=== PATIENT | female | born 1985 | race Caucasian/White ===

== ENCOUNTER 2023-10-15 13:51 | Emergency (ER) | payer SELFPAY ==
[2023-10-15] VITALS (7 sets, daily range): BP systolic 103–133; BP diastolic 70–82; PULSE 70–84; TEMP 36.6; O2SAT 99–100; BMI 24.2
--- NOTE | 2023-10-15 14:09 | ECG_ITS ---
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
--- NOTE | 2023-10-15 14:10 | ED.CHESTPAI1 ---
HPI - Chest Pain General Chief Complaint: Chest Pain Stated Complaint: CHEST PAIN, DIZZY, ARM NUMBNESS Time Seen by Provider: 10/15/23 13:58 History of Present Illness HPI narrative: 37 year old female presents to the ED for chest pain, dizziness. Onset was this morning. Reports a spinning sensation with the dizziness. Her chest pain is worse with inspiration and movement. States she is concerned about . Denies fever, chills, vision changes, CARMICHAEL. denies cough, SOB, N/V/D, abd pain. Denies sinus congestion, sore throat, ear pain. Related Data Previous Rx's ?Medication ?Instructions ?Recorded meclizine 25 mg tablet 25 mg PO TID PRN dizziness #12 tabs 10/15/23 ondansetron 4 mg disintegrating 4 mg PO Q8H PRN nausea and 10/15/23 tablet vomiting 4 days #12 tabs Allergies Allergy/AdvReac Type Severity Reaction Status Date / Time cyclobenzaprine Allergy Severe shortness Verified 10/15/23 14:00 [From Flexeril] of breath ibuprofen [From Motrin] AdvReac Severe shortness Verified 10/15/23 13:55 of breath acetaminophen AdvReac Hives Verified 10/15/23 13:55 [From Darvocet-N] Penicillins AdvReac Anaphylaxis Verified 10/15/23 13:55 propoxyphene AdvReac Hives Verified 10/15/23 13:55 [From Darvocet-N] Review of Systems ROS Constitutional Denies: fever or chills Eyes Denies: change in vision, blurry vision or light sensitivity Ears, nose, mouth, and throat Reports: vertigo; Denies: throat pain, neck pain, ear pain, ear discharge, nasal discharge or nasal congestion Cardiovascular Reports: chest pain; Denies: palpitations, edema or lightheadedness Respiratory Denies: shortness of breath, cough or wheezing Gastrointestinal Denies: abdominal pain, nausea, vomiting or diarrhea Genitourinary Denies: painful urination Musculoskeletal Denies: back pain or neck pain Integumentary/Breast Denies: rash Neurological Reports: dizziness and vertigo; Denies: headache, numbness in extremities, weakness in extremities, lack of coordination, confusion or slurred speech Exam Constitutional Vital Signs, click to edit/add: Last Vital Signs Temp 97.8 F 10/15/23 13:56 Pulse 70 10/15/23 16:33 Resp 18 10/15/23 16:33 BP 107/71 10/15/23 16:33 Pulse Ox 99 10/15/23 16:33 O2 Del Method Room Air 10/15/23 16:33 Common normals: no apparent distress and oriented x3 General appearance: cooperative HENMT Common normals: normocephalic Nose: external nose normal External ear: external ears normal Mouth: oral and palatal mucosa normal, lip normal and tongue normal Throat: posterior oropharynx normal Eye Common normals: PERRL, EOMs intact bilaterally, conjunctivae normal and no scleral icterus Neck & C-Spine Common normals: supple and no meningeal signs Chest Chest: symmetrical chest wall rise Respiratory Common normals: normal respiratory effort, no retractions and clear to auscultation bilaterally Cardio Common normals: regular rate and regular rhythm Neuro Common normals: oriented x3, CN's II-XII intact bilaterally and moves all extremities Sensorium/orientation: awake and alert Speech: speech normal Course Vital Signs Vital signs: Vital Signs Temperature 97.8 F 10/15/23 13:56 Pulse Rate 84 10/15/23 13:56 Respiratory Rate 20 10/15/23 13:56 Blood Pressure 123/82 10/15/23 13:56 Pulse Oximetry 100 10/15/23 13:56 Oxygen Delivery Method Room Air 10/15/23 13:56 Temperature 97.8 F 10/15/23 13:56 Pulse Rate 70 10/15/23 16:33 Respiratory Rate 18 10/15/23 16:33 Blood Pressure 107/71 10/15/23 16:33 Pulse Oximetry 99 10/15/23 16:33 Oxygen Delivery Method Room Air 10/15/23 16:33 MDM - Chest Pain MDM Narrative Medical decision making narrative: was negative. Laboratory studies were unremarkable, including d-dimer. Imaging was negative for acute findings. She reported improvement in her sx with the IV fluids and Antivert. She reported mild chest pain remained; it was worse with movement and inspiration. She declined Toradol; she requested a [place]. OARRS was reviewed. Prescriptions were provided for Antivert and Zofran. She was encouraged to follow up with her pcp for a recheck, further evaluation and treatment. Differential Diagnosis Differential diagnosis: Likely atypical chest pain, st elevation myocardial infarction and other (Vertigo, Dizziness, ) Medical Records Data Attestation: I reviewed the patient's medical records. Lab Data Attestation: I reviewed the patient's lab results. Labs: Lab Results 10/15/23 10/15/23 Range/Units 14:00 14:07 WBC 5.5 (4.0-11.0) 10^3/uL RBC 4.76 (4.20-5.40) 10^6/uL Hgb 14.3 (12.0-16.0) g/dL Hct 43.7 (36.0-48.0) % MCV 91.8 (81.0-99.0) fL MCH 30.0 (26.7-34.0) pg MCHC 32.7 (29.9-35.2) g/dL RDW 12.6 (11.0-15.0) % Plt Count 222 (150-450) 10^3/uL MPV 10.9 (9.5-13.5) fL Neut % (Auto) 68.2 (43.0-75.0) % Lymph % (Auto) 24.4 (20.5-60.0) % [place] % (Auto) 5.9 (1.7-12.0) % Eos % (Auto) 0.6 L (0.9-7.0) % Baso % (Auto) 0.7 (0.2-2.0) % Neut # (Auto) 3.7 (1.4-6.5) 10^3/uL Lymph # (Auto) 1.3 (1.2-3.8) 10^3/uL [place] # (Auto) 0.3 (0.3-0.8) 10^3/uL Eos # (Auto) 0.0 (0.0-0.7) 10^3/uL Baso # (Auto) 0.0 (0.0-0.1) 10^3/uL Abs Immat Gran (auto) 0.01 (0.00-0.03) 10^3/uL Imm/Tot Granulo (auto) 0.2 (0.0-0.5) % D-Dimer 0.24 (<=0.59) mg/L FEU Sodium 140 (136-145) mmol/L Potassium 3.7 (3.5-5.1) mmol/L Chloride 104 (98-107) mmol/L Carbon Dioxide 26.3 (21.0-32.0) mmol/L Anion Gap 13.4 BUN 11.0 (7.0-18.0) mg/dL Creatinine 0.80 (0.55-1.02) mg/dL Est GFR ( Amer) >60 (>=60) Est GFR (Non-Af Amer) >60 (>=60) BUN/Creatinine Ratio 13.8 Glucose 90 (74-106) mg/dL Calcium 8.9 (8.5-10.1) mg/dL Total Bilirubin 0.6 (0.2-1.0) mg/dL AST 18 (15-37) U/L ALT 19 (14-59) U/L Alkaline Phosphatase 65 (46-116) U/L Troponin I High Sens 4.9 (4.0-51.3) pg/mL NT-Pro-B Natriuret Pep 76.0 (<=450.0) pg/mL Total Protein 7.6 (6.4-8.2) g/dL Albumin 4.1 (3.4-5.0) g/dL Globulin 3.5 g/dL Albumin/Globulin Ratio 1.2 HCG, Quant <1 mIU/mL Urine HCG, Qual Negative (NEGATIVE) Imaging Data Chest x-ray: Attestation: I have reviewed the pertinent imaging results. Radiologist's impression: ITS Impressions Chest X-Ray 10/15/23 14:35 IMPRESSION: No acute cardiopulmonary process Electronically authenticated by: MATTHIAS MCCORMICK Date: 10/15/2023 15:17 ECG Data Attestation: ?I have reviewed the pertinent ECG results. (EKG was reviewed by the attending physician. It showed sinus rhythm at a rate of [address] segment changes. QTc 426 ms. ) Interpretation: Measurements Intervals [place] Rate: 80 P: 77 [place]: 156 QRS: 86 QRSD: 84 T: 49 QT: 390 QTc: 426 Interpretive Statements 1100 Sinus rhythm 1102 Sinus arrhythmia 9110 normal ECG No previous ECG available for comparison Heart Score History: Slightly/Non-Suspicious ECG: Normal Age: <45 years Risk Factors: 1 or 2 Risk Factors Troponin: <Normal Limit Total Heart Score Recommendations & Risks:: 1 Discharge Plan Discharge Stand Alone Forms: Portal Instructions Chief Complaint: Chest Pain Clinical Impression: Atypical chest pain, Dizziness, Negative test Patient Disposition: Home, Self-Care Time of Disposition Decision: 16:17 Condition: Good Mode of Transportation: Private Vehicle Prescriptions / Home Meds: New meclizine 25 mg tablet 25 mg PO TID PRN (Reason: dizziness) Qty: 12 0RF ondansetron 4 mg tablet,disintegrating 4 mg PO Q8H PRN (Reason: nausea and vomiting) 4 Days Qty: 12 0RF Print Language: Mohawk Instructions: Chest Pain (ED), Vertigo (ED), Dizziness (ED) Additional Instructions: Return to the ER for new or worsening symptoms. Discharge Date/Time: 10/15/23 16:34
[2023-10-15] MEDS: 0.9 % SODIUM CHLORIDE 1,000 ML 1000 ML IV (14:16)
[2023-10-15 14:22] LABS: Basophils Percent Auto 0.7 % (0.2-2.0); Eosinophils Percent Auto 0.6 % (0.9-7.0); Hematocrit 43.7 % (36.0-48.0); Hemoglobin 14.3 g/dL (12.0-16.0); Immature Granulocytes Abs Auto 0.01 10^3/uL (0.00-0.03); Immature Granulocytes Pct Auto 0.2 % (0.0-0.5); Lymphocytes Absolute Auto 1.3 10^3/uL (1.2-3.8); Lymphocytes Percent Auto 24.4 % (20.5-60.0); Mean Corpuscular HGB Conc 32.7 g/dL (29.9-35.2); Mean Corpuscular Volume 91.8 fL (81.0-99.0); Mean Platelet Volume 10.9 fL (9.5-13.5); Monocytes Absolute Auto 0.3 10^3/uL (0.3-0.8); Monocytes Percent Auto 5.9 % (1.7-12.0); Neutrophils Absolute Auto 3.7 10^3/uL (1.4-6.5); Neutrophils Percent Auto 68.2 % (43.0-75.0); Platelet Count 222 10^3/uL (150-450); Red Blood Count 4.76 10^6/uL (4.20-5.40); Red Cell Distribution Width 12.6 % (11.0-15.0); White Blood Count 5.5 10^3/uL (4.0-11.0)
[2023-10-15 14:32] LABS: HCG Qualitative Urine* NEGATIVE (NEGATIVE); Internal Control Within Normal Limits
--- NOTE | 2023-10-15 14:35 | XR_ITS ---
The [address] [address] Patient Name: MADISON VANCE MRN: [id number] date: 1985 Sex: F Assigned Patient Location: ER Current Patient Location: ER Accession/Order Number: [id number] Exam Date: 10/15/2023 14:58 Report Date: 10/15/2023 15:17 At the request of: ИРИНА KEY Procedure: XR chest 1V EXAMINATION: XR chest 1V HISTORY: Chest pain COMPARISON: 10/26/2021 TECHNIQUE: AP portable FINDINGS: LUNGS: No significant pulmonary parenchymal abnormalities. VASCULATURE: No increased pulmonary vasculature. PLEURA: No pneumothorax, effusion, or pleural thickening. CARDIAC: No cardiomegaly or cardiac silhouette abnormality. MEDIASTINUM: No visible mass or adenopathy. BONES: No fracture or visible bone lesion. OTHER: Negative. XR/XR chest 1V IMPRESSION: No acute cardiopulmonary process Electronically authenticated by: MATTHIAS MCCORMICK Date: 10/15/2023 15:17
[2023-10-15 14:41] LABS: D Dimer 0.24 mg/L FEU (<=0.59)
[2023-10-15] MEDS: MECLIZINE HCL 12.5 MG TABLET 25 MG PO (14:41)
[2023-10-15 14:44] LABS: Alanine Aminotransferase 19 U/L (14-59); Albumin Globulin Ratio 1.2; Albumin Level 4.1 g/dL (3.4-5.0); Alkaline Phosphatase 65 U/L (46-116); Anion Gap 13.4; Aspartate Amino Transferase 18 U/L (15-37); BUN Creatinine Ratio 13.8; Bilirubin Total 0.6 mg/dL (0.2-1.0); Calcium 8.9 mg/dL (8.5-10.1); Carbon Dioxide 26.3 mmol/L (21.0-32.0); Chloride 104 mmol/L (98-107); Estimated GFR (African America >60 (>=60); Estimated GFR (Non-African Ame >60 (>=60); Globulin 3.5 g/dL; Glucose 90 mg/dL (74-106); Potassium 3.7 mmol/L (3.5-5.1); Sodium 140 mmol/L (136-145); Total Protein 7.6 g/dL (6.4-8.2); Troponin I High Sensitivity 4.9 pg/mL (4.0-51.3)
[2023-10-15 15:29] LABS: HCG Quantitative <1 mIU/mL
[2023-10-15] MEDS: HYDROCODONE/ACET 5-325 MG TABLET 1 TAB PO (16:30)
== END 2023-10-15 16:34 | disposition home or self-care (01) ==
PROVIDERS: Nurse Practitioner Family; Emergency Provider Emergency Medicine
DX: R07.89 Other chest pain (principal); R42 Dizziness and giddiness; Z32.02 Encounter for pregnancy test, result negative
CPT/HCPCS: 36415; 71045; 80053; 83880; 84484; 84702; 84703; 85025; 85378; 93005; 96360; 99285

== ENCOUNTER 2024-05-26 22:31 | Emergency (ER) | payer SELFPAY ==
[2024-05-26 22:36] VITALS: BP 102/69; PULSE 86; TEMP 36.6; O2SAT 100; BMI 20.5
--- NOTE | 2024-05-26 23:05 | CT_ITS ---
The [address] [address] Patient Name: MADISON VANCE MRN: [id number] date: 1985 Sex: F Assigned Patient Location: ER Current Patient Location: ER Accession/Order Number: [id number] Exam Date: 05/26/2024 23:35 Report Date: 05/27/2024 01:44 At the request of: MARIE MARKER Procedure: CT abdomen pelvis wo con EXAMINATION:CT abdomen pelvis wo con INDICATION:right flank pain, hx kidney stone COMPARISON:02/22/2022 CT scan TECHNIQUE:Multiple thin section transaxial slices were acquired through the abdomen and pelvis without intravenous contrast. Coronal and sagittal reconstructed images were reviewed. Oral contrastWas not administered. FINDINGS: LOWER CHEST: The lower chest is unremarkable. LIVER: The liver is unremarkable. GALLBLADDER AND BILIARY SYSTEM: No obvious ductal dilation. The gallbladder surgically absent. SPLEEN: There is a similar cyst in the spleen. PANCREAS: The pancreas is unremarkable. ADRENAL GLANDS: The adrenal glands are unremarkable. KIDNEYS AND URETERS: There is no hydronephrosis of the kidneys.No obstructing urologic calcifications are present. VASCULATURE: Vascularity is unremarkable. PERITONEUM/RETROPERITONEUM: There is a trace amount of free fluid in the pelvis which may be physiologic. There is no free air. LYMPH NODES: No suspicious lymphadenopathy. GASTROINTESTINAL TRACT: The bowel is normal in caliber.No acute inflammatory process is associated with the bowel.The appendix is not visualized and may be absent or diminutive. BLADDER: The urinary bladder is unremarkable. REPRODUCTIVE SYSTEM: Reproductive system is unremarkable. BODY WALL: Unremarkable. BONES: Osseous structures are unremarkable. CT/CT abdomen pelvis wo con IMPRESSION: 1. No acute process in the abdomen or pelvis. Electronically authenticated by: NADIYA AUGUST Date: 05/27/2024 01:44
--- NOTE | 2024-05-26 23:15 | ED.BACK1 ---
HPI HPI - Back Pain/Injury General Chief Complaint: Back Pain/Injury Stated Complaint: back pain Time Seen by Provider: 05/26/24 22:38 Source: patient Mode of arrival: ambulance History of Present Illness HPI Narrative: This 38-year-old female presents for evaluation of right flank pain with radiation down the back of her right leg with numbness and tingling down the right leg. She denies any injury. She states the pain started earlier today and despite using a lidocaine patch Tylenol and warm soaks she has not had any relief of her pain. She states she had to call her aunt to help get her out of the shower and called EMS to bring her to the emergency department. She denies any chest pain or shortness of breath. She denies any loss of bowel or bladder control. She does have a kidney stone but does not know which side it is on. Related Data Home Medications ?Medication ?Instructions ?Recorded ?Confirmed acetaminophen 500 mg tablet mg 05/26/24 amlodipine 10 mg tablet mg 05/26/24 promethazine-DM 6.25 mg-15 mg/5 mL ml 05/26/24 oral syrup Previous Rx's ?Medication ?Instructions ?Recorded meclizine 25 mg tablet 25 mg PO TID PRN dizziness #12 tabs 10/15/23 ondansetron 4 mg disintegrating 4 mg PO Q8H PRN nausea and 10/15/23 tablet vomiting 4 days #12 tabs Allergies Allergy/AdvReac Type Severity Reaction Status Date / Time cyclobenzaprine (From Allergy Severe shortness Verified 05/26/24 22:42 Flexeril) of breath ibuprofen (From Motrin) AdvReac Severe shortness Verified 05/26/24 22:42 of breath acetaminophen (From AdvReac Hives Verified 05/26/24 22:42 Darvocet-N) Penicillins AdvReac Anaphylaxis Verified 05/26/24 22:42 propoxyphene (From AdvReac Hives Verified 05/26/24 22:42 Darvocet-N) Opioid HPI Opioid Management Most Recent Opioid Data: Last Pain Scale 7 10/15/23 16:30 10/15/23 Review of Systems ROS Status of ROS 10 or more systems reviewed and unremarkable except as noted in history and below PFSH PFSH Social History Little interest or pleasure in doing things: not at all Feeling down, depressed, or hopeless: not at all Exam Narrative Exam Narrative: Vital signs and Nursing Notes reviewed: Patient is a febrile with a normal pulse, normal blood pressure, she is not hypoxic with pulse ox of 100% on room air General: Awake, alert, oriented thin female, no respiratory distress HEENT: Normocephalic atraumatic, mucous membranes are moist and pink, eyes are clear, normal conjunctiva, vision is grossly intact Neck: Supple, no meningeal signs, no anterior or posterior cervical lymphadenopathy Chest: Lungs are clear to auscultation with good air entry, there is no wheezing rhonchi or rales appreciated no accessory muscle use, patient is speaking in complete sentences-no chest wall tenderness to palpation CVS: Regular rate and rhythm S1-S2, no murmurs rubs or gallops, pulses are brisk and equal bilaterally ABD: Soft, nondistended, nontender, no rebound guarding or rigidity, bowel sounds are normal, no pulsatile masses appreciated, femoral pulses are brisk and equal bilaterally Musc: There is tenderness to palpation in the right mid to lower flank area. No midline bony vertebral tenderness or step-off. No buttock tenderness. Extremities: Moving all extremities, no lower extremity tenderness or swelling noted, negative Homans' sign, pulses are brisk and equal bilaterally Skin: Normal in appearance without rash,pallor, petechiae or purpura Neuro: No focal deficits Constitutional Vital Signs, click to edit/add: Last Vital Signs Temp 97.9 F 05/26/24 22:36 Pulse 86 05/26/24 22:36 Resp 18 05/26/24 22:36 BP 102/69 05/26/24 22:36 Pulse Ox 100 05/26/24 22:36 O2 Del Method Room Air 05/26/24 22:36 Course Vital Signs Vital signs: Vital Signs Temperature 97.9 F 05/26/24 22:36 Pulse Rate 86 05/26/24 22:36 Respiratory Rate 18 05/26/24 22:36 Blood Pressure 102/69 05/26/24 22:36 Pulse Oximetry 100 05/26/24 22:36 Oxygen Delivery Method Room Air 05/26/24 22:36 Temperature 97.9 F 05/26/24 22:36 Pulse Rate 86 05/26/24 22:36 Respiratory Rate 18 05/26/24 22:36 Blood Pressure 102/69 05/26/24 22:36 Pulse Oximetry 100 05/26/24 22:36 Oxygen Delivery Method Room Air 05/26/24 22:36 MDM - Back Pain/Injury MDM Narrative Medical decision making narrative: This 38-year-old female who has a history of kidney stones presents for evaluation of right mid to low back pain times radiates down to her buttock and into her right leg. She has a history of kidney stones but is having minimal nausea. She denies any blood in her urine. She has not had a fever. She has no abdominal pain. She was medicated with morphine and I offered her Valium for muscle spasm which she declined. Routine labs are ordered and are reviewed. She has a normal white count and hemoglobin. Electrolytes are normal. Urine is contaminated but positive for 5-10 white blood cells per high-power field. She is allergic to penicillin was given a dose of Cipro. CT scan of the abdomen pelvis which is included in the body of this report does not show any acute findings contributory to the patient's complaint of pain. My suspicion is that she has a lumbar strain with lumbar radiculopathy. She will be medicated with a dose of [place] prior to discharge and discharged home with prescription for [place], Robaxin and ibuprofen as well as cipro for a total of 3 days Medical Records Medical records narrative: The [address] [address] [address] Scan Report Signed Patient: MADISON VANCE MR#: [id number] : 1985 Acct:[id number] Age/Sex: 38 / F ADM Date: 05/26/24 Loc: ER Attending Dr: Ordering Physician: Marie Bellamy Date of Service: 05/26/24 Procedure(s): CT abdomen pelvis wo con Accession Number(s): [id number] cc: Physician,Non-Staff M.DChastity~ The [address] [address] Patient Name: MADISON VANCE MRN: [id number] date: 1985 Sex: F Assigned Patient Location: ER Current Patient Location: ER Accession/Order Number: [id number] Exam Date: 05/26/2024 23:35 Report Date: 05/27/2024 01:44 At the request of: MARIE MARKER Procedure: CT abdomen pelvis wo con EXAMINATION:CT abdomen pelvis wo con INDICATION:right flank pain, hx kidney stone COMPARISON:02/22/2022 CT scan TECHNIQUE:Multiple thin section transaxial slices were acquired through the abdomen and pelvis without intravenous contrast. Coronal and sagittal reconstructed images were reviewed. Oral contrastWas not administered. FINDINGS: LOWER CHEST: The lower chest is unremarkable. LIVER: The liver is unremarkable. GALLBLADDER AND BILIARY SYSTEM: No obvious ductal dilation. The gallbladder surgically absent. SPLEEN: There is a similar cyst in the spleen. PANCREAS: The pancreas is unremarkable. ADRENAL GLANDS: The adrenal glands are unremarkable. KIDNEYS AND URETERS: There is no hydronephrosis of the kidneys.No obstructing urologic calcifications are present. VASCULATURE: Vascularity is unremarkable. PERITONEUM/RETROPERITONEUM: There is a trace amount of free fluid in the pelvis which may be physiologic. There is no free air. LYMPH NODES: No suspicious lymphadenopathy. GASTROINTESTINAL TRACT: The bowel is normal in caliber.No acute inflammatory process is associated with the bowel.The appendix is not visualized and may be absent or diminutive. BLADDER: The urinary bladder is unremarkable. REPRODUCTIVE SYSTEM: Reproductive system is unremarkable. BODY WALL: Unremarkable. BONES: Osseous structures are unremarkable. CT/CT abdomen pelvis wo con IMPRESSION: 1. No acute process in the abdomen or pelvis. Lab Data Attestation: I reviewed the patient's lab results. Labs: Lab Results 05/26/24 Range/Units 23:23 WBC 6.5 (4.0-11.0) 10^3/uL RBC 4.44 (4.20-5.40) 10^6/uL Hgb 13.3 (12.0-16.0) g/dL Hct 39.9 (36.0-48.0) % MCV 89.9 (81.0-99.0) fL MCH 30.0 (26.7-34.0) pg MCHC 33.3 (29.9-35.2) g/dL RDW 12.9 (11.0-15.0) % Plt Count 192 (150-450) 10^3/uL MPV 10.8 (9.5-13.5) fL Neut % (Auto) 56.1 (43.0-75.0) % Lymph % (Auto) 33.1 (20.5-60.0) % [place] % (Auto) 6.6 (1.7-12.0) % Eos % (Auto) 3.1 (0.9-7.0) % Baso % (Auto) 0.9 (0.2-2.0) % Neut # (Auto) 3.6 (1.4-6.5) 10^3/uL Lymph # (Auto) 2.1 (1.2-3.8) 10^3/uL [place] # (Auto) 0.4 (0.3-0.8) 10^3/uL Eos # (Auto) 0.2 (0.0-0.7) 10^3/uL Baso # (Auto) 0.1 (0.0-0.1) 10^3/uL Abs Immat Gran (auto) 0.01 (0.00-0.03) 10^3/uL Imm/Tot Granulo (auto) 0.2 (0.0-0.5) % Sodium 141 (136-145) mmol/L Potassium 3.7 (3.5-5.1) mmol/L Chloride 106 (98-107) mmol/L Carbon Dioxide 27.9 (21.0-32.0) mmol/L Anion Gap 10.8 BUN 8.0 (7.0-18.0) mg/dL Creatinine 0.87 (0.55-1.02) mg/dL Est GFR ( Amer) >60 (>=60 mL/min/1.73m^2) Est GFR (Non-Af Amer) >60 (>=60 mL/min/1.73m^2) BUN/Creatinine Ratio 9.2 Glucose 88 (74-106) mg/dL Calcium 8.3 L (8.5-10.1) mg/dL Total Bilirubin 0.3 (0.2-1.0) mg/dL AST 12 L (15-37) U/L ALT 13 L (14-59) U/L Alkaline Phosphatase 63 (46-116) U/L Total Protein 6.6 (6.4-8.2) g/dL Albumin 3.4 (3.4-5.0) g/dL Globulin 3.2 g/dL Albumin/Globulin Ratio 1.1 Urine Color Yellow (YELLOW) Urine Clarity Clear (CLEAR) Urine pH 5.5 (5.0-9.0) Ur Specific [place] >=1.030 A (1.005-1.025) Urine Protein Trace (NEG/TRACE) mg/dL Urine Glucose (UA) Negative (NEGATIVE) mg/dL Urine Ketones Negative (NEGATIVE) mg/dL Urine Occult Blood Negative (NEGATIVE) Urine Nitrite Positive A (NEGATIVE) Urine Bilirubin Negative (NEGATIVE) Urine Urobilinogen 1.0 (0.2-1.0) EU/dL Ur Leukocyte Esterase Negative (NEGATIVE) Urine RBC 0-2 (0-2) #/HPF Urine WBC 5-10 A (NONE SEEN) #/HPF Ur Squamous Epith Cells Few A (NONE/RARE) #/LPF Ur Transition Epith Cell Few A (NONE SEEN) #/LPF Urine Crystals None seen (None Seen) #/HPF Urine Bacteria Moderate A (NONE SEEN) #/HPF Urine Casts None seen (NONE SEEN) #/LPF Urine Mucus Large A (NONE SEEN) Ur Culture Indicated? Yes Discharge Plan Discharge Chief Complaint: Back Pain/Injury Clinical Impression: Strain of lumbar region, Lumbar radiculopathy Patient Disposition: Home, Self-Care Time of Disposition Decision: 02:04 Condition: Good Prescriptions / Home Meds: No Action meclizine 25 mg tablet 25 mg PO TID PRN (Reason: dizziness) Qty: 12 0RF ondansetron 4 mg tablet,disintegrating 4 mg PO Q8H PRN (Reason: nausea and vomiting) 4 Days Qty: 12 0RF promethazine-DM 6.25-15 mg/5 mL syrup acetaminophen 500 mg tablet amlodipine 10 mg tablet Print Language: Romanian Instructions: Low Back Strain (ED), Lumbar Radiculopathy (ED) Referrals: Physician,Non-Staff, MD [Primary Care Provider] - 1 week
[2024-05-26] MEDS: ONDANSETRON PF 4 MG/2 ML VIAL IV (23:27)
[2024-05-26] MEDS: MORPHINE SULFATE 4 MG/ML VIAL IV (23:28)
[2024-05-27] LABS: Basophils Absolute Auto 0.1 10^3/uL (0.0-0.1); Basophils Percent Auto 0.9 % (0.2-2.0); Eosinophils Absolute Auto 0.2 10^3/uL (0.0-0.7); Eosinophils Percent Auto 3.1 % (0.9-7.0); Hematocrit 39.9 % (36.0-48.0); Hemoglobin 13.3 g/dL (12.0-16.0); Immature Granulocytes Abs Auto 0.01 10^3/uL (0.00-0.03); Immature Granulocytes Pct Auto 0.2 % (0.0-0.5); Lymphocytes Absolute Auto 2.1 10^3/uL (1.2-3.8); Lymphocytes Percent Auto 33.1 % (20.5-60.0); Mean Corpuscular HGB Conc 33.3 g/dL (29.9-35.2); Mean Corpuscular Volume 89.9 fL (81.0-99.0); Mean Platelet Volume 10.8 fL (9.5-13.5); Monocytes Absolute Auto 0.4 10^3/uL (0.3-0.8); Monocytes Percent Auto 6.6 % (1.7-12.0); Neutrophils Absolute Auto 3.6 10^3/uL (1.4-6.5); Neutrophils Percent Auto 56.1 % (43.0-75.0); Platelet Count 192 10^3/uL (150-450); Red Blood Count 4.44 10^6/uL (4.20-5.40); Red Cell Distribution Width 12.9 % (11.0-15.0); White Blood Count 6.5 10^3/uL (4.0-11.0)
[2024-05-27 00:01] LABS: Bilirubin Urine NEGATIVE (NEGATIVE); Blood Urine NEGATIVE (NEGATIVE); Clarity Urine CLEAR (CLEAR); Color Urine YELLOW (YELLOW); Glucose Urine UA NEGATIVE (NEGATIVE); Ketones Urine NEGATIVE (NEGATIVE); Leukocyte Esterase Urine NEGATIVE (NEGATIVE); Nitrite Urine POSITIVE (NEGATIVE); Protein Urine TRACE mg/dL (NEG/TRACE); Specific Gravity Urine >=1.030 (1.005-1.025); pH Urine 5.5 (5.0-9.0)
[2024-05-27 00:10] LABS: Bacteria Urine MODERATE #/HPF (NONE SEEN); Cast Seen? NONE SEEN #/LPF (NONE SEEN); Crystals Seen? None Seen #/HPF (None Seen); Mucus Urine LARGE (NONE SEEN); RBC Urine 0-2 #/HPF (0-2); Squamous Epithelial Cell Urine FEW #/LPF (NONE/RARE); Transitional Epi Cells Urine FEW #/LPF (NONE SEEN); Urine Culture Indicated YES
[2024-05-27 00:23] LABS: Alanine Aminotransferase 13 U/L (14-59); Albumin Globulin Ratio 1.1; Albumin Level 3.4 g/dL (3.4-5.0); Alkaline Phosphatase 63 U/L (46-116); Anion Gap 10.8; Aspartate Amino Transferase 12 U/L (15-37); BUN Creatinine Ratio 9.2; Bilirubin Total 0.3 mg/dL (0.2-1.0); Calcium 8.3 mg/dL (8.5-10.1); Carbon Dioxide 27.9 mmol/L (21.0-32.0); Chloride 106 mmol/L (98-107); Estimated GFR (African America >60 (>=60 mL/min/1.73m^2); Estimated GFR (Non-African Ame >60 (>=60 mL/min/1.73m^2); Globulin 3.2 g/dL; Glucose 88 mg/dL (74-106); Potassium 3.7 mmol/L (3.5-5.1); Sodium 141 mmol/L (136-145); Total Protein 6.6 g/dL (6.4-8.2)
[2024-05-27] MEDS: CIPROFLOXACIN HCL 500 MG TABLET PO (02:21)
[2024-05-27] MEDS: HYDROCODONE/ACET 5-325 MG TABLET 1 TAB PO (02:21)
== END 2024-05-27 02:33 | disposition home or self-care (01) ==
PROVIDERS: Emergency Provider Emergency Medicine
DX: S39.012A Strain of muscle, fascia and tendon of lower back, initial encounter (principal); M54.16 Radiculopathy, lumbar region; Z90.49 Acquired absence of other specified parts of digestive tract; X58.XXXA Exposure to other specified factors, initial encounter; Z87.442 Personal history of urinary calculi; Z88.0 Allergy status to penicillin
CPT/HCPCS: 36415; 74176; 80053; 81001; 85025; 87086; 87150; 87186; 96374; 96375; 99284; J2270; J2405

== ENCOUNTER 2024-06-17 15:59 | Emergency (ER) | payer OTHER, SELFPAY ==
[2024-06-17 16:06] VITALS: BP 115/80; PULSE 113; TEMP 36.9; O2SAT 94; BMI 18.3
[2024-06-17 16:34] LABS: Basophils Absolute Auto 0.1 10^3/uL (0.0-0.1); Eosinophils Absolute Auto 0.1 10^3/uL (0.0-0.7); Hematocrit 41.3 % (36.0-48.0); Hemoglobin 14.2 g/dL (12.0-16.0); Immature Granulocytes Abs Auto 0.02 10^3/uL (0.00-0.03); Immature Granulocytes Pct Auto 0.3 % (0.0-0.5); Lymphocytes Absolute Auto 1.8 10^3/uL (1.2-3.8); Lymphocytes Percent Auto 29.2 % (20.5-60.0); Mean Corpuscular HGB Conc 34.4 g/dL (29.9-35.2); Mean Corpuscular Hemoglobin 30.2 pg (26.7-34.0); Mean Corpuscular Volume 87.9 fL (81.0-99.0); Mean Platelet Volume 10.8 fL (9.5-13.5); Monocytes Absolute Auto 0.4 10^3/uL (0.3-0.8); Monocytes Percent Auto 7.3 % (1.7-12.0); Neutrophils Absolute Auto 3.7 10^3/uL (1.4-6.5); Neutrophils Percent Auto 61.2 % (43.0-75.0); Platelet Count 191 10^3/uL (150-450); Red Cell Distribution Width 12.6 % (11.0-15.0)
[2024-06-17 16:49] LABS: HCG Qualitative NEGATIVE (NEGATIVE); Internal Control Within Normal Limits
[2024-06-17] MEDS: 0.9 % SODIUM CHLORIDE 1,000 ML 1000 ML IV (16:51)
[2024-06-17] MEDS: KETOROLAC TROMETHAMINE 30 MG/ML VIAL 15 MG IVP (16:51)
[2024-06-17 16:53] LABS: Alanine Aminotransferase 14 U/L (14-59); Albumin Globulin Ratio 1.1; Albumin Level 3.9 g/dL (3.4-5.0); Alkaline Phosphatase 62 U/L (46-116); Anion Gap 11.7; Aspartate Amino Transferase 18 U/L (15-37); BUN Creatinine Ratio 12.6; Bilirubin Total 0.4 mg/dL (0.2-1.0); Calcium 9.3 mg/dL (8.5-10.1); Carbon Dioxide 25.7 mmol/L (21.0-32.0); Chloride 105 mmol/L (98-107); Estimated GFR (African America >60 (>=60 mL/min/1.73m^2); Estimated GFR (Non-African Ame >60 (>=60 mL/min/1.73m^2); Globulin 3.5 g/dL; Glucose 90 mg/dL (74-106); Potassium 3.4 mmol/L (3.5-5.1); Sodium 139 mmol/L (136-145); Total Protein 7.4 g/dL (6.4-8.2)
--- NOTE | 2024-06-17 17:12 | ED_ITS ---
HPI HPI - General Adult General Chief complaint: Back Pain/Injury Stated complaint: BACK PAIN Time Seen by Provider: 06/17/24 16:16 Source: patient Mode of arrival: walk-in Limitations: no limitations History of Present Illness HPI narrative: Patient with history of spleen aneurysm according to her previous presentation, and apparently she is coming to the ER with a right sided abdominal pain, The patient mentioned that the patient the pain in her flank pain , not associate with any radiation that she is with any nausea or vomiting Related Data Home Medications ?Medication ?Instructions ?Recorded ?Confirmed acetaminophen 500 mg tablet mg 05/26/24 amlodipine 10 mg tablet mg 05/26/24 promethazine-DM 6.25 mg-15 mg/5 mL ml 05/26/24 oral syrup Previous Rx's ?Medication ?Instructions ?Recorded meclizine 25 mg tablet 25 mg PO TID PRN dizziness #12 tabs 10/15/23 ondansetron 4 mg disintegrating 4 mg PO Q8H PRN nausea and 10/15/23 tablet vomiting 4 days #12 tabs diclofenac sodium 75 mg 75 mg PO BID PRN pain #10 tabs 06/17/24 tablet,delayed release orphenadrine citrate 100 mg 100 mg PO BID PRN muscle spasm #14 06/17/24 tablet,extended release tabs Allergies Allergy/AdvReac Type Severity Reaction Status Date / Time cyclobenzaprine (From Allergy Severe shortness Verified 05/26/24 22:42 Flexeril) of breath ibuprofen (From Motrin) AdvReac Severe shortness Verified 05/26/24 22:42 of breath acetaminophen (From AdvReac Hives Verified 05/26/24 22:42 Darvocet-N) Penicillins AdvReac Anaphylaxis Verified 05/26/24 22:42 propoxyphene (From AdvReac Hives Verified 05/26/24 22:42 Darvocet-N) Opioid HPI Opioid Management Most Recent Opioid Data: Last Pain Scale 10 06/17/24 18:43 06/17/24 Last ED Pain Assessment 06/17/24 18:43 Last MAR Pain Assessment 06/17/24 17:52 Ur Phencyclidine Scrn Negative (NEGATIVE) 06/17/24 17:45 05/25 09/14 Review of Systems ROS Status of ROS 10 or more systems reviewed and unremark able except as noted in history and below PFSH PFSH Social History Little interest or pleasure in doing things: not at all Feeling down, depressed, or hopeless: not at all Exam Narrative Exam Narrative: Nurses notes and vital signs reviewed and patient is not hypoxic. General: Well-appearing and in no apparent distress. Skin: Warm, dry, no pallor noted. No rash. Head: Normocephalic, atraumatic. Neck: Supple, non-tender. Eye: Pupils are equal, round and EOMI. No scleral icterus. Ears, Nose, Mouth, and Throat: TM are clear, no nasal mucosal hypertrophy. Oral mucosa is moist, no posterior oropharynx erythema, uvula is mid-line Cardiovascular: Regular Rate and Rhythm without murmur, gallop or rub. Respiratory: No accessory muscle use or respiratory distress. Lungs are clear to auscultation, no wheezing, rales or rhonchi Chest Wall: no tenderness Back: No midline thoracic or lumbar vertebral tenderness. No CVA tenderness Musculoskeletal: normal ROM, no calf or popliteal tenderness, no lower extremity edema/swelling GI: Abdomen is soft, non-distended. Normal bowel sounds. No masses appreciated. No tenderness to palpation. No rebound, guarding, or rigidity noted. Constitutional Vital Signs, click to edit/add: Last Vital Signs Temp 98.5 F 06/17/24 16:06 Pulse 113 H 06/17/24 16:06 Resp 18 06/17/24 16:06 BP 115/80 06/17/24 16:06 Pulse Ox 94 L 06/17/24 16:06 O2 Del Method Room Air 06/17/24 16:06 Course Vital Signs Vital signs: Vital Signs Temperature 98.5 F 06/17/24 16:06 Pulse Rate 113 H 06/17/24 16:06 Respiratory Rate 18 06/17/24 16:06 Blood Pressure 115/80 06/17/24 16:06 Pulse Oximetry 94 L 06/17/24 16:06 Oxygen Delivery Method Room Air 06/17/24 16:06 Temperature 98.5 F 06/17/24 16:06 Pulse Rate 113 H 06/17/24 16:06 Respiratory Rate 18 06/17/24 16:06 Blood Pressure 115/80 06/17/24 16:06 Pulse Oximetry 94 L 06/17/24 16:06 Oxygen Delivery Method Room Air 06/17/24 16:06 Medical Decision Making MDM Narrative Medical decision making narrative: The patient examination was benign I could not induce the abdominal pain CBC and chemistry showed no acute pathology She had a CAT scan at the earlier this month and it does not show any acute pa thology as well It was noted that the patient just requesting pain medication all the time that she was here and she said that she was here before and she was transferred to another hospital because her pain was intractable although that was not obvious on previous encounters when I reviewed them The patient CAT scan did not show any acute pathology and I did initially treat her with morphine but she requested that the pain is 10 out of 10 and she would like some Dilaudid In this presentation I could not an active reason for the patient pain it could be only secondary to back pain The patient was not provided with Norflex as well as Voltaren after her workup in the ER showed no acute pathology regarding abdomen but she does have some disc disease that could be the reason for her pain Patient was discharged to follow-up with her doctor as outpatient Lab Data Labs: Lab Results 06/17/24 06/17/24 Range/Units 16:30 17:45 WBC 6.0 (4.0-11.0) 10^3/uL RBC 4.70 (4.20-5.40) 10^6/uL Hgb 14.2 (12.0-16.0) g/dL Hct 41.3 (36.0-48.0) % MCV 87.9 (81.0-99.0) fL MCH 30.2 (26.7-34.0) pg MCHC 34.4 (29.9-35.2) g/dL RDW 12.6 (11.0-15.0) % Plt Count 191 (150-450) 10^3/uL MPV 10.8 (9.5-13.5) fL Neut % (Auto) 61.2 (43.0-75.0) % Lymph % (Auto) 29.2 (20.5-60.0) % [place] % (Auto) 7.3 (1.7-12.0) % Eos % (Auto) 1.0 (0.9-7.0) % Baso % (Auto) 1.0 (0.2-2.0) % Neut # (Auto) 3.7 (1.4-6.5) 10^3/uL Lymph # (Auto) 1.8 (1.2-3.8) 10^3/uL [place] # (Auto) 0.4 (0.3-0.8) 10^3/uL Eos # (Auto) 0.1 (0.0-0.7) 10^3/uL Baso # (Auto) 0.1 (0.0-0.1) 10^3/uL Abs Immat Gran (auto) 0.02 (0.00-0.03) 10^3/uL Imm/Tot Granulo (auto) 0.3 (0.0-0.5) % Sodium 139 (136-145) mmol/L Potassium 3.4 L (3.5-5.1) mmol/L Chloride 105 (98-107) mmol/L Carbon Dioxide 25.7 (21.0-32.0) mmol/L Anion Gap 11.7 BUN 11.0 (7.0-18.0) mg/dL Creatinine 0.87 (0.55-1.02) mg/dL Est GFR ( Amer) >60 (>=60 mL/min/1.73m^2) Est GFR (Non-Af Amer) >60 (>=60 mL/min/1.73m^2) BUN/Creatinine Ratio 12.6 Glucose 90 (74-106) mg/dL Calcium 9.3 (8.5-10.1) mg/dL Total Bilirubin 0.4 (0.2-1.0) mg/dL AST 18 (15-37) U/L ALT 14 (14-59) U/L Alkaline Phosphatase 62 (46-116) U/L Total Protein 7.4 (6.4-8.2) g/dL Albumin 3.9 (3.4-5.0) g/dL Globulin 3.5 g/dL Albumin/Globulin Ratio 1.1 Serum HCG, Qual Negative (NEGATIVE) Urine Color Yellow (YELLOW) Urine Clarity Clear (CLEAR) Urine pH 5.5 (5.0-9.0) Ur Specific [place] >=1.030 A (1.005-1.025) Urine Protein Negative (NEG/TRACE) mg/dL Urine Glucose (UA) Negative (NEGATIVE) mg/dL Urine Ketones Trace A (NEGATIVE) mg/dL Urine Occult Blood Negative (NEGATIVE) Urine Nitrite Negative (NEGATIVE) Urine Bilirubin Negative (NEGATIVE) Urine Urobilinogen 0.2 (0.2-1.0) EU/dL Ur Leukocyte Esterase Negative (NEGATIVE) Urine Opiates Screen Negative (NEGATIVE) Ur Buprenorphine Scrn Negative (NEGATIVE) Ur Oxycodone Screen Negative (NEGATIVE) Urine Methadone Screen Negative (NEGATIVE) Ur Barbiturates Screen Negative (NEGATIVE) U Tricyclic Antidepress Negative (NEGATIVE) Ur Phencyclidine Scrn Negative (NEGATIVE) Ur Amphetamines Screen Negative (NEGATIVE) U Methamphetamines Scrn Negative (NEGATIVE) U Benzodiazepines Scrn Negative (NEGATIVE) Urine Cocaine Screen Negative (NEGATIVE) U Cannabinoids Screen Negative (NEGATIVE) Discharge Plan Discharge Chief Complaint: Back Pain/Injury Clinical Impression: Abdominal pain, Back pain Patient Disposition: Home, Self-Care Time of Disposition Decision: 18:52 Condition: Good Prescriptions / Home Meds: New orphenadrine citrate 100 mg tablet extended release 100 mg PO BID PRN (Reason: muscle spasm) Qty: 14 0RF diclofenac sodium 75 mg tablet,delayed release (DR/EC) 75 mg PO BID PRN (Reason: pain ) Qty: 10 0RF No Action meclizine 25 mg tablet 25 mg PO TID PRN (Reason: dizziness) Qty: 12 0RF ondansetron 4 mg tablet,disintegrating 4 mg PO Q8H PRN (Reason: nausea and vomiting) 4 Days Qty: 12 0RF promethazine-DM 6.25-15 mg/5 mL syrup acetaminophen 500 mg tablet amlodipine 10 mg tablet Print Language: Swedish Instructions: Back Pain (ED) Referrals: Physician,Non-Staff, MD [Primary Care Provider] - 1 week
[2024-06-17] MEDS: MORPHINE SULFATE 2 MG/ML SYRINGE IV (17:52)
[2024-06-17 18:12] LABS: Bilirubin Urine NEGATIVE (NEGATIVE); Blood Urine NEGATIVE (NEGATIVE); Clarity Urine CLEAR (CLEAR); Color Urine YELLOW (YELLOW); Glucose Urine UA NEGATIVE (NEGATIVE); Ketones Urine TRACE mg/dL (NEGATIVE); Leukocyte Esterase Urine NEGATIVE (NEGATIVE); Nitrite Urine NEGATIVE (NEGATIVE); Protein Urine NEGATIVE (NEG/TRACE); Specific Gravity Urine >=1.030 (1.005-1.025); Urobilinogen Urine 0.2 EU/dL (0.2-1.0); pH Urine 5.5 (5.0-9.0)
[2024-06-17 18:15] LABS: Urine Microscopic Indicated NO
[2024-06-17 18:26] LABS: Amphetamine Screen Urine NEGATIVE (NEGATIVE); Barbiturates Screen Urine NEGATIVE (NEGATIVE); Benzodiazepines Screen Urine NEGATIVE (NEGATIVE); Buprenorphine Screen Urine NEGATIVE (NEGATIVE); Cannabinoid Screen Urine NEGATIVE (NEGATIVE); Cocaine Screen Urine NEGATIVE (NEGATIVE); Methadone Screen Urine NEGATIVE (NEGATIVE); Methamphetamines Screen Urine NEGATIVE (NEGATIVE); Opiate Screen Urine NEGATIVE (NEGATIVE); Oxycodone Screen Urine NEGATIVE (NEGATIVE); Phencyclidine Screen Urine NEGATIVE (NEGATIVE); Tricyclic Antidepressant Urine NEGATIVE (NEGATIVE)
== END 2024-06-17 19:09 | disposition home or self-care (01) ==
PROVIDERS: Emergency Provider Emergency Medicine
DX: R10.84 Generalized abdominal pain (principal); M54.9 Dorsalgia, unspecified; R10.31 Right lower quadrant pain
CPT/HCPCS: 36415; 74177; 80053; 80307; 81003; 84703; 85025; 96374; 96375; 99285; J1885; J2270; Q9967

== ENCOUNTER 2024-08-21 22:09 | Emergency (ER) | payer OTHER, SELFPAY ==
[2024-08-21 22:14] VITALS: BP 120/83; PULSE 89; TEMP 36.8; O2SAT 98; BMI 18.9
[2024-08-21] MEDS: ONDANSETRON PF 4 MG/2 ML VIAL IV (22:54)
[2024-08-21] MEDS: 0.9 % SODIUM CHLORIDE 1,000 ML 500 ML IV (22:54)
[2024-08-21] MEDS: MORPHINE SULFATE 2 MG/ML SYRINGE IV (22:55)
[2024-08-21 22:56] LABS: Basophils Percent Auto 0.7 % (0.2-2.0); Eosinophils Absolute Auto 0.1 10^3/uL (0.0-0.7); Eosinophils Percent Auto 1.1 % (0.9-7.0); Hematocrit 38.8 % (36.0-48.0); Hemoglobin 13.3 g/dL (12.0-16.0); Lymphocytes Absolute Auto 1.8 10^3/uL (1.2-3.8); Lymphocytes Percent Auto 32.2 % (20.5-60.0); Mean Corpuscular HGB Conc 34.3 g/dL (29.9-35.2); Mean Corpuscular Hemoglobin 30.4 pg (26.7-34.0); Mean Corpuscular Volume 88.6 fL (81.0-99.0); Mean Platelet Volume 10.6 fL (9.5-13.5); Monocytes Absolute Auto 0.4 10^3/uL (0.3-0.8); Monocytes Percent Auto 7.8 % (1.7-12.0); Neutrophils Absolute Auto 3.3 10^3/uL (1.4-6.5); Neutrophils Percent Auto 58.2 % (43.0-75.0); Platelet Count 185 10^3/uL (150-450); Red Blood Count 4.38 10^6/uL (4.20-5.40); Red Cell Distribution Width 12.4 % (11.0-15.0); White Blood Count 5.6 10^3/uL (4.0-11.0)
[2024-08-21 23:15] LABS: Lactate/Lactic Acid 0.9 mmol/L (0.4-2.0)
[2024-08-21 23:22] LABS: Alanine Aminotransferase 18 U/L (14-59); Albumin Level 3.6 g/dL (3.4-5.0); Alkaline Phosphatase 71 U/L (46-116); Anion Gap 12.6; Aspartate Amino Transferase 16 U/L (15-37); BUN Creatinine Ratio 11.7; Bilirubin Total 0.3 mg/dL (0.2-1.0); Calcium 9.2 mg/dL (8.5-10.1); Chloride 102 mmol/L (98-107); Estimated GFR (African America >60 (>=60 mL/min/1.73m^2); Estimated GFR (Non-African Ame >60 (>=60 mL/min/1.73m^2); Globulin 3.5 g/dL; Glucose 84 mg/dL (74-106); Potassium 3.6 mmol/L (3.5-5.1); Sodium 139 mmol/L (136-145); Total Protein 7.1 g/dL (6.4-8.2)
--- NOTE | 2024-08-21 23:37 | ED_ITS ---
HPI - Abdominal Pain General Chief Complaint: Abdominal Pain Stated Complaint: Abdominal Pain Time Seen by Provider: 08/21/24 22:17 Source: patient Mode of arrival: walk-in Limitations: no limitations History of Present Illness HPI narrative: Patient is a 38-year-old female presenting to the emergency room for abdominal pain. The patient's states the abdominal pain is 10 out of 10. She has 2 known abdominal aneurysms. She was supposed to get them repaired in February 2024 but she stated she did not get it done because she was scared. Patient stated that she does not know the name of the physician that she saw. She does not know where her aneurysms are, she just knows that they are in her abdomen. Patient denies any fever or chills. She denies any nausea or vomiting. She denies any diarrhea or constipation. She states that she has had a poor appetite. Pain is so severe it radiates down the anterior portions of her leg. She denies any dysuria, hematuria, urgency or frequency. Unknown what makes it worse. Nothing makes it better. She is a chronic pain but today it was acutely exacerbated. Related Data Previous Rx's ?Medication ?Instructions ?Recorded ondansetron 4 mg disintegrating 4 mg PO Q8H PRN nausea and 10/15/23 tablet vomiting 4 days #12 tabs dicyclomine 20 mg tablet 20 mg PO QID PRN abdominal p ain 08/22/24 #14 tabs ondansetron 4 mg disintegrating 4 mg PO Q6H PRN nausea and 08/22/24 tablet vomiting #10 tabs Allergies Allergy/AdvReac Type Severity Reaction Status Date / Time cyclobenzaprine (From Allergy Severe shortness Verified 08/21/24 22:17 Flexeril) of breath ibuprofen (From Motrin) AdvReac Severe shortness Verified 08/21/24 22:17 of breath acetaminophen (From AdvReac Hives Verified 08/21/24 22:17 Darvocet-N) Penicillins AdvReac Anaphylaxis Verified 08/21/24 22:17 propoxyphene (From AdvReac Hives Verified 08/21/24 22:17 Darvocet-N) Review of Systems ROS Narrative 10 Systems were reviewed, and unless not ed in the HPI, all other systems are reviewed, unremarkable, or noncontributory. PFSH PFS Social History Little interest or pleasure in doing things: not at all Feeling down, depressed, or hopeless: not at all Exam Narrative Exam Narrative: Prior to examining the patient, I have washed with hospital approved and provided Antiseptic Hand Realtime Captioner and have also applied gloves.? Prior to touching the patient, I asked for consent to examine the patient.? General: Alert and oriented, well nourished, writhing around in bed. Moderate distress. Eye: PERRL, EOMI, normal conjunctiva. HENT: Normocephalic, normal hearing, moist oral mucosa, no scleral icterus, no sinus tenderness. Neck: Supple, non-tender, no carotid bruits, no JVD, no lymphadenopathy. Lungs: Clear to auscultation and percussion, non-labored respiration. No rhonchi, rales, wheezing Heart: Normal rate, regular rhythm, no murmur, gallop or edema. Abdomen: Soft, tender to touch the patient's shirt. Ubiquitous tender with guarding, non-distended, normal bowel sounds, no masses. Musculoskeletal: Normal range of motion and strength, no tenderness or swelling. Skin: Skin is warm, dry and pink, no rashes or lesions. Neurologic: Awake, alert, and oriented X3, CN II-XII intact. Psychiatric: Cooperative, appropriate mood and affect.? Following the conclusion of the examination, I have washed my hands thoroughly after removing examination gloves. Constitutional Vital Signs, click to edit/add: Last Vital Signs Temp 98.3 F 08/21/24 22:14 Pulse 89 08/21/24 22:14 Resp 18 08/21/24 22:14 BP 120/83 08/21/24 22:14 Pulse Ox 98 08/21/24 22:14 O2 Del Method Room Air 08/21/24 22:14 Course Course Hospital Course: Patient was seen in the emergency room. Had IV placed. Saline was provided. Patient received analgesic medication. She received antiemetics as well. Reevaluation(s) Reevaluation #1: Call light placed for worsening abdominal pain. Go in and find the patient hyperventilating and sitting in the seated position holding her abdomen. Patient is crying. States the abdominal pain is abruptly worsened. Patient had already been given morphine 2 mg IV push on arrival. I quickly ordered 4 mg of morphine but I had went in the room with ultrasound machine and did a FAST exam. There is no evidence of any free fluid in the abdomen. Time: 23:37 Reevaluation #2: I was called by the multi care technician who indicated to me that the patient is refusing intervenous contrast. Patient states that she does not like the way it makes her feel . I did urge the patient to please consider getting the contrast because she is very small and has small amount of visceral fat which will not delineate organs very well. I also indicated that it would be ineffective and looking at her aneurysms properly. The patient however refused any further consideration of the IV contrast and insisted on having it without. Time: 00:02 Reevaluation #3: The CTs can came back and revealed prominent formed colonic stool suggesting constipation, no bowel obstruction or perforation, no acute appendicitis colitis or diverticulitis. In the pelvis it explicitly stated that there is a large amount of formed colonic stool. Patient indicates that she has a normal bowel movement every day and she does not have to go. She stating that this is not the cause of her abdominal pain. I did state to her that I was not stating that she did have abdominal pain but rather was pointing out that she did not have any type of surgical intervention that was appreciable on her exam. I did tell the patient I did not feel comfortable providing her with any more narcotic analgesia because the patient has constipation and its further gone to make it worse. I did tell the patient I would give her dicyclomine and Toradol here in the emergency department to see if that provided her any more relief. At this time I have nothing else to offer the patient at this time. Time: 00:54 Vital Signs Vital signs: Vital Signs Temperature 98.3 F 08/21/24 22:14 Pulse Rate 89 08/21/24 22:14 Respiratory Rate 18 08/21/24 22:14 Blood Pressure 120/83 08/21/24 22:14 Pulse Oximetry 98 08/21/24 22:14 Oxygen Delivery Method Room Air 08/21/24 22:14 Temperature 98.3 F 08/21/24 22:14 Pulse Rate 89 08/21/24 22:14 Respiratory Rate 18 08/21/24 22:14 Blood Pressure 120/83 08/21/24 22:14 Pulse Oximetry 98 08/21/24 22:14 Oxygen Delivery Method Room Air 08/21/24 22:14 MDM - Abdominal Pain Differential Diagnosis Differential diagnosis: Likely abdominal pain, acute appendicitis, calculus of kidney, constipation, diverticulitis, gastroenteritis, pancreatitis and small bowel obstruction Medical Records Attestation: I reviewed the patient's medical records. Lab Data Attestation: I reviewed the patient's lab results. Labs: Lab Results 08/21/24 Range/Units 22:42 WBC 5.6 (4.0-11.0) 10^3/uL RBC 4.38 (4.20-5.40) 10^6/uL Hgb 13.3 (12.0-16.0) g/dL Hct 38.8 (36.0-48.0) % MCV 88.6 (81.0-99.0) fL MCH 30.4 (26.7-34.0) pg MCHC 34.3 (29.9-35.2) g/dL RDW 12.4 (11.0-15.0) % Plt Count 185 (150-450) 10^3/uL MPV 10.6 (9.5-13.5) fL Neut % (Auto) 58.2 (43.0-75.0) % Lymph % (Auto) 32.2 (20.5-60.0) % [place] % (Auto) 7.8 (1.7-12.0) % Eos % (Auto) 1.1 (0.9-7.0) % Baso % (Auto) 0.7 (0.2-2.0) % Neut # (Auto) 3.3 (1.4-6.5) 10^3/uL Lymph # (Auto) 1.8 (1.2-3.8) 10^3/uL [place] # (Auto) 0.4 (0.3-0.8) 10^3/uL Eos # (Auto) 0.1 (0.0-0.7) 10^3/uL Baso # (Auto) 0.0 (0.0-0.1) 10^3/uL Abs Immat Gran (auto) 0.00 (0.00-0.03) 10^3/uL Imm/Tot Granulo (auto) 0.0 (0.0-0.5) % Sodium 139 (136-145) mmol/L Potassium 3.6 (3.5-5.1) mmol/L Chloride 102 (98-107) mmol/L Carbon Dioxide 28.0 (21.0-32.0) mmol/L Anion Gap 12.6 BUN 11.0 (7.0-18.0) mg/dL Creatinine 0.94 (0.55-1.02) mg/dL Est GFR ( Amer) >60 (>=60 mL/min/1.73m^2) Est GFR (Non-Af Amer) >60 (>=60 mL/min/1.73m^2) BUN/Creatinine Ratio 11.7 Glucose 84 (74-106) mg/dL Lactate 0.9 (0.4-2.0) mmol/L Calcium 9.2 (8.5-10.1) mg/dL Total Bilirubin 0.3 (0.2-1.0) mg/dL AST 16 (15-37) U/L ALT 18 (14-59) U/L Alkaline Phosphatase 71 (46-116) U/L Total Protein 7.1 (6.4-8.2) g/dL Albumin 3.6 (3.4-5.0) g/dL Globulin 3.5 g/dL Albumin/Globulin Ratio 1.0 Lipase 38.0 (16.0-77.0) U/L Imaging Data CT scan - abdomen: Attestation: I personally reviewed and interpreted this imaging study as follows: Radiologist's impression: Constipation Discharge Plan Discharge Chief Complaint: Abdominal Pain Clinical Impression: Abdominal pain, Constipation Patient Disposition: Home, Self-Care Time of Disposition Decision: 00:57 Condition: Good Mode of Transportation: Private Vehicle Prescriptions / Home Meds: New ondansetron 4 mg tablet,disintegrating 4 mg PO Q6H PRN (Reason: nausea and vomiting) Qty: 10 0RF dicyclomine 20 mg tablet 20 mg PO QID PRN (Reason: abdominal pain) Qty: 14 0RF No Action ondansetron 4 mg tablet,disintegrating 4 mg PO Q8H PRN (Reason: nausea and vomiting) 4 Days Qty: 12 0RF Print Language: South African Instructions: Constipation (ED), Abdominal Pain (ED) Additional Instructions: You should abide by a clear liquid diet for the next 24 hours and then a bland diet and then advance as tolerated. You should take stool softeners when you get home. Referrals: JANEY RICARDO [Primary Care Provider, Unknown] - 1 week Discharge Date/Time: 08/22/24 01:41 Procedures ED US Ultrasound FAST Ultrasound FAST exam #1: Areas examined: pericardial sac/heart, Floyd's pouch, spleno-renal access and Pouch of Antony Indications: abdominal pain and other (history of anuerysm) US FAST exam type: abdominal Impression: normal exam
[2024-08-21] MEDS: MORPHINE SULFATE 4 MG/ML VIAL IV (23:54)
[2024-08-22] MEDS: DICYCLOMINE HCL 10 MG CAPSULE 20 MG PO (01:17)
[2024-08-22] MEDS: KETOROLAC TROMETHAMINE 30 MG/ML VIAL 15 MG IVP (01:29)
== END 2024-08-22 01:41 | disposition home or self-care (01) ==
PROVIDERS: Emergency Provider Emergency Medicine; PCP Nurse Practitioner Family
DX: R10.9 Unspecified abdominal pain (principal); K59.00 Constipation, unspecified; I71.40 Abdominal aortic aneurysm, without rupture, unspecified
CPT/HCPCS: 36415; 74176; 80053; 81001; 83605; 83690; 84703; 85025; 96374; 96375; 96376; 99284; J1885; J2270; J2405

== ENCOUNTER 2024-09-20 16:57 | Emergency (ER) | payer OTHER, SELFPAY ==
[2024-09-20 17:00] VITALS: BP 113/80; PULSE 83; TEMP 37; O2SAT 99; BMI 19.7
--- OUTSIDE RECORDS SUMMARY | 2024-09-20 17:06 | XMS_ITS | Encounter Summary ---
Author Organization [employer] Address [facility] [id number] [address] [place] [address] Care Team Providers Care Physical Therapy Supervisor Name Role Phone No Pcp, No Pcp Primary Care Provider Unavailabl e Encounter Details Date Type Department Care Team (Late st Contact Info) Description 03/20/2023 Telephone [facility] [address] [place] [address] [place] [address] Jenna Rodriguez CMA Social History Tobacco Use Types Packs/Day Years Used Date Smoking Tobacco: Never Smokeless Tobacco: Never Alcohol Use Standard Drinks/Week Comments No 0 (1 standard drink = 0.6 oz pur e alcohol) Overall Financial Resource Strain (CARDIA) Answe r Date Recorded How hard is it for you to pa y for the very basics like food, housing, medical care, and heating? Not hard at all 02/12/2023 PHQ-2 Answer Date Recorded Total Score 0 12/15/2020 PRAPARE - Transportation Answer Date Re corded In the past 12 months, has l ack of transportation kept you from medical appointments or from getting medications? No 01/22 In the past 12 months, has l ack of transportation kept you from meetings, work, or from getting things needed for daily living? No 02/12/2023 Housing Instability Answer Date Recorde d Are you worried or concerned that in the next two months you may not have stable housing that you own, rent or stay in as a part of a household? No 02/12/2023 Childcare Answer Date Recorded Childcare Unknown 09/24/2018 Employment Answer Date Recorded Employment Unknown 09/24/2018 Hunger Screening Answer Date Recorded Within the past 12 months we worried whether our food would run out before we got money to buy more. Never True 02/12/2023 Within the past 12 months th e food we bought just didn't last and we didn't have money to get more. Never True 02/12/2023 Purpose - Life Answer Date Recorded Purpose and direction in life Unknown Comments No Sex and Gender Information Value Date Recorded Sex Assigned at Not on file Legal Sex Female 11:31 AM EDT Gender Identity Not on file Sexual Orientation Not on file documented as of this encounter Plan of Treatment Not on file documented as of this encounter Goals Goal Patient Goal Type Associated Problems Recent Progress Patient-Stated? Author <home> General Yes Gavin Lujan Note: Evaluation of progress towards goal: Safe transition from hospital to home. documented as of this encounter Visit Diagnoses Not on filedocumented in this encounter Additional Health Concerns Assessment Noted Time PHQ-9 Depression Total Score: 0 12/16/19 21 9:39 AM EDT documented as of this encounter Care Teams Physical Therapy Supervisor Relationship Specialty Start Date End Date No Pcp[place] [id number] PCP - General Family Medicine 10/30/23 CRIS INDUSTRIAL SERVICE TECHNICIAN Utilization Management 01/03/17 documented as of this encounter
--- OUTSIDE RECORDS SUMMARY | 2024-09-20 17:06 | XMS_ITS | Encounter Summary ---
Author Organization [employer] Address [id number] [address] [place] [address] Care Team Providers Care Automotive Technology Instructor Name Role Phone No Pcp, No Pcp Primary Care Provider Unavailabl e Reason for Visit * Reason Comments Med Refill Encounter Details Date Type Department Care Team (Late st Contact Info) Description 08/08/2017 Refill [facility] [address] [facility] [address] [place] [id number] Saloni Galeano, [employer]ION FORESTER-POUNCER MACHINE [address] [place] [address] Psychophysiological insomnia Social History Tobacco Use Types Packs/Day Years Used Date Smoking Tobacco: Never Smokeless Tobacco: Never Alcohol Use Standard Drinks/Week Comments No 0 (1 standard drink = 0.6 oz pur e alcohol) Comments No Sex and Gender Information Value Date Recorded Sex Assigned at Not on file Legal Sex Female 11:31 AM EDT Gender Identity Not on file Sexual Orientation Not on file documented as of this encounter Plan of Treatment Not on file documented as of this encounter Visit Diagnoses Diagnosis Psychophysiological insomnia Persistent disorder of initiating or maintaining sleep documented in this encounter Additional Health Concerns Infection Onset Date Last Indicated Resolved Time MRSA Comment:MRSA; Lt. [place]; 07/18/10; 07/18/10bscess 02/27/2012 Ear 06/24/2012 07/20/2010 07/20/2010 10/02/2018 1:18 PM E DT COVID-19 Rule-Out 11/22/2021 11/22/2021 11/22/2021 7:42 PM EDT COVID-19 Positive 11/22/2021 11/22/2021 12/13/2021 11:13 PM EDT Assessment Noted Time PHQ-9 Depression Total Score: 0 11/28/19 17 2:00 PM EDT documented as of this encounter Care Teams Automotive Technology Instructor Relationship Specialty Start Date End Date No Pcp[place] [id number] PCP - General Family Medicine 10/30/23 CRIS GENERATOR REPAIRER Utilization Management 01/03/17 documented as of this encounter
--- OUTSIDE RECORDS SUMMARY | 2024-09-20 17:06 | XMS_ITS | Encounter Summary ---
Author Organization [employer] tem Address [facility]-[id number] [address] [place] [address] Care Team Providers Care Absorption Operator Name Role Phone No Pcp, No Pcp Primary Care Provider Unavailabl e Encounter Details Date Type Department Care Team (Late st Contact Info) Description 04/28/2024 Telephone [facility] [address] [place] [address] Cory Nolan MD [address] [place] [address] Social History Tobacco Use Types Packs/Day Years [...] got money to buy more. Never True 04/30/2024 Within the past 12 months th e food we bought just didn't last and we didn't have money to get more. Never True 04/30/2024 Purpose - Life Answer Date Recorded Purpose and direction in life Unknown Comments No Sex and Gender Information Value Date Recorded Sex Assigned at Not on file Legal Sex Female 11:31 AM EDT Gender Identity Not on file Sexual Orientation Not on file documented as of this encounter Miscellaneous Notes * Telephone Encounter - Jill Arvizu - 04/28/2024 2:02 PM EST Patient wanted to no her Ct Results if it came back ok [phone] * Telephone Encounter - Rima Ware LPN - 04/28/2024 2:02 PM EST Spoke to patient regarding the results from CTA that was performed in the ER on 03-07-24, the ordering physician noted on these results which health underwriter reiterated to patient. Regional Ehs Manager recommended patient make a f/u appt to see to discuss recent lab results and to have discussion regarding patients on going lower back pain. Patient will call the office to make an appt when she looks at her schedule. documented in this encounter Plan of Treatment Not on [...] documented as of this encounter Care Teams Absorption Operator Relationship Specialty Start Date End Date No Pcp, [place] [address] PCP - General Family Medicine 10/30/23 CRIS FILM WAXER Utilization Management 01/03/17 documented as of this encounter
--- OUTSIDE RECORDS SUMMARY | 2024-09-20 17:06 | XMS_ITS | Encounter Summary ---
Author Organization [employer] tem Address [id number] [address] [place] [address] Care Team Providers Care Biological Sciences Instructor Name Role Phone No Pcp, No Pcp Primary Care Provider Unavailabl e Encounter Details Date Type Department Care Team (Late st Contact Info) Description 11/23/2020 [facility] [address] [place] [address] [place] [address] Fabio Mccray CMA Social History Tobacco Use Types Packs/Day Years Used Date Smoking Tobacco: Never Smokeless Tobacco: Never Alcohol Use Standard Drinks/Week Comments No 0 (1 standard drink = 0.6 oz pur e alcohol) Childcare Answer Date Recorded Childcare Unknown 09/24/2018 Employment Answer Date Recorded Employment Unknown 09/24/2018 Purpose - Life Answer Date Recorded Purpose and direction in life Unknown Comments No Sex and Gender Information Value Date Recorded Sex Assigned at Not on file Legal Sex Female 11:31 AM EDT Gender Identity Not on file Sexual Orientation Not on file COVID-19 Exposure Response Date Recorded In the last month, have you been in contact with someone who was confirmed or suspected to have Coronavirus / COVID-19? No / Unsure 11/08/2020 1:59 PM EDT documented as of this encounter Plan of Treatment Not on file documented as of this encounter Visit Diagnoses Not on filedocumented in this encounter Additional Health Concerns Infection Onset Date Last Indicated Resolved Time COVID-19 Rule-Out 11/22/2021 11/22/2021 11/22/2021 7:42 PM EDT COVID-19 Positive 11/22/2021 11/22/2021 12/13/2021 11:13 PM EDT Assessment Noted Time PHQ-9 Depression Total Score: 0 11/28/19 2:00 PM EDT documented as of this encounter Care Teams Biological Sciences Instructor Relationship Specialty Start Date End Date No Pcp, No Pcp [place] [address] PCP - General Family Medicine 10/30/23 RCIS WEDDING TRANSPORTATION DRIVER Utilization Management 01/03/17 documented as of this encounter
--- OUTSIDE RECORDS SUMMARY | 2024-09-20 17:06 | XMS_ITS | Encounter Summary ---
Author Organization [employer] [facility] tem Address [id number] [address] [place] [address] Care Team Providers Care Dish Maker Name Role Phone No Pcp, No Pcp Primary Care Provider Unavailabl e Encounter Details Date Type Department Care Team (Late st Contact Info) Description 10/15/2018 [facility] [address] [place] [phone] Darlene Goncalves CMA Social History Tobacco Use Types Packs/Day Years Used Date Smoking Tobacco: Never Smokeless Tobacco: Never Alcohol Use Standard Drinks/Week Comments No 0 (1 standard drink = 0.6 oz pur e alcohol) Childcare Answer Date Recorded Childcare Unknown 09/24/2018 Employment Answer Date Recorded Employment Unknown 09/24/2018 Comments No Sex and Gender Information Value [...] documented as of this encounter Care Teams Dish Maker Relationship Specialty Start Date End Date No Pcp, No Pcp [place] [address] PCP - General Family Medicine 10/30/23 CRIS COMMERCIAL INSTALLER Utilization Management 01/03/17 documented as of this encounter
--- OUTSIDE RECORDS SUMMARY | 2024-09-20 17:06 | XMS_ITS | Encounter Summary ---
Author Organization [employer] tem Address [id number] [address] [place] [address] Care Team Providers Care Weatherization Director Name Role Phone No Pcp, No Pcp Primary Care Provider Unavailabl e Reason for Referral * Diagnostic Imaging (Routine) - Pending Review Specialty Diagnoses / Procedures Referred By Contac t Referred To Contact Radiology Diagnoses Pain Procedures CT abdomen and pelvis with contrast [facility] [place] [address] Phone: tel: fax: Referral ID Status Reason Start Date Expiration Date V isits Requested Visits Authorized [id number] Pending Review 10/13/2023 10/12/2024 1 1 * Diagnostic Imaging (Routine) - Pending Review Specialty Diagnoses / Procedures Referred By Contac t Referred To Contact Radiology Diagnoses Pain Procedures CT abdomen and pelvis without contrast [facility] [place] [address] Phone: tel: fax: Referral ID Status Reason Start Date Expiration Date V isits Requested Visits Authorized [id number] Pending Review 10/13/2023 10/12/2024 1 1 Encounter Details Date Type Department Care Team (Late st Contact Info) Description 10/13/2023 Orders Only [facility] [address] [place] [phone] External, Scanning Provider Pain (Primary Dx) Social History Tobacco Use Types Packs/Day Years [...] got money to buy more. Never True 08/20/2023 Within the past 12 months th e food we bought just didn't last and we didn't have money to get more. Never True 08/20/2023 Purpose - Life Answer Date Recorded Purpose [...] to home. documented as of this encounter Results * CT abdomen and pelvis without contrast (05/16/2023 8:40 PM EST) us Scanning Provider External IMG CT ORDERABLES Fin al Result * CT abdomen and pelvis with contrast (05/03/2022 9:20 PM EST) us Scanning Provider External IMG CT ORDERABLES Fin al Result documented in this encounter Visit Diagnoses Diagnosis Pain- Primary Generalized pain documented in this encounter Additional Health Concerns Assessment Noted Time PHQ-9 Depression Total Score: 0 12/16/19 9:39 AM EDT documented as of this encounter Care Teams Weatherization Director Relationship Specialty Start Date End Date No Pcp, [place] [address] PCP - General Family Medicine 10/30/23 CRIS STRUCTURAL DESIGN ENGINEER Utilization Management 01/03/17 documented as of this encounter
--- OUTSIDE RECORDS SUMMARY | 2024-09-20 17:06 | XMS_ITS | Encounter Summary ---
Author Organization [employer] tem Address [id number] [address] [place] [address] Care Team Providers Care Bar Helper Name Role Phone No Pcp, No Pcp Primary Care Provider Unavailabl e Encounter Details Date Type Department Care Team (Late st Contact Info) Description 11/09/2020 [facility] [address] [place] [address] Dotty Bob CMA Social History Tobacco Use Types Packs/Day [...] PM EDT documented as of this encounter Miscellaneous Notes * Telephone Encounter - SANG Duarte - 11/09/2020 1:52 PM EDT Abdominal pain Nausea Patient is requesting she see us so we can extend her work note that started 11/08/2020 with weight restrictions. Advised doctors office that will not be in until next week, but I would send to his clinical staff. Patient was in ER over the weekend and seen as a new patient on 11/08/20 with a pcp. Former [facility] patient-surgery 2 years ago * Telephone Encounter - TERESA Salcido - 11/09/2020 1:52 PM EDT Called patient to evaluate the need for a work note. Discussed that we have never seen her as a patient and cannot provide work note. Discussed her PCP will need to send referral to our office so we can make her appt. She states that she needs to be seen in our office due to having lesion on her liver from the surgery Dr. Menchaca performed, states she also needs muscles released . Attempted to contact PCP office for more information. VM to call office back. Thanks documented in this encounter Plan of Treatment [...] documented as of this encounter Care Teams Bar Helper Relationship Specialty Start Date End Date No Pcp, [place] [address] PCP - General Family Medicine 10/30/23 CRIS BRAZER REPAIR AND SALVAGE Utilization Management 01/03/17 documented as of this encounter
--- OUTSIDE RECORDS SUMMARY | 2024-09-20 17:06 | XMS_ITS | Encounter Summary ---
Author Organization [employer] tem Address [id number] [address] [place] [address] Care Team Providers Care Automobile Damage Appraiser Name Role Phone No Pcp, No Pcp Primary Care Provider Unavailabl e Encounter Details Date Type Department Care Team (Late st Contact Info) Description 10/11/2023 Telephone [facility] [address] [place] [address] Peter Lou Social History Tobacco Use Types Packs/Day Years [...] encounter Miscellaneous Notes * Telephone Encounter - Peter Lou - 10/11/2023 4:01 PM EDT Pt calling to see if she should have any testing before her upcoming appt on October [address] Nolan. She has been having left shoulder pain and pain up under her rib cage on the left side as well. Please advise. * Telephone Encounter - Rima Ware LPN - 10/11/2023 4:[address] Nolan he will order test after he looks over the films from CT which was performed a couple of days ago. They are being pushed to pacs. documented in this encounter Plan of Treatment [...] documented as of this encounter Care Teams Automobile Damage Appraiser Relationship Specialty Start Date End Date No Pcp, No Pcp [place] [address] PCP - General Family Medicine 10/30/23 CRIS MANUFACTURING SHIFT SUPERVISOR Utilization Management 01/03/17 documented as of this encounter
--- OUTSIDE RECORDS SUMMARY | 2024-09-20 17:06 | XMS_ITS | Encounter Summary ---
Author Organization [employer] tem Address [id number] [address] [place] [address] Care Team Providers Care Podiatric Medicine Professor Name Role Phone No Pcp, No Pcp Primary Care Provider Unavailabl e Encounter Details Date Type Department Care Team (Late st Contact Info) Description 09/14/2020 Orders Only [facility] [address] [place] [phone] Cody Sheehan MD [address] [place] [address] Social History Tobacco Use Types Packs/Day Years Used Date Smoking Tobacco: Never Smokeless Tobacco: Never Alcohol Use Standard Drinks/Week Comments No 0 (1 standard drink = 0.6 oz pur e alcohol) Childcare Answer Date Recorded Childcare Unknown 09/24/2018 Employment Answer Date Recorded Employment Unknown 09/24/2018 Purpose - Life Answer Date Recorded Purpose and direction in life Unknown Comments Unknown Sex and Gender Information Value Date Recorded Sex Assigned at Not on file Legal Sex Female 11:31 AM EDT Gender Identity Not on file Sexual Orientation Not on file COVID-19 Exposure Response Date Recorded In the last month, have you been in contact with someone who was confirmed or suspected to have Coronavirus / COVID-19? No / Unsure 09/14/2020 2:24 PM EDT documented as of this encounter [...] documented as of this encounter Care Teams Podiatric Medicine Professor Relationship Specialty Start Date End Date No Pcp, [place] [address] PCP - General Family Medicine 10/30/23 CRIS CRABBING MACHINE OPERATOR Utilization Management 01/03/17 documented as of this encounter
--- OUTSIDE RECORDS SUMMARY | 2024-09-20 17:06 | XMS_ITS | Encounter Summary ---
Author Organization [employer] tem Address [id number] [address] [place] [address] Care Team Providers Care Division Superintendent Name Role Phone No Pcp, No Pcp Primary Care Provider Unavailabl e Encounter Details Date Type Department Care Team (Late st Contact Info) Description 07/28/2021 Orders Only [facility] [address] [place] [phone] Dennise Sandoval, [address] [place], [place] [phone] Social History Tobacco Use Types Packs/Day Years Used Date Smoking Tobacco: Never Smokeless Tobacco: Never Alcohol Use Standard Drinks/Week Comments No 0 (1 standard drink = 0.6 oz pur e alcohol) PHQ-2 Answer Date Recorded Total Score 0 12/15/2020 Childcare Answer Date Recorded Childcare Unknown 09/24/2018 [...] Exposure Response Date Recorded In the last 10 days, have yo u been in contact with someone who was confirmed or suspected to have Coronavirus/COVID-19? No / Unsure 07/28/2021 9:03 AM EDT documented as of this encounter Plan [...] documented as of this encounter Care Teams Division Superintendent Relationship Specialty Start Date End Date No Pcp, [place] [address] PCP - General Family Medicine 10/30/23 CRIS CARDIAC TECHNOLOGIST Utilization Management 01/03/17 documented as of this encounter
--- OUTSIDE RECORDS SUMMARY | 2024-09-20 17:06 | XMS_ITS | Encounter Summary ---
Author Organization [facility] Address [address] [place] [address] Care Team Providers Care Health Researcher Name Role Phone Ewa Arvizu MD Primary Care Provider [phone] Encounter Details Date Type Department Care Team (Late st Contact Info) Description 01/29/[address] [facility] Labor and Delivery [address] [place], [place] [id number] Randa Rinaldi RN Social History Tobacco Use Types Packs/Day Years Used Date Smoking Tobacco: Never Smokeless Tobacco: Never Alcohol Use Standard Drinks/Week Comments No 0 (1 standard drink = 0.6 oz pur e alcohol) Comments No Sex and Gender Information Value Date Recorded Sex Assigned at Not on file Legal Sex Female 1:46 AM EST Gender Identity Not on file Sexual Orientation Not on file documented as of this encounter Progress Notes * Randa Rinaldi RN - 01/29/2014 1:43 PM EDT Discharge Phone Call Log Patient Name: Apple Nagel OB Care Provider: No admitting provider for patient encounter. Most Recent Discharge Date: 01/22/14 Disposition of baby: (home) Call made 01/29/2014 1:44 PM [] No answer [x] Message left documented in this encounter Plan of Treatment Not on file documented as of this encounter Visit Diagnoses Not on filedocumented in this encounter Additional Health Concerns Infection Onset Date Last Indicated Resolved Time COVID-19 (Rule Out) 12/08/2020 12/08/2020 12/09/19 21 9:50 PM EDT COVID-19 (Rule Out) 09/15/2021 09/15/2021 09/17/19 12:24 AM EDT documented as of this encounter Care Teams Health Researcher Relationship Specialty Start Date End Date Ewa Arvizu MD PCP - General 01/07/14 07/11/16 documented as of this encounter
--- OUTSIDE RECORDS SUMMARY | 2024-09-20 17:06 | XMS_ITS | Encounter Summary ---
Author Organization [employer] tem Address [id number] [address] [place] [address] Care Team Providers Care Sales Representative Sales Manager Name Role Phone No Pcp, No Pcp Primary Care Provider Unavailabl e Encounter Details Date Type Department Care Team (Late st Contact Info) Description 03/22/2022 Telephone [facility] [address] [place] [phone] Cory Nolan MD [address] [place] [address] Social History Tobacco Use Types Packs/Day Years [...] have Coronavirus / COVID-19? No / Unsure 03/21/2022 10:34 AM EST documented as of this encounter Miscellaneous Notes * Telephone Encounter - Radha Isbell - 03/22/2022 11:22 AM EST FYI Received a call from [place] this morning informing office she will be having a hysterectomy and needs clearance. I gave her our fax number to provide to her surgeon and the information we like it tocontain. During conversation, patient informs me she has not taken her meds since September 2021. I do not see which medication she was supposed to be on- her medication list doesn't show anything from us. Drs office visit 03/2021 doesn't have a new med from us. Er visit discharge summary 03/15 shows she was started on ferrous sulfate, but I honestly have no clue what we need to advise on. They should be faxing to our office shortly. I wanted to give you a heads up as she told me she hasn't taken anything since September. * Telephone Encounter - Maru Beth MA - 03/22/2022 11:22 AM EST The patient came in and Dr Nolan did clearance documented in this encounter Plan of Treatment Not on file documented as of this encounter Goals Goal Patient Goal Type Associated Problems Recent Progress Patient-Stated? Author <home> General Yes Gavin Luajn Note: Evaluation of progress towards goal: Safe transition from hospital to home. documented as of this encounter Visit Diagnoses Not on filedocumented in this encounter Additional Health Concerns Assessment Noted Time PHQ-9 Depression Total Score: 0 12/16/19 21 9:39 AM EDT documented as of this encounter Care Teams Sales Representative Sales Manager Relationship Specialty Start Date End Date No Pcp, No Pcp [place] [address] PCP - General Family Medicine 10/30/23 CRIS AIRLINE CUSTOMER SERVICE AGENT Utilization Management 01/03/17 documented as of this encounter
--- OUTSIDE RECORDS SUMMARY | 2024-09-20 17:06 | XMS_ITS | Encounter Summary ---
Author Organization [facility] tem Address [id number] [address] [place] [address] Care Team Providers Care Marketing Project Lead Name Role Phone No Pcp, No Pcp Primary Care Provider Unavailabl e Encounter Details Date Type Department Care Team (Late st Contact Info) Description 10/02/2018 Documentation [facility] - Surgery Post Operative [address] [place] [phone] Anival Otero, RN Social History Tobacco Use Types Packs/Day [...] documented as of this encounter Care Teams Marketing Project Lead Relationship Specialty Start Date End Date No Pcp, [place] [address] PCP - General Family Medicine 10/30/23 CRIS CORPORATE REAL ESTATE SPECIALIST Utilization Management 01/03/17 documented as of this encounter
--- OUTSIDE RECORDS SUMMARY | 2024-09-20 17:06 | XMS_ITS | Encounter Summary ---
Author Organization [employer] tem Address [id number] [address] [place] [address] Care Team Providers Care Ice Cream Man Name Role Phone No Pcp, No Pcp Primary Care Provider Unavailabl e Encounter Details Date Type Department Care Team (Late st Contact Info) Description 04/19/2021 [facility]phone [facility] [address] [place] [address] [place] [address] Livier Sanchez RMA Social History Tobacco Use Types Packs/Day Years [...] have Coronavirus / COVID-19? No / Unsure 04/21/2021 8:01 PM EST documented as of this encounter Miscellaneous Notes * Telephone Encounter - SANG Todd - 04/19/2021 8:52 AM EST Patient states that she needs a letter stating that she is not working due to her medical conditions, if she was to fall she could bleed out due to the aneurisms, please advise. If letter is written patient would like to pick it up. * Telephone Encounter - TERESA Mendez - 04/19/2021 8:52 AM EST I recommend she follow up with vascular for her aneurysm concerns, since I don't believe she is at an increased risk for bleeding, should make appt with them * Telephone Encounter - SANG Todd - 04/19/2021 8:52 AM EST Patient called and stated that social security & job & family services stated that she needs a letter from her doctor, I informed her to contact her vascular doctor and she stated that her vascular doctor told her it had to come from her PCP. Please advise. * Telephone Encounter - TERESA Mendez - 04/19/2021 8:52 AM EST I will have to contact Dr. Nolan for his opinion, won't be until next week, since am no longer here after today * Telephone Encounter - SANG Todd - 04/19/2021 8:52 AM EST Informed patient that Adela would contact Dr Nolan and we would contact her next week when Adela returns, patient verbalized understanding. documented in this encounter Plan of Treatment [...] documented as of this encounter Care Teams Ice Cream Man Relationship Specialty Start Date End Date No Pcp, [place] [address] PCP - General Family Medicine 10/30/23 CRIS REVENUE ACCOUNTING MANAGER Utilization Management 01/03/17 documented as of this encounter
--- OUTSIDE RECORDS SUMMARY | 2024-09-20 17:06 | XMS_ITS | Encounter Summary ---
Author Organization [employer] Address [id number] [address] [place] [address] Care Team Providers Care Professor Of Historical Theology Name Role Phone No Pcp, No Pcp Primary Care Provider Unavailabl e Encounter Details Date Type Department Care Team (Late st Contact Info) Description 04/20/2021 Telephone [facility] [address] [place] [phone] Cory Nolan MD [address] [place], [place] [id number] Social History Tobacco Use Types Packs/Day Years [...] * Telephone Encounter - Radha Isbell - 04/20/2021 4:25 PM EST Patient states if she lists Splenic artery aneurysm on applications, they will not hire her and tell her she is a liability. 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 * Telephone Encounter - Maru Beth MA - 04/20/2021 4:25 PM EST I will discuss with Hardy * Telephone Encounter - Maru Beth MA - 04/20/2021 4:[address] Nolan said not true, no restrictions with this diagnosis , I tried to get a hold of patient to inform her, but her telephone number not working. I contacted her mother, and she will get a hold of daughter to contact us. * Telephone Encounter - Radha Isbell - 04/20/2021 4:25 PM EST Patient states she is 'still getting turned down for jobs and just wants to have surgery and get itover with.' I understand her phone is not working so we can contact her through her mother's number. * Telephone Encounter - Maru Beth MA - 04/20/2021 4:25 PM EST LMOM for patients that we can typed up letter saying her dx should not interfere with her job, If she want that I can do * Telephone Encounter - Maru Beth MA - 04/20/2021 4:25 PM EST I have tried to contact patient multiple times, but been unsuccessful documented in this encounter Plan of Treatment [...] documented as of this encounter Care Teams Professor Of Historical Theology Relationship Specialty Start Date End Date No Pcp, [place] [address] PCP - General Family Medicine 10/30/23 CRIS ASSOCIATE DEAN Utilization Management 01/03/17 documented as of this encounter
--- OUTSIDE RECORDS SUMMARY | 2024-09-20 17:06 | XMS_ITS | Encounter Summary ---
Author Organization [employer] tem Address [facility] [place]-[id number] [address] [place] [address] Care Team Providers Care Route Rider Name Role Phone No Pcp, No Pcp Primary Care Provider Unavailabl e Encounter Details Date Type Department Care Team (Late st Contact Info) Description 02/10/2022 Telephone [facility] [address] [place] [phone] Catrina Kam CMA Social History Tobacco Use Types Packs/Day [...] have Coronavirus / COVID-19? No / Unsure 02/10/2022 12:57 PM EDT documented as of this encounter Miscellaneous Notes * Telephone Encounter - Catrina Kam CMA - 02/10/2022 2:43 PM EDT Attempted to call patient in regard to surgery information, however, no vm. Patient will need to sign hysterectomy medicaid consent. She will also need to establish with PCP prior to us scheduling. Patient will need to wait 30 days from signing consent to schedule. * Telephone Encounter - Camryn Edwards - 02/10/2022 2:43 PM EDT Patient signed medicaid consent form on 02/20/22. Patient confirmed she does have a surgical clearance appointment scheduled in February. I did express the importance of keeping that appointment as the surgery will be cancelled if we do not receive that clearance. She was provided a card with our information for them to fax the clearance letter to. Surgery scheduled with Dr. Johnson 04/07/22 Arrival time: 11:30am Surgery: 1:30pm PAT scheduled for 03/21/22 @ 10:30 Covid Test scheduled for 04/04/22 @ 9:30 Attempted to call to notify patient. The voicemail is full & not accepting messages at this time. Streemt message sent to the patient. * Telephone Encounter - Camryn Edwards - 02/10/2022 2:43 PM EDT Patient returned my call. She was given all of the dates & times for her PAT, covid test & surgery. I expressed the importance of keeping these appointments as well as her surgery clearance from PCP otherwise she runs the risk of her surgery being cancelled. Pt voiced understanding. Patient also notified that all the dates & times will be sent to her in a [employer] message per her request. documented in this encounter Plan of Treatment [...] documented as of this encounter Care Teams Route Rider Relationship Specialty Start Date End Date No Pcp, No Pcp WILLI Oconnor [id number] PCP - General Family Medicine 10/30/23 CRIS ADVERTISING STRATEGIST Utilization Management 01/03/17 documented as of this encounter
--- OUTSIDE RECORDS SUMMARY | 2024-09-20 17:06 | XMS_ITS | Clinical Summary ---
Author Organization [facility] Address [address] [place] [address] Care Team Providers Care Screw Machine Operator Swiss Type Name Role Phone Unavailable Primary Care Provider Unavailabl e Allergies Active Allergy Reactions Criticality Noted Date Comments Propoxyphene N-Acetaminophen Hives 012 Cyclobenzaprine Hives 04/18/2012 Ibuprofen Anaphylaxis,Hives High 04/18/2012 Penicillins Anaphylaxis High 04/18/2012 Medications ferrous sulfate 325 (65 FE) MG tablet Take 1 tablet by mouth 2 times daily for 30 days. 60 tablet 3 01/11/2014 Active ondansetron (ZOFRAN) 4 MG tablet Take 4 mg by mouth every 4 hours as needed for Nausea or Vomiting Active metoclopramide (REGLAN) 10 MG tablet Take 1 tablet by mouth 3 times daily as needed (nausea) 9 tablet 09/16/2021 Active acetaminophen (TYLENOL) 500 MG tablet Take 2 tablets by mouth 3 times daily for 7 days 42 tablet 05/16/2023 Active Active Problems Patient Care Coordination No te Formatting of this note migh t be different from the original. PATIENT DISMISSED FROM PRACTICE DUE TO NON-COMPLIANCE CONTINUOUS REQUEST FOR PAIN MEDICATION BY PHONE AND NOT COMING IN FOR APPOINTMENTS Blood transfusion 2 units at 23 weeks lovenox 17 OHP H/o DVT delivery x2 H/o PIH BTL paper Signed in [facility] Dated 12/11/13 Rx Acyclovir for suppressive therapy. Problem Noted Date Diagnosed Date Abdominal pain 12/08/2020 History of maternal blood tr ansfusion, currently in first trimester 10/15/2014 Grand multipara 10/15/2014 Hx of PTL ( labor), current Anemia iron deficiency 12/31/2013 Drug-seeking behavior 11/25/2013 H/O Right ectopic x2 10/15/2013 Overview (10/15/2013): MTX x2 Right nephrolithiasis 10/15/2013 Overview (10/15/2013): 5mm non-obstructing stone on Sono @ [facility] Personal history of DVT (major p vein thrombosis) family history both side maternal and paternal 10/15/2013 Overview (10/16/2013): On Lovenox in 2007 for uncertain duration Calf pain L>R LE venous dopplers negative 10/15 HSV seropositive 09/08/2013 Overview (10/15/2013): +Serologies 10/04 Patient denies Hx of outbreak or prodrome No use of Valtrex Other known or suspected fet al abnormality, not elsewhere classified, affecting management of mother, antepartum condition or complication 08/27/2013 History of inadequate care 04/18/2012 Overview (10/15/2013): Plate Roller Consult Resolved Problems Problem Noted Date Diagnosed Date Resolved Date (normal spontaneous vaginal delivery) 01/20/2014 10/15/2014 contractions 01/10/2014 014 contractions 10/15/2013 014 Overview (10/15/2013): MFM Consult 10/14: Urine Cx neg, GC/C: neg Cvx 10/15: Cl/Th/High JAIDA: negative Nausea and Abdominal Pain 10/15/2013 Overview (10/15/2013): GI consult, consider EGD Lipase pending Other current maternal condi tions classifiable elsewhere, antepartum 08/27/201301/20 H/O delivery x 3 cur rently on 17 OH progesteron IM 06/19/2013 01/20/2014 Overview (10/15/2013): 17 [place]-P q Sunday Immunizations Immunization Administration Dates Next Due Influenza Virus Vaccine 04/20/2012 TDaP, ADACEL (age 10y-64y), BOOSTRIX (age 10y+), IM, 0.5mL 04/20/2012 Family History Medical History Relation Name Comments Other Father AAA Heart Disease Maternal Grandfather Cancer Maternal Grandmother Ovarian Cancer Maternal Grandmother Stomach Cancer Maternal Grandmother Relation Name Status Comments Father Maternal Grandfather Maternal Grandmother Mother Alive Other Social History Tobacco Use Types Packs/Day Years Used Date Smoking Tobacco: Never Smokeless Tobacco: Never Alcohol Use Standard Drinks/Week Comments No 0 (1 standard drink = 0.6 oz pur e alcohol) AUDIT-C Answer Date Recorded Q1: How often do you have a drink containing alcohol? Never 05/16/2023 Q2: How many drinks containi ng alcohol do you have on a typical day when you are drinking? Patient does not drink Q3: How often do you have si x or more drinks on one occasion? Never 05/16/2023 Interpersonal Safety Domain Source: IP Abuse Scr eening Answer Date Recorded Read-Only, Retired: Physical Abuse Denies 05/16/2023 Read-Only, Retired: Verbal Abuse Denies 05/16/2023 Read-Only, Retired: Emotional abuse Denies 05/16/2023 Read-Only, Retired: Financial Abuse Denies 05/16/2023 Read-Only, Retired: Sexual abuse Denies 05/16/2023 Comments No Sex and Gender Information Value Date Recorded Sex Assigned at Not on file Legal Sex Female 1:46 AM EST Gender Identity Not on file Sexual Orientation Not on file Last Filed Vital Signs Vital Sign Reading Time Taken Comments Blood Pressure 103/77 05/16/2023 9:46 PM EST Pulse 78 05/16/2023 9:46 PM EST Temperature 36.8 C (98.2 F) 05/16/2023 7:01 PM EST Respiratory Rate 18 05/16/2023 9:46 PM EST Oxygen Saturation 95% 05/16/2023 9:46 PM EST Inhaled Oxygen Concentration - - Weight 55.3 kg (122 lb) 05/16/2023 7:01 PM EST Height 154.9 cm (5' 1 ) 05/16/2023 7:01 PM EST Body Mass Index 23.05 05/16/2023 7:01 PM EST Plan of Treatment Health Maintenance Due Date Last Done Comments Depression Screen 1997 Varicella vaccine (1 of 2 - 13+ 2-dose series) 1998 Hepatitis B vaccine (1 of 3 - 19+ 3-dose series) 2004 DTaP/Tdap/Td vaccine (3 - Td or Tdap) 12/12/2023 12/11/2013, 04/20/2012 COVID-19 Vaccine (1 - 2023-2 5 season) 2023 Flu vaccine (Season Ended) 2024 04/20/2012 Cervical cancer screen Discontinued Pap smear Discontinued 06/11/2013 Hepatitis C screen Completed 10/16/2013 HIV screen Completed 12/26/2013, 10/16/2013 HPV (without or with Pap) Discontinued HPV vaccine Aged Out No longer eligi ble based on patient's age to complete this topic Hepatitis A vaccine Aged Out No longe r eligible based on patient's age to complete this topic Hib vaccine Aged Out No longer eligi ble based on patient's age to complete this topic Meningococcal (ACWY) vaccine Aged Out No longer eligible based on patient's age to complete this topic Meningococcal B vaccine Aged Out No l onger eligible based on patient's age to complete this topic Pneumococcal 0-49 years Vaccine Aged Out No longer eligible based on patient's age to complete this topic Polio vaccine Aged Out No longer elig ible based on patient's age to complete this topic Procedures Procedure Name Priority Date/Time Associated Diagnosis Comments HIV RAPID 1&2 Routine 12/26/2013 3:43 PM EDT HEPATITIS PANEL, ACUTE Routine 10/16/2013 4:48 AM EDT COMPUTER NUMERICAL CONTROL PROGRAMMER CYTOLOGY Routine 06/11/2013 11:10 AM EST from Last 3 Months or Most Recently Relevant to Health Maintenance Results * HIV Rapid 1&2 (12/26/2013 3:43 PM EDT) Rapid HIV 1&2 NONREACTIVE NR 12/29/2013 11:23 AM EDT [facility] Comment: Interpretation: The presence of antibody to HIV and its association with the potential infectivity, transmission or diagnosis of AIDS has not been established. Furthermore, a 'Non-Reactive' test result does not exclude the possibility of exposure to or infection with HIV. If the above test result is 'Reactive', the Laboratory will order the confirmatory test. The performance characteristics of this test were determined by [facility]. It has not been cleared or approved by the U.S. Food and Drug Administration. The FDA has determined that such clearance is not necessary. Performed at [address] [place] [address] ([phone] 12/26/2013 3:43 PM EDT 12/26/2013 3:43 PM EDT Ewa Arvizu MD IMMUNOLOGY ORDERABLES Final Re sult [facility] [address] [place] [id number], [facility] [phone] [facility] * HEPATITIS PANEL, ACUTE (10/16/2013 4:48 AM EDT) Hepatitis B Surface Ag NONREACTIVE NR 10/16/2013 5:54 AM EDT [facility] Hepatitis C Ab NONREACTIVE NR 4 5:54 AM EDT [facility] Comment: The hepatitis C procedure used in our laboratory is a Chemiluminescent test specific for three recombinant HCV antigens. A negative anti-HCV result indicates that the antibodies to hepatitis C virus are not present at this time. Individuals with reactive anti-HCV should be considered infected and infectious until proven otherwise. Confirmation of all equivocal or reactive results is recommended by ordering HCV RNA by PCR. Hep B Core Ab, IgM NONREACTIVE NR 10/16 5:54 AM EDT [facility] Hep A IgM NONREACTIVE NR 10/16/2013 5:54 AM EDT [facility] Comment:[facility] [address] [place] [address] BLOOD SPECIMEN / Unknown 10/16/2013 4:48 AM EDT 10/16/2013 5:00 AM EDT Leena Longoria DO IMMUNOLOGY ORDERABLES Final Re sult [employer] [address] [place] [id number], [facility] [phone] [facility] * COMPUTER NUMERICAL CONTROL PROGRAMMER Cytology (06/11/2013 11:10 AM EST) Cytology Report (NOTE) [id number] [employer] [facility] [facility] ANATOMIC PATHOLOGY [address] [place] [phone] GYNECOLOGIC CYTOLOGY REPORT Patient Name: RENARD VANCE MR#: [id number] Specimen #[id number] Final Diagnosis CERVICAL MATERIAL, (THIN PREP VIAL): Specimen Adequacy: Satisfactory for evaluation. - Paucity/absence of endocervical transformation zone component. Descriptive Diagnosis: Negative for intraepithelial lesion or malignancy. KIRT Garrido(ASCP) Electronically Signed Out dga/06/17/2013 Source: 1: CERVICAL MATERIAL, (THIN PREP VIAL) 06/17/2013 12:00 AM EST [facility] 06/11/2013 11:1 0 AM EST 06/11/2013 11:10 AM EST Giovanna Ferrari DO PATHOLOGY/CYTOLOGY ORDERABLES Final Result Performing Organization Address City/[facility]/ZIP Co de Phone Number [facility] [address] [place] [address], [facility] [phone] from Last 3 Months or Most Recently Relevant to Health Maintenance Insurance [facility] PLAN [place] [address] PLAN Advance Directives * Full Code (Latest Code Status on File) Date Activated Date Inactivated Comments 01/20/2014 9:05 PM 01/22/2014 4:21 PM * Full Code Date Activated Date Inactivated Comments 01/20/2014 3:44 PM 01/20/2014 9:05 PM * Full Code Date Activated Date Inactivated Comments 10/15/2013 12:49 PM 10/16/2013 9:13 PM * Full Code Date Activated Date Inactivated Comments 10/14/2013 12:24 PM 10/15/2013 12:49 PM * Full Code Date Activated Date Inactivated Comments 04/18/2012 2:03 AM 04/20/2012 7:43 PM
--- OUTSIDE RECORDS SUMMARY | 2024-09-20 17:06 | XMS_ITS | Encounter Summary ---
Author Organization [employer] tem Address [id number] [address] [place] [address] Care Team Providers Care Wind Turbine Electrical Engineer Name Role Phone No Pcp, No Pcp Primary Care Provider Unavailabl e Encounter Details Date Type Department Care Team (Late st Contact Info) Description 04/11/2021 [facility] [address] [place] [address] [address] [place] [address] Gay Smalls CMA Social History Tobacco Use Types Packs/Day [...] have Coronavirus / COVID-19? No / Unsure 03/23/2021 8:07 AM EST documented as of this encounter Miscellaneous Notes * Telephone Encounter - Gay Smalls CMA - 04/11/2021 3:05 PM EST Patient called in asking if she could get a rx for nausea and a cough. Tested for covid at [facility], negative. Was advised to call pcp and see about getting a rx. * Telephone Encounter - TERESA Mendez - 04/11/2021 3:05 PM EST Let her know I sent both in documented in this encounter Plan of Treatment [...] documented as of this encounter Care Teams Wind Turbine Electrical Engineer Relationship Specialty Start Date End Date No Pcp, [place] [address] PCP - General Family Medicine 10/30/23 CRIS RECEPTIONIST NURSE Utilization Management 01/03/17 documented as of this encounter
--- OUTSIDE RECORDS SUMMARY | 2024-09-20 17:06 | XMS_ITS | Encounter Summary ---
Author Organization [employer] [facility] tem Address [facility] [id number] [address] [place] [address] Care Team Providers Care Hospital Nurse Name Role Phone No Pcp, No Pcp Primary Care Provider Unavailabl e Encounter Details Date Type Department Care Team (Late st Contact Info) Description [facility] [address] [place] [address] Marilee Soto MA Social History Tobacco Use Types Packs/Day Years [...] suspected to have Coronavirus/COVID-19? No / Unsure 07/15/2021 11:45 AM EDT documented as of this encounter Miscellaneous Notes * Telephone Encounter - Marilee Soto MA - 07/20/2021 11:22 AM EDT D&C,HYSTEROSCOPY,ENDOMETRIAL ABLATION ,OTHER INDICATED PROCEDURES: 08/17/21 @ 11:00AM PAT: 07/28/21 @ 11:15AM COVID TEST: 08/15/21 @ 11:15AM TRIED CALLING PATIENT. COULD NOT LEAVE [facility] CALLED PATIENT, SHE IS AWARE OF DATES AND TIMES 08/08/21- PTS SURGERY TIME CHANGED TRIED CALLING NO ANSWER documented in this encounter Plan of Treatment [...] documented as of this encounter Care Teams Hospital Nurse Relationship Specialty Start Date End Date No Pcp, No Pcp WILLI Oconnor [address] PCP - General Family Medicine 10/30/23 CRIS PROGRAMMING DEVELOPMENT PROJECT MANAGER Utilization Management 01/03/17 documented as of this encounter
--- OUTSIDE RECORDS SUMMARY | 2024-09-20 17:06 | XMS_ITS | Clinical Summary ---
Author Organization [employer] tem Address [facility] [id number] [address] [place] [address] Care Team Providers Care Buckle And Button Maker Name Role Phone No Pcp, No Pcp Primary Care Provider Unavailabl e Allergies Active Allergy Reactions Criticality Noted Date Comments Ciprofloxacin Rash Low 11/27/2016 Propoxyphene N-Acetaminophen Hives 08/24/2016 Other reaction(s): Unknown Fish Oil Anaphylaxis High 11/08/2020 Cyclobenzaprine Hives,Other (See Comments) 04/10/2014 Ibuprofen Hives,Other (See Comments) 04/10/2014 Other reaction(s): Unknown Penicillins Anaphylaxis,Other (See Comments) High 04/10/2014 Other reaction(s): Unknown Buprenorphine-Naloxone Nausea And Vomiting Medium 12/2017 Medications ferrous sulfate 325 (65 FE) mg tablet Take 1 tablet (325 mg total) by mouth in the morning and 1 tablet (325 mg total) in the evening. Take with meals. Active lidocaine (LIDODERM) 5 %Indications:Abdomi nal spasms,S/P hernia repair Place 1 patch on the skin daily. Remove & Discard patch within 12 hours or as directed by 30 patch 1 3 Active acetaminophen (TylenoL) 325 mg tablet Take 2 tablets (650 mg total) by mouth every 6 (six) hours as needed for pain. 30 tablet 4 Active ondansetron ODT (ZOFRAN ODT) 4 mg disintegrating tablet Dissolve 1 tablet (4 mg total) on tongue every 8 (eight) hours as needed for nausea for up to 10 doses. 10 tablet 4 Active tiZANidine (ZANAFLEX) 4 mg tablet Take 1 tablet (4 mg total) by mouth every 6 (six) hours as needed for muscle spasms. 30 tablet 5 Active Active Problems Problem Noted Date Diagnosed Date Other chronic pain 02/12/2023 Abdominal adhesions due to implanted mesh 2022 AMS (altered mental status) 08/15/2022 Chest pain, unspecified type 08/15/2022 Neuropathy 08/15/2022 Gastroenteritis 03/15/2022 Nausea 04/11/2021 Cough in adult 04/11/2021 Splenic artery aneurysm 03/21/2021 Intractable abdominal pain 03/11/2021 S/P hernia repair 06/11/2018 Anxiety and depression 01/01/2017 Abdominal spasms 01/01/2017 Chronic anemia 01/01/2017 Drug addiction 12/28/2016 Anxiety about health 12/04/2016 Narcotic abuse 12/04/2016 Other intervertebral disc displacement, lumbar r egion 11/29/2016 Chronic pain in left foot 11/27/2016 Nasal pain 09/12/2016 Drug-seeking behavior 11/25/2013 History of deep venous thrombosis 10/15/2013 Overview (12/28/2016): Overview: On Lovenox in 2007 for uncertain duration Calf pain L>R LE venous dopplers negative 10/15 Calculus of kidney 10/15/2013 Overview (12/28/2016): Overview: 5mm non-obstructing stone on Sono @ [facility] Herpes simplex type 2 infection 09/08/2013 Overview (12/28/2016): Overview: +Serologies 10/04 Patient denies Hx of outbreak or prodrome No use of Valtrex Resolved Problems Problem Noted Date Diagnosed Date Resolved Date Pre-op evaluation 03/29/2022 02/12/2023 Cervical intraepithelial neoplasia grade 1 08/31/2016 01/05/2017 Immunizations Immunization Administration Dates Next Due Influenza, Im Trivalent Preservative 04/20/2012 Tdap 12/11/2013,04/20/2012 Family History Medical History Relation Name Comments Anuerysm Father BRAIN Cancer Father brain COPD Maternal Grandfather Diabetes Maternal Grandfather Heart disease Maternal Grandfather COPD Maternal Grandmother Cancer Maternal Grandmother ovarian Asthma Mother Cancer Other breast cancer a nd cervical cancer Asthma Sister Anesthesia problems Neg Hx Relation Name Status Comments Father Maternal Grandfather Maternal Grandmother Mother Alive Other Sister Social History Tobacco Use Types Packs/Day Years Used Date Smoking Tobacco: Never Smokeless Tobacco: Never Tobacco Cessation:Counseling Given: Not Answered Alcohol Use Standard Drinks/Week Comments No 0 [...] Sign Reading Time Taken Comments Blood Pressure 116/63 04/29/2024 5:19 AM EST Pulse 77 04/29/2024 5:19 AM EST Temperature 36.8 C (98.3 F) 04/29/2024 5:19 AM EST Respiratory Rate 14 04/29/2024 5:19 AM EST Oxygen Saturation 100% 04/29/2024 5:19 AM EST Inhaled Oxygen Concentration - - Weight 54.4 kg (120 lb) 04/29/2024 2:04 AM EST Height 152.4 cm (5') 04/29/2024 2:04 AM EST Body Mass Index 23.44 04/29/2024 2:04 AM EST Plan of Treatment Health Maintenance Due Date Last Done Comments Depression Screening 1997 DTaP,Tdap and Td Vaccines (3 - Td or Tdap) 12/12/2023 12/11/2013, 04/20/2012 Influenza Vaccine 12/22/2024 04/20/2012 Adult BMI Screening 04/29/2025 04/29/2024 Tobacco Screening 04/30/2025 04/30/2024 Pap Smear Discontinued 02/09/2021, 09/2020, 01/26/2021, Additional history exists Goals Goal Patient Goal Type Associated Problems Recent Progress Patient-Stated? Author <home> General Yes Gavin Lujan Note: Evaluation of progress towards goal: Safe transition from hospital to home. Medical Devices Implanted Type Area Oracle Software Engineer Device Identifier Shelf Expiration Date Model / Serial / Lot Mesh Brd Ventrio Oval 3x8 [id number] [id number] - Sn/A - [id number] Implanted:Qty: 1 on 05/01/2017 by Brock Veliz DO at [facility] Mesh N/A: Abdomen DAVOL 04/19/2018 [id number] / N/A / [id number] Procedures Procedure Name Priority Date/Time Associated Diagnosis Comments PAP SMEAR Routine 02/09/2021 11:28 AM EDT Encounter for repeat Pap smear due to previous insufficient cervical cells from Last 3 Months or Most Recently Relevant to Health Maintenance Results * Pap Smear (02/09/2021 11:28 AM EDT) 02/09/2021 11:2 8 AM EDT 02/10/2021 11:29 AM EDT Narrative COPATH - 02/16/2021 8:08 AM EDT [facility] [address] [place] [address] Gynecologic Cytology Consultation Patient Name: EBENA VANCE YeseniaChastity : 1985 (Age: 35) Gender: F Taken: 02/09/2021 Reported: 02/16/2021 Physician(s): TERESA Lewis Copy To: [facility]. Rec. #: [id number] Acct: # [id number] Final Cytologic Interpretation ThinPrep Pap Test (Cervical): Satisfactory for evaluation. A transformation zone component is present. NEGATIVE FOR INTRAEPITHELIAL LESION OR MALIGNANCY. [facility]/02/16/2021 Interpretation performed at [facility], [address] [place] [address], License number: [id number]. Electronically Signed Out By KIRT Mcghee(ASCP) Date of Last Menstrual Period: 01/13/2021 Other Clinical Conditions: R87.615 Unsatisfactory cervix Source of Specimen ThinPrep Pap Test (Cervical) Thin Prep Pap (LINOLEUM TILE LAYER) Fee Code(s): 50409 The Pap test is a screening test with an inherent, but low, probability of error. The Pap test is primarily effective for the diagnosis and prevention of squamous cell carcinoma. Regular screening is critical for prevention. ThinPrep liquid-based slides, which meet the Safety Teacher criteria for automated screening, have been screened by the ThinPrep Imaging System (as of 01/07/07) along with an additional manual rescreening by a corporate treasurer and, if indicated, by a pathologist. us Kendra MOORE PATHOLOGY/CYTOLOGY ORDER RISSA Final Result COPATH from Last 3 Months or Most Recently Relevant to Health Maintenance Insurance [place] Advance Directives * Full Code (Latest Code Status on File) Date Activated Date Inactivated Comments 08/15/2022 6:06 AM 08/15/2022 4:19 PM * Full Code Date Activated Date Inactivated Comments 03/12/2021 3:21 PM 03/15/2021 4:52 PM * Full Code Date Activated Date Inactivated Comments 10/02/2018 5:42 PM 10/04/2018 8:13 PM Care Teams Buckle And Button Maker Relationship Specialty Start Date End Date No Pcp, [place] [id number] PCP - General Family Medicine 10/30/23 CRIS COMMERCIAL FLOOR COVERING INSTALLER Utilization Management 01/03/17
--- OUTSIDE RECORDS SUMMARY | 2024-09-20 17:06 | XMS_ITS | Encounter Summary ---
Author Organization [employer] tem Address [id number] [address] [place] [address] Care Team Providers Care Home Performance Laborer Name Role Phone No Pcp, No Pcp Primary Care Provider Unavailabl e Encounter Details Date Type Department Care Team (Late st Contact Info) Description [facility]/07[facility]2021 [facility] [address] [place] [address] [place] [address] Alber Lujan CMA Social History Tobacco Use Types Packs/Day [...] encounter Miscellaneous Notes * Telephone Encounter - Alber Lujan CMA - 04/07/2021 10:[address] Wu office received a referral marked urgent for abdominal pain but the are Unable to get patient in until mid April, due to Dr being out of office. Do you want her referred elsewhere? Please advise. * Telephone Encounter - TERESA Mendez - 04/07/2021 10:09 AM EST April is in 2 weeks, I doubt anyone could see her before then as a new pt. Especially during the holidays, since many offices have limited hours. I would tell her if pain severe to go to ED for work up * Telephone Encounter - Alber Lujan CMA - 04/07/2021 10:[address] Wu office back to inform them to go ahead and schedule her in April. I did fax over the patients most recent labs, imaging, and ER Note today, as Dr Wu office does not have access to [employer]. Also left message for patient letting her know about the scheduling at Dr Wu being a little ways out and informed her to go to ER in meantime if she ends up with severe pain. documented in this encounter Plan of Treatment [...] documented as of this encounter Care Teams Home Performance Laborer Relationship Specialty Start Date End Date No Pcp, [place] [address] PCP - General Family Medicine 10/30/23 CRIS LAUNDRY OR DRY CLEANERS COUNTER CLERK Utilization Management 01/03/17 documented as of this encounter
--- OUTSIDE RECORDS SUMMARY | 2024-09-20 17:06 | XMS_ITS | Encounter Summary ---
Author Organization [employer] tem Address [facility] [id number] [address] [place] [address] Care Team Providers Care Block Engraver Name Role Phone No Pcp, No Pcp Primary Care Provider Unavailabl e Encounter Details Date Type Department Care Team (Late st Contact Info) Description 05/06/2024 Telephone [facility] [address] [place] [address] Cory Nolan MD [address] [place] [address] Social History Tobacco Use Types Packs/Day Years [...] encounter Miscellaneous Notes * Telephone Encounter - Jaquelin Arvizu - 05/06/2024 1:49 PM EST Patient is calling to get results of her lab work she just had done. I asked if she wanted to make a follow up appointment tongo over results and she said she just needs to talk to the nurse. She can be reached at [phone] Thank you. * Telephone Encounter - Rima Ware LPN - 05/06/2024 1:49 PM EST Outpatient Case Manager informed patient that her recent creatinine lab draw is normal. Patient satisfied documented in this encounter Plan of Treatment [...] documented as of this encounter Care Teams Block Engraver Relationship Specialty Start Date End Date No Pcp, [place] [address] PCP - General Family Medicine 7/9/24 CRIS NEUROLOGIST Utilization Management 01/03/17 documented as of this encounter
--- OUTSIDE RECORDS SUMMARY | 2024-09-20 17:06 | XMS_ITS | Patient Health Record ---
Author Organization [facility] [place] Address [address] [place] [address] Care Team Providers Care Accounts Clerk Name Role Phone Giovanna Anderson CNP Primary Care Provider U navailable Reason For Referral No Information Plan Of Treatment Next Appt Details Provider Name:Uzma Guevara , 10/07/2024 02:30:00 PM, [address] [place], [address], Insurance Providers Payer Name Payer Address Payer Phone Subscriber Number Group Number Insured Name Patient Relationship to Insured Coverage Start Date Coverage End Date [facility] [address] [facility] [place] [address] [id number] Apple Nagel Self - patient is the insured 6 Medical (General) History Medical History History ICD Code Anxiety F41.9 Acute bilateral back pain, unspecified b ack location M54.9 Surgical History Surgery Date(Month/Year) ventral hernia repair tubal ligation cholecystectomy carpal tunnel release
--- OUTSIDE RECORDS SUMMARY | 2024-09-20 17:06 | XMS_ITS | Encounter Summary ---
Author Organization [employer] tem Address [facility] [id number] [address] [place] [address] Care Team Providers Care Manager Building Name Role Phone No Pcp, No Pcp Primary Care Provider Unavailabl e Encounter Details Date Type Department Care Team (Late st Contact Info) Description 07/19/2021 Telephone [facility] Ob[facility] [address] [place] [address] Marilee Soto MA Social History Tobacco Use [...] Telephone Encounter - Marilee Soto MA - 07/19/2021 2:30 PM EDT Pt called and asked about her lab results. States she has continuous bleeding and is asking for a pill to stop her bleeding. I advised if she has severe bleeding she needs to be seen in ER again. documented in this encounter Plan of Treatment [...] documented as of this encounter Care Teams Manager Building Relationship Specialty Start Date End Date No Pcp, [place] [address] PCP - General Family Medicine 10/30/23 CRIS FELT PULLER Utilization Management 01/03/17 documented as of this encounter
--- OUTSIDE RECORDS SUMMARY | 2024-09-20 17:06 | XMS_ITS | Encounter Summary ---
Author Organization [employer] tem Address [id number] [address] [place] [address] Care Team Providers Care Underwater Hunter Name Role Phone No Pcp, No Pcp Primary Care Provider Unavailabl e Reason for Visit * Reason Comments Med Refill Encounter Details Date Type Department Care Team (Late st Contact Info) Description 02/12/2019 Refill [facility] [address] [facility] [address] [place] [address] Gustavo Menchaca MD Pain, abdominal, nonspecific Social History Tobacco Use Types Packs/Day Years [...] as of this encounter Visit Diagnoses Diagnosis Pain, abdominal, nonspecific documented in this encounter Additional Health Concerns Infection Onset Date Last Indicated Resolved Time COVID-19 Rule-Out 11/22/2021 11/22/2021 11/22/2021 7:42 PM EDT COVID-19 Positive 11/22/2021 11/22/2021 12/13/2021 11:13 PM EDT Assessment Noted Time PHQ-9 Depression Total Score: 0 11/28/19 17 2:00 PM EDT documented as of this encounter Care Teams Underwater Hunter Relationship Specialty Start Date End Date No Pcp, [place] [address] PCP - General Family Medicine 10/30/23 CRIS MANAGER SAP Utilization Management 01/03/17 documented as of this encounter
--- OUTSIDE RECORDS SUMMARY | 2024-09-20 17:06 | XMS_ITS | Encounter Summary ---
Author Organization [employer] tem Address [facility] [place]-[id number] [address] [place] [address] Care Team Providers Care Office Technology Professor Name Role Phone No Pcp, No Pcp Primary Care Provider Unavailabl e Encounter Details Date Type Department Care Team (Late st Contact Info) Description 08/22/2022 [facility]phone [facility] [address] [place] [address] [place] [address] Bella Still CMA Social History Tobacco Use Types Packs/Day [...] encounter Miscellaneous Notes * Telephone Encounter - Bella Still CMA - 08/22/2022 2:40 PM EDT Patient called into the office and stated that she went to Urgent Care today because she was havingpain in her mouth she has an abscess she has been gargling with salt water and taking extra strength tylenol patient stated that they did give her something for pain whole she was in there but it wasstarting to wear off she did have a fever of 102.1 while talking to me on the phone. She didn't know if she needs to be seen or if something to could be called in to pharmacy for her to [facility] in [place] for her pain. * Telephone Encounter - TERESA Mendez - 08/22/2022 2:40 PM EDT Would need appt documented in this encounter Plan of Treatment [...] documented as of this encounter Care Teams Office Technology Professor Relationship Specialty Start Date End Date No Pcp, No Pcp [place] [address] PCP - General Family Medicine 10/30/23 CRIS THRASHER FEEDER Utilization Management 01/03/17 documented as of this encounter
--- OUTSIDE RECORDS SUMMARY | 2024-09-20 17:06 | XMS_ITS | Encounter Summary ---
Author Organization [employer] tem Address [facility] [place][id number] [address] [place] [address] Care Team Providers Care Dietary Cook Name Role Phone No Pcp, No Pcp Primary Care Provider Unavailabl e Encounter Details Date Type Department Care Team (Late st Contact Info) Description 04/13/2021 [facility]phone [facility] [address] [place] [address] [place] [address] Alber Luajn CMA Social History Tobacco Use Types Packs/Day [...] Telephone Encounter - Alber Lujan CMA - 04/13/2021 1:14 PM EST Patient called stating she [facility] She is having body achesthat nothing seems to ease. You prescribed zofran and a cough medication yesterday but she's wondering if she may have the flu? Advise... * Telephone Encounter - TERESA Mendez - 04/13/2021 1:14 PM EST See if she can come in at 2:40 and we can check her for flu * Telephone Encounter - Alber Lujan CMA - 04/13/2021 1:14 PM EST Patient has no ride, her cousin has her car at work. I told her I'd let you know she cant make it but with the provider being out of office until Sunday, she may end up having to go to urgent care. She understood. documented in this encounter Plan of Treatment [...] documented as of this encounter Care Teams Dietary Cook Relationship Specialty Start Date End Date No Pcp, [place] [address] PCP - General Family Medicine 10/30/23 CRIS ON SITE CONSTRUCTION SUPERINTENDENT Utilization Management 01/03/17 documented as of this encounter
--- OUTSIDE RECORDS SUMMARY | 2024-09-20 17:06 | XMS_ITS | Encounter Summary ---
Author Organization [facility] tem Address [id number] [address] [place] [address] Care Team Providers Care Examination Scorer Name Role Phone No Pcp, No Pcp Primary Care Provider Unavailabl e Encounter Details Date Type Department Care Team (Late st Contact Info) Description 08/16/2022 Telephone [facility] Family Medicine [address] [place] [address] Ivory Bear, BLANKET WINDER HELPER-JAVA TECH [address] [facility] B, [facility] [place] [address] Social History Tobacco Use Types Packs/Day Years [...] encounter Miscellaneous Notes * Telephone Encounter - Stephanie Garcia - 08/16/2022 2:31 PM EDT Benito was at [facility] Sunday the for chest pain. They kept her for a day and was discharged the next day. They did MRI's CAT scan's and other tests she scheduled her ER F/U but would like to know the results. Would like you to call when you can her number is [phone]. * Telephone Encounter - TERESA Morris - 08/16/2022 2:31 PM EDT PCP will discuss results at the patient scheduled appointment on 08/30/2022 documented in this encounter Plan of Treatment [...] documented as of this encounter Care Teams Examination Scorer Relationship Specialty Start Date End Date No Pcp, No Pcp [place] [address] PCP - General Family Medicine 10/30/23 CRIS FLEET MANAGER Utilization Management 01/03/17 documented as of this encounter
--- OUTSIDE RECORDS SUMMARY | 2024-09-20 17:06 | XMS_ITS | Encounter Summary ---
Author Organization [employer] tem Address [id number] [address] [place] [address] Care Team Providers Care Soaker Helper Name Role Phone No Pcp, No Pcp Primary Care Provider Unavailabl e Encounter Details Date Type Department Care Team (Late st Contact Info) Description 04/07/2021 Orders Only [facility] [address] [place] [address] [place] [phone] Noa Spence CMA Social History Tobacco Use Types Packs/Day [...] AM EST documented as of this encounter Plan of [...] documented as of this encounter Care Teams Soaker Helper Relationship Specialty Start Date End Date No Pcp, [place] [address] PCP - General Family Medicine 10/30/23 CRIS MANAGER ARMY Utilization Management 01/03/17 documented as of this encounter
--- OUTSIDE RECORDS SUMMARY | 2024-09-20 17:06 | XMS_ITS | Clinical Summary ---
Author Organization [facility] Address [address] [place] [address] Care Team Providers Care Group Practice Pediatrician Name Role Phone Unavailable Primary Care Provider Unavailabl e Social History Tobacco Use Types Packs/Day Years Used Date Smoking Tobacco: Never Assessed Comments Unknown Sex and Gender Information Value Date Recorded Sex Assigned at Not on file Legal Sex Female 7:13 PM EDT Gender Identity Not on file Sexual Orientation Not on file Plan of Treatment Upcoming Encounters Date Type Department Care Team (Late st Contact Info) Description 01/07/2025 2:00 PM EDT Office Visit [facility] [address] [place] [address] Alvin Burnette, DO [address] [place] [address] Insurance [employer]
--- OUTSIDE RECORDS SUMMARY | 2024-09-20 17:07 | XMS_ITS | Encounter Summary ---
Author Organization [employer] tem Address [facility] [place]-[id number] [address] [place] [address] Care Team Providers Care Job Checker Name Role Phone No Pcp, No Pcp Primary Care Provider Unavailabl e Encounter Details Date Type Department Care Team (Late st Contact Info) Description 02/14/2021 Telephone [facility] Ob[facility] [address] [place] [phone] Marilee Soto MA Social History Tobacco Use [...] have Coronavirus / COVID-19? No / Unsure 02/11/2021 2:45 PM EDT documented as of this encounter Miscellaneous Notes * Telephone Encounter - Marilee Soto MA - 02/14/2021 10:51 AM EDT Patient called and would like results of her US that was completed on 02/11 please. Please advise * Telephone Encounter - VESTA Zacarias - 02/14/2021 10:51 AM EDT I spoke to this patient in regards to her recent pelvic ultrasound. There is no definitive abnormality noted. The uterus appears normal and no change from the US done in 2017. The right ovary appearsnormal and the left ovary was not able to be visualized due to gas in the bowel over lying the ovary. I also told her that her repeat pap results were still pending. documented in this encounter Plan of Treatment [...] documented as of this encounter Care Teams Job Checker Relationship Specialty Start Date End Date No Pcp, [place] [id number] PCP - General Family Medicine 10/30/23 CRIS BAR EXAMINER Utilization Management 01/03/17 documented as of this encounter
--- OUTSIDE RECORDS SUMMARY | 2024-09-20 17:07 | XMS_ITS | Encounter Summary ---
Author Organization [employer] [facility] tem Address [facility] [id number] [address] [place] [address] Care Team Providers Care Dicer Operator Name Role Phone No Pcp, No Pcp Primary Care Provider Unavailabl e Encounter Details Date Type Department Care Team (Late st Contact Info) Description 02/09/2021 [facility]phone [facility] [address] [place] [address] Marilee Stoo MA Social History Tobacco Use Types Packs/Day [...] Telephone Encounter - Marilee Soto MA - 02/09/2021 3:53 PM EDT Patient called with complaints of stabbing pain under belly area . Patient stated when she went to use the restroom she had bloody show. Patient stated she feels its coming from rectal area and notvaginal area. Patient advised to be evaluated in ED. documented in this encounter Plan of Treatment [...] documented as of this encounter Care Teams Dicer Operator Relationship Specialty Start Date End Date No Pcp, [place] [address] PCP - General Family Medicine 10/30/23 CRIS SECURITY CLERK Utilization Management 01/03/17 documented as of this encounter
--- OUTSIDE RECORDS SUMMARY | 2024-09-20 17:07 | XMS_ITS | Encounter Summary ---
Author Organization [employer] tem Address [id number] [address] [place] [address] Care Team Providers Care Busgirl Name Role Phone No Pcp, No Pcp Primary Care Provider Unavailabl e Encounter Details Date Type Department Care Team (Late st Contact Info) Description 02/22/2023 Telephone [facility] [address] [place] [address] Bella Still CMA Social History [...] Telephone Encounter - Bella Still CMA - 02/22/2023 11:20 AM EDT Patient called into the office and stated that her Aneurysm Doctor told her to contact here to get another RX for Hydrocodone 5- 325mg . I did mention to patient that she had an appointment lnbjscycj53/1/2023. * Telephone Encounter - TERESA Mendez - 02/22/2023 11:20 AM EDT I told her that was a one time dose I am not allowed to prescribe for chronic pain, I will refer topain management TERESA Mendez 02/22/23 1542 documented in this encounter Plan of Treatment [...] documented as of this encounter Care Teams Busgirl Relationship Specialty Start Date End Date No Pcp, [place] [address] PCP - General Family Medicine 10/30/23 CRIS PROFESSOR OF EDUCATION Utilization Management 01/03/17 documented as of this encounter
--- OUTSIDE RECORDS SUMMARY | 2024-09-20 17:07 | XMS_ITS | Encounter Summary ---
Author Organization [employer] tem Address [facility] [id number] [address] [place] [address] Care Team Providers Care Shovel Log Loader Operator Name Role Phone No Pcp, No Pcp Primary Care Provider Unavailabl e Encounter Details Date Type Department Care Team (Late st Contact Info) Description 07/06/2021 Telephone [facility] Cam[facility] - Medical Oncology [facility] [place] [phone] Sheeba Ramon RMA Social History Tobacco Use Types Packs/Day [...] encounter Miscellaneous Notes * Telephone Encounter - Sheeba Ramon MA - 07/06/2021 2:47 PM EDT Spoke with pt about records. Pt stated that she was diagnosed with cervical cancer Thanks2020. Pt told me her physicians were Dr. Quique Lora and Dr. Walton. Dr. Walton's office had no record of seeing pt because they did not receive any records with a cancer diagnosis and therefore neverscheduled her. Dr Lora's office had records of a surgical path that was negative for cancer. Without a documented cancer diagnosis, path, notes, scans, etc, we cannot schedule this pt to se our oncologist. I spoke with Jojo at [facility] MANAGER OF CUSTOMER BILLING and asked for the neg path and office note to scan into our chart. documented in this encounter Plan of Treatment [...] documented as of this encounter Care Teams Shovel Log Loader Operator Relationship Specialty Start Date End Date No Pcp, [place] [address] PCP - General Family Medicine 10/30/23 CRIS VENEER SORTER Utilization Management 01/03/17 documented as of this encounter
--- OUTSIDE RECORDS SUMMARY | 2024-09-20 17:07 | XMS_ITS | Encounter Summary ---
Author Organization [employer] tem Address [facility] [id number] [address] [place] [address] Care Team Providers Care Nut Feeder Name Role Phone No Pcp, No Pcp Primary Care Provider Unavailabl e Encounter Details Date Type Department Care Team (Late st Contact Info) Description 01/15/2023 Telephone [facility] [address] [place] [address] [place] [address] Bella Still CMA Social History [...] Telephone Encounter - Bella Still CMA - 01/15/2023 2:44 PM EDT Patient called into the office and stated that last week Dr. 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 And the they alsorecommend that patient get a PETscan done whole body imaging * Telephone Encounter - TERESA Mendez - 01/15/2023 2:44 PM EDT That would be up to Dr. Nolan, for further imagining, suggest she make appt with him since this is a vascular issue * Telephone Encounter - Belal Still CMA - 01/15/2023 2:44 PM EDT Called patient to let her know to get ahold of Dr. Nolan and she said ok she can do that. But also asked me if there was a order placed for a PET scan I told her that Dr. Nolan could order that also it all part of the further imaging. She stated that it had to go through her PCP she states she keeps losing weight and is very concerned. * Telephone Encounter - TERESA Mendze - 01/15/2023 2:44 PM EDT Pt called our office requesting a PET scan. 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 She has appt with you on 01/18/2023. Could you tamela discuss this with her Please and Thank you documented in this encounter Plan of Treatment [...] documented as of this encounter Care Teams Nut Feeder Relationship Specialty Start Date End Date No Pcp, [place] [address] PCP - General Family Medicine 10/30/23 CRIS OUTSIDE ENERGY SALES 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S Utilization Management 01/03/17 documented as of this encounter
--- OUTSIDE RECORDS SUMMARY | 2024-09-20 17:07 | XMS_ITS | Encounter Summary ---
Author Organization [employer] tem Address [id number] [address] [place] [address] Care Team Providers Care People Greeter Name Role Phone No Pcp, No Pcp Primary Care Provider Unavailabl e Encounter Details Date Type Department Care Team (Late st Contact Info) Description 01/01/2023 Telephone [facility] [address] [place] [address] Ivory Bear, PBX INSPECTOR-DRAFTER PATENT [address] [facility] B, [facility] [place] [address] Social History Tobacco Use Types [...] documented as of this encounter Care Teams People Greeter Relationship Specialty Start Date End Date No Pcp, No Pcp [place] [address] PCP - General Family Medicine 10/30/23 CRIS SOLDER DEPOSIT OPERATOR Utilization Management 01/03/17 documented as of this encounter
--- OUTSIDE RECORDS SUMMARY | 2024-09-20 17:07 | XMS_ITS | Encounter Summary ---
Author Organization [employer] tem Address [facility] [place]-[id number] [address] [place] [address] Care Team Providers Care Student Union Consultant Name Role Phone No Pcp, No Pcp Primary Care Provider Unavailabl e Encounter Details Date Type Department Care Team (Late st Contact Info) Description 02/13/2023 Telephone [facility] [address] [place] [address] Ivory Bear, METAL WINDOW FRAME MAKER-SHIFT MANAGER [address] [place] [address] Social History Tobacco Use Types [...] * Telephone Encounter - Stephanie Garcia - 02/13/2023 12:26 PM EDT Patient called said that she had discussed a referral to a kidney specialist. There is a referral to a GI specialist not Kidney. Please Advise * Telephone Encounter - Emeterio Pelaez MD - 02/13/2023 12:26 PM EDT Patient should set up an appointment to further evaluate. In person or Video OK. Upon chart review of labs, imaging and previous notes, I see no indication for kidney doctor referral ThanksEMETERIO MD 02/13/23 * Telephone Encounter - Stephanie Garcia - 02/13/2023 12:26 PM EDT Patient scheduled documented in this encounter Plan of Treatment [...] documented as of this encounter Care Teams Student Union Consultant Relationship Specialty Start Date End Date No Pcp, [place] [address] PCP - General Family Medicine 10/30/23 CRIS BAKERY TEAM MEMBER Utilization Management 01/03/17 documented as of this encounter
--- OUTSIDE RECORDS SUMMARY | 2024-09-20 17:07 | XMS_ITS | Encounter Summary ---
Author Organization [employer] tem Address [id number] [address] [place] [address] Care Team Providers Care Fingerer Name Role Phone No Pcp, No Pcp Primary Care Provider Unavailabl e Encounter Details Date Type Department Care Team (Late st Contact Info) Description 01/01/2023 Telephone [facility] [address] [place] [phone] Cory Nolan MD [address] [place], [place] [phone] Social History Tobacco Use Types Packs/Day Years [...] documented as of this encounter Care Teams Fingerer Relationship Specialty Start Date End Date No Pcp, [place] [address] PCP - General Family Medicine 10/30/23 [facility] RECEPTIONIST DOCTOR[facility] OFFICE Utilization Management 01/03/17 documented as of this encounter
--- OUTSIDE RECORDS SUMMARY | 2024-09-20 17:07 | XMS_ITS | Encounter Summary ---
Author Organization [employer] tem Address [id number] [address] [place] [address] Care Team Providers Care Laboratory Cureman Name Role Phone No Pcp, No Pcp Primary Care Provider Unavailabl e Encounter Details Date Type Department Care Team (Late st Contact Info) Description 01/12/2023 Telephone [facility] [address] [place] [phone] Cory Nolan MD [address] [place] [address] Social History Tobacco Use Types Packs/Day Years [...] * Telephone Encounter - Radha Isbell - 01/12/2023 11:45 AM EDT While calling patient to pre-reg, she mentioned having testing done in November and someone telling her 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 She is asking for the measurements. She has an appt on 01/18/23, but would like the measurements before then. She can be reached at [phone] Thank you. 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
--- OUTSIDE RECORDS SUMMARY | 2024-09-20 17:07 | XMS_ITS | Encounter Summary ---
Author Organization [employer] tem Address [id number] [address] 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
--- OUTSIDE RECORDS SUMMARY | 2024-09-20 17:07 | XMS_ITS | CCD ---
Author Organization [facility] Care Team Providers Care Corporate Account Executive Name Role Phone Tee Ko Unavailable Unavailable FREE, TEXT ENTRY Unavailable Unavailable KATERINA BROWN Admitting UnavailKATERINA Steven Attending UnavailSAVI Boone Referring Unavailable SAVI RICK Primary Care Unavailable Unavailable Primary Care Provider Unavailsherine e NON STAFF Primary Care Provider UnavailDO Angelito Trevizo Emergency Provider [phone] DO Darrion De La Paz Emergency Provider ABEBA Hawkins Emergency Provider DO Doyle Herron Admit Provider DO Doyle Herron Attending Provider NO FAMILY, PHYSICIAN Primary Care Provider Unava ilDO Curt Craft Emergency Provider MD Enrrique Diallo Emergency Provider [phone] FIDENCIO CARRERA Attending Unavailable TWAN FARIA Admitting Unavailable MAXIM CARRIZALES Attending Unavailable DO Angelito Barrios Emergency Provider NON STAFF Primary Care Provider UnavailDO Aimee Smith Emergency Provider Unavai labeugene NO FAMILY, PHYSICIAN Primary Care Provider Unava ilable DO Curt Ferrer Emergency Provider NO FAMILY, PHYSICIAN Primary Care Provider Unava ilable DO Curt Ferrer Emergency Provider DO Phoebe Yee Primary Care Provider DO Aimee Lambert Emergency Provider Unavai lable DR DYLAN FORD Primary Care Unavailable JACKELIN, DR BANKS Admitting Unavailable JACKELIN, DR BANKS Attending Unavailable ALEX MAGAÑA Consulting Unavailable JACKELIN, DR BANKS Consulting Unavailable GIUSEPPE HARDING Consulting Unavailable MISC, DR RICHARDSON Primary Care Unavailable LISA RICO Admitting Unavailable LISA RICO Attending Unavailable ALEX BANGURA Consulting Unavailable LY, PAT Consulting Unavailable MISC, DR RICHARDSON Primary Care Unavailable DAYLIN, JOHN Admitting Unavailable DAYLIN, JOHN Attending Unavailable DAYLIN, JOHN Consulting Unavailable AHDOOT, PAT Consulting Unavailable TRACEE GRANADOS Consulting Unavailable Unavailable Primary Care Provider UnavailAimee Smith Attending Unavailable Aimee Lambert Admitting Unavailable NO FAMILY, PHYSICIAN Primary Care Unavailable Enrrique Diallo Attending Unavailable Enrrique Diallo Admitting Unavailable NON STAFF Primary Care Unavailable Angelito Barrios Attending Unavailable Angelito Barrios Admitting Unavailable NO FAMILY, PHYSICIAN Primary Care Unavailable Curt Ferrer Attending Unavailable Curt Ferrer Admitting Unavailable NO FAMILY, PHYSICIAN Primary Care Unavailable Aimee Lambert Attending Unavailable Aimee Lambert Admitting Unavailable Phoebe Yee Primary Care Unavailable NO FAMILY, PHYSICIAN Primary Care Unavailable Curt Ferrer Attending Unavailable Curt Ferrer Admitting Unavailable Curt Ferrer Attending Unavailable Rey Ferrery Nilesh Admitting Unavailable NO FAMILY, PHYSICIAN Primary Care Unavailable Phoebe Yee D Primary Care Unavailable Richard Olivo Attending Unavailable Richard Olivo Admitting Unavailable Unavailable Primary Care Provider UnavailSAMANTHA Najera Attending Unavailable VIKKI MORGAN Attending Unavailable NO PCP, NO PCP Primary Care Unavailable No Pcp, No Pcp Primary Care Provider UnavailGAMAL Rodriguez Attending Unavailable JENNIFER PEREIRA Attending Unavailable JENNIFER PEREIRA Referring Unavailable MARCELA, MATTHIAS Attending Unavailable MATTHIAS MEDRANO Attending Unavailable MATTHIAS MEDRANO Referring Unavailable NO PCP, NO PCP Primary Care Unavailable LAZARO AGUSTIN Attending Unavailable NO PCP, NO PCP Primary Care Unavailable LAZARO AGUSTIN Attending Unavailable VIKKI MORGAN Referring Unavailable NO PCP, NO PCP Primary Care Unavailable IVORY BEAR Referring Unavailable IVORY BEAR Primary Care Unavailable NO PCP, NO PCP Primary Care Unavailable FARHAT CRAWLEY Attending Unavailable Chema [employer] MINER-Ivory BROWN Primary Care Provi mitul Unavailable Primary Care Provider UnavailEsmer Braun DO Attending Unavaila ble Allergies Allergy Classification Reported Allergen(s) Allergy Type Date of Onset Reaction(s) Facility Acetaminophen (1 source) Acetaminophen Drug Allergy 08-11-19 17 Anaphylaxis [facility] cyclobenzaprine (1 source) cyclobenzaprine Drug Allergy 04-18-20 12 [facility] NSAIDs (1 source) Ibuprofen Drug Allergy 04-18-20 12 [facility] Penicillins (antibiotic) (1 source) Penicillins Drug Allergy 04-18-20 12 Anaphylaxis [facility] Unclassified (18 sources) Propoxyphene N-Acetaminophen; Translations: [PROPOXYPHENE N-ACETAMINOPHEN] Propensity to adverse reactions to drug 04-18-20 12 [facility] (4 sources) cyclobenzaprine; Translations: [Flexeril] Drug Allergy 03-03-20 09 [facility] Repository (14 sources) Ibuprofen; Translations: [ibuprofen] Drug Allergy 03-03-20 09 Hives [facility] Repository (16 sources) Penicillins; Translations: [penicillins] Drug allergy (disorder) 03-03-20 09 Anaphylaxis [facility] Repository (1 source) traMADol Drug Allergy 05-26-19 14 [facility] Repository (3 sources) DARVOCET-N 100; Translations: [Darvocet-N 100] Drug allergy (disorder) 03-03-20 09 [facility] Repository (9 sources) Acetaminophen; Translations: [acetaminophen] Drug Allergy 05-15-19 [facility] (20 sources) cyclobenzaprine; Translations: [cyclobenzaprine] Drug Allergy 04-18-20 12 Hives, Other (See Comments) [facility] (9 sources) Propoxyphene; Translations: [propoxyphene] Drug Allergy 05-15-19 22 [facility] (14 sources) Ibuprofen Drug Allergy 04-18-20 12 Anaphylaxis, Hives, Other (See Comments) [facility] (4 sources) Triazolam; Translations: [FISH OIL] Drug Allergy 04-23-19 [address] [facility] Repository (12 sources) Penicillins Propensity to adverse reactions to drug 04-18-20 12 Anaphylaxis, Other (See Comments) [facility] Work Phone: (1 source) Ibuprofen Drug Allergy 01-12-[address] [facility] Repository (1 source) Penicillins Drug allergy (disorder) 01-12-[address] [facility] Repository (13 sources) Buprenorphine / Naloxone; Translations: [BUPRENORPHINE-NAL OXONE] Drug Allergy 10-30-19 18 Nausea And Vomiting [facility] Repository (13 sources) Ciprofloxacin; Translations: [CIPROFLOXACIN] Drug Allergy 11-28-19 17 Rash [facility] Repository (10 sources) Fish Oils Drug Allergy 11-09-19 21 Anaphylaxis [facility] (1 source) Acetaminophen / Propoxyphene; Translations: [Darvocet A500] Drug Allergy [facility] Repository (1 source) Ibuprofen; Translations: [Motrin] Drug Allergy [facility] Repository (1 source) Penicillin; Translations: [penicillin] Drug Allergy [facility] Repository Medications Current Medications Medication Drug Class(es) Dates Sig (Normalized) Sig (Original) acetaminophen 325 mg oral tablet (5 sources) Start: 03-08-2024 take 2 tablets by mouth every six hours as needed for pain acetaminophen (TylenoL) 325 mg tablet Take 2 tablets (650 mg total) by mouth every 6 (six) hours as needed for pain. 30 tablet 03/08/2024 Active Start: 05-16-2023 End: 05-23-2023 acetaminophen (TYLENOL EXTRA STRENGTH) 500 mg tablet Take 2 tablets (1,000 mg total) by mouth. 05/16/2023 Active doxycycline hyclate 100 mg oral tablet (2 sources) Tetracycline-class Drug Start: 09-13-2021 End: 09-23-2021 take 1 tablet by mouth twice daily doxycycline hyclate (VIBRA-TABS) 100 MG tablet Take 1 tablet by mouth 2 times daily for 10 days 20 tablet 0 09/13/2021 09/23/2021 Active Start: 09-13-2021 End: 09-13-2021 doxycycline monohydrate (MON ODOX) capsule 100 mg 0.3 ml enoxaparin sodium 100 mg/ml prefilled syringe (10 sources) Low Molecular Weight Heparin Start: 01-11-2022 Enoxaparin (Lovenox) 30 mg/0.3 mL Syringe Active 0 .ROUTE .COMPLEX January 11, 2022 12:00am Patient does not know dosage but takes twice a day. Start: 05-14-2021 End: 05-16-2021 Enoxaparin (Lovenox) 30 mg/0 .3 mL Syringe Discontinued 30 MG SUBCUT Daily May 14, 2021 1:00am May 16, 2021 11:41pm ferrous sulfate 325 mg oral tablet (20 sources) Start: 08-25-2024 take 1 tablet by mouth once Ferrous Sulfate (Iron (Ferrous Sulfate)) 325 mg (65 mg iron) tablet Active 325 MG PO Once August 25, 2024 3:31pm Start: 05-14-2021 Ferrous Sulfat e (Iron (Ferrous Sulfate)) 325 mg (65 mg iron) Tablet Active 325 MG PO 1-3 TIMES DAILY May 15, 2021 12:48am Start: 05-14-2021 End: 08-25-2024 take 1 tablet by mouth three times daily Ferrous Sulfate (Iron (Ferrous Sulfate)) 325 mg (65 mg iron) Tablet Discontinued 325 MG PO Three times daily May 14, 2021 1:00am August 25, 2024 3:31pm Start: 01-11-2014 take 1 tablet by kaya th twice daily ferrous sulfate 325 (65 FE) MG tablet Take 1 tablet by mouth 2 times daily for 30 days. 60 tablet 3 01/11/2014 Active lidocaine 0.04 mg/mg medicated patch (12 sources) Antiarrhythmic, Amide Local Anesthetic Start: 05-16-2023 End: 06-15-2023 apply 1 dose transdermal route once daily lidocaine 4 % external patch Place 1 patch onto the skin daily 30 patch 0 05/16/2023 06/15/2023 Active Start: 03-11-2023 End: 04-20-2023 apply 1 dose transdermal route once daily, then apply 1 dose transdermal route every twelve hours lidocaine (LIDODERM) 5 % Indications: Abdominal spasms , S/P hernia repair Place 1 patch on the skin daily. Remove & Discard patch within 12 hours or as directed by 30 patch 1 04/20/2023 Active methocarbamol 750 mg oral tablet (1 source) Muscle Relaxant Start: 05-16-2023 End: 05-20-2023 take 1 tablet by mouth three times daily methocarbamol (ROBAXIN-750) 750 MG tablet Take 1 tablet by mouth 3 times daily for 4 days 12 tablet 0 05/16/2023 05/20/2023 Active ondansetron 4 mg disintegrating oral tablet (20 sources) Serotonin-3 Receptor Antagonist Start: 08-25-2024 take 1 mg by mouth once daily as needed Ondansetron 4 mg tablet,disintegrati ng Active MG PO Daily as needed August 25, 2024 12:00am Start: 08-20-2023 take 1 tablet by kaya th every eight hours as needed for nausea ondansetron ODT (ZOFRAN ODT) 4 mg disintegrating tablet Dissolve 1 tablet (4 mg total) on tongue every 8 (eight) hours as needed for nausea for up to 10 doses. 10 tablet 03/08/2024 Active Start: 05-16-2023 End: 05-16-2023 ondansetron (ZOFRAN) injecti on 4 mg Start: 03-11-2023 take 1 tablet by kaya th every eight hours as needed for nausea and vomiting and nausea and nausea ondansetron ODT (ZOFRAN ODT) 4 mg disintegrating tablet Indications: Nausea Dissolve 1 tablet (4 mg total) on tongue every 8 (eight) hours as needed for nausea or vomiting. 20 tablet 0 03/11/2023 Active Start: 05-03-2022 End: 05-03-2022 ondansetron (ZOFRAN) injecti on 4 mg Start: 09-29-2021 End: 01-11-2022 take 1 tablet by mouth every eight hours as needed for nausea and vomiting Ondansetron Hcl 4 mg tablet Discontinued 4 MG PO Q8H as needed for nausea and vomiting 12 September 29, 2021 12:00am January 11, 2022 7:52pm Start: 09-12-2021 End: 09-13-2021 ondansetron (ZOFRAN) injecti on 4 mg Start: 05-18-2021 End: 07-17-2021 Ondansetron 4 mg tablet,disintegrating Discontinued 4 MG TRANSLINGU Daily as needed for nausea and vomiting 03 26May 18, 2021 1:00am July 17, 2021 12:33am Start: 05-15-2021 End: 07-17-2021 Ondansetron 4 mg Tablet,Disintegrating Discontinued 4 MG PO every 6 to 8 hours as needed for Nausea May 15, 2021 1:00am July 17, 2021 12:33am Start: 05-15-2021 End: 01-11-2022 take 1 tablet by mouth every six hours as needed for nausea and vomiting Ondansetron 4 mg tablet,disintegrating Discontinued 4 MG PO Q6H as needed for nausea and vomiting July 17, 2021 12:00am January 11, 2022 7:52pm Start: 12-08-2020 End: 12-08-2020 ondansetron (ZOFRAN) injecti on 4 mg take 1 tablet by kaya th every four hours as needed for nausea ondansetron (ZOFRAN) 4 MG tablet Take 4 mg by mouth every 4 hours as needed for Nausea or Vomiting 0 Active predniSONE 10 mg oral tablet (2 sources) Start: 09-01-2021 End: 09-11-2021 take 4 tablets by mouth once daily predniSONE (DELTASONE) 10 MG tablet Take 4 tablets by mouth once daily for 5 days 20 tablet 0 09/01/2021 09/11/2021 Active Start: 09-01-2021 End: 09-01-2021 predniSONE (DELTASONE) table t 40 mg tiZANidine 4 mg oral tablet (11 sources) Central alpha-2 Adrenergic Agonist Start: 04-29-2024 take 1 tablet by mouth every six hours as needed tiZANidine (ZANAFLEX) 4 mg tablet Take 1 tablet (4 mg total) by mouth every 6 (six) hours as needed for muscle spasms. 30 tablet 04/29/2024 Active Start: 01-08-2023 End: 04-30-2024 take 1 tablet by mouth three times daily tiZANidine (ZANAFLEX) 4 mg tablet Indications: Abdominal spasms , S/P hernia repair Take 1 tablet (4 mg total) by mouth 3 (three) times a day. 90 tablet 1 01/08/2023 04/30/2024 Discontinued Completed/Discontinued Medications Medication Drug Class(es) Dates Sig (Normalized) Sig (Original) acetaminophen 500 mg / diphenhydrAMINE hydrochloride 25 mg oral tablet (9 sources) Histamine-1 Receptor Antagonist Start: 01-08-2023 End: 04-30-2024 take 1 tablet by mouth once daily as needed for pain diphenhydrAMINE-ac etaminophen (ACETAMINOPHEN PM EXTRA STR) 25-500 mg tablet Indications: pain Take 1 tablet by mouth nightly as needed for sleep Indications: pain. 30 tablet 1 01/08/2023 04/30/2024 Discontinued acetaminophen 325 mg / HYDROcodone bitartrate 5 mg oral tablet (5 sources) Opioid Agonist Start: 10-09-2021 End: 01-11-2022 take 1 tablet by mouth three times daily as needed for pain Hydrocodone-Acetam inophen 5-325 mg tablet Discontinued 1 TAB PO Three times daily as needed for pain 4 3 October 09, 2021 January 11, 2022 7:52pm Start: 09-01-2021 End: 09-01-2021 HYDROcodone-acetaminophen (N ORCO) 5-325 MG per tablet 1 tablet acetaminophen 325 mg / oxyCODONE hydrochloride 5 mg oral tablet (8 sources) Opioid Agonist Start: 05-18-2021 End: 07-17-2021 take 1 tablet by mouth every four to six hours as needed for pain Oxycodone-Acetaminophen (Percocet) 5-325 mg tablet Discontinued 1 TAB PO EVERY 4-6 HOURS as needed for pain 12 3 May 18, 2021 July 17, 2021 12:33am [id number] 200 actuat albuterol 0.09 mg/actuat metered dose inhaler (2 sources) beta2-Adrenergic Agonist Start: 04-21-2013 End: 08-31-2021 take 2 puff(s) by inhalation every six hours as needed for wheezing albuterol (PROVENTIL HFA;VENTOLIN HFA) 108 (90 BASE) MCG/ACT inhaler Inhale 2 puffs into the lungs every 6 hours as needed for Wheezing. 0 04/21/2013 08/31/2021 Discontinued (LIST CLEANUP) aluminum hydroxide 40 mg/ml / magnesium hydroxide 40 mg/ml / simethicone 4 mg/ml oral suspension (1 source) Start: 12-08-2020 End: 12-08-2020 aluminum & magnesium hydroxide-simethicone (MAALOX) 200-200-20 MG/5ML suspension 30 mL cephalexin 250 mg oral capsule (2 sources) Cephalosporin Antibacterial Start: 05-03-2022 End: 05-03-2022 cephALEXin (KEFLEX) capsule 500 mg Start: 05-03-2022 End: 05-10-2022 take 1 capsule by mouth twice daily cephALEXin (KEFLEX) 500 MG capsule Take 1 capsule by mouth 2 times daily for 7 days 14 capsule 0 05/03/2022 05/10/2022 Active dicyclomine hydrochloride 20 mg oral tablet (14 sources) Anticholinergic Start: 10-02-2023 End: 04-30-2024 take 1 tablet by mouth in the morning, then take 1 tablet by mouth at bedtime dicyclomine (BENTYL) 20 mg tablet Take 1 tablet (20 mg total) by mouth in the morning and 1 tablet (20 mg total) before bedtime. 20 tablet 10/02/2023 04/30/2024 Discontinued Start: 07-17-2021 End: 01-11-2022 take 1 capsule by mouth twice daily Dicyclomine 10 mg capsule Discontinued 10 MG PO Twice daily July 17, 2021 12:00am January 11, 2022 7:52pm docusate sodium 100 mg oral capsule (2 sources) Start: 08-14-2013 End: 08-31-2021 take 1 capsule by mouth once daily as needed for constipation docusate sodium (COLACE) 100 MG capsule Take 1 capsule by mouth daily as needed for Constipation. 30 capsule 6 08/14/2013 08/31/2021 Discontinued (LIST CLEANUP) famotidine 20 mg oral tablet (10 sources) Histamine-2 Receptor Antagonist Start: 11-07-2014 End: 01-11-2022 take 1 tablet by mouth once daily Famotidine (Pepcid) 20 mg tablet Discontinued 20 MG PO Daily July 17, 2021 12:00am January 11, 2022 7:52pm iopamidol (ISOVUE-370) 76 % injection 75 mL (3 sources) Start: 05-03-2022 End: 05-03-2022 iopamidol (ISOVUE-370) 76 % injection 75 mL Start: 09-13-2021 End: 09-13-2021 iopamidol (ISOVUE-370) 76 % injection 75 mL Start: 12-08-2020 End: 12-08-2020 iopamidol (ISOVUE-370) 76 % injection 75 mL metoclopramide 5 mg oral tablet (6 sources) Dopamine-2 Receptor Antagonist Start: 10-09-2021 End: 01-11-2022 take 1 tablet by mouth twice daily Metoclopramide Hcl (Reglan) 5 mg tablet Discontinued 5 MG PO Twice daily October 09, 2021 12:00am January 11, 2022 7:52pm Start: 09-16-2021 take 1 tablet by kaya th three times daily as needed for nausea metoclopramide (REGLAN) 10 MG tablet Take 1 tablet by mouth 3 times daily as needed (nausea) 9 tablet 0 09/16/2021 Active 1 ml morphine sulfate 4 mg/ml cartridge (7 sources) Opioid Agonist Start: 05-16-2023 End: 05-16-2023 morphine injection 4 mg Start: 05-03-2022 End: 05-03-2022 morphine sulfate (PF) inject ion 4 mg Start: 05-03-2022 End: 05-03-2022 morphine sulfate (PF) inject ion 4 mg Start: 09-12-2021 End: 09-13-2021 morphine sulfate (PF) inject ion 4 mg Start: 12-08-2020 End: 12-08-2020 morphine (PF) injection 2 mg Start: 12-08-2020 End: 12-08-2020 morphine (PF) injection 2 mg nitrofurantoin, macrocrystals 100 mg oral capsule (5 sources) Nitrofuran Antibacterial Start: 09-29-2021 End: 01-11-2022 take 1 capsule by mouth twice daily at mealtime Nitrofurantoin Macrocrystal 100 mg capsule Discontinued 100 MG PO Twice daily 14 September 29, 2021 12:00am January 11, 2022 7:52pm must administer with a meal/food nitrofurantoin, macrocrystals 25 mg / nitrofurantoin, monohydrate 75 mg oral capsule (6 sources) Nitrofuran Antibacterial Start: 05-16-2023 End: 05-21-2023 nitrofurantoin (macrocrystal-monoh ydrate) (MACROBID) capsule 100 mg Start: 10-09-2021 End: 01-11-2022 take 1 capsule by mouth twice daily at mealtime Nitrofurantoin Monohyd/M-Cryst (Macrobid) 100 mg capsule Discontinued 100 MG PO Twice daily 10 October 09, 2021 12:00am January 11, 2022 7:52pm must administer with a meal/food 2 ml orphenadrine citrate 30 mg/ml injection (4 sources) Muscle Relaxant Start: 05-16-2023 End: 05-16-2023 orphenadrine (NORFLEX) injection 60 mg Start: 05-03-2022 End: 05-03-2022 orphenadrine (NORFLEX) injec tion 60 mg Start: 09-01-2021 End: 09-11-2021 take 1 tablet by mouth twice daily orphenadrine (NORFLEX) 100 MG extended release tablet Take 1 tablet by mouth 2 times daily for 10 days 20 tablet 0 09/01/2021 09/11/2021 Active Start: 08-31-2021 End: 08-31-2021 orphenadrine (NORFLEX) injec tion 60 mg oxyCODONE hydrochloride 5 mg oral capsule (5 sources) Opioid Agonist Start: 09-29-2021 End: 10-09-2021 take 1 capsule by mouth once daily as needed for pain Oxycodone 5 mg capsule Discontinued 5 MG PO Daily as needed for pain 4 September 29, 2021 October 09, 2021 4:40am polyethylene glycol 3350 79002 mg powder for oral solution (7 sources) Osmotic Laxative Start: 10-02-2023 End: 04-30-2024 polyethylene glycol (GLYCOLAX) 17 gram/dose powder Take 17 g by mouth in the morning. 527 g 10/02/2023 04/30/2024 Discontinued Start: 05-16-2023 End: 06-15-2023 polyethylene glycol (GLYCOLA X) 17 GM/SCOOP powder Take 17 g by mouth daily as needed (take daily to help with constipation) 510 g 0 05/16/2023 06/15/2023 Active promethazine hydrochloride 25 mg oral tablet (9 sources) Phenothiazine Start: 07-17-2021 End: 01-11-2022 take 1 tablet by mouth every six hours as needed for nausea Promethazine 25 mg Tablet Discontinued 25 MG PO Q6H as needed for Nausea July 17, 2021 12:00am January 11, 2022 7:52pm 50 ml sodium chloride 9 mg/ml injection (9 sources) Start: 05-16-2023 End: 05-16-2023 sodium chloride 0.9 % bolus 1,000 mL Start: 05-03-2022 sodium chlorid e flush 0.9 % injection 10 mL Start: 05-03-2022 End: 05-03-2022 0.9 % sodium chloride bolus Start: 09-13-2021 End: 09-13-2021 0.9 % sodium chloride bolus Start: 09-13-2021 sodium chlorid e flush 0.9 % injection 10 mL Start: 09-12-2021 End: 09-13-2021 0.9 % sodium chloride bolus Start: 12-08-2020 sodium chlorid e flush 0.9 % injection 10 mL Start: 12-08-2020 End: 12-08-2020 0.9 % sodium chloride bolus Problems Active Problems Problem Classification Problem Date Documented Da te Episodic/Chronic Abdominal pain (20 sources) Abdominal pain; Translations: [Unspecified abdominal pain] Onset: 01-01-2017 Episodic Anxiety disorders (16 sources) Mixed anxiety and depressive disorder; Translations: [Anxiety disorder, unspecified] Onset: 12-04-2016 01-01-2017 Chronic Aortic; peripheral; and visceral artery aneurysms (20 sources) Aneurysm of splenic artery; Translations: [Aneurysm of other specified arteries] Onset: 03-21-2021 05-16-2021 Chronic Asthma (9 sources) Asthma; Translations: [Unspecified asthma, uncomplicated] Onset: 02-24-2022 05-16-2021 Chronic Calculus of urinary tract (1 source) Personal history of urinary calculi; Translations: [PERSONAL HISTORY OF URINARY CALCULI] Onset: 02-24-2022 Episodic E Codes: Fall (1 source) Fall Onset: 04-29-2024 Esophageal disorders (1 source) Gastro-esophageal reflux disease without esophagitis; Translations: [GERD WITHOUT ESOPHAGITIS] Onset: 02-24-2022 Chronic Gastritis and duodenitis (7 sources) Gastritis; Translations: [Gastritis, unspecified, without bleeding] 07-17-2021 Episodic Mood disorders (2 sources) Bipolar I disorder; Translations: [Bipolar disorder, unspecified] 08-25-2024 Chronic Nonspecific chest pain (19 sources) Musculoskeletal chest pain; Translations: [Other chest pain] Onset: 08-09-2021 08-09-2021 Episodic Other female genital disorders (7 sources) Abnormal uterine bleeding; Translations: [Other specified abnormal uterine and vaginal bleeding] 07-17-2021 Chronic Other female genital disorders (1 source) Other specified abnormal uterine and vaginal bleeding; Translations: [OTH SPEC ABNORMAL UTERINE VAG BLEED] Onset: 06-27-2021 Chronic Other gastrointestinal disorders (2 sources) Constipation; Translations: [Constipation, unspecified] 05-16-2023 Episodic Other nervous system disorders (10 sources) Neuropathy; Translations: [Polyneuropathy, unspecified] Onset: 08-15-2022 08-15-2022 Chronic Other nervous system disorders (10 sources) Chronic pain; Translations: [Other chronic pain] Onset: 02-12-2023 02-22-2023 Chronic Other nervous system disorders (5 sources) Postoperative pain ; Translations: [Other acute postprocedural pain] 09-29-2021 Episodic Other non-traumatic joint disorders (2 sources) Pain in right knee; Translations: [Pain in joint, lower leg] Onset: 04-30-2024 04-30-2024 Episodic Other non-traumatic joint disorders (1 source) Pain in unspecified hip; Translations: [Pain in unspecified hip] Onset: 04-29-2024 Episodic Other non-traumatic joint disorders (1 source) Knee pain Onset: 04-30-2024 Episodic Phlebitis; thrombophlebitis and thromboembolism (17 sources) H/O: Deep vein thrombosis; Translations: [Personal history of other venous thrombosis and embolism] Onset: 10-15-2013 11-06-2013 Episodic Residual codes; unclassified (3 sources) Patient encounter status; Translations: [Procedure and treatment not carried out due to patient leaving prior to being seen by health care provider] 10-30-2021 Episodic Schizophrenia and other psychotic disorders (2 sources) Schizophrenia; Translations: [Schizophrenia, unspecified] 08-25-2024 Chronic Spondylosis; intervertebral disc disorders; other back problems (10 sources) Other intervertebral disc displacement, lumbar region; Translations: [Displacement of lumbar intervertebral disc without myelopathy] Onset: 11-29-2016 11-29-2016 Chronic Spondylosis; intervertebral disc disorders; other back problems (2 sources) Sciatica; Translations: [Sciatica, left side] Onset: 02-24-2022 Episodic Sprains and strains (4 sources) Shoulder strain; Translations: [Strain of unspecified muscle, fascia and tendon at shoulder and upper arm level, left arm, initial encounter] Onset: 10-28-2021 01-11-2022 Episodic Substance-related disorders (20 sources) Psychoactive substance abuse; Translations: [Opioid abuse, uncomplicated] Onset: 12-04-2016 08-15-2022 Chronic Unclassified (1 source) M79.661 - Pain in right lower leg; Translations: [M79.661 - Pain in right lower leg] Onset: 10-29-2021 Unclassified (1 source) R10.30 - Lower abdominal pain, unspecified; Translations: [R10.30 - Lower abdominal pain, unspecified] Onset: 09-29-2021 Unclassified (1 source) R07.9 - Chest pain, unspecified; Translations: [R07.9 - Chest pain, unspecified] Onset: 08-09-2021 Unclassified (1 source) N93.9 - Abnormal uterine and vaginal bleeding, unspecified; Translations: [N93.9 - Abnormal uterine and vaginal bleeding, unspecified] Onset: 07-17-2021 Unclassified (1 source) R10.10 - Upper abdominal pain, unspecified; Translations: [R10.10 - Upper abdominal pain, unspecified] Onset: 07-17-2021 Unclassified (1 source) Chest Pain; Vomiting Onset: 08-20-2023 Urinary tract infections (20 sources) Urinary tract infectious disease; Translations: [Urinary tract infection, site not specified] Onset: 02-24-2022 05-16-2021 Episodic Viral infection (11 sources) COVID-19; Translations: [Severe acute respiratory syndrome coronavirus 2 (SARS-CoV-2) detected] 05-16-2021 Episodic Past or Other Problems Problem Classification Problem Date Documented Da te Episodic/Chronic Administrative/social admission (20 sources) Drug seeking behavior ; Translations: [Malingerer [conscious simulation]] Onset: 11-25-2013 11-25-2013 Episodic Complication of device; implant or graft (10 sources) Disorder of abdomen; Translations: [Other specified complication of other internal prosthetic devices, implants and grafts, initial encounter] Onset: 01-08-2023 01-08-2023 Episodic Deficiency and other anemia (5 sources) Anemia; Translations: [Anemia, unspecified] Onset: 12-31-2013 12-31-2013 Episodic Deficiency and other anemia (10 sources) Chronic anemia; Translations: [Anemia, unspecified] Onset: 01-01-2017 01-01-2017 Episodic E Codes: Fall (1 source) Fall (on) (from) unspecified stairs and steps, initial encounter; Translations: [FALL ON FROM UNS STAIRS STEPS INIT] Onset: 10-28-2021 Episodic Early or threatened labor (10 sources) Premature uterine contraction; Translations: [False labor, unspecified] Onset: 10-15-2013 Resolved: 01-20-2014 01-20-2014 Episodic Immunizations and screening for infectious disease (15 sources) Herpes simplex type 2 infection; Translations: [Other specified abnormal immunological findings in serum] Onset: 09-08-2013 07-10-2022 Episodic Miscellaneous mental health disorders (7 sources) Anxiety about body function or health; Translations: [Other symptoms and signs involving emotional state] Onset: 12-04-2016 12-04-2016 Episodic Mood disorders (10 sources) Mood disorders Onset: 12-15-2020 12-15-2020 Nausea and vomiting (18 sources) Nausea; Translations: [Nausea] Onset: 10-15-2013 Resolved: 01-20-2014 01-20-2014 Episodic Noninfectious gastroenteritis (10 sources) Gastroenteritis; Translations: [Noninfective gastroenteritis and colitis, unspecified] Onset: 03-15-2022 03-15-2022 Episodic Other complications of ; puerperium affecting management of mother (5 sources) condition affecting obstetrical care of mother; Translations: [Maternal care for other (suspected) abnormality and damage, not applicable or unspecified] Onset: 08-27-2013 08-27-2013 Episodic Other complications of (5 sources) History of clinical finding in subject; Translations: [Supervision of with insufficient care, unspecified trimester] Onset: 04-18-2012 Episodic Other complications of (15 sources) Kidney stone; Translations: [ related renal disease, second trimester] Onset: 10-15-2013 07-10-2022 Episodic Other complications of (5 sources) H/O: blood transfusion; Translations: [Supervision of with other poor reproductive or obstetric history, first trimester] Onset: 10-15-2014 10-15-2014 Episodic Other complications of (5 sources) History of premature labor; Translations: [Supervision of with history of pre-term labor, unspecified trimester] Onset: 10-15-2014 10-15-2014 Episodic Other complications of (5 sources) H/O: premature delivery; Translations: [Supervision of other high risk pregnancies, unspecified trimester] Onset: 06-19-2013 Resolved: 01-20-2014 01-20-2014 Episodic Other complications of (5 sources) Finding related to ; Translations: [Other current maternal conditions classifiable elsewhere, antepartum] Onset: 08-27-2013 Resolved: 01-20-2014 01-20-2014 Episodic Other connective tissue disease (10 sources) Chronic pain of left foot; Translations: [Pain in left foot] Onset: 11-27-2016 11-27-2016 Episodic Other female genital disorders (10 sources) Cervical intraepithelial neoplasia grade 1; Translations: [Mild cervical dysplasia] Onset: 08-31-2016 Resolved: 01-05-2017 01-05-2017 Episodic Other gastrointestinal disorders (2 sources) Constipation, unspecified; Translations: [Constipation, unspecified] Onset: 05-16-2023 Episodic Other lower respiratory disease (10 sources) Cough; Translations: [Cough in adult] Onset: 04-11-2021 04-11-2021 Episodic Other nervous system disorders (1 source) Other acute postprocedural pain; Translations: [G89.18 - Other acute postprocedural pain] Onset: 09-29-2021 Episodic Other non-traumatic joint disorders (3 sources) Pain in right ankle and joints of right foot; Translations: [PAIN IN RIGHT ANKLE] Onset: 10-26-2021 Episodic Other and delivery including normal (5 sources) Delivery normal; Translations: [Encounter for full-term uncomplicated delivery] Onset: 01-20-2014 Resolved: 10-15-2014 10-15-2014 Episodic Other upper respiratory disease (10 sources) Pain of nose; Translations: [Other specified disorders of nose and nasal sinuses] Onset: 09-12-2016 09-12-2016 Episodic Residual codes; unclassified (5 sources) H/O: ectopic ; Translations: [Personal history of other complications of , childbirth and the puerperium] Onset: 10-15-2013 Episodic Residual codes; unclassified (11 sources) History of hernia repair; Translations: [Other specified postprocedural states] Onset: 06-11-2018 11-01-2018 Episodic Residual codes; unclassified (10 sources) Altered mental status; Translations: [Altered mental status, unspecified] Onset: 08-15-2022 08-15-2022 Episodic Residual codes; unclassified (1 source) Pain, unspecified; Translations: [Pain, unspecified] Onset: 10-13-2023 Episodic Superficial injury; contusion (3 sources) Contusion of right front wall of thorax, initial encounter; Translations: [Contusion of right hip, initial encounter] Onset: 10-28-2021 Episodic Results Test Name Value Interpretation Reference Range Facility Basophils Auto (Bld) [#/Vol] on 08-21-2024 Basophils (Bld) [#/Vol] Automated basophil count 0.0-0.1 [facility] Basophils/100 WBC Auto (Bld) on 08-21-2024 Basophils/100 WBC (Bld) Automated basophil % 0.2-2.[address] [facility] Eosinophils/100 WBC Auto (Bl d)on 08-21-2024 Eosinophils/100 WBC (Bld) Automated eosinophil % 0.9-7.[address] [facility] Erythrocyte distribution wid th Auto (RBC) [Ratio]on 08-21-2024 Erythrocyte distribution width (RBC) [Ratio] Erythrocyte distribution width [Ratio] by Automated count 11.0-15.[address] [facility] Estimated glomerular filtrat ion rate (GFR) non- Americanon 08-21-2024 GFR/1.73 sq M.predicted among non-blacks MDRD (S/P/Bld) [Vol rate/Area] Estimated glomerular filtration rate (GFR) non- >=60 mL/min/1.7 3m [address] [facility] Globulin Calc (S) [Mass/Vol] on 08-21-2024 Globulin (S) [Mass/Vol] Serum globulin measurement by calculation (mass/volume) [facility] Hematocrit Auto (Bld) [Volum e fraction]on 08-21-2024 Hematocrit (Bld) [Volume fraction] Hematocrit [Volume Fraction] of Blood by Automated count 36.0-48.[address] [facility] Hemoglobin [Mass/volume] in Bloodon 08-21-2024 Hemoglobin (Bld) [Mass/Vol] Hemoglobin [Mass/volume] in Blood 12.0-16.[address] [facility] Laboratory - Chemistry and C hemistry - challengeon 08-21-2024 Albumin [Mass/Vol] 3.6 g/dL 3.4-5.0 [facility] ALP [Catalytic activity/Vol] 71 U/L 46-[address] [facility] ALT [Catalytic activity/Vol] 18 U/L 14-[address] [facility] AST [Catalytic activity/Vol] 16 U/L 15-[address] [facility] Bilirubin [Mass/Vol] 0.3 mg/dL 0.2-1.0 [facility] Calcium [Mass/Vol] 9.2 mg/dL 8.5-10.1 [facility] Chloride [Moles/Vol] 102 mmol/L 98-107 [facility] CO2 [Moles/Vol] 28.0 mmol/L 21.0-32.0 [facility] Creatinine [Mass/Vol] 0.94 mg/dL 0.55-1.02 [facility] GFR/1.73 sq M.predicted MDRD (S/P/Bld) [Vol rate/Area] mL/min/{1.73_m2} >=60 mL/min/1.7 3m [address] [facility] Glucose [Mass/Vol] 84 mg/dL 74-106 [facility] Lactate [Moles/Vol] 0.9 mmol/L 0.4-2.0 [facility] Lipase [Catalytic activity/Vol] 38.0 U/L 16.0-77.[address] [facility] Potassium [Moles/Vol] 3.6 mmol/L 3.5-5.1 [facility] Protein [Mass/Vol] 7.1 g/dL 6.4-8.2 [facility] Sodium [Moles/Vol] 139 mmol/L 136-145 [facility] Urea nitrogen [Mass/Vol] 11.0 mg/dL 7.0-18.[address] [facility] Urea nitrogen/Creatinine [Mass ratio] 11.7 mg/mg [facility] Laboratory - Hematology and Cell countson 08-21-2024 Immature granulocytes/100 WBC (Bld) 0.0 % 0.0-0.[address] [facility] Leukocytes [#/volume] correc dorita for nucleated erythrocytes in Blood by Automated counon 08-21-2024 WBC corrected for nucl RBC Auto (Bld) [#/Vol] Leukocytes [#/volume] corrected for nucleated erythrocytes in Blood by Automated coun 4.0-11.[address] [facility] Lymphocytes Auto (Bld) [#/Vo l]on 08-21-2024 Lymphocytes (Bld) [#/Vol] Lymphocytes [#/volume] in Blood by Automated count 1.2-3.[address] [facility] Lymphocytes/100 WBC Auto (Bl d)on 08-21-2024 Lymphocytes/100 WBC (Bld) Lymphocytes/100 leukocytes in Blood by Automated count 20.5-60.[address] [facility] MCH Auto (RBC) [Entitic mass ]on 08-21-2024 MCH (RBC) [Entitic mass] MCH [Entitic mass] by Automated count 26.7-34.[address] [facility] MCHC Auto (RBC) [Mass/Vol]on 08-21-2024 MCHC (RBC) [Mass/Vol] MCHC [Mass/volume] by Automated count 29.9-35.[address] [facility] MCV Auto (RBC) [Entitic vol] on 08-21-2024 MCV (RBC) [Entitic vol] MCV [Entitic volume] by Automated count 81.0-99.[address] [facility] Monocytes Auto (Bld) [#/Vol] on 08-21-2024 Monocytes (Bld) [#/Vol] Automated blood monocyte count 0.3-0.[address] [facility] Monocytes/100 WBC Auto (Bld) on 08-21-2024 Monocytes/100 WBC (Bld) Automated monocyte % 1.7-12.[address] [facility] Neutrophils Auto (Bld) [#/Vo l]on 08-21-2024 Neutrophils (Bld) [#/Vol] Neutrophils [#/volume] in Blood by Automated count 1.4-6.[address] [facility] Neutrophils/100 WBC Auto (Bl d)on 08-21-2024 Neutrophils/100 WBC (Bld) Automated neutrophil % 43.0-75.[address] [facility] No Panel Informationon 05-01 -2025 Eosinophils # (Auto) 0.1 10 3/uL 0.0-0.7 [facility] Immature Granulocyte # (Auto) 0.00 10 3/uL 0.00-0.[address] [facility] Platelet mean volume Auto (B ld) [Entitic vol]on 08-21-2024 Platelet mean volume (Bld) [Entitic vol] Platelet mean volume [Entitic volume] in Blood by Automated count 9.5-13.[address] [facility] Platelets Auto (Bld) [#/Vol] on 08-21-2024 Platelets (Bld) [#/Vol] Platelets [#/volume] in Blood by Automated count 150-[address] [facility] RBC Auto (Bld) [#/Vol]on RBC (Bld) [#/Vol] Erythrocytes [#/volu me] in Blood by Automated count 4.20-5.[address] [facility] Serum or plasma albumin/glob ulin mass ratioon 08-21-2024 Albumin/Globulin [Mass ratio] Serum or plasma albumin/globulin mass ratio [facility] Serum or plasma anion gap de terminationon 08-21-2024 Anion gap [Moles/Vol] Serum or plasma an ion gap determination [facility] CT Angio Abd Pel w/ IV Conon 08-19-2024 CT Angio Abd Pel w/ IV Con CLINICAL HISTORY: Arterial rupture, remote history of splenic or hepatic aneurysm with new diffuse abdominal pain. CTA ABDOMEN/PELVIS WITH IV CONTRAST: TECHNIQUE: CTA abdomen/pelvis with IV contrast. 2-D coronal and sagittal reconstruction images were obtained. Dose reduction techniques were achieved by using automated exposure control and/or adjustment of mA and/or kV according to patient size and/or use of iterative reconstruction technique. FINDINGS: The lung bases are clear. Mild T10-11 and T11-12 degenerative disc changes are noted. No fracture, malalignment, or other acute bony abnormality is seen. On these arterial phase images, the liver, spleen, pancreas, adrenals, and kidneys appear normal. Prior cholecystectomy. The stomach and duodenum are moderately distended with fluid. A moderately large amount of stool is noted throughout the colon. No bowel obstruction or bowel dilatation. No sign of diverticulitis, appendicitis, or other acute inflammatory process. No enlarged lymph nodes. No abnormal fluid collection or free fluid. A 15 mm x 9 mm saccular splenic artery aneurysm is noted approximately 2.5 cm medial to the center of the splenic hilum (axial images 34 and 35). No other aneurysm is seen. No aortic dissection. The common hepatic artery appears to arise directly from the abdominal aorta, rather than from the celiac artery, consistent with normal anatomic variation. The major abdominal arteries are patent. The iliac arteries are patent. IMPRESSION: 1. 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 2. No other aneurysm is seen. No aortic dissection. 3. Moderately large amount of stool throughout the colon, which should be correlated for constipation. No bowel obstruction. 4. No sign of diverticulitis, appendicitis, or other acute abnormality. Radiation Dose Estimate: CTDI(mGy):0.594303 / / / kVp:120.053274 / mAs:0.465611 / / / DLP(mGy-cm):4.121559Xuku Part: Abdomen CTDI(mGy):2.184639 / / / kVp:120.850557 / mAs:39.450846 / / / DLP(mGy-cm):2.436197Gxhh Part: Abdomen CTDI(mGy):23.012161 / / / kVp:120.939894 / mAs:39.440427 / / / DLP(mGy-cm):23.770072Lsbx Part: Abdomen CTDI(mGy):2.922037 / / / kVp:80.604499 / mAs:140.623665 / / / DLP(mGy-cm):92.157431Iuqw Part: Abdomen Final Dictated by: Dipesh Roe MD Dictated DT/TM: 08.19.2024 1:26 am Signed by: Dipesh Roe MD Signed (Electronic Signature): 08.19.2024 1:39 am (If Report Is Signed, Electronically Signed in Other Vendor System) Normal [facility] ED Clinical Summaryon 2024 ED Clinical Summary (Inserted Image. Mabel ble to display) [address] [address] ED Clinical Summary Person Information Name: NagelApple Kathleen/[facility] Age: 38 Years : 1985 Sex: Female PCP: Marital Status: Single Phone: Race: White Ethnicity: Not or Language: [place] [facility]: [phone] Visit Reason: Abdominal pain; abdomen pain that radiates Acuity: 2 Enc Type: Emergency Med Service: Emergency Medicine Arrival: 08/18/2024 22:36:22 Discharge: 08/19/2024 01:52:00 LOS: 000 03:16 Checkin: 08/18/2024 22:36:22 Checkout: 08/19/2024 01:52:00 Dispo Type: Home or Self Care Address: [address] [place] [phone] Provider Notes: Diagnosis: Acute UTI; Hypokalemia; Splenic artery aneurysm Problems No Problems Documented Smoking Status: Smoking Status Never (less than 100 in lifetime) Functional Status: Sensory Deficits: History of Falls: Mobility Assistance Prior to Admission: ADLs: Current Level of Assistance for Self-Care/Mobility: Cognitive Status: Allergies Motrin (Shortness of breath) Darvocet A500 (Rash) Flexeril (Rash) penicillin (Shortness of breath) Laboratory or Other Results This Visit (last charted value for your 08/18/2024 visit) Hematology 08/18/2024 11:14 PM WBC: 7.5 x10 RBC: 4.40 x10 Neutro Auto: 64.6 % -- Normal range between ( 47.2 and 70.8 ) Lymph Auto: 26.7 % -- Normal range between ( 27.2 and 40.8 ) Pitkin Auto: 6.3 % -- Normal range between ( 3.7 and 11.9 ) Eos Auto: 1.8 % -- Normal range between ( 0.0 and 5.4 ) Basophil Auto: 0.6 % -- Normal range between ( 0.0 and 1.5 ) Baso Absolute: 0.0 x10 MCV: 88.4 fL -- Normal range between ( 80.0 and 100.0 ) MCHC: 34.1 % -- Normal range between ( 31.0 and 37.0 ) Lymph Absolute: 2.0 x10 Hct: 38.9 % -- Normal range between ( 36.0 and 46.0 ) Pitkin Absolute: 0.5 x10 MCH: 30.1 pg -- Normal range between ( 27.0 and 35.0 ) Neutro Absolute: 4.9 x10 Hgb: 13.3 g/dL -- Normal range between ( 12.0 and 16.0 ) Mean Platelet Volume: 9.0 fL -- Normal range between ( 6.7 and 10.6 ) Platelet: 180 x10 Eos Absolute: 0.1 x10 RDW: 13.3 % -- Normal range between ( 11.6 and 14.8 ) Urinalysis 08/18/2024 11:30 PM UA Color: Yellow UA Urobilinogen: Normal mg/dL UA Bili: Negative UA Ketones: Negative mg/dL UA Leukocyte Esterase: 75 UA Nitrite: 2+ UA Glucose: Normal mg/dL UA Bacteria: Present /HPF UA Protein: 10 mg/dL UA Blood: Trace UA Spec Grav: 1.027 -- Normal range between ( 1.003 and 1.035 ) UA pH: 5.5 UA Clarity: Turbid UA Source: Clean Catch UA Mucus: Present /LPF UA WBC Quant: 7 /HPF -- Normal range between ( 0 and 5 ) UA RBC Quant: 0 /HPF -- Normal range between ( 0 and 5 ) UA Squepi Cells Quant: 2 /HPF -- Normal range between ( 0 and 29 ) Chemistry 08/18/2024 11:30 PM Urine Preg: Negative 08/18/2024 11:14 PM Creatinine Lvl: 0.80 mg/dL -- Normal range between ( 0.44 and 1.03 ) BUN: 9 mg/dL -- Normal range between ( 8 and 26 ) Glucose Lvl: 85 mg/dL -- Normal range between ( 70 and 99 ) Potassium Lvl: 3.1 mmol/L -- Normal range between ( 3.4 and 4.8 ) AST: 18 IU/L -- Normal range between ( 15 and 41 ) ALT: 12 IU/L -- Normal range between ( 14 and 54 ) Sodium Lvl: 138 mmol/L -- Normal range between ( 133 and 142 ) Lipase Lvl: 37 IU/L -- Normal range between ( 22 and 51 ) Calcium Lvl: 8.9 mg/dL -- Normal range between ( 8.5 and 10.3 ) Albumin Lvl: 3.7 g/dL -- Normal range between ( 3.2 and 4.9 ) Total Protein: 6.6 g/dL -- Normal range between ( 6.5 and 8.1 ) Bili Total: 0.6 mg/dL -- Normal range between ( 0.3 and 1.2 ) Alk Phos: 50 IU/L -- Normal range between ( 32 and 91 ) Chloride: 104 mmol/L -- Normal range between ( 98 and 110 ) CO2: 28 mmol/L -- Normal range between ( 22 and 32 ) Anion Gap: 6 -- Normal range between ( 4 and 12 ) Estimated GFR: >60 mL/min/1.73m? BUN Crea Ratio: 11.2 -- Normal range between ( 10.0 and 20.0 ) AG Ratio: 1.3 -- Normal range between ( 1.1 and 2.2 ) Computed Tomography 08/19/2024 0:[address] Angio Abd Pel w/ IV Con: CT Angio Abd Pel w/ IV Con Measurements: Height: Weight: 50 kg Blood Pressure: /78 mmHg BMI: Procedures No Procedures Documented Immunizations No Immunizations Documented This Visit Final Med List: New Medications [facility]/pharmacy #[id number], [address], [place] [id number], [phone] nitrofurantoin (Macrobid 100 mg oral capsule) 1 Capsules Oral (given by mouth) 2 times a day for 5 Days. Refills: 0. Last Dose: [facility]/pharmacy #[id number], [address], [place] [id number], [phone] nitrofurantoin (Macrobid 100 mg oral capsule) 1 Capsules Oral (given by mouth) 2 times a day for 5 Days. Refills: 0. Care Team Members: Attending Physician: Esmer Malagon DO Consulting Physician: Referring Physician: Provider Role Assigned Unassigned [facility] ED Nurse (more content not included)... Normal [facility] .UA Microscp Aon 08-18-2024 UA Bacteria Present Abnormal Absent [facility] Comment on above: Performed By: #### . Urinalysis Microscopic Auto #### [facility] [address] [place] [address] UA Mucus Present Normal Absent [facility] Comment on above: Performed By: #### . Urinalysis Microscopic Auto #### [address] [address] UA RBC Quant 0 /HPF Normal 0-5 [facility] Comment on above: Performed By: #### . Urinalysis Microscopic Auto #### [address] [address] UA Squepi Cells Quant 2 /HPF Normal 0-29 [facility] Comment on above: Performed By: #### . Urinalysis Microscopic Auto #### [address] [address] UA WBC Quant 7 /HPF High 0-5 [facility] Comment on above: Performed By: #### . Urinalysis Microscopic Auto #### [address] [address] .eGFRon 08-18-2024 GFR/1.73 sq M.predicted MDRD (S/P/Bld) [Vol rate/Area] mL/min/{1.73_m2} Normal >=60 [facility] Comment on above: Result Comment: [facility] have implemented the eGFR calculation approach that does not have a coefficient for race and that conforms to the NKF-ASN Task Force Recommendations. Stages of Chronic Kidney Disease GFR Stage 3a Mild to moderate loss of kidney function 59 to 45 Stage 3b Moderate to severe loss of kidney function 44 to 33 Stage 4 Severe loss of kidney function 29 to 15 Stage 5 Kidney failure Less than 15 GFR calculated using the CKD-Epi Creatinine Equation (2020): eGFR = 142 X min(SCr/?, 1)? X max(SCr /?, 1)-1.200 X 0.9938Age X 1.012 [if female] Abbreviations/Units: eGFR (estimated glomerular filtration rate) = mL/min/1.73 m2 SCr (standardized serum creatinine) = mg/dL ? = 0.7 (females) or 0.9 (males) ? = -0.241 (females) or -0.302 (males) min = indicates the minimum of SCr/? or 1 max = indicates the maximum of SCr/? or 1 Age = years Performed By: #### E GFR #### [address] [address] CBC w/ Diffon 08-18-2024 Erythrocyte distribution width (RBC) [Ratio] 13.3 % Normal 11.6-14.8 [facility] Comment on above: Performed By: #### C BC #### [address] [address] Hematocrit (Bld) [Volume fraction] 38.9 % Normal 36.0-46.0 [facility] Comment on above: Performed By: #### C BC #### [address] [address] Hemoglobin (Bld) [Mass/Vol] 13.3 g/dL Normal 12.0-16.0 [facility] Comment on above: Performed By: #### C BC #### [address] [address] MCH (RBC) [Entitic mass] 30.1 pg Normal 27.0-35.0 [facility] Comment on above: Performed By: #### C BC #### [address] [address] MCHC 34.1 % Normal 31.0-37.0 [facility] Comment on above: Performed By: #### C BC #### [address] [address] MCV (RBC) [Entitic vol] 88.4 fL Normal 80.0-100.0 [facility] Comment on above: Performed By: #### C BC #### [address] [address] Platelet 180 x10*3/mcL Normal 150-450 [facility] Comment on above: Performed By: #### C BC #### [address] [address] Platelet mean volume (Bld) [Entitic vol] 9.0 fL Normal 6.7-10.6 [facility] Comment on above: Performed By: #### C BC #### [address] [address] RBC 4.40 x10*6/mcL Normal 3.80-5.20 [facility] Comment on above: Performed By: #### C BC #### [address] [address] WBC 7.5 x10*3/mcL Normal 4.5-11.0 [facility] Comment on above: Performed By: #### C BC #### [address] [address] CMPon 08-18-2024 Albumin [Mass/Vol] 3.7 g/dL Normal 3.2-4.9 [facility] Comment on above: Performed By: #### C OMP #### [address] [address] Albumin/Globulin [Mass ratio] 1.3 {ratio} Normal 1.1-2.2 [facility] Comment on above: Performed By: #### C OMP #### [address] [address] Alk Phos 50 IU/L Normal 32-91 [facility] Comment on above: Performed By: #### C OMP #### [address] [address] ALT [Catalytic activity/Vol] 12 U/L Low 14-54 [facility] Comment on above: Performed By: #### C OMP #### [address] [address] Anion gap [Moles/Vol] 6 mmol/L Normal 4-12 [facility] Comment on above: Performed By: #### C OMP #### [address] [address] AST [Catalytic activity/Vol] 18 U/L Normal 15-41 [facility] Comment on above: Performed By: #### C OMP #### [address] [address] Bili Total 0.6 mg/dL Normal 0.3-1.2 [facility] Comment on above: Performed By: #### C OMP #### [address] [address] Calcium [Mass/Vol] 8.9 mg/dL Normal 8.5-10.3 [facility] Comment on above: Performed By: #### C OMP #### [address] [address] Chloride [Moles/Vol] 104 mmol/L Normal 98-110 [facility] Comment on above: Performed By: #### C OMP #### [address] [address] CO2 [Moles/Vol] 28 mmol/L Normal 22-32 [facility] Comment on above: Performed By: #### C OMP #### [address] [address] Creatinine [Mass/Vol] 0.80 mg/dL Normal 0.44-1.03 [facility] Comment on above: Performed By: #### C OMP #### [address] [address] Glucose [Mass/Vol] 85 mg/dL Normal 70-99 [facility] Comment on above: Performed By: #### C OMP #### [address] [address] Potassium [Moles/Vol] 3.1 mmol/L Low 3.4-4.8 [facility] Comment on above: Performed By: #### C OMP #### [address] [place] [address] Protein [Mass/Vol] 6.6 g/dL Normal 6.5-8.1 [facility] Comment on above: Performed By: #### C OMP #### [address] [address] Sodium [Moles/Vol] 138 mmol/L Normal 133-142 [facility] Comment on above: Performed By: #### C OMP #### [address] [address] Urea nitrogen [Mass/Vol] 9 mg/dL Normal 8-26 [facility] Comment on above: Performed By: #### C OMP #### [address] [address] Urea nitrogen/Creatinine [Mass ratio] 11.2 mg/mg Normal 10.0-20.0 [facility] Comment on above: Performed By: #### C OMP #### [address] [address] Diff Autoon 08-18-2024 Baso Absolute 0.0 x10*3/mcL Normal 0.0-0.[address] [facility] Comment on above: Performed By: #### . Automated Diff #### [address] [address] Basophils/100 WBC (Bld) 0.6 % Normal 0.0-1.5 [facility] Comment on above: Performed By: #### . Automated Diff #### [address] [address] Eos Absolute 0.1 x10*3/mcL Normal 0.0-0.4 [facility] Comment on above: Performed By: #### . Automated Diff #### [address] [address] Eosinophils/100 WBC (Bld) 1.8 % Normal 0.0-5.4 [facility] Comment on above: Performed By: #### . Automated Diff #### [address] [address] Lymph Absolute 2.0 x10*3/mcL Normal 1.0-4.8 [facility] Comment on above: Performed By: #### . Automated Diff #### [address] [address] Lymphocytes/100 WBC (Bld) 26.7 % Low 27.2-40.8 [facility] Comment on above: Performed By: #### . Automated Diff #### [address] [address] Pitkin Absolute 0.5 x10*3/mcL Normal 0.1-1.[address] [facility] Comment on above: Performed By: #### . Automated Diff #### [address] [address] Monocytes/100 WBC (Bld) 6.3 % Normal 3.7-11.9 [facility] Comment on above: Performed By: #### . Automated Diff #### [address] [address] Neutro Absolute 4.9 x10*3/mcL Normal 1.8-7.7 [facility] Comment on above: Performed By: #### . Automated Diff #### [address] [address] Neutro Auto 64.6 % Normal 47.2-70.8 [facility] Comment on above: Performed By: #### . 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 She reports that she has a history of anemia that required blood transfusion in the past she reports that she is not having any bleeding she does not have heavy periods she is not really sure why she has anemia. She relates that today she just has discomfort she denies any fever chills she is nauseous but not vomiting has no diarrhea. She denies any injuries or trauma causing her discomfort. Review of Systems As reviewed in the HPR. All other systems reviewed are negative or normal. Physical Exam Constitutional: the patient appears in no acute distress Head/face: exam is negative for obvious evidence of injury or deformity Eyes: Pupils: equal, round, and reactive to light. Sclera: no icterus HEENT: Pupils equal round react light and accommodation oral mucosa is moist he has no tonsillar edema or exudates present uvula midline without angioedema neck is supple trachea midline with no lymphadenopathy Cardiovascular: Rate: normal, Rhythm: regular, Pulses: no pulse deficits are appreciated, Heart sounds: normal, No murmur, gallop or rub appreciated. Respiratory: Exam negative for respiratory distress, Respirations: normal, Breath sounds: are normal, clear without rales, wheeze or rhonchi. Abdomen / GI Exam: Scaphoid soft, not distended. negative for guarding, pulsatile mass, rebound tenderness, tenderness, Bowel sounds: normal, active throughout Back: Exam negative for acute changes, deformity or CVA tenderness. Musculoskeletal/extremity : Extremities: all appear grossly normal, with no appreciated deformity or pain with palpation, normal range of motion. Sensation is intact throughout. Skin: Exam negative for cyanosis, any evidence of obvious injury abrasion or rash. Vitals & Measurements T: 36.8 ?C (Oral) HR: 88 (Peripheral) RR: 18 BP: 127/83 SpO2: 99% HT: 149.9 cm WT: 50 kg (Dosing) Additional Vitals No qualifying data available. Procedure No qualifying data available. ASA Documentation Medical Decision Making Patient presented to the emergency department for evaluation of abdominal pain. Upon presentation to the emergency department patient was noted to be hemodynamically stable. Abdominal examination was reassuring but her history is concerning for this reported history of splenic or liver aneurysm. I do not have any past medical history on this patient as she has gone to an outside facility for prior evaluation. Laboratory studies indicated no leukocytosis, no anemia, no electrolyte abnormalities, no transaminases elevation or pancreatitis. Her urinalysis is concerning for acute urinary tract infection being positive for nitrite leukocyte Estrace WBCs and bacteria. CT angio interpreted by radiology as the followin. 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 2. No other aneurysm is seen. No aortic dissection. 3. Moderately large amount of stool throughout the colon, which should be correlated for constipation. No bowel obstruction.4. No sign of diverticulitis, appendicitis, or other acute abnormality The results of pertinent diagnostic studies and exam findings and clinical concerns were discussed with the patient. I explained that we do not have a definitive diagnosis for their symptoms at this time. It is possible there is an early developing process that will require recheck and further testing and possible treatment in the Emergency Department. They are to return to the ED for a recheck, earlier if they experience an increase or change in their pain, persistent vomiting, bleeding, fever or inability to take oral fluids. They expressed understanding that follow-up is essential, agreed with this plan and rationale, their questions were answered and felt comfortable going home Assessment/Plan Abdominal pain (Complaint of) Acute UTI Hypokalemia Orders: CT Angio Abd Pel w/ IV Con Refresh vitals and sections below: Problem List/Past Medical History Ongoing No qualifying data Historical No qualifying data Medications Inpatient Normal Saline Flush 0.9% injectable solution, 10 mL, IV Push, As Indicated, PRN Home No active home medications Allergies Motrin (Shortness of breath) penicillin (Shortness of breath) Darvocet A500 (Rash) Flexeril (Rash) Social History Alcohol Never Substance Abuse Denies All Tobacco Never (less than 100 in lifetime) Use:. Lab Results Automated Hematology LATEST RESULTS WBC 08/18/24 23:14 7.5 RBC 08/18/24 23:14 4.40 Hgb 08/18/24 23:14 13.3 Hct 08/18/24 23:1 (more content not included)... 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 Procedure No qualifying data available. ASA Documentation Assessment/Plan Abdominal pain (Complaint of) Refresh vitals and sections below: Problem List/Past Medical History Ongoing No qualifying data Historical No qualifying data Medications Inpatient Normal Saline Flush 0.9% injectable solution, 10 mL, IV Push, As Indicated, PRN Home No active home medications Allergies Motrin (Shortness of breath) penicillin (Shortness of breath) Darvocet A500 (Rash) Flexeril (Rash) Social History Alcohol Never Substance Abuse Denies All Tobacco Never (less than 100 in lifetime) Use:. Diagnostic Results Electronically signed by Esmer Malagon DO 08/18/24 23:43 EDT Normal [facility] Comment on above: Order Comment: Compu ter error. Document required new dictation. Lipaseon 08-18-2024 Lipase Lvl 37 IU/L Normal 22-51 [facility] Comment on above: Performed By: #### L IP #### [address] [address] UA w Culture if Indon 2024 Color (U) Yellow Normal Yellow [facility] Comment on above: Performed By: #### U CI #### [address] [address] Ketones Ql (U) Negative Normal Negative [facility] Comment on above: Performed By: #### U CI #### [address] [address] UA Blood Trace Abnormal Negative [facility] Comment on above: Performed By: #### U CI #### [address] [address] UA Clarity Turbid Normal Clear [facility] Comment on above: Performed By: #### U CI #### [address] [address] UA Glucose Normal Normal Negative [facility] Comment on above: Performed By: #### U CI #### [address] [address] UA Leukocyte Esterase 75 Abnormal Negative [facility] Comment on above: Performed By: #### U CI #### [address] [place] [address] UA Nitrite 2+ Abnormal Negative [facility] Comment on above: Performed By: #### U CI #### [address] [address] UA pH 5.5 Normal 4.5 - 7.8 [facility] Comment on above: Performed By: #### U CI #### [address] [address] UA Protein 10 mg/dL Normal Negative [facility] Comment on above: Performed By: #### U CI #### [address] [place] [address] UA Source Clean Catch Normal [facility] Comment on above: Performed By: #### U CI #### [address] [address] UA Spec Grav 1.027 Normal 1.003-1.03 5 [facility] Comment on above: Performed By: #### U CI #### [address] [address] UA Urobilinogen Normal Normal 0.2 - 1.0 [facility] Comment on above: Performed By: #### U CI #### [address] [address] Urobilinogen (U) [Mass/Vol] Negative Normal Negative [facility] Comment on above: Performed By: #### U CI #### [address] [address] CREATININEon 05-03-2024 Creatinine [Mass/Vol] 0.81 mg/dL Normal 0.40-1.00 [facility] Comment on above: Result Comment: METH OD TRACEABLE TO IDMS STANDARD Performed By: #### C GERRY [facility], 01537-6, 94008-3, 3040-3 #### [facility] ([id number]) [address] [place] [address] eGFR (CKD-EPI) NON-RACE DEPENDENT >90 Normal >59 [facility] Comment on above: Result Comment: Reported eGFR is based on the CKD-EPI 2020 equation that does not use a race coefficient. Performed By: #### C [facility], 10517-3, 51381-4, 3040-3 #### [facility] ([id number]) [address] [place] [address] LUMBAR SPINE WO CONTon CT LUMBAR SPINE WO CONT CT LUMBAR SPINE WO CONT History: Pain after falling Technique: Thin axial images through the lumbar spine were obtained. The study was supplemented by sagittal and coronal reconstructed images. Automated exposure control was utilized. Comparison: Comparison made to a CT abdomen pelvis dated 03/08/2024 Findings: The vertebral body heights and disc spaces are well-maintained. There is no evidence for an acute osseous abnormality. No significant degenerative changes are seen. No paraspinal soft tissue masses or hematomas are identified. Impression: Normal CT lumbar spine. Finalized by Matthias Lozano MD on 04/29/2024 3:52 AM Normal [facility] CT PELVIS WO CONTon 04-29-[address] PELVIS WO CONT CT PELVIS WO CONT History: Fall with severe low back and pelvic pain Exam/Technique: Noncontrast CT of the pelvis with multiplanar reconstructions. Comparison: CT abdomen and pelvis from 03/08/2024 Findings: There is no evidence of recent fractures. Malalignment of the lowest coccygeal segments is unchanged from the previous CT and appears to represent a normal variation in shape. There are no sizable hematomas or other acute soft tissue abnormalities displayed. No abnormalities of the unopacified urinary bladder suggested Status post hysterectomy with no ovarian abnormality suggested. No free intraperitoneal fluid or gas gross abnormal fluid collections IMPRESSION: No acute abnormalities demonstrated. All CT scans at this facility use dose modulation, iterative reconstruction, and/or weight based dosing when appropriate to reduce radiation dose to as low as reasonably achievable. Finalized by Tawanda Bueno MD on 04/29/2024 4:02 AM Normal [facility] CT ABDOMEN AND PELVIS W CONT on 03-08-2024 CT ABDOMEN AND PELVIS W CONT CT ABDOMEN AND PELVIS W CONT CT ABDOMEN AND PELVIS W CONT CLINICAL HISTORY:Abdominal pain, acute, nonlocalized COMPARISON: 03/15/2021. TECHNIQUE: CT abdomen and pelvis was performed utilizing the standard protocol following the uneventful administration of 100 cc Omnipaque 300 nonionic intravenous contrast. Coronal and sagittal reformatted images were generated and reviewed. Automated exposure control was utilized. FINDINGS: No acute findings lower thorax. Unremarkable liver, spleen, adrenal glands, kidneys, pancreas. 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 Hysterectomy. No dilatation or wall thickening of the bowel. Moderate colonic stool burden. Nonvisualized appendix. Normal right ovary. No free fluid or fluid collections. No acute appearing occlusion the major visceral vasculature. No aggressive osseous lesions. Degenerative changes lumbar spine. IMPRESSION: 1. No acute process within the abdomen or pelvis. 2. Fusiform splenic artery aneurysm, 1.2 cm in thickness. No hemoperitoneum. All CT scans at this facility use dose modulation, iterative reconstruction, and/or weight based dosing when appropriate to reduce radiation dose to as low as reasonably achievable. Finalized by Germán Trejo MD on 03/08/2024 12:24 AM Normal [facility] URN MACROSCOPIC NURon 2023 BILIRUBIN POOJA Negative Normal NEG [facility] Comment on above: Performed By: #### C BCA, CMP, 89155-3, 52354-7, 3040-3 #### [facility] ([id number]) [address] [place] [address] BLOOD/HGB POOJA Negative Normal NEG [facility] Comment on above: Performed By: #### C BCA, CMP, 88818-6, 15166-2, 3040-3 #### [facility] ([id number]) [address] [place] [address] GLUCOSE POOJA Negative Normal NEG [facility] Comment on above: Performed By: #### C BCA, CMP, 41678-5, 24438-8, 3040-3 #### [facility] ([id number]) [address] [place] [address] KETONES POOJA Trace Abnormal NEG [facility] Comment on above: Performed By: #### C BCA, CMP, 77484-1, 26174-8, 3040-3 #### [facility] ([id number]) [address] [place] [address] LEUKOCYTE ESTERASE POOJA Negative Normal NEG [facility] Comment on above: Performed By: #### C BCA, CMP, 45780-1, 42818-4, 3040-3 #### [facility] ([id number]) [address] [place] [address] NITRITE POOJA Negative Normal NEG [facility] Comment on above: Performed By: #### C BCA, CMP, 00155-3, 53294-2, 3040-3 #### [facility] ([id number]) [address] [place] [address] PH POOJA 5.5 Normal 5.0-8.5 [facility] Comment on above: Performed By: #### C BCA, CMP, 32983-1, 89934-3, 3040-3 #### [facility] ([id number]) [address] [place] [address] PROTEIN POOJA Trace Abnormal NEG [facility] Comment on above: Performed By: #### C BCA, CMP, 77754-1, 20763-5, 3040-3 #### [facility] ([id number]) [address] [place] [address] SPECIFIC GRAVITY POOJA 1.010 Normal 1.003-1 .03 5 [facility] Comment on above: Performed By: #### C BCA, CMP, 50192-9, 06238-5, 3040-3 #### [facility] ([id number]) [address] [place] [address] UROBILINOGEN POOJA 1.0 eu/dL Normal <1.1 [facility] Comment on above: Performed By: #### C BCA, CMP, 48496-0, 30878-2, 3040-3 #### [facility] ([id number]) [address] [place] [address] CBC AND AUTO DIFFon 11-15-20 24 ABSOLUTE BASOPHIL 0.1 X10E9/L Normal 0.0-0.2 [facility] Comment on above: Performed By: #### C BCA, CMP, 11283-7, 96155-2, 3040-3 #### [facility] ([id number]) [address] [place] [address] ABSOLUTE NEUTROPHIL 4.9 X10E9/L Normal 1.5-6.6 [facility] Comment on above: Performed By: #### C BCA, CMP, 37760-7, 84990-6, 3040-3 #### [facility] ([id number]) [address] [place] [address] Basophils/100 WBC (Bld) 0.7 % Normal [facility] Comment on above: Performed By: #### Isela BCA, CMP, 17476-8, 36987-5, 3040-3 #### [facility] ([id number]) [address] [place] [address] Eosinophils (Bld) [#/Vol] 0.1 10*3/uL Normal 0.0-0.4 [facility] Comment on above: Performed By: #### C GERRY, CMP, 34358-6, 33950-2, 3040-3 #### [facility] ([id number]) [address] [place] [address] Eosinophils/100 WBC (Bld) 0.9 % Normal [facility] Comment on above: Performed By: #### Isela BCA, CMP, 99022-3, 48724-3, 3040-3 #### [facility] ([id number]) [address] [place] [address] Erythrocyte distribution width (RBC) [Ratio] 13.3 % Normal 11.5-15.0 [facility] Comment on above: Performed By: #### Isela BCA, CMP, 27735-3, 21277-7, 3040-3 #### [facility] ([id number]) [address] [place] [address] Hematocrit (Bld) [Volume fraction] 40.1 % Normal 35-47 [facility] Comment on above: Performed By: #### C BCA, CMP, 73522-9, 96683-5, 3040-3 #### [facility] ([id number]) [address] [place] [address] Hemoglobin (Bld) [Mass/Vol] 13.6 g/dL Normal 11.7-15.5 [facility] Comment on above: Performed By: #### Isela BCA, CMP, 43364-2, 72451-0, 3040-3 #### [facility] ([id number]) [address] [place] [address] Lymphocytes (Bld) [#/Vol] 2.0 10*3/uL Normal 1.0-3.5 [facility] Comment on above: Performed By: #### Isela BCA, CMP, 48304-5, 82802-4, 3040-3 #### [facility] ([id number]) [address] [place] [address] Lymphocytes/100 WBC (Bld) 26.5 % Normal [facility] Comment on above: Performed By: #### Isela BCA, CMP, 63919-2, 20008-1, 3040-3 #### [facility] ([id number]) [address] [place] [address] MCH (RBC) [Entitic mass] 30.1 pg Normal 27-34 [facility] Comment on above: Performed By: #### Isela BCA, CMP, 69524-7, 49063-3, 3040-3 #### [facility] ([id number]) [address] [place] [address] MCHC (RBC) [Mass/Vol] 33.9 g/dL Normal 32-36 [facility] Comment on above: Performed By: #### Isela BCA, CMP, 37983-6, 36041-1, 3040-3 #### [facility] ([id number]) [address] [place] [address] MCV (RBC) [Entitic vol] 89 fL Normal 80-100 [facility] Comment on above: Performed By: #### C BCA, CMP, 78821-7, 83239-0, 3040-3 #### [facility] ([id number]) [address] [place] [address] Monocytes (Bld) [#/Vol] 0.4 10*3/uL Normal 0-0.9 [facility] Comment on above: Performed By: #### C GERRY, CMP, 80947-0, 40934-0, 3040-3 #### [facility] ([id number]) [address] [place] [address] Monocytes/100 WBC (Bld) 6.0 % Normal [facility] Comment on above: Performed By: #### C BCA, CMP, 26310-0, 79779-5, 3040-3 #### [facility] ([id number]) [address] [place] [address] Neutrophils/100 WBC (Bld) 65.9 % Normal [facility] Comment on above: Performed By: #### Isela GARRETT, CMP, 43119-9, 95016-2, 3040-3 #### [facility] ([id number]) [address] [place] [address] Platelet mean volume (Bld) [Entitic vol] 8.7 fL Normal 7-12 [facility] Comment on above: Performed By: #### C BCA, CMP, 69135-1, 81846-7, 3040-3 #### [facility] ([id number]) [address] [place] [address] Platelets (Bld) [#/Vol] 235 10*3/uL Normal 150-450 [facility] Comment on above: Performed By: #### C BCA, CMP, 99347-9, 59560-1, 3040-3 #### [facility] ([id number]) [address] [place] [address] RBC COUNT 4.51 X10E12/L Normal 3.80-5.20 [facility] Comment on above: Performed By: #### C BCA, CMP, 63658-6, 26825-9, 3040-3 #### [facility] ([id number]) [address] [place] [address] WBC (Bld) [#/Vol] 7.4 10*3/uL Normal 4.0-11.0 [facility] Comment on above: Performed By: #### C BCA, CMP, 36743-5, 37955-5, 3040-3 #### [facility] ([id number]) [address] [place] [address] COMPREHENSIVE METABOLIC PANE [facility] 03-07-2024 Albumin [Mass/Vol] 4.2 g/dL Normal 3.2-5.3 [facility] Comment on above: Performed By: #### C BCA, CMP, 89624-8, 27588-3, 3040-3 #### [facility] ([id number]) [address] [place] [address] ALP [Catalytic activity/Vol] 71 U/L Normal 39-130 [facility] Comment on above: Performed By: #### C BCA, CMP, 90288-8, 54582-9, 3040-3 #### [facility] ([id number]) [address] [place] [address] ALT [Catalytic activity/Vol] 12 U/L Normal 0-31 [facility] Comment on above: Performed By: #### C BCA, CMP, 04000-5, 99971-2, 3040-3 #### [facility] ([id number]) [address] [place] [address] 94377 Anion gap [Moles/Vol] 8 mmol/L Normal 5-15 [facility] Comment on above: Performed By: #### C BCA, CMP, 18789-6, 42861-0, 3040-3 #### [facility] ([id number]) [address] [place] [address] 34979 AST [Catalytic activity/Vol] 18 U/L Normal 0-41 [facility] Comment on above: Performed By: #### C BCA, CMP, 41107-9, 22123-5, 3040-3 #### [facility] ([id number]) [address] [place] [address] 13066 Bilirubin [Mass/Vol] 0.7 mg/dL Normal 0.3-1.2 [facility] Comment on above: Performed By: #### C BCA, CMP, 38986-8, 99417-5, 3040-3 #### [facility] ([id number]) [address] [place] [address] 52501 Calcium [Mass/Vol] 9.1 mg/dL Normal 8.5-10.5 [facility] Comment on above: Performed By: #### C BCA, CMP, 15430-5, 88699-3, 3040-3 #### [facility] ([id number]) [address] [place] [address] 40390 Chloride [Moles/Vol] 105 mmol/L Normal 98-109 [facility] Comment on above: Performed By: #### C BCA, CMP, 32075-9, 67360-1, 3040-3 #### [facility] ([id number]) [address] [place] [address] 49744 CO2 [Moles/Vol] 24 mmol/L Normal 22-32 [facility] Comment on above: Performed By: #### C BCA, CMP, 65883-2, 53578-9, 3040-3 #### [facility] ([id number]) [address] [place] [address] 96454 Creatinine [Mass/Vol] 0.82 mg/dL Normal 0.40-1.00 [facility] Comment on above: Result Comment: METH OD TRACEABLE TO IDMS STANDARD Performed By: #### C GERRY, CMP, 76755-2, 30364-3, 3040-3 #### [facility] ([id number]) [address] [place] [address] 99691 eGFR (CKD-EPI) NON-RACE DEPENDENT >90 Normal >59 [facility] Comment on above: Result Comment: Reported eGFR is based on the CKD-EPI 2020 equation that does not use a race coefficient. Performed By: #### C GERRY, CMP, 79500-8, 47589-2, 3040-3 #### [facility] ([id number]) [address] [place] [address] 90545 Glucose [Mass/Vol] 98 mg/dL Normal 65-99 [facility] Comment on above: Performed By: #### C GERRY, CMP, 33204-7, 77078-6, 3040-3 #### [facility] ([id number]) [address] [place] [address] 57110 Potassium [Moles/Vol] 3.5 mmol/L Normal 3.5-5.0 [facility] Comment on above: Performed By: #### C BCA, CMP, 01457-8, 12580-3, 3040-3 #### [facility] ([id number]) [address] [place] [address] 98007 Protein [Mass/Vol] 7.3 g/dL Normal 6.0-8.0 [facility] Comment on above: Performed By: #### C BCA, CMP, 91121-0, 05049-3, 3040-3 #### [facility] ([id number]) [address] [place] [address] 24401 Sodium [Moles/Vol] 137 mmol/L Normal 134-146 [facility] Comment on above: Performed By: #### C BCA, CMP, 17686-5, 75991-4, 3040-3 #### [facility] ([id number]) [address] [place] [address] 86737 Urea nitrogen [Mass/Vol] 15 mg/dL Normal 5-23 [facility] Comment on above: Performed By: #### C GERRY, CMP, 95167-2, 28471-2, 3040-3 #### [facility] ([id number]) [address] [place] [address] 96985 LIPASEon 03-07-2024 Lipase [Catalytic activity/Vol] 33 U/L Normal 17-40 [facility] Comment on above: Performed By: #### C GERRY, CMP, 54031-5, 43910-1, 3040-3 #### [facility] ([id number]) [address] [place] [address] 00379 CBC AND AUTO DIFFon 09-30- 24 ABSOLUTE BASOPHIL 0.1 X10E9/L Normal 0.0-0.2 [facility] Comment on above: Performed By: #### C GERRY, CMP, 63155-6, 07730-0, 3040-3 #### [facility] ([id number]) [address] [place] [address] 02385 ABSOLUTE NEUTROPHIL 4.7 X10E9/L Normal 1.5-6.6 [facility] Comment on above: Performed By: #### C BCA, CMP, 42268-9, 80161-1, 3040-3 #### [facility] ([id number]) [address] [place] [address] 23266 Basophils/100 WBC (Bld) 0.8 % Normal [facility] Comment on above: Performed By: #### C BCA, CMP, 68219-2, 63402-4, 3040-3 #### [facility] ([id number]) [address] [place] [address] 26954 Eosinophils (Bld) [#/Vol] 0.1 10*3/uL Normal 0.0-0.4 [facility] Comment on above: Performed By: #### C BCA, CMP, 00861-4, 74636-1, 3040-3 #### [facility] ([id number]) [address] [place] [address] 13017 Eosinophils/100 WBC (Bld) 1.3 % Normal [facility] Comment on above: Performed By: #### Isela GARRETT, CMP, 74248-5, 11428-9, 3040-3 #### [facility] ([id number]) [address] [place] [address] 98697 Erythrocyte distribution width (RBC) [Ratio] 13.7 % Normal 11.5-15.0 [facility] Comment on above: Performed By: #### C BCA, CMP, 22692-2, 56895-4, 3040-3 #### [facility] ([id number]) [address] [place] [address] 61698 Hematocrit (Bld) [Volume fraction] 39.0 % Normal 35-47 [facility] Comment on above: Performed By: #### C BCA, CMP, 75920-0, 65333-4, 3040-3 #### [facility] ([id number]) [address] [place] [address] 78257 Hemoglobin (Bld) [Mass/Vol] 13.2 g/dL Normal 11.7-15.5 [facility] Comment on above: Performed By: #### C BCA, CMP, 23094-8, 65435-6, 3040-3 #### [facility] ([id number]) [address] [place] [address] 14297 Lymphocytes (Bld) [#/Vol] 2.1 10*3/uL Normal 1.0-3.5 [facility] Comment on above: Performed By: #### C BCA, CMP, 52429-1, 74803-5, 3040-3 #### [facility] ([id number]) [address] [place] [address] 21274 Lymphocytes/100 WBC (Bld) 27.7 % Normal [facility] Comment on above: Performed By: #### C BCA, CMP, 75553-8, 10358-0, 3040-3 #### [facility] ([id number]) [address] [place] [address] 55629 MCH (RBC) [Entitic mass] 30.3 pg Normal 27-34 [facility] Comment on above: Performed By: #### Isela BCA, CMP, 50753-9, 33589-3, 3040-3 #### [facility] ([id number]) [address] [place] [address] 83477 MCHC (RBC) [Mass/Vol] 33.9 g/dL Normal 32-36 [facility] Comment on above: Performed By: #### Isela BCA, CMP, 87565-8, 45215-7, 3040-3 #### [facility] ([id number]) [address] [place] [address] 11430 MCV (RBC) [Entitic vol] 89 fL Normal 80-100 [facility] Comment on above: Performed By: #### Isela BCA, CMP, 55885-6, 70570-7, 3040-3 #### [facility] ([id number]) [address] [place] [address] 40216 Monocytes (Bld) [#/Vol] 0.6 10*3/uL Normal 0-0.9 [facility] Comment on above: Performed By: #### C BCA, CMP, 28083-9, 58964-4, 3040-3 #### [facility] ([id number]) [address] [place] [address] 41576 Monocytes/100 WBC (Bld) 7.6 % Normal [facility] Comment on above: Performed By: #### C BCA, CMP, 20144-5, 47090-5, 3040-3 #### [facility] ([id number]) [address] [place] [address] 79639 Neutrophils/100 WBC (Bld) 62.6 % Normal [facility] Comment on above: Performed By: #### Isela BCA, CMP, 44744-1, 34976-7, 3040-3 #### [facility] ([id number]) [address] [place] [address] 84257 Platelet mean volume (Bld) [Entitic vol] 9.3 fL Normal 7-12 [facility] Comment on above: Performed By: #### C BCA, CMP, 37907-4, 56762-9, 3040-3 #### [facility] ([id number]) [address] [place] [address] 37471 Platelets (Bld) [#/Vol] 192 10*3/uL Normal 150-450 [facility] Comment on above: Performed By: #### Isela BCA, CMP, 41520-8, 99867-2, 3040-3 #### [facility] ([id number]) [address] [place] [address] 24142 RBC COUNT 4.36 X10E12/L Normal 3.80-5.20 [facility] Comment on above: Performed By: #### C BCA, CMP, 10893-5, 01816-3, 3040-3 #### [facility] ([id number]) [address] [place] [address] 33225 WBC (Bld) [#/Vol] 7.5 10*3/uL Normal 4.0-11.0 [facility] Comment on above: Performed By: #### C BCA, CMP, 20619-0, 61656-9, 3040-3 #### [facility] ([id number]) [address] [place] [address] 13783 COMPREHENSIVE METABOLIC PANE Reji 10-01-2023 Albumin [Mass/Vol] 4.0 g/dL Normal 3.2-5.3 [facility] Comment on above: Performed By: #### C BCA, CMP, 10132-6, 04253-9, 3040-3 #### [facility] ([id number]) [address] [place] [address] 84648 ALP [Catalytic activity/Vol] 55 U/L Normal 39-130 [facility] Comment on above: Performed By: #### C BCA, CMP, 88430-4, 06822-1, 3040-3 #### [facility] ([id number]) [address] [place] [address] 97865 ALT [Catalytic activity/Vol] 14 U/L Normal 0-31 [facility] Comment on above: Performed By: #### C BCA, CMP, 09718-4, 28645-6, 3040-3 #### [facility] ([id number]) [address] [place] [address] 52265 Anion gap [Moles/Vol] 5 mmol/L Normal 5-15 [facility] Comment on above: Performed By: #### C BCA, CMP, 96104-4, 61311-2, 3040-3 #### [facility] ([id number]) [address] [place] [address] 39101 AST [Catalytic activity/Vol] 17 U/L Normal 0-41 [facility] Comment on above: Performed By: #### C BCA, CMP, 52803-2, 76296-4, 3040-3 #### [facility] ([id number]) [address] [place] [address] 81752 Bilirubin [Mass/Vol] 0.5 mg/dL Normal 0.3-1.2 [facility] Comment on above: Performed By: #### C BCA, CMP, 18250-9, 69801-0, 3040-3 #### [facility] ([id number]) [address] [place] [address] 56751 Calcium [Mass/Vol] 8.5 mg/dL Normal 8.5-10.5 [facility] Comment on above: Performed By: #### C BCA, CMP, 31271-0, 32177-9, 3040-3 #### [facility] ([id number]) [address] [place] [address] 54391 Chloride [Moles/Vol] 108 mmol/L Normal 98-109 [facility] Comment on above: Performed By: #### C BCA, CMP, 37625-2, 59132-0, 3040-3 #### [facility] ([id number]) [address] [place] [address] 20444 CO2 [Moles/Vol] 23 mmol/L Normal 22-32 [facility] Comment on above: Performed By: #### C BCA, CMP, 76760-6, 91654-7, 3040-3 #### [facility] ([id number]) [address] [place] [address] 04534 Creatinine [Mass/Vol] 0.76 mg/dL Normal 0.40-1.00 [facility] Comment on above: Result Comment: METH OD TRACEABLE TO IDMS STANDARD Performed By: #### C BCA, CMP, 79468-1, 71938-9, 3040-3 #### [facility] ([id number]) [address] [place] [address] 73383 eGFR (CKD-EPI) NON-RACE DEPENDENT >90 Normal >59 [facility] Comment on above: Result Comment: Reported eGFR is based on the CKD-EPI 2020 equation that does not use a race coefficient. Performed By: #### C APURVA GARRETT, 15638-7, 89777-4, 3040-3 #### [facility] ([id number]) [address] [place] [address] 58952 Glucose [Mass/Vol] 90 mg/dL Normal 65-99 [facility] Comment on above: Performed By: #### C APURVA GARRETT, 77684-9, 68535-3, 3040-3 #### [facility] ([id number]) [address] [place] [address] 26917 Potassium [Moles/Vol] 3.8 mmol/L Normal 3.5-5.0 [facility] Comment on above: Performed By: #### C APURVA GARRETT, 70177-0, 04747-3, 3040-3 #### [facility] ([id number]) [address] [place] [address] 57531 Protein [Mass/Vol] 7.1 g/dL Normal 6.0-8.0 [facility] Comment on above: Performed By: #### C APURVA GARRETT, 73022-6, 59884-2, 3040-3 #### [facility] ([id number]) [address] [place] [address] 21033 Sodium [Moles/Vol] 136 mmol/L Normal 134-146 [facility] Comment on above: Performed By: #### C APURVA GARRETT, 30647-4, 69002-9, 3040-3 #### [facility] ([id number]) [address] [place] [address] 22714 Urea nitrogen [Mass/Vol] 15 mg/dL Normal 5-23 [facility] Comment on above: Performed By: #### C APURVA GARRETT, 95717-7, 76826-0, 3040-3 #### [facility] ([id number]) [address] [place] [address] 99259 HCG ( test) Ql (U)o n 10-01-2023 Beta HCG ( test) Ql (U) Negative Normal NEG [facility] Comment on above: Performed By: #### C BCA, CMP, 38468-6, 87497-6, 3040-3 #### [facility] ([id number]) [address] [place] [address] 80468 Beta HCG ( test) Ql (U) Negative Normal NEG [facility] Comment on above: Performed By: #### 2 106-3 #### [facility] ([id number]) [address] [place] [address] 50355 Result Comment: DISR EGARD RESULTS, SPECIMEN MISLABELED. Performed By: #### C BCA, CMP, 97514-6, 55398-6, 3040-3 #### [facility] ([id number]) [address] [place] [address] 66593 LIPASEon 10-01-2023 Lipase [Catalytic activity/Vol] 53 U/L High 17-40 [facility] Comment on above: Performed By: #### C BCA, CMP, 59705-4, 96044-9, 3040-3 #### [facility] ([id number]) [address] [place] [address] 85628 Lactate (P sukhwinder) [Moles/Vol]o n 10-01-2023 LACTATE W/REFLEX 1.4 mmol/L Normal 0.4-2.0 [facility] Comment on above: Result Comment: Result did not trigger repeat Lactate, re-order if needed. Performed By: #### C BCA, CMP, 38728-4, 55534-0, 3040-3 #### [facility] ([id number]) [address] [place] [address] 78995 URINE CULTUREon 10-01-2023 Bacteria identified Cx Nom (U) CULTURE RESULTS >100,000 ORGANISMS/mL ESCHERICHIA COLI [ S = SUSCEPTIBLE R = RESISTANT I = INTERMEDIATE S-DO = Susceptible-dose dependent NS = Non-suscceptible NO = No Interpretation ] Organism: ESCHERICHIA COLI Antibiotic Interpretation GIACOMO Status AMPICILLIN R >=32 F AMP/SULBACTAM I 16/8 F CEFAZOLIN S <=4 F CEFTRIAXONE S <=1 F CIPROFLOXACIN S <=0.25 F GENTAMICIN S <=1 F LEVOFLOXACIN S 1 F NITROFURANTOIN S <=16 F PIPERACIL/TAZOBACTAM S <=4 F TOBRAMYCIN S <=1 F TRIMETH/SULFAMETHOXAZOLE S <=1/19 F Susceptible [facility] Comment on above: Performed By: #### C APURVA GARRETT, 32311-2, 37964-4, 3040-3 #### [facility] ([id number]) [address] [place] [address] 99320 URN MACROSCOPIC NURon 2023 BILIRUBIN POOJA Negative Normal [facility] Comment on above: Performed By: #### Isela GARRETT CMP, 00131-4, 14160-4, 3040-3 #### [facility] ([id number]) [address] [place] [address] 62668 BLOOD/HGB POOJA Negative Normal NEG [facility] Comment on above: Performed By: #### Isela GARRETT CMP, 77033-1, 57279-3, 3040-3 #### [facility] ([id number]) [address] [place] [address] 22131 GLUCOSE POOJA Negative Normal NEG [facility] Comment on above: Performed By: #### Isela GARRETT CMP, 57463-6, 94881-6, 3040-3 #### [facility] ([id number]) [address] [place] [address] 14172 KETONES POOJA Negative Normal NEG [facility] Comment on above: Performed By: #### C BCA, CMP, 86094-0, 14270-3, 3040-3 #### [facility] ([id number]) [address] [place] [address] 19179 LEUKOCYTE ESTERASE POOJA Trace Abnormal NEG [facility] Comment on above: Performed By: #### C BCA, CMP, 07954-8, 97535-6, 3040-3 #### [facility] ([id number]) [address] [place] [address] 68825 NITRITE POOJA Negative Normal NEG [facility] Comment on above: Performed By: #### C BCA, CMP, 41679-5, 61626-8, 3040-3 #### [facility] ([id number]) [address] [place] [address] 11431 PH POOJA 6.5 Normal 5.0-8.5 [facility] Comment on above: Performed By: #### C BCA, CMP, 95868-0, 95958-4, 3040-3 #### [facility] ([id number]) [address] [place] [address] 74247 PROTEIN POOJA Negative Normal NEG [facility] Comment on above: Performed By: #### C BCA, CMP, 43927-1, 38381-0, 3040-3 #### [facility] ([id number]) [address] [place] [address] [place] [address] SPECIFIC GRAVITY POOJA >=1.030 Normal 1.003-[address] [place] [address] Comment on above: Performed By: #### C BCA, CMP, 86035-8, 05548-4, 3040-3 #### [facility] ([id number]) [address] [place] [address] 01588 UROBILINOGEN POOJA 1.0 eu/dL Normal <1.1 [facility] Comment on above: Performed By: #### C BCA, CMP, 38875-0, 60876-5, 3040-3 #### [facility] ([id number]) [address] [place] [address] 44128 BILIRUBIN POOJA Negative Normal NEG [facility] Comment on above: Performed By: #### N UM #### [facility] ([id number]) [address] [place] [address] 86998 Result Comment: DISR EGARD RESULTS, SPECIMEN MISLABELED. BLOOD/HGB POOJA Negative Normal NEG [facility] Comment on above: Performed By: #### N UM #### [facility] ([id number]) [address] [place] [address] 57813 Result Comment: DISR EGARD RESULTS, SPECIMEN MISLABELED. GLUCOSE POOJA Negative Normal NEG [facility] Comment on above: Performed By: #### N UM #### [facility] ([id number]) [address] [place] [address] 16499 Result Comment: DISR EGARD RESULTS, SPECIMEN MISLABELED. KETONES POOJA Negative Normal NEG [facility] Comment on above: Performed By: #### N UM #### [facility] ([id number]) [address] [place] [address], COUNT INCLUDES THE [facility] [place] [address] Result Comment: DISR EGARD RESULTS, SPECIMEN MISLABELED. LEUKOCYTE ESTERASE POOJA Negative Normal NEG [facility] Comment on above: Performed By: #### N UM #### [facility] ([id number]) [address] [place] [address] [place] [address] Result Comment: DISR EGARD RESULTS, SPECIMEN MISLABELED. NITRITE POOJA Negative Normal NEG [facility] Comment on above: Performed By: #### N UM #### [facility] ([id number]) [address] [place] [address] [place] [address] Result Comment: DISR EGARD RESULTS, SPECIMEN MISLABELED. PH POOJA 7.0 Normal 5.0-8.5 [facility] Comment on above: Performed By: #### N UM #### [facility] ([id number]) [address] [place] [address] 57203 Result Comment: DISR EGARD RESULTS, SPECIMEN MISLABELED. PROTEIN POOJA Negative Normal NEG [facility] Comment on above: Performed By: #### N UM #### [facility] ([id number]) [address] [place] [address], [place] [address] Result Comment: DISR EGARD RESULTS, SPECIMEN MISLABELED. SPECIFIC GRAVITY POOJA 1.015 Normal 1.003-1 .03 5 [facility] Comment on above: Performed By: #### N UM #### [facility] ([id number]) [address] [place] [address] 22965 Result Comment: DISR EGARD RESULTS, SPECIMEN MISLABELED. UROBILINOGEN POOJA 0.2 eu/dL Normal <1.1 [facility] Comment on above: Performed By: #### N UM #### [facility] ([id number]) [address] [place] [address] 77082 Result Comment: DISR EGARD RESULTS, SPECIMEN MISLABELED. XR ABDOMEN COMP DECUB ERECTo n 10-01-2023 XR ABDOMEN COMP DECUB ERECT XR ABDOMEN COMP DECUB ERECT History: Abdominal pain RLQ abdominal pain and vomiting, multiple prior abdominal surgeries. CT scanner broken Exam/Technique: Upright chest. Supine abdomen.. Erect abdomen. Comparison: None Findings: Multiple surgical clips are present and right flank.Bowel gas distribution is within normal limits. There is no free air. There is no portal venous gas. There is no air in the bowel wall.>] Moderate constipation. IMPRESSION: Moderate constipation without obvious acute abnormality. Finalized by León Le MD on 10/01/2023 11:05 PM Normal [facility] CBC AND AUTO DIFFon 08-20-19 ABSOLUTE BASOPHIL 0.0 X10E9/L Normal 0.0-0.2 [facility] Comment on above: Performed By: #### C GERRY, CMP, 06730-8, 95939-7, 3040-3 #### [facility] ([id number]) [address] [place] [address] 74001 ABSOLUTE NEUTROPHIL 11.9 X10E9/L High 1.5-6.6 [facility] Comment on above: Performed By: #### C GERRY, CMP, 59445-0, 22975-6, 3040-3 #### [facility] ([id number]) [address] [place] [address] 29781 Basophils/100 WBC (Bld) 0.2 % Normal [facility] Comment on above: Performed By: #### C GERRY, CMP, 73680-3, 94787-6, 3040-3 #### [facility] ([id number]) [address] [place] [address] 80338 Eosinophils (Bld) [#/Vol] 0.0 10*3/uL Normal 0.0-0.4 [facility] Comment on above: Performed By: #### C GERRY, CMP, 90235-0, 44393-9, 3040-3 #### [facility] ([id number]) [address] [place] [address] 06508 Eosinophils/100 WBC (Bld) 0.1 % Normal [facility] Comment on above: Performed By: #### Isela GARRETT, CMP, 83639-2, 45380-8, 3040-3 #### [facility] ([id number]) [address] [place] [address] 88434 Erythrocyte distribution width (RBC) [Ratio] 13.6 % Normal 11.5-15.0 [facility] Comment on above: Performed By: #### Isela GARRETT, CMP, 72418-0, 94248-3, 3040-3 #### [facility] ([id number]) [address] [place] [address] 34942 Hematocrit (Bld) [Volume fraction] 45.3 % Normal 35-47 [facility] Comment on above: Performed By: #### C APURVA GARRETT, 83626-5, 81485-1, 3040-3 #### [facility] ([id number]) [address] [place] [address] 72519 Hemoglobin (Bld) [Mass/Vol] 15.3 g/dL Normal 11.7-15.5 [facility] Comment on above: Performed By: #### C APURVA GARRETT, 91367-7, 77233-0, 3040-3 #### [facility] ([id number]) [address] [place] [address] 23088 Lymphocytes (Bld) [#/Vol] 0.4 10*3/uL Low 1.0-3.5 [facility] Comment on above: Performed By: #### C APURVA GARRETT, 73378-8, 46480-3, 3040-3 #### [facility] ([id number]) [address] [place] [address] 50657 Lymphocytes/100 WBC (Bld) 3.3 % Normal [facility] Comment on above: Performed By: #### Isela GARRETT CMP, 41803-0, 50294-3, 3040-3 #### [facility] ([id number]) [address] [place] [address] 63984 MCH (RBC) [Entitic mass] 30.0 pg Normal 27-34 [facility] Comment on above: Performed By: #### Isela GARRETT, CMP, 00610-4, 88563-9, 3040-3 #### [facility] ([id number]) [address] [place] [address] 42193 MCHC (RBC) [Mass/Vol] 33.8 g/dL Normal 32-36 [facility] Comment on above: Performed By: #### C GERRY, CMP, 98685-7, 37199-2, 3040-3 #### [facility] ([id number]) [address] [place] [address] 51690 MCV (RBC) [Entitic vol] 89 fL Normal 80-100 [facility] Comment on above: Performed By: #### Isela GARRETT, CMP, 49232-1, 54629-2, 3040-3 #### [facility] ([id number]) [address] [place] [address] 53500 Monocytes (Bld) [#/Vol] 0.4 10*3/uL Normal 0-0.9 [facility] Comment on above: Performed By: #### Isela GARRETT, CMP, 80480-8, 47676-9, 3040-3 #### [facility] ([id number]) [address] [place] [address] 95191 Monocytes/100 WBC (Bld) 2.9 % Normal [facility] Comment on above: Performed By: #### Isela GARRETT, CMP, 01358-1, 21556-6, 3040-3 #### [facility] ([id number]) [address] [place] [address] 78920 Neutrophils/100 WBC (Bld) 93.5 % Normal [facility] Comment on above: Performed By: #### Isela GARRETT, CMP, 29355-8, 59060-7, 3040-3 #### [facility] ([id number]) [address] [place] [address] 67717 Platelet mean volume (Bld) [Entitic vol] 8.8 fL Normal 7-12 [facility] Comment on above: Performed By: #### Isela GARRETT, CMP, 41624-0, 33135-2, 3040-3 #### [facility] ([id number]) [address] [place] [address] 79285 Platelets (Bld) [#/Vol] 230 10*3/uL Normal 150-450 [facility] Comment on above: Performed By: #### C BCA, CMP, 66103-1, 32254-7, 3040-3 #### [facility] ([id number]) [address] [place] [address] 08490 RBC COUNT 5.09 X10E12/L Normal 3.80-5.20 [facility] Comment on above: Performed By: #### C BCA, CMP, 69962-8, 92027-9, 3040-3 #### [facility] ([id number]) [address] [place] [address] 57388 WBC (Bld) [#/Vol] 12.7 10*3/uL High 4.0-11.0 [facility] Comment on above: Performed By: #### C BCA, CMP, 64011-5, 82493-3, 3040-3 #### [facility] ([id number]) [address] [place] [address] 23255 COMPREHENSIVE METABOLIC PANE Reji 08-20-2023 Albumin [Mass/Vol] 5.1 g/dL Normal 3.2-5.3 [facility] Comment on above: Performed By: #### C BCA, CMP, 08071-8, 26906-8, 3040-3 #### [facility] ([id number]) [address] [place] [address] 47543 ALP [Catalytic activity/Vol] 71 U/L Normal 39-130 [facility] Comment on above: Performed By: #### C BCA, CMP, 65047-0, 14823-1, 3040-3 #### [facility] ([id number]) [address] [place] [address] 70366 ALT [Catalytic activity/Vol] 21 U/L Normal 0-31 [facility] Comment on above: Performed By: #### C BCA, CMP, 60450-9, 99928-1, 3040-3 #### [facility] ([id number]) [address] [place] [address] 68780 Anion gap [Moles/Vol] 10 mmol/L Normal 5-15 [facility] Comment on above: Performed By: #### C BCA, CMP, 76454-3, 93476-1, 3040-3 #### [facility] ([id number]) [address] [place] [address] 66399 AST [Catalytic activity/Vol] 27 U/L Normal 0-41 [facility] Comment on above: Performed By: #### C BCA, CMP, 59105-8, 54629-4, 3040-3 #### [facility] ([id number]) [address] [place] [address] 49837 Bilirubin [Mass/Vol] 1.1 mg/dL Normal 0.3-1.2 [facility] Comment on above: Performed By: #### C BCA, CMP, 53323-9, 67842-8, 3040-3 #### [facility] ([id number]) [address] [place] [address] 81667 Calcium [Mass/Vol] 9.4 mg/dL Normal 8.5-10.5 [facility] Comment on above: Performed By: #### C BCA, CMP, 89965-4, 79931-2, 3040-3 #### [facility] ([id number]) [address] [place] [address] 01290 Chloride [Moles/Vol] 103 mmol/L Normal 98-109 [facility] Comment on above: Performed By: #### C BCA, CMP, 22547-6, 77590-0, 3040-3 #### [facility] ([id number]) [address] [place] [address] 50640 CO2 [Moles/Vol] 23 mmol/L Normal 22-32 [facility] Comment on above: Performed By: #### C GERRY, CMP, 56989-6, 83544-1, 3040-3 #### [facility] ([id number]) [address] [place] [address] 10739 Creatinine [Mass/Vol] 0.77 mg/dL Normal 0.40-1.00 [facility] Comment on above: Result Comment: METH OD TRACEABLE TO IDMS STANDARD Performed By: #### C GERRY, CMP, 05885-0, 56422-9, 3040-3 #### [facility] ([id number]) [address] [place] [address] 85412 eGFR (CKD-EPI) NON-RACE DEPENDENT >90 Normal >59 [facility] Comment on above: Result Comment: Reported eGFR is based on the CKD-EPI 2020 equation that does not use a race coefficient. Performed By: #### C GERRY, CMP, 98160-0, 53724-4, 3040-3 #### [facility] ([id number]) [address] [place] [address] 39328 Glucose [Mass/Vol] 105 mg/dL High 65-99 [facility] Comment on above: Performed By: #### C GERRY CMP, 48942-4, 45816-2, 3040-3 #### [facility] ([id number]) [address] [place] [address] 35624 Potassium [Moles/Vol] 4.0 mmol/L Normal 3.5-5.0 [facility] Comment on above: Performed By: #### C GERRY, CMP, 92040-1, 13370-4, 3040-3 #### [facility] ([id number]) [address] [place] [address] 22367 Protein [Mass/Vol] 8.4 g/dL High 6.0-8.0 [facility] Comment on above: Performed By: #### C APURVA GARRETT, 51802-1, 45804-5, 3040-3 #### [facility] ([id number]) [address] [place] [address] 59648 Sodium [Moles/Vol] 136 mmol/L Normal 134-146 [facility] Comment on above: Performed By: #### C APURVA GARRETT, 07970-9, 24731-8, 3040-3 #### [facility] ([id number]) [address] [place] [address] 86558 Urea nitrogen [Mass/Vol] 15 mg/dL Normal 5-23 [facility] Comment on above: Performed By: #### C APURVA GARRETT, 72491-2, 15499-7, 3040-3 #### [facility] ([id number]) [address] [place] [address] 80502 Fibrin D-dimer DDU (PPP) [Ma ss/Vol]on 08-20-2023 D DIMER <150 Normal <255 [facility] Comment on above: Result Comment: Results <255 ng/mL DDU: The presence of a VTE can safely be excluded with a negative D-Dimer result and Wells score. A negative result doesn't exclude the possibility of DIC. The test be repeated along with other diagnostic tests if the patient's symptoms persist or worsen. [email or web address] Performed By: #### C APURVA GARRETT, 41575-3, 73539-4, 3040-3 #### [facility] ([id number]) [address] [place] [address] 01354 LIPASEon 08-20-2023 Lipase [Catalytic activity/Vol] 34 U/L Normal 17-40 [facility] Comment on above: Performed By: #### C APURVA GARRETT, 88928-5, 65716-9, 3040-3 #### [facility] ([id number]) [address] [place] [address] 36986 Troponin I.cardiac High sens itivity method [Mass/Vol]on 08-20-2023 1 HOUR TROP I, HIGH SENSITIVITY <2 Normal <16 [facility] Comment on above: Performed By: #### 8 9579-7 #### [facility] ([id number]) [address] [place] [address] 71706 TROPONIN I, HIGH SENSITIVITY <2 Normal <16 [facility] Comment on above: Performed By: #### C BCA, CMP, 87800-2, 46376-4, 3040-3 #### [facility] ([id number]) [address] [place] [address] 87277 XR CHEST 1 VWon 08-20-2023 XR CHEST 1 VW XR CHEST 1 VW Single view of the chest dated 08/20/2023 at 3:11 PM INDICATION: Chest pain. FINDINGS: Comparison is 2022. Mild dextroscoliosis. No airspace disease or edema. No effusions. The heart and mediastinal structures are within normal limits. IMPRESSION: 1. No acute cardiopulmonary abnormality seen. Finalized by Kylie Noonan MD on 08/20/2023 3:18 PM Normal [facility] CT ABDOMEN PELVIS WO CONTRAS Ton 05-17-2023 CT ABDOMEN PELVIS WO CONTRAST EXAMINATION: STONE PROTOCOL CT OF THE ABDOMEN AND PELVIS 05/16/2023 8:41 pm TECHNIQUE: CT of the abdomen and pelvis was performed without the administration of intravenous contrast. Multiplanar reformatted images are provided for review. Automated exposure control, iterative reconstruction, and/or weight based adjustment of the mA/kV was utilized to reduce the radiation dose to as low as reasonably achievable. COMPARISON: 05/03/2022 HISTORY: ORDERING SYSTEM PROVIDED HISTORY: right sided abdominal pain TECHNOLOGIST PROVIDED HISTORY: Right sided abdominal pain Decision Support Exception - unselect if not a suspected or confirmed emergency medical condition->Emergency Medical Condition (MA) Reason for Exam: right sided abdominal pain Additional signs and symptoms: rt. sided flank pain, hx hernia FINDINGS: LOWER CHEST: Visualized portion of the lower chest demonstrates no acute abnormality. KIDNEYS AND URINARY TRACT: Punctate right nephrolithiasis but no obstructive uropathy. Left kidney is normal. ORGANS: Visualized portions of the unenhanced liver, spleen, pancreas, and adrenal glands demonstrate no acute abnormality. No inflammatory changes in the gallbladder fossa. GI/BOWEL: No bowel obstruction. Surgical suture in the region of the appendix likely related to previous appendectomy. Constipation and stool impaction in the rectum. No colitis or enteritis. PELVIS: The bladder and pelvic organs are unremarkable. Status post hysterectomy. PERITONEUM/RETROPERITONEU M: No lymphadenopathy is noted. BONES/SOFT TISSUES: The osseous structures demonstrate no acute abnormality. IMPRESSION: 1. Punctate right nephrolithiasis but no obstructive uropathy. 2. Constipation and stool impaction in the rectum. 3. Status post appendectomy and hysterectomy. Interpreted by: Eliane Carvajal MD Signed by: Eliane Carvajal MD 05/17/23 Final result Normal [facility] CBC with Auto Differentialon 05-16-2023 Basophils (Bld) [#/Vol] 0.10 10*3/uL [facility] Basophils/100 WBC (Bld) 1 % 0 - 2 % [facility] Eosinophils (Bld) [#/Vol] 0.10 10*3/uL [facility] Eosinophils/100 WBC (Bld) 1 % 0 - 4 % [facility] Erythrocyte distribution width (RBC) [Ratio] 14.3 % 11.5 - 14.9 % [facility] Hematocrit (Bld) [Volume fraction] 45.3 % 36 - 46 % [facility] Hemoglobin (Bld) [Mass/Vol] 15.1 g/dL 12.0 - 16.0 g/dL [facility] Lymphocytes/100 WBC (Bld) 27 % 24 - 44 % [facility] Lymphocytes/100 WBC (Bld) 1.70 % [facility] MCH (RBC) [Entitic mass] 30.4 pg 26 - 34 pg [facility] MCHC (RBC) [Mass/Vol] 33.4 g/dL 31 - 3 7 g/dL [facility] MCV (RBC) [Entitic vol] 91.2 fL 80 - 100 fL [facility] Monocytes/100 WBC (Bld) 7 % 1 - 7 % [facility] Monocytes/100 WBC (Bld) 0.40 % [facility] Neutrophils/100 WBC (Bld) 64 % 36 - 66 % [facility] Platelet mean volume (Bld) [Entitic vol] 9.4 fL 6.0 - 12.0 fL [facility] Platelets (Bld) [#/Vol] 208 10*3/uL [facility] RBC (Bld) [#/Vol] 4.97 10*6/uL 4.0 - 5.2 m/uL [facility] Segmented neutrophils/100 WBC (Bld) 4.20 % [facility] WBC other (Bld) [#/Vol] 6.5 [facility] CBC with Diffon 05-16-2023 Abs. Basophil 0.10 k/uL Normal 0.0-0.2 [facility] Comment on above: Performed By: #### C DP, LIP, CP #### [facility] [place] [address] Corporate Account Executive: Devon Low DO Abs.Neutrophil (Seg) 4.20 k/uL Normal 1.3-9.1 [facility] Comment on above: Performed By: #### C DP, LIP, CP #### [facility] [address] [place] [address] 01172 [employer] Account Executive: Devon Low DO Basophils/100 WBC (Bld) 1 % Normal 0-2 [facility] Comment on above: Performed By: #### C DP, LIP, CP #### [facility] [address] [place] [address] 41352 Corporate Account Executive: Devon Low DO Eosinophils (Bld) [#/Vol] 0.10 10*3/uL Normal 0.0-0.4 [facility] Comment on above: Performed By: #### C DP, LIP, CP #### [facility] [address] [place] [address] Corporate Account Executive: Devon Low DO Eosinophils/100 WBC (Bld) 1 % Normal 0-4 [facility] Comment on above: Performed By: #### C DP, LIP, CP #### [facility] [address] [facility] [address] Corporate Account Executive: Devon Low DO Erythrocyte distribution width (RBC) [Ratio] 14.3 % Normal 11.5-14.9 [facility] Comment on above: Performed By: #### C CHRISTIAN, LIP, CP #### [facility] [place] [address] Corporate Account Executive: Devon Low DO Hematocrit (Bld) [Volume fraction] 45.3 % Normal 36-46 [facility] Comment on above: Performed By: #### C DP, LIP, CP #### [facility] [place] [address] Corporate Account Executive: Devon Low DO Hemoglobin (Bld) [Mass/Vol] 15.1 g/dL Normal 12.0-16.0 [facility] Comment on above: Performed By: #### C DP, LIP, CP #### [facility] [address] [place] [address]. [place] [address] Corporate Account Executive: Devon Low DO Lymphocytes (Bld) [#/Vol] 1.70 10*3/uL Normal 1.0-4.8 [facility] Comment on above: Performed By: #### C DP, LIP, CP #### [facility] [place] [address] Corporate Account Executive: Devon Low DO Lymphocytes/100 WBC (Bld) 27 % Normal 24-44 [facility] Comment on above: Performed By: #### C DP, LIP, CP #### [facility] [address] [place] [address] Corporate Account Executive: Devon Low DO MCH (RBC) [Entitic mass] 30.4 pg Normal 26-34 [facility] Comment on above: Performed By: #### C DP, LIP, CP #### [facility] [place] [address] Corporate Account Executive: Devon Low DO MCHC (RBC) [Mass/Vol] 33.4 g/dL Normal 31-37 [facility] Comment on above: Performed By: #### C PIEDAD OGNZALES, CP #### [facility] [address] [place], [place] [address] [place] [address] Corporate Account Executive: Devon Low DO MCV (RBC) [Entitic vol] 91.2 fL Normal 80-100 [facility] Comment on above: Performed By: #### C CHRISTIAN, LIP, CP #### [facility] [address] [place] [address] 22016 Corporate Account Executive: Devon Low DO Monocytes (Bld) [#/Vol] 0.40 10*3/uL Normal 0.1-1.3 [facility] Comment on above: Performed By: #### C CHRISTIAN, LIP, CP #### [facility] [address] [place] [address] 57361 Corporate Account Executive: Devon Low DO Monocytes/100 WBC (Bld) 7 % Normal 1-7 [facility] Comment on above: Performed By: #### C DP, LIP, CP #### [facility] [address] [place], [place] [address] [place] [address] Corporate Account Executive: Devon Low DO Neutrophil (Seg) 64 % Normal 36-66 [facility] Comment on above: Performed By: #### C DP, LIP, CP #### [facility] [address] [place] [address] Corporate Account Executive: Devon Low DO Platelet mean volume (Bld) [Entitic vol] 9.4 fL Normal 6.0-12.0 [facility] Comment on above: Performed By: #### C DP, LIP, CP #### [facility] [address] [place] [address] Corporate Account Executive: Devon Low DO Platelets (Bld) [#/Vol] 208 10*3/uL Normal 150-450 [facility] Comment on above: Performed By: #### C DP LIP, CP #### [facility] [address] [place] [address] Corporate Account Executive: Devon Low DO RBC (Bld) [#/Vol] 4.97 10*6/uL Normal 4.0-5.2 [facility] Comment on above: Performed By: #### C DP, LIP, CP #### [facility] [address] [facility] [place] [address] Corporate Account Executive: Devon Low DO WBC (Bld) [#/Vol] 6.5 10*3/uL Normal 3.5-11.0 [facility] Comment on above: Performed By: #### C DP, LIP, CP #### [facility] [address] [place] [address]. [place] [address] Corporate Account Executive: Devon Low DO CMPon 05-16-2023 ALP [Catalytic activity/Vol] 70 U/L 35 - 104 U/L [facility] GFR/1.73 sq M.predicted MDRD (S/P/Bld) [Vol rate/Area] - PINF [facility] Comment on above: These results are not intended for use in patients <18 years of age. eGFR results are calculated without a race factor using the 2020 CKD-EPI equation. Careful clinical correlation is recommended, particularly when comparing to results calculated using previous equations. The CKD-EPI equation is less accurate in patients with extremes of muscle mass, extra-renal metabolism of creatine, excessive creatine ingestion, or following therapy that affects renal tubular secretion. Interpretation and review of laboratory results Abnormal [facility] Comp Metabolic Profon 2023 Alkaline Phos 70 U/L Normal 35-104 [facility] Comment on above: Performed By: #### C DP LIP, CP #### [facility] [address] [facility] [place] [address] Corporate Account Executive: Devon Low DO GFR/1.73 sq M.predicted among non-blacks MDRD (S/P/Bld) [Vol rate/Area] mL/min/{1.73_m2} Normal >60 [facility] Comment on above: Result Comment: These results are not intended for use in patients <18 years of age. eGFR results are calculated without a race factor using the 2020 CKD-EPI equation. Careful clinical correlation is recommended, particularly when comparing to results calculated using previous equations. The CKD-EPI equation is less accurate in patients with extremes of muscle mass, extra-renal metabolism of creatine, excessive creatine ingestion, or following therapy that affects renal tubular secretion. Performed By: #### C PIEDAD GONZALES, CP #### [facility] [address] [facility] [place] [address] Corporate Account Executive: Devon Low DO Albumin [Mass/Vol] 4.7 g/dL Normal 3.5-5.2 [facility] Comment on above: Performed By: #### C PIEDAD GONZALES, CP #### [facility] [address] [facility] [place] [address] Corporate Account Executive: Devon Low DO ALT [Catalytic activity/Vol] 8 U/L Normal 5-33 [facility] Comment on above: Performed By: #### C DP LIP, CP #### [facility] [address] [facility] [place] [address] Corporate Account Executive: Devon Low DO Anion gap [Moles/Vol] 10 mmol/L Normal 9-17 [facility] Comment on above: Performed By: #### C PIEDAD GONZALES, CP #### [facility] [place] [place] [address] Corporate Account Executive: Devon Low DO AST [Catalytic activity/Vol] 16 U/L Normal <32 [facility] Comment on above: Performed By: #### C CHRISTIAN LIP, CP #### [facility] [address] Corporate Account Executive: Devon Low DO Bilirubin [Mass/Vol] 0.4 mg/dL Normal 0.3-1.2 [facility] Comment on above: Performed By: #### C CHRISTIAN LIP, CP #### [facility] [address] [place] [address] Corporate Account Executive: Devon Low DO Calcium [Mass/Vol] 10.4 mg/dL Normal 8.6-10.4 [facility] Comment on above: Performed By: #### C PIEDAD GONZALES, CP #### [facility] [address] Corporate Account Executive: Devon Low DO Chloride [Moles/Vol] 103 mmol/L Normal 98-107 [facility] Comment on above: Performed By: #### C CHRISTIAN LIP, CP #### [facility] [place] [address] Corporate Account Executive: Devon Low DO CO2 [Moles/Vol] 25 mmol/L Normal 20-31 [facility] Comment on above: Performed By: #### C CHRISTIAN LIP, CP #### [facility] [address] Corporate Account Executive: Devon Low DO Creatinine [Mass/Vol] 0.9 mg/dL Normal 0.5-0.9 [facility] Comment on above: Performed By: #### C PIEDAD GONZALES, CP #### [facility] [address] [place], [place] [address] [place] [address] Corporate Account Executive: Devon Low DO Glucose [Mass/Vol] 62 mg/dL Low 70-99 [facility] Comment on above: Performed By: #### C PIEDAD GONZALES, CP #### [facility] [address] [place] [address] Corporate Account Executive: Devon Low DO Potassium [Moles/Vol] 3.9 mmol/L Normal 3.7-5.3 [facility] Comment on above: Performed By: #### C PIEDAD GONZALES, LUIS #### [facility] [address] [place] [address] Corporate Account Executive: Devon Low DO Protein [Mass/Vol] 8.0 g/dL Normal 6.4-8.3 [facility] Comment on above: Performed By: #### C PIEDAD GONZALES, LUIS #### [facility] [address] [place] [address] Corporate Account Executive: Devon Low DO Sodium [Moles/Vol] 138 mmol/L Normal 135-144 [facility] Comment on above: Performed By: #### C PIEDAD GONZALES, CP #### [facility] [address] [place] [address] Corporate Account Executive: Devon Low DO Urea nitrogen [Mass/Vol] 14 mg/dL Normal 6-20 [facility] HEALTHCARE Comment on above: Performed By: #### C CHRISTIAN LIP, CP #### [facility] [address] [place] [id number] Corporate Account Executive: Devon Low DO Lipaseon 05-16-2023 Lipase [Catalytic activity/Vol] 52 U/L Normal 13-60 [facility] Comment on above: Performed By: #### C DP, LIP, CP #### [facility] [address] [facility] [place] [address] Corporate Account Executive: Devon Low DO Microscopic Urinalysison Bacteria LM Ql (Urine sed) MANY Abnormal None [facility] Casts LM.LPF (Urine sed) [#/Area] 0 TO 2 Abnormal None /LPF [facility] Epithelial cells LM.HPF (Urine sed) [#/Area] 0 TO 2 /HPF [facility] Interpretation and review of laboratory results Abnormal [facility] RBC LM.HPF (Urine sed) [#/Area] 6 TO 9 Abnormal 0 TO 2 /HPF [facility] WBC LM.HPF (Urine sed) [#/Area] 3 to 5 Abnormal 0 TO 5 /HPF [facility] No Panel Informationon 05-16 [facility] POC Glucose Fingerstickon Glucose [Mass/Vol] 116 mg/dL High 65 - 105 mg/dL [facility] Interpretation and review of laboratory results Abnormal [facility] Glucose [Mass/Vol] 66 mg/dL 65 - 105 mg/dL [facility] UA w/Reflex Cultureon 2023 Bilirubin, SemiQt,Ur Negative Normal NEG [facility] Comment on above: Performed By: #### U MICAO, UAX #### [facility] [address] [facility] [place] [address] Corporate Account Executive: Devon Low DO Blood, Urine Negative Normal NEG [facility] Comment on above: Performed By: #### U MICAO, UAX #### [facility] [address] [facility] [place] [address] Corporate Account Executive: Devon Low DO Clarity (U) Clear Normal CLEAR [facility] Comment on above: Performed By: #### U MICAO, UAX #### [facility] [address] [facility] [place] [address] Corporate Account Executive: Devon Low DO Color (U) Yellow Normal YEL [facility] Comment on above: Performed By: #### U MICAO, UAX #### [facility] [address] [place] [address] Corporate Account Executive: Devon Low DO Glucose Ql (U) Negative Normal NEG [facility] Comment on above: Performed By: #### U EUSEBIO, UAX #### [facility] [address] [place] [address] Corporate Account Executive: Devon Low DO Ketones Ql (U) Negative Normal NEG [facility] Comment on above: Performed By: #### U EUSEBIO, UAX #### [facility] [place] [address] Corporate Account Executive: Devon Low DO Leukocyte esterase Test strip Ql (U) Negative Normal NEG [facility] Comment on above: Performed By: #### U MICAO, UAX #### [facility] [place] [address] Corporate Account Executive: Devon Low DO Nitrite,Ur Positive Abnormal NEG [facility] Comment on above: Performed By: #### U MICADana, UAX #### [facility] [address] [facility] [address] Corporate Account Executive: Devon Low DO PH,Ur 5.0 Normal 5.0-8.0 [facility] Comment on above: Performed By: #### U EUSEBIO, UAX #### [facility] [place] [address] Corporate Account Executive: Devon Low DO Protein Ql (U) Negative Normal NEG [facility] Comment on above: Performed By: #### U EUSEBIO UAX #### [facility] [address] [facility] [place] [address] Corporate Account Executive: Devon Low DO Spec. [place],Ur 1.013 Normal 1.000-1.03 0 [facility] Comment on above: Performed By: #### Zane KAPLAN UAX #### [facility] [address] [facility] [place] [address] Corporate Account Executive: Devon Low DO Urobilinogen,Ur Normal Normal 0.0-1.0 [facility] Comment on above: Performed By: #### Zane KAPLAN UAX #### [facility] [address] [facility] [place] [address] Corporate Account Executive: Devon Low DO Urinalysis with Reflex to Cu ltureon 05-16-2023 Bilirubin Ql (U) Negative NEGATIVE [facility] Clarity (U) Clear Clear [facility] Color (U) Yellow Yellow [facility] Glucose Test strip (U) [Mass/Vol] Negative NEGATIVE mg/dL [facility] Hemoglobin Auto test strip Ql (U) Negative NEGATIVE [facility] Interpretation and review of laboratory results Abnormal [facility] Ketones (U) [Mass/Vol] Negative NEGAT LISA mg/dL [facility] Leukocyte esterase Test strip Ql (U) Negative NEGATIVE [facility] Nitrite Ql (U) Positive Abnormal NEGATIVE [facility] pH (U) 5.0 [pH] 5.0 - 8.0 [facility] Protein (U) [Mass/Vol] Negative NEGAT LISA mg/dL [facility] Specific gravity (U) [Rel density] 1.013 1.000 - 1.030 [facility] Urobilinogen Qn (U) Normal 0.0 - 1. 0 EU/dL [facility] Urinalysis,Microon 4 Bacteria MANY Abnormal NONE [facility] Comment on above: Performed By: #### Zane KAPLAN UAX #### [facility] [address] [facility] [place] [address] Corporate Account Executive: Devon Low DO Casts 0 TO 2 Abnormal NONE [facility] Comment on above: Performed By: #### MATEUS MONETX #### [facility] [address] [facility] [place] [address] Corporate Account Executive: Devon Low DO Epithelial cells LM Ql (Urine sed) 0 TO 2 Normal [facility] Comment on above: Performed By: #### Zane KAPLAN UAX #### [facility] [address] [facility] [place] [address] Corporate Account Executive: Devon Low DO Urine RBC's 6 TO 9 Abnormal 2 [facility] Comment on above: Performed By: #### MATEUS MONETX #### [facility] [address] [facility] [place] [address] Corporate Account Executive: Devon Low DO Urine WBC's 3 to 5 Abnormal 5 [facility] Comment on above: Performed By: #### MATEUS MONETX #### [facility] [address] [facility] [place] [address] Corporate Account Executive: Devon Low DO Consent Formson 06-30-2022 Consent Forms [id number] FF [facility] Outside Recordson 06-30-2022 Outside Records [id number]#[id number] F Normal [facility] ED Clinical Summaryon 2022 ED Clinical Summary [facility] ? Urgent Care [address] [place] [address] Clinical Summary PERSON INFORMATION Name: BENITO NAGEL Age: 36 Years Sex: FEMALE : 1985 MRN: Acct#: Visit Reason: Medical screening exam; OTTERBEIN PHYSICAL Arrival: 06/28/2022 12:09:29 Discharge: 06/28/2022 13:13:00 LOS: 000 01:04 Check In: 06/28/2022 12:09:29 Checkout: 06/28/2022 13:13:00 Address: [address] [place] [address] PCP: Phoebe Yee DO PROVIDER INFORMATION Provider Role Assigned Unassigned Richard Olivo PA-C ED PA 06/28/2022 12:15:39 Gena Moser UNIT REACTOR OPERATOR Nurse 06/28/2022 12:20:36 VITALS INFORMATION Vital Sign Triage Latest Temperature Tympanic Temperature Temporal Artery Pulse Rate O2 Sat 97 % 97 % Respiratory Rate Blood Pressure /77 mmHg /77 mmHg MEDICAL INFORMATION Medications Given: Allergy Information: Darvocet-N 100; penicillins; Flexeril; ibuprofen PHYSICIAN DOCUMENTATION DISCHARGE INFORMATION: Discharge Disposition: Home Discharge Location: Home PATIENT EDUCATION INFORMATION Instructions: Follow-Up: DIAGNOSIS: Patient Understands: Yes - Patient/family/caregiver verbalizes understanding of instructions given Comment: Normal [facility] ED Patient Summaryon 023 ED Patient Summary [facility] ? Urgent Care [address] [place] [address] PATIENT DISCHARGE INSTRUCTIONS Patient Information Name: BENITO NAGEL Age: 36 Years Date of : 1985 [facility]: [id number] Reason For Visit: Medical screening exam; OTTERBEIN PHYSICAL Arrival Time: 06/28/2022 12:09:29 Primary Care Physician: Phoebe Yee DO Attending Physician: Richard Olivo PA-C Comment: Patient Education Medication Information: The exam and treatment you received today in the [facility] Emergency Department were for an urgent problem and are not intended as complete care. It is important for you to follow up with a doctor, nurse practitioner, or physician?s visitor service assistant for ongoing care. If your symptoms become worse or you do not improve as expected and you are unable to reach your usual health care provider, you should return to the Emergency Department, we are available 24 hours a day. For those patients who have received Radiology results, the interpretation of your X-ray as given to you by our Emergency Department physician is only a preliminary report. The Radiologist will review your films and if there is a change in the diagnosis you will be notified by phone. Please make sure you have provided a working phone number so we can reach you if necessary. In the event that you had a lab culture while you were a patient in the Emergency Department, you will be notified by phone if there is a need to change your antibiotic. Please make sure you have provided a working phone number so we can reach you if necessary. [facility] Emergency Department has provided you with a complete list of medications post discharge. Please inform your painter helper sign/provider of your visit and for further instruction on these medications. Any specific questions regarding your chronic medications and dosages should be discussed with your primary care physician(s) and/or pharmacist. Medications to Continue That Have Not Changed Other Medications ferrous sulfate (ferrous sulfate 325 mg (65 mg elemental iron) oral delayed release tablet) 1 tab(s) Oral 2 times a day. nortriptyline (Pamelor 10 mg oral capsule) 1 cap(s) Oral At bedtime. Refills: 0. Visit Information Visit Diagnosis: Diagnoses This Visit Medical screening exam ([id number]) If you received any narcotics, sedation, or any other medication that causes drowsiness for the next 24 hours, unless otherwise directed: ? Do not drive a car. ? Do not operate machinery such as power tools, lawn mowers, drills, sewing machines, or stoves ? Avoid alcoholic beverages and drugs for allergies, nerves, or sleep ? Do not make important personal or business decisions or sign any legal documents Reason for Visit: Boo arana physical Allergies: Substance Reaction Symptoms Type Comments Darvocet-N 100 hives Drug Flexeril hives Drug ibuprofen I can't breathe Drug penicillins Drug Vital Signs: Vitals and Measurements this Visit (last charted value for your 06/28/2022 visit) Vital Signs This Visit Peripheral Pulse Rate: 81 bpm Respiratory Rate: 16 br/min Systolic Blood Pressure: 112 mmHg Diastolic Blood Pressure: 77 mmHg SpO2: 97 % Oxygen Therapy: Room air Blood Pressure Method: Manual Measurements This Visit Height/Length Measured: 165.1 cm Weight Measured: 52.71 kg Body Mass Index: 19.34 kg/m2 BSA Measured: 1.55 m2 Problems List: Problem Onset Comments Anemia Anxiety Depression Female dyspareunia Iron deficiency anemia Migraines Rapid weight loss Major Tests and Procedures: The following procedures and tests were performed during your ED visit. Laboratory Radiology Cardiology Viruses or Bacteria What?s got you sick? Antibiotics only treat bacterial infections. Viral illnesses cannot be treated with antibiotics. When an antibiotic is not prescribed, ask your healthcare professional for tips on how to relieve symptoms and feel better. Usual Cause Illness Viruses Bacteria Antibiotic Needed Cold/Runny Nose NO Bronchitis/Chest Cold (in otherwise healthy children and adults) NO Whooping Cough Yes Flu NO Strep Throat Yes Sore Throat (except strep) NO Fluid in the middle ear (otitis media with effusion) NO Urinary Tract Infection Yes Antibiotics Aren?t Always the Answer www.cdc.gov/getsmart GET SMART Know When Antibiotics Work U.S. Department of Health and Human Services Centers for Disease Control and Prevention December 2013 [facility] Urgent Care Note- Provideron 06-28-2022 Urgent Care Note- Provider Patient: BENITO NAGEL Age: 36 years Sex: FEMALE : 1985 Associated Diagnoses: None Author: Richard Olivo PA-C History of Present Illness Patient presents for a pre-employment physical. She is cleared for work. Exam is normal. See scanned document. GENERAL: Awake, alert and oriented to person, place and situation. Well nourished, well developed, non toxic, NAD. Moves around the department freely. EYES: Pupils equal, round and react to light. EOMI. ENMT: Ears: TM's and external canals with normal inspection bilaterally. Nose: normal inspection. Mouth: oral mucosa is pink and still moist. Throat: normal inspection. NECK: No bony TTP, normal range of motion, no meningismus, trachea is midline. No anterior or posterior lymphadenopathy. CARDIOVASCULAR: Regular rate and rhythm. +S1 +S2. No murmurs or rubs. RESPIRATORY: Clear to auscultation bilaterally without rales, rhonchi or wheeze. ABDOMEN: Soft, completely non tender, abdomen is non distended, without rebound tenderness, guarding or peritoneal signs. Bowel sounds present times 4 quadrants and normoactive. No bruits. No masses. No CVA TTP. BACK: There is no bony TTP, no scoliosis, full ROM without difficulty. EXTREMITIES: No cyanosis, clubbing or edema. Good muscle tone, moves all extremities fully. Squat normal. SKIN: Normal inspection, no visualized rash. NEUROLOGIC: Light touch sensation in tact, strength 5/5 in bilateral upper and lower extremities. Normal reflexes. Steady gait. Normal mentation. No focal neurological deficits appreciated. PSYCHIATRIC: Mood and affect appropriate. Health Status Allergies: Allergic Reactions (Selected) Mild Darvocet-N 100- Hives. Flexeril- Hives. Anaphylaxis Ibuprofen- i can't breathe . Penicillins- No reactions were documented.. Medications: (Selected) Prescriptions Prescribed Pamelor 10 mg oral capsule: 10 mg, 1 cap(s), PO, HS, 30 cap(s), 0 Refill(s) Documented Medications Documented ferrous sulfate 325 mg (65 mg elemental iron) oral delayed release tablet: 325 mg, 1 tab(s), PO, BID, 30 tab(s), 0 Refill(s). Past Medical/ Family/ Social History Medical history: Resolved Mobitz I ([id number]): Resolved on 02/21/2017 at 31 years. Nausea & vomiting ([id number]): Resolved on 02/21/2017 at 31 years.. Surgical history: Cholecystectomy ([id number]). Other ([id number]). 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 Carpal tunnel release ([id number]).. Family history: Aneurysm Father () CA - Cancer of colon Grandfather (Paternal) Bone tumor Aunt (Maternal) Aunt (Paternal) Cancer of cervix Grandmother (Maternal) Leukemia Father () . Social history: Social & Psychosocial Habits Alcohol 02/07/2017 Alcohol Use: Never Employment/School 02/07/2017 Status: Unemployed Description: Reports she can't work because of the pain she has. Has not filed for disability. 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 Problem list: Active Problems (9) Anemia Anxiety Chronic generalized abdominal pain Depression Fatigue Female dyspareunia Iron deficiency anemia Migraines Rapid weight loss . [Electronically Signed on: 06/28/2022 12:58 EST] Richard Olivo PA-C [Verified on: 06/28/2022 12:58 EST] Richard Olivo PA-C Normal [facility] [address] 023 Urgent Care Record [facility] ? Urgent Care [address] [place] [address] PATIENT DISCHARGE INSTRUCTIONS Patient Information Name: BENITO NAGEL Age: 36 Years Date of : 1985 [facility]: [id number] Reason For Visit: Medical screening exam; BOO PHYSICAL Arrival Time: 06/28/2022 12:09:29 Primary Care Physician: Phoebe Yee DO Attending Physician: Richard Olivo PA-C Comment: Visit Diagnosis: Diagnoses This Visit Medical screening exam ([id number]) If you received any narcotics, sedation, or any other medication that causes drowsiness for the next 24 hours, unless otherwise directed: ? Do not drive a car. ? Do not operate machinery such as power tools, lawn mowers, drills, sewing machines, or stoves ? Avoid alcoholic beverages and drugs for allergies, nerves, or sleep ? Do not make important personal or business decisions or sign any legal documents Medication Information: The exam and treatment you received today in the [facility] Urgent Care were for an urgent problem and are not intended as complete care. It is important for you to follow up with a doctor, nurse practitioner, or physician?s visitor service assistant for ongoing care. If your symptoms become worse or you do not improve as expected and you are unable to reach your usual health care provider, you should return to the Emergency Department, we are available 24 hours a day. For those patients who have received Radiology results, the interpretation of your X-ray as given to you by our Urgent Care physician is only a preliminary report. The Radiologist will review your films and if there is a change in the diagnosis you will be notified by phone. Please make sure you have provided a working phone number so we can reach you if necessary. In the event that you had a lab culture while you were a patient in the Urgent Care, you will be notified by phone if there is a need to change your antibiotic. Please make sure you have provided a working phone number so we can reach you if necessary. [facility] Urgent [facility] has provided you with a complete list of medications post discharge. Please inform your painter helper sign/provider of your visit and for further instruction on these medications. Any specific questions regarding your chronic medications and dosages should be discussed with your primary care physician(s) and/or pharmacist. Medications to Continue That Have Not Changed Other Medications ferrous sulfate (ferrous sulfate 325 mg (65 mg elemental iron) oral delayed release tablet) 1 tab(s) Oral 2 times a day. nortriptyline (Pamelor 10 mg oral capsule) 1 cap(s) Oral At bedtime. Refills: 0. Visit Information Allergies: Substance Reaction Symptoms Type Comments Darvocet-N 100 hives Drug Flexeril hives Drug ibuprofen I can't breathe Drug penicillins Drug Vital Signs: Vitals and Measurements this Visit (last charted value for your 06/28/2022 visit) Vital Signs This Visit Peripheral Pulse Rate: 81 bpm Respiratory Rate: 16 br/min Systolic Blood Pressure: 112 mmHg Diastolic Blood Pressure: 77 mmHg SpO2: 97 % Oxygen Therapy: Room air Blood Pressure Method: Manual Measurements This Visit Height/Length Measured: 165.1 cm Weight Measured: 52.71 kg Body Mass Index: 19.34 kg/m2 BSA Measured: 1.55 m2 Problems List: Problem Onset Comments Anemia Anxiety Depression Female dyspareunia Iron deficiency anemia Migraines Rapid weight loss Patient Education Viruses or Bacteria What?s got you sick? Antibiotics only treat bacterial infections. Viral illnesses cannot be treated with antibiotics. When an antibiotic is not prescribed, ask your healthcare professional for tips on how to relieve symptoms and feel better. Usual Cause Illness Viruses Bacteria Antibiotic Needed Cold/Runny Nose NO Bronchitis/Chest Cold (in otherwise healthy children and adults) NO Whooping Cough Yes Flu NO Strep Throat Yes Sore Throat (except strep) NO Fluid in the middle ear (otitis media with effusion) NO Urinary Tract Infection Yes Antibiotics Aren?t Always the Answer www.cdc.gov/getsmart GET SMART Know When Antibiotics Work U.S. Department of Health and Human Services Centers for Disease Control and Prevention December 2013 [facility] CBC with Auto Differentialon 05-03-2022 Absolute Eos # 0.30 [address] [place] [address] [facility] Absolute Lymph # 2.10 [facility] Absolute [place] # 0.40 [facility] Basophils (Bld) [#/Vol] 0.00 10*3/uL [facility] Basophils/100 WBC (Bld) 1 % 0 - 2 % [facility] Eosinophils/100 WBC (Bld) 4 % 0 - 4 % [facility] Hematocrit (Bld) [Volume fraction] 40.9 % 36 - 46 % [facility] Hemoglobin (Bld) [Mass/Vol] 13.6 g/dL 12.0 - 16.0 g/dL [facility] Interpretation and review of laboratory results Abnormal [facility] Lymphocytes/100 WBC (Bld) 29 % 24 - 44 % [facility] MCH (RBC) [Entitic mass] 28.0 pg 26 - 34 pg [facility] MCHC (RBC) [Mass/Vol] 33.3 g/dL 31 - 3 7 g/dL [facility] MCV (RBC) [Entitic vol] 84.1 fL 80 - 100 fL [facility] Monocytes/100 WBC (Bld) 6 % 1 - 7 % [facility] Platelet distribution width (Bld) [Ratio] 15.7 % High 11.5 - 14.9 % [facility] Platelet mean volume (Bld) [Entitic vol] 8.8 fL 6.0 - 12.0 fL [facility] Platelets (Bld) [#/Vol] 252 10*3/uL [facility] RBC (Bld) [#/Vol] 4.86 10*6/uL 4.0 - 5.2 m/uL [facility] Segmented neutrophils/100 WBC (Bld) 60 % 36 - 66 % [facility] Segs Absolute 4.40 [facility] WBC (Bld) [#/Vol] 7.2 10*3/uL [facility] CT ABDOMEN PELVIS W IV CONTR AST Additional Contrast? Noneon 05-03-2022 1. No acute abnormal ity. 2. Prior hysterectomy. 3. Splenic cysts are similar to prior examination. [facility] RIS CONSOLIDATED EXAMINATION: CT OF THE ABDOMEN AND PELVIS WITH CONTRAST 05/03/2022 9:13 pm TECHNIQUE: CT of the abdomen and pelvis was performed with the administration of intravenous contrast. Multiplanar reformatted images are provided for review. Automated exposure control, iterative reconstruction, and/or weight based adjustment of the mA/kV was utilized to reduce the radiation dose to as low as reasonably achievable. COMPARISON: 09/16/2021 HISTORY: ORDERING SYSTEM PROVIDED HISTORY: Severe pain, hysterectomy last month TECHNOLOGIST PROVIDED HISTORY: Severe pain, hysterectomy last month Decision Support Exception - unselect if not a suspected or confirmed emergency medical condition->Emergency Medical Condition (MA) Reason for Exam: Severe pain, hysterectomy last month Additional signs and symptoms: c/o severe mid abdominal pain starting at 1am today with nausea Relevant Medical/Surgical History: Hysterectomy last month, pancreatic aneurysms, also states she has had cancer but did not specify where. FINDINGS: Lower Chest: No acute abnormality in the visualized lung bases. Organs: Prior cholecystectomy. The spleen is mildly enlarged with multiple splenic cysts, similar prior examination given difference in technique. No acute abnormality within the liver, pancreas, or adrenal glands. No hydronephrosis. GI/Bowel: Stomach is partially distended. The small bowel is nondilated. The colon is nondilated. Pelvis: Bladder is partially distended without vesicular stone. Prior hysterectomy. Peritoneum/Retroperitoneu m: Trace free fluid in the pelvis. No pneumoperitoneum. Abdominal aorta is normal in caliber. Bones/Soft Tissues: No acute osseous abnormality. [facility] Ara Jung MD - 05/03/2022 EXAMINATION: CT OF THE ABDOMEN AND PELVIS WITH CONTRAST 05/03/2022 9:13 pm TECHNIQUE: CT of the abdomen and pelvis was performed with the administration of intravenous contrast. Multiplanar reformatted images are provided for review. Automated exposure control, iterative reconstruction, and/or weight based adjustment of the mA/kV was utilized to reduce the radiation dose to as low as reasonably achievable. COMPARISON: 09/16/2021 HISTORY: ORDERING SYSTEM PROVIDED HISTORY: Severe pain, hysterectomy last month TECHNOLOGIST PROVIDED HISTORY: Severe pain, hysterectomy last month Decision Support Exception - unselect if not a suspected or confirmed emergency medical condition->Emergency Medical Condition (MA) Reason for Exam: Severe pain, hysterectomy last month Additional signs and symptoms: c/o severe mid abdominal pain starting at 1am today with nausea Relevant Medical/Surgical History: Hysterectomy last month, pancreatic aneurysms, also states she has had cancer but did not specify where. FINDINGS: Lower Chest: No acute abnormality in the visualized lung bases. Organs: Prior cholecystectomy. The spleen is mildly enlarged with multiple splenic cysts, similar prior examination given difference in technique. No acute abnormality within the liver, pancreas, or adrenal glands. No hydronephrosis. GI/Bowel: Stomach is partially distended. The small bowel is nondilated. The colon is nondilated. Pelvis: Bladder is partially distended without vesicular stone. Prior hysterectomy. Peritoneum/Retroperitoneu m: Trace free fluid in the pelvis. No pneumoperitoneum. Abdominal aorta is normal in caliber. Bones/Soft Tissues: No acute osseous abnormality. IMPRESSION: 1. No acute abnormality. 2. Prior hysterectomy. 3. Splenic cysts are similar to prior examination. [employer] [employer] Phone: Radiology Study observation (narrative) [employer] Phone: CT ABDOMEN PELVIS W IV CONTR AST Additional Contrast? NoneOrdered By: Ara Bolanos on 05-03-2022 [employer] [employer] Phone: Comprehensive Metabolic Pane erji 05-03-2022 Albumin [Mass/Vol] 4.5 g/dL 3.5 - 5.2 g/dL [facility] ALP (Bld) [Catalytic activity/Vol] 78 U/L 35 - 104 U/L [facility] ALT [Catalytic activity/Vol] 7 U/L 5 - 33 U/L [facility] Anion gap [Moles/Vol] 11 mmol/L 9 - 17 mmol/L [facility] AST [Catalytic activity/Vol] 13 U/L NINF - 32 U/L [facility] Bilirubin [Mass/Vol] 0.5 mg/dL 0.3 - 1 .2 mg/dL [facility] Calcium [Mass/Vol] 9.8 mg/dL 8.6 - 10. 4 mg/dL [facility] Chloride [Moles/Vol] 102 mmol/L 98 - 10 7 mmol/L [facility] CO2 [Moles/Vol] 26 mmol/L 20 - 31 mmol/L [facility] Creatinine [Mass/Vol] 0.71 mg/dL 0.50 - 0.90 mg/dL [facility] GFR/1.73 sq M.predicted MDRD (S/P/Bld) [Vol rate/Area] - PINF [facility] Comment on above: Effective Jan 23, 2022 These results are not intended for use in patients <18 years of age. eGFR results are calculated without a race factor using the 2020 CKD-EPI equation. Careful clinical correlation is recommended, particularly when comparing to results calculated using previous equations. The CKD-EPI equation is less accurate in patients with extremes of muscle mass, extra-renal metabolism of creatine, excessive creatine ingestion, or following therapy that affects renal tubular secretion. Glucose [Mass/Vol] 100 mg/dL High 70 - 99 mg/dL [facility] Interpretation and review of laboratory results Abnormal [facility] Potassium [Moles/Vol] 3.5 mmol/L Low 3.7 - 5.3 mmol/L [facility] Protein [Mass/Vol] 8.0 g/dL 6.4 - 8.3 g/dL [facility] Sodium [Moles/Vol] 139 mmol/L 135 - 144 mmol/L [facility] Urea nitrogen (BldV) [Mass/Vol] 9 mg/dL 6 - 20 mg/dL [facility] Lactic Acidon 05-03-2022 Interpretation and review of laboratory results Abnormal [facility] Lactate [Moles/Vol] mmol/L Low 0.5 - 2. 2 mmol/L [facility] Lipaseon 05-03-2022 Lipase [Catalytic activity/Vol] 31 U/L 13 - 60 U/L [facility] Microscopic Urinalysison Bacteria, UA MANY Abnormal None [facility] Epithelial Cells UA 6 TO 9 /HPF [facility] Interpretation and review of laboratory results Abnormal [facility] Mucus, UA 1+ Abnormal None [facility] RBC, UA 0 TO 2 /HPF [facility] WBC, UA 21 TO 50 /HPF [facility] No Panel Informationon 05-03 [facility] Urinalysis with Reflex to Cu ltureon 05-03-2022 Bilirubin Urine Negative NEGATIVE [facility] Color, UA Yellow Yellow [facility] Glucose, Ur Negative NEGATIVE [facility] Interpretation and review of laboratory results Abnormal [facility] Ketones Ql (U) Negative NEGATIVE [facility] Leukocyte esterase Test strip Ql (U) SMALL Abnormal NEGATIVE [facility] Nitrite, Urine Positive Abnormal NEGATIVE [facility] pH, UA 5.5 5.0 - 8.0 [facility] Protein, UA TRACE Abnormal NEGATIVE [facility] Specific [place], UA 1.024 1.000 - 1.030 [facility] Turbidity UA Turbid Abnormal Clear [facility] Urine Hgb TRACE Abnormal NEGATIVE [facility] Urobilinogen, Urine Normal Normal [facility] CULTURE URINEon 02-25-2022 CULTURE URINE Isolate 1 Escherichia coli >100,000 cfu/mL of ORGANISM 1 Escherichia coli ANTIBIOTIC M.I.C RX STATUS Ampicillin >=32 R F Ampicillin/Sulbactam 16 I F Piperacillin/Tazobactam <=4 S F Cefazolin <=4 S F Ceftazidime <=1 S F Ceftriaxone <=1 S F Ertapenem <=0.5 S F Imipenem <=0.25 S F Amikacin <=2 S F Gentamicin <=1 S F Tobramycin <=1 S F Ciprofloxacin <=0.25 S F Levofloxacin <=0.12 S F Nitrofurantoin <=16 S F Trimethoprim/Sulfamethoxa zole <=20 S F Normal [facility] Comment on above: Performed By: #### C BC #### [facility] [address] [place] [address] Dr. Ayla Ross CBC AUTO DIFFon 02-22-2022 BASO # 0.0 103/ul Normal 0.0-0.1 [facility] Comment on above: Performed By: #### C BC #### [facility] [address] [place] [address] Dr. Ayla Ross Basophils/100 WBC (Bld) 0.5 % Normal 0.2-2.0 [facility] Comment on above: Performed By: #### C BC #### [facility] [address] [place] [address] Dr. Ayla Ross EO # 0.1 103/ul Normal 0.0-0.7 [facility] Comment on above: Performed By: #### C BC #### [facility] [address] [place] [address] Dr. Ayla Ross Eosinophils/100 WBC (Bld) 1.8 % Normal 0.9-7.0 [facility] Comment on above: Performed By: #### C BC #### [facility] [address] [place] [address] Dr. Ayla Ross Erythrocyte distribution width (RBC) [Ratio] 14.6 % Normal 11.0-15.0 [facility] Comment on above: Performed By: #### C BC #### [facility] [address] [place] [address] Dr. Ayla Ross Hematocrit (Bld) [Volume fraction] 40.1 % Normal 36.0-48.[address] [facility] Comment on above: Performed By: #### C BC #### [facility] [address] [address] [address] Ayla Ross Hemoglobin (Bld) [Mass/Vol] 12.6 g/dL Normal 12.0-16.0 [facility] Comment on above: Performed By: #### C BC #### [facility] [address] [address] [address] Ayla Ross IG # 0.02 10e3/ul Normal 0.00-0.03 [facility] Comment on above: Performed By: #### C BC #### [facility] [address] [place] [address] Dr. Ayla Ross IG % 0.3 % Normal 0.0-0.5 [facility] Comment on above: Performed By: #### C BC #### [facility] [address] [place] [address] Dr. Ayla Ross LYMPH # 1.5 103/ul Normal 1.2-3.8 [facility] Comment on above: Performed By: #### C BC #### [facility] [address] [place] [address] Dr. Ayla Ross Lymphocytes/100 WBC (Bld) 25.4 % Normal 20.5-60.0 [facility] Comment on above: Performed By: #### C BC #### [facility] [address] [place] [address] Dr. Ayla Ross MANUAL DIFF REQ NO Normal [facility] Comment on above: Performed By: #### C BC #### [facility] [address] [place] [address] Dr. Ayla Ross MCH (RBC) [Entitic mass] 27.4 pg Normal 26.7-34.[address] [facility] Comment on above: Performed By: #### C BC #### [facility] [address] [place] [address] Dr. Ayla Ross MCHC (RBC) [Mass/Vol] 31.4 g/dL Normal 29.9-35.[address] [facility] Comment on above: Performed By: #### C BC #### [facility] [address] [place] [address] Dr. Ayla Ross MCV (RBC) [Entitic vol] 87.2 fL Normal 81.0-99.0 [facility] Comment on above: Performed By: #### C BC #### [facility] [address] [place] [address] Dr. Ayla Ross MONO # 0.4 103/ul Normal 0.3-0.8 [facility] Comment on above: Performed By: #### C BC #### [facility] [address] [place] [address] Dr. Ayla Ross Monocytes/100 WBC (Bld) 7.1 % Normal 1.7-12.0 [facility] Comment on above: Performed By: #### C BC #### [facility] [address] [place] [address] Dr. Ayla Ross NEUT # 3.9 103/ul Normal 1.4-6.5 [facility] Comment on above: Performed By: #### C BC #### [facility] [address] [place] [address] Dr. Ayla Ross Neutrophils/100 WBC (Bld) 64.9 % Normal 43.0-75.0 [facility] Comment on above: Performed By: #### C BC #### [facility] [address] [place] [address] Dr. Ayla Ross Platelet mean volume (Bld) [Entitic vol] 10.7 fL Normal 9.5-13.5 [facility] Comment on above: Performed By: #### C BC #### [facility] [address] [place] [address] Dr. Ayla Ross PLT 229 103/ul Normal 150-[address] [facility] Comment on above: Performed By: #### C BC #### [facility] [address] [place] [address] Dr. Ayla Ross RBC 4.60 106/ul Normal 4.20-5.[address] [facility] Comment on above: Performed By: #### C BC #### [facility] [address] [address] [address] Ayla Ross WBC 6.0 103/ul Normal 4.0-11.0 [facility] Comment on above: Performed By: #### C BC #### [facility] [address] ABD/PELVIS WO CONon 02-22 CT ABD/PELVIS WO CON CT ABDOMEN/PELVIS W ITHOUT IV CONTRAST. INDICATION: CALCULUS OF KIDNEY COMPARISON: 06/23/2021 TECHNIQUE: Contiguous axial images were obtained from the lung bases to the pelvic floor without intravenous or oral contrast. Coronal and sagittal reformations are provided. FINDINGS: LOWER LUNGS: Clear. LIVER/BILIARY TREE: No discrete lesion. No intrahepatic ductal dilatation. GALLBLADDER: Status post cholecystectomy. CBD: Normal CBD. SPLEEN: Stable low-density splenic lesions. PANCREAS: No appreciable peripancreatic fluid. No pancreatic ductal dilatation. No discrete lesion. ADRENALS: Normal. KIDNEYS: No hydronephrosis. There is a nonobstructing right renal stone. STOMACH AND BOWEL: Stomach is unremarkable. No dilated bowel loops. No bowel wall thickening. Colonic diverticulosis. APPENDIX: Not visualized. PERITONEAL CAVITY: No fluid. No fat stranding. ABDOMINAL WALL: No subcutaneous stranding. No subcutaneous fluid collection. LYMPH NODES: No mesenteric or retroperitoneal lymphadenopathy by CT criteria. ABDOMINAL AORTA: No aneurysm. PELVIS: No acute abnormality. MUSCULOSKELETAL: No acute osseous abnormality. IMPRESSION: No acute abnormality in the abdomen or pelvis. No obstructive uropathy. Right nephrolithiasis. Electronically authenticated by: GIUSEPPE HARDING Date: 2022-02-22 17:42 Normal [facility] ER URINE PROFILEon 2 Bilirubin Ql (U) Negative Normal NEGATIVE [facility] Comment on above: Performed By: #### C BC #### [facility] [address] [address] [address] Ayla Ross Clarity (U) CLEAR Normal CLEAR [facility] Comment on above: Performed By: #### C BC #### [facility] [address] [address] [address] Ayla Ross Color (U) LT. YELLOW Normal YELLOW [facility] Comment on above: Performed By: #### C BC #### [facility] [address] [place] [address] Dr. Ayla MANN A micrscopic examina tion will be performed if indicated. Normal [facility] Comment on above: Performed By: #### C BC #### [facility] [address] [place] [address] Dr. Ayla Ross Glucose Ql (U) Negative Normal NEGATIVE [facility] Comment on above: Performed By: #### C BC #### [facility] [address] [place] [address] Dr. Ayla Ross Hemoglobin Ql (U) Negative Normal NEGATIVE [facility] Comment on above: Performed By: #### C BC #### [facility] [address] [place] [address] Dr. Ayla Ross Ketones Ql (U) Negative Normal NEGATIVE [facility] Comment on above: Performed By: #### C BC #### [facility] [address] [place] [address] Dr. Ayla Ross LEUKOCYTES TRACE Abnormal NEGATIVE [facility] Comment on above: Performed By: #### C BC #### [facility] [address] [place] [address] Dr. Ayla Ross Nitrite Ql (U) Positive Abnormal NEGATIVE [facility] Comment on above: Performed By: #### C BC #### [facility] [address] [place] [address] Dr. Ayla Ross pH (U) 6.0 [pH] Normal 5-[address] [facility] Comment on above: Performed By: #### C BC #### [facility] [address] [place] [address] Dr. Ayla Ross SPEC GRAVITY >=1.030 Abnormal 1.005-<=1. [address] [facility] Comment on above: Performed By: #### C BC #### [facility] [address] [place] [address] Dr. Ayla Ross UA PROTEIN Negative Normal NEGATIVE/ TRACE [facility] Comment on above: Performed By: #### C BC #### [facility] [address] [place] [address] Dr. Ayla Ross UR MICRO IND INDICATED Normal [facility] Comment on above: Performed By: #### C BC #### [facility] [address] [place] [address] Dr. Ayla Ross Urobilinogen Qn (U) 0.2 {Simón'U}/dL Normal 0.2 - 1. 0 [facility] Comment on above: Performed By: #### C BC #### [facility] [address] [place] [address] Dr. Ayla Ross URon 02-22-2022 , QUAL Negative Normal NEGATIVE [facility] Comment on above: Performed By: #### C BC #### [facility] [address] [place] [address] Dr. Ayla Ross PROF CHEM 8 (BAS METB)on Anion gap [Moles/Vol] 10.3 mmol/L Normal [facility] Comment on above: Performed By: #### B MP #### [facility] [address] [place] [address] Dr. Ayla Ross Calcium [Mass/Vol] 9.3 mg/dL Normal 8.5-10.1 [facility] Comment on above: Performed By: #### B MP #### [facility] [address] [place] [address] Dr. Ayla Ross Chloride [Moles/Vol] 105 mmol/L Normal 98-[address] [facility] Comment on above: Performed By: #### B MP #### [facility] [address] [place] [address] Dr. Ayla Ross CO2 [Moles/Vol] 29.9 mmol/L Normal 21.0-32.0 [facility] Comment on above: Performed By: #### B MP #### [facility] [address] [place] [address] Dr. Ayla Ross Creatinine [Mass/Vol] 0.96 mg/dL Normal 0.55-1.02 [facility] Comment on above: Performed By: #### B MP #### [facility] [address] [place] [address] Dr. Ayla Ross EGFR-AF PAKISTANI >60 Normal >=60 [facility] Comment on above: Performed By: #### B MP #### [facility] [address] [place] [address] Dr. Ayla Ross EGFR-NON AF PAKISTANI >60 Normal >=60 [facility] Comment on above: Performed By: #### B MP #### [facility] [address] [address] [address] Ayla Ross Glucose [Mass/Vol] 69 mg/dL Critically low 74-106 [facility] Comment on above: Performed By: #### B MP #### [facility] [address] [place] [address] Dr. Ayla Ross Potassium [Moles/Vol] 3.2 mmol/L Critically low 3.5-5.1 [facility] Comment on above: Performed By: #### B MP #### [facility] [address] [place] [address] Dr. Ayla Ross Sodium [Moles/Vol] 142 mmol/L Normal 136-145 [facility] Comment on above: Performed By: #### B MP #### [facility] [address] [place] [address] Dr. Ayla Ross Urea nitrogen [Mass/Vol] 11.0 mg/dL Normal 7.0-18.0 [facility] Comment on above: Performed By: #### B MP #### [facility] [address] [place] [address] Dr. Ayla Ross Urea nitrogen/Creatinine [Mass ratio] 11.5 mg/mg Normal [facility] Comment on above: Performed By: #### B MP #### [facility] [address] [place] [address] Dr. Ayla Ross URINE MICROSCOPIC ONLYon BACTERIA LARGE Abnormal NONE SEEN [facility] Comment on above: Performed By: #### C BC #### [facility] [address] [place] [address] Dr. Ayla Ross Bacteria identified Cx Nom (U) INDICATED Normal [facility] Comment on above: Performed By: #### C BC #### [facility] [address] [place] [address] Dr. Ayla Ross CAST NONE SEEN Normal NONE SEEN [facility] Comment on above: Performed By: #### C BC #### [facility] [address] [place] [address] Dr. Ayla Ross Crystals LM Nom (Urine sed) NONE SEEN Normal NONE SEEN [facility] Comment on above: Performed By: #### C BC #### [facility] [address] [place] [address] Dr. Ayla Ross Epithelial cells LM Ql (Urine sed) FEW Abnormal NONE SEEN /RARE [facility] Comment on above: Performed By: #### C BC #### [facility] [address] [place] [address] Dr. Ayla Ross MUCOUS SMALL Abnormal NONE SEEN [facility] Comment on above: Performed By: #### C BC #### [facility] [address] [place] [address] Dr. Ayla Ross RBC 0-2 Normal 0-[address] [facility] Comment on above: Performed By: #### C BC #### [facility] [address] [place] [address] Dr. Ayla Ross WBC 5-10 Abnormal NONE SEEN [facility] Comment on above: Performed By: #### C BC #### [facility] [address] [place] [address] Dr. Ayla Ross XR shoulder LT min 2V*on XR shoulder LT min 2V* [facility] [place] [address] [place] [address] XRay Report Signed Patient: Apple Nagel MR#: [id number] : 1985 Acct:[id number] Age/Sex: 36 / F ADM Date: 01/11/22 Loc: ER Room: Type: [facility] ER Attending Dr: Copies to: Aimee Lambert DO Ordering Provider: Aimee Lambert DO Date of Service: 01/11/22 XR/XR chest 1V: Abdominal Pain ([id number]) XR/XR shoulder LT min 2V*: Abdominal Pain CLINICAL HISTORY: Left-sided abdominal pain. Patient also has pain at the left shoulder. PA CHEST: COMPARISON: 08/09/2021 The heart is normal in size. The lungs are clear. The pulmonary vasculature is normal. Mediastinum and hilar regions are unremarkable. No pleural effusions are seen. Visualized bones are intact. There is slight dextroscoliotic curvature. XR/XR chest 1V IMPRESSION: NO ACUTE FINDINGS. LEFT SHOULDER - 3 views COMPARISON: None AP, Y and Grashey views were obtained. There is no evidence of fracture or dislocation. There are no significant soft tissue abnormalities. IMPRESSION: NO ACUTE BONY INJURY. Impression dictated by: Trish Armendariz M.D.01/12/2022 7:16 AM Impression dictated by: Trish Armendariz M.D.01/12/2022 7:17 AM Dictation Location: [place] [address] Transcribed By: [facility] 01/12/22 07 Dictated By: Trish Armendariz MD 01/12/22 0715 Signed By: 01/12/[address] [facility] Automated erythrocytes count in urine sediment (number/area)Ordered By: Aimee Lambert on 01-11-2022 RBC Auto (Urine sed) [#/Area] None seen [HPF] 0-[address] [facility] Automated leukocytes count i n urine sediment (number/area)Ordered By: Aimee Lambert on 01-11-2022 WBC Auto (Urine sed) [#/Area] 0-1 [HPF] 0-[address] [facility] Basic Metabolic Panelon 12-23 Anion gap [Moles/Vol] 14.5 mmol/L Normal 6.0-15.0 [facility] Comment on above: Performed By: #### C BC, BMP, PT, PTT, DDIMER #### [facility] [address] [place] [address] [facility] Calcium [Mass/Vol] 9.2 mg/dL Normal 8.2-10.2 [facility] Comment on above: Performed By: #### C BC, BMP, PT, PTT, DDIMER #### [facility] [address] Chloride [Moles/Vol] 107 mmol/L Normal 95-114 [facility] Comment on above: Performed By: #### C BC, BMP, PT, PTT, DDIMER #### [address] CO2 [Moles/Vol] 24.2 mmol/L Normal 22.0-30.0 [facility] Comment on above: Performed By: #### C BC, BMP, PT, PTT, DDIMER #### [address] Creatinine [Mass/Vol] 0.77 mg/dL Normal 0.44-1.03 [facility] Comment on above: Performed By: #### C BC, BMP, PT, PTT, DDIMER #### [address] Creatinine Clr Calc Pharmacy 72.55 [facility] Comment on above: Result Comment: PERF ORMED BY: [place] [address] PATHOLOGIST PODIATRY ASSISTANT ANA JACOME M.D. Performed By: #### C BC, BMP, PT, PTT, DDIMER #### [address] Estimated GFR ( Kathleen > 60 [facility] Comment on above: Result Comment: GFR estimated reference range: According to KDOQI guidelines, <60 ml/min/1.73m2 is sufficient to diagnose a patient with chronic kidney disease. Performed By: #### C BC, BMP, PT, PTT, DDIMER #### [address] Estimated GFR (Non- Am > 60 [facility] Comment on above: Performed By: #### C BC, BMP, PT, PTT, DDIMER #### [address] Glucose [Mass/Vol] 84 mg/dL Normal 70-100 [facility] Comment on above: Result Comment: [place] Glucose Reference Range is dependent on time and content of last meal. Glucose of more than 200 mg/dL in a nonstressed, ambulatory subject supports the diagnosis of Diabetes Mellitus. ADA recommended reference range Performed By: #### C BC, BMP, PT, PTT, DDIMER #### [facility] [address] Potassium [Moles/Vol] 3.7 mmol/L Normal 3.5-5.1 [facility] Comment on above: Performed By: #### C BC, BMP, PT, PTT, DDIMER #### [facility] [address] Sodium [Moles/Vol] 142 mmol/L Normal 136-146 [facility] Comment on above: Performed By: #### C BC, BMP, PT, PTT, DDIMER #### [facility] [address] Urea nitrogen [Mass/Vol] 8 mg/dL Low 9-[address] [facility] Comment on above: Performed By: #### C BC, BMP, PT, PTT, DDIMER #### [facility] [address] Basophils Auto (Bld) [#/Vol] Ordered By: Aimee Lambert on 01-11-2022 Basophils (Bld) [#/Vol] 0.1 10*3/uL 0.0-0.[address] [facility] Basophils/100 WBC Auto (Bld) Ordered By: Aimee Lambert on 01-11-2022 Basophils/100 WBC (Bld) 1.1 % . [facility] Bilirubin Test strip Ql (U)O rdered By: Aimee Lambert on 01-11-2022 Bilirubin Ql (U) Negative Negative [facility] Blood hemoglobin measurement (mass/volume)Ordered By: Aimee Lambert on 01-11-2022 Hemoglobin (Bld) [Mass/Vol] 12.2 g/dL 11.8-15.[address] [facility] Blood leukocytes automated c ount (number/volume)Ordered By: Aimee Lambert on 01-11-2022 WBC (Bld) [#/Vol] 5.5 10*3/uL 4.5-11.0 [facility] Color Auto (U)Ordered By: Zoë leonora Lambert on 01-11-2022 Color (U) Yellow Yellow [facility] Complete Blood Count Auto Di ffon 01-11-2022 Basophils (Bld) [#/Vol] 0.1 10*3/uL Normal 0.0-0.[address] [facility] Comment on above: Result Comment: PERF ORMED BY: [place] [address] PATHOLOGIST PODIATRY ASSISTANT ANA JACOME M.D. Performed By: #### C BC, BMP, PT, PTT, DDIMER #### [address] Basophils/100 WBC (Bld) 1.1 % Normal . [facility] Comment on above: Performed By: #### C BC, BMP, PT, PTT, DDIMER #### [address] Eosinophils (Bld) [#/Vol] 0.1 10*3/uL Normal 0.0-0.[address] [facility] Comment on above: Performed By: #### C BC, BMP, PT, PTT, DDIMER #### [address] Eosinophils/100 WBC (Bld) 2.2 % Normal . [facility] Comment on above: Performed By: #### C BC, BMP, PT, PTT, DDIMER #### [address] Erythrocyte distribution width (RBC) [Ratio] 15.2 % Normal 11.9-15.[address] [facility] Comment on above: Performed By: #### C BC, BMP, PT, PTT, DDIMER #### [address] Hematocrit (Bld) [Volume fraction] 38.3 % Normal 34.0-46.[address] [facility] Comment on above: Performed By: #### C BC, BMP, PT, PTT, DDIMER #### [address] Hemoglobin (Bld) [Mass/Vol] 12.2 g/dL Normal 11.8-15.[address] [facility] Comment on above: Performed By: #### C BC, BMP, PT, PTT, DDIMER #### [address] Lymphocytes (Bld) [#/Vol] 1.7 10*3/uL Normal 1.00-4.[address] [facility] Comment on above: Performed By: #### C BC, BMP, PT, PTT, DDIMER #### [address] Lymphocytes/100 WBC (Bld) 31.1 % Normal . [facility] Comment on above: Performed By: #### C BC, BMP, PT, PTT, DDIMER #### [address] MCH (RBC) [Entitic mass] 26.5 pg Normal 24.7-34.[address] [facility] Comment on above: Performed By: #### C BC, BMP, PT, PTT, DDIMER #### [address] MCV (RBC) [Entitic vol] 83.0 fL Normal 80-[address] [facility] Comment on above: Performed By: #### C BC, BMP, PT, PTT, DDIMER #### [address] Mean Corpuscular HGB Conc 32.0 g/dL Normal 32.0-35.[address] [facility] Comment on above: Performed By: #### C BC, BMP, PT, PTT, DDIMER #### [address] Monocytes (Bld) [#/Vol] 0.4 10*3/uL Normal 0.0-0.[address] [facility] Comment on above: Performed By: #### C BC, BMP, PT, PTT, DDIMER #### [address] Monocytes/100 WBC (Bld) 7.0 % Normal . [facility] Comment on above: Performed By: #### C BC, BMP, PT, PTT, DDIMER #### [facility] [address] [place] [address] [place] Neutrophils (Bld) [#/Vol] 3.2 10*3/uL Normal 1.8-7.[address] [facility] Comment on above: Performed By: #### C BC, BMP, PT, PTT, DDIMER #### [address] Neutrophils/100 WBC (Bld) 58.6 % Normal . [facility] Comment on above: Performed By: #### C BC, BMP, PT, PTT, DDIMER #### [address] Nucleated RBC/100 WBC (Bld) [Ratio] 0.0 % Normal 0-0.[address] [facility] Comment on above: Performed By: #### C BC, BMP, PT, PTT, DDIMER #### [place] [address] [place] Platelet mean volume (Bld) [Entitic vol] 8.3 fL Normal 6.3-10.[address] [facility] Comment on above: Performed By: #### C BC, BMP, PT, PTT, DDIMER #### [place] [address] [place] Platelets (Bld) [#/Vol] 269 10*3/uL Normal 150-[address] [facility] Comment on above: Performed By: #### C BC, BMP, PT, PTT, DDIMER #### [facility] [address] [place] [address] [place] RBC (Bld) [#/Vol] 4.61 10*6/uL Normal 3.60-5.00 [facility] Comment on above: Performed By: #### C BC, BMP, PT, PTT, DDIMER #### [place] [address] [place] WBC (Bld) [#/Vol] 5.5 10*3/uL Normal 4.5-11.0 [facility] Comment on above: Performed By: #### C BC, BMP, PT, PTT, DDIMER #### [facility] [address] Creatinine and Glomerular fi ltration rate.predicted panel (S/P/Bld)Ordered By: Aimee Lambert on 01-11-2022 Creatinine [Mass/Vol] 0.77 mg/dL 0.44-1.03 [facility] Dipstick and Microscopicon 0 01-11-2022 Appearance (U) Clear Normal Clear [facility] Comment on above: Order Comment: Name Collection Type:: Clean-Voided Midstream Performed By: #### A DDONUAPLUS, CG ####[facility] [place] [id number] [facility] Bacteria,Urine 2+ High None Seen [facility] Comment on above: Order Comment: Name Collection Type:: Clean-Voided Midstream Performed By: #### A DDONUAPLUS, CG ####[facility] [place] [id number] [facility] Bilirubin,Urine Negative Normal Negative [facility] Comment on above: Order Comment: Name Collection Type:: Clean-Voided Midstream Performed By: #### A DDONUAPLUS, CG ####[facility] [place] [address] [facility] Color (U) Yellow Normal Yellow [facility] Comment on above: Order Comment: Name Collection Type:: Clean-Voided Midstream Performed By: #### A DDONUAPLUS, CG ####[facility] [place] [address] [facility] Glucose Ql (U) Normal Normal Normal [facility] Comment on above: Order Comment: Name Collection Type:: Clean-Voided Midstream Performed By: #### A DDONUAPLUS, UHCG ####[facility] [place] [address] [facility] Hyaline Casts,Urine 0-8 Normal 0-8 [facility] Comment on above: Order Comment: Name Collection Type:: Clean-Voided Midstream Performed By: #### A DDONUAPLUS, UHCG ####[address] [address] [facility] Ketones Ql (U) Negative Normal Negative [facility] Comment on above: Order Comment: Name Collection Type:: Clean-Voided Midstream Performed By: #### A DDONUAPLUS, UHCG ####[address] [address] [facility] Leukocyte esterase Test strip Ql (U) 1+ High Negative [facility] Comment on above: Order Comment: Name Collection Type:: Clean-Voided Midstream Performed By: #### A DDONUAPLUS, UHCG ####[address] [address] [facility] Nitrite,Urine Negative Normal Negative [facility] Comment on above: Order Comment: Name Collection Type:: Clean-Voided Midstream Performed By: #### A DDONUAPLUS, UHCG ####[address] [address] [facility] Occult Blood,Urine Negative Normal Negative [facility] Comment on above: Order Comment: Name Collection Type:: Clean-Voided Midstream Performed By: #### A DDONUAPLUS, UHCG ####[address] [address] [facility] pH (U) 6.0 [pH] Normal 5.0-9.[address] [facility] Comment on above: Order Comment: Name Collection Type:: Clean-Voided Midstream Performed By: #### A DDONUAPLUS, UHCG ####[address] [address] [facility] Protein,Urine Negative Normal Negative [facility] Comment on above: Order Comment: Name Collection Type:: Clean-Voided Midstream Performed By: #### A DDONUAPLUS, UHCG ####[address] [address] [facility] RBC,Urine None Seen Normal 0-[address] [facility] Comment on above: Order Comment: Name Collection Type:: Clean-Voided Midstream Performed By: #### [facility] ####[address] Specificy [place],Urine 1.014 Normal 1.001-1.[address] [facility] Comment on above: Order Comment: Name Collection Type:: Clean-Voided Midstream Performed By: #### A DDONUAJOSHUA, [facility] ####[address] Squamous Epithelial Cell,Urine 0-1 Normal 0-[address] [facility] Comment on above: Order Comment: Name Collection Type:: Clean-Voided Midstream Performed By: #### A DDONUAPLUS, [facility] ####[address] Urobilinogen,Urine Normal Normal Normal [facility] Comment on above: Order Comment: Name Collection Type:: Clean-Voided Midstream Performed By: #### A DDONUAJOSHUA [facility] ####[address] WBC LM.HPF (Urine sed) [#/Area] 0 /[HPF] Normal 0-[address] [facility] Comment on above: Order Comment: Name Collection Type:: Clean-Voided Midstream Performed By: #### A DDON[facility]APLUS, [facility] ####[address] Eosinophils Auto (Bld) [#/Vo l]Ordered By: Aimee Lambert on 01-11-2022 Eosinophils (Bld) [#/Vol] 0.1 10*3/uL 0.0-0.[address] [facility] Eosinophils/100 WBC Auto (Bl d)Ordered By: Aimee Lambert on 01-11-2022 Eosinophils/100 WBC (Bld) 2.2 % . [facility] Erythrocyte distribution wid th Auto (RBC) [Ratio]Ordered By: Aimee Lambert on 01-11-2022 Erythrocyte distribution width (RBC) [Ratio] 15.2 % 11.9-15.[address] [facility] Estimated glomerular filtrat ion rate (GFR) non- AmericanOrdered By: Aimee Lambert on 01-11-2022 GFR/1.73 sq M.predicted among non-blacks MDRD (S/P/Bld) [Vol rate/Area] > 60 mL/Min [facility] HCG ( test) IA.rapi d Ql (U)Ordered By: Aimee Lambert on 01-11-2022 HCG ( test) Ql (U) Negative [facility] HCG,Urineon 01-11-2022 Beta HCG ( test) Ql (U) Negative Normal [facility] Comment on above: Order Comment: Name Collection Type:: Clean-Voided Midstream Result Comment: PERF ORMED BY: [facility] [address] [place] [address] PATHOLOGIST PODIATRY ASSISTANT ANA JACOME M.D. Performed By: #### [facility] ####[facility] [place] [address] [facility] Hematocrit Auto (Bld) [Volum e fraction]Ordered By: Aimee Lambert on 01-11-2022 Hematocrit (Bld) [Volume fraction] 38.3 % 34.0-46.[address] [facility] Ketones Auto test strip (U) [Mass/Vol]Ordered By: Aimee Lambert on 01-11-2022 Ketones (U) [Mass/Vol] Negative Negative [facility] - Hematology and Cell countsOrdered By: Aimee Lambert on 01-11-2022 Nucleated RBC/100 WBC (Bld) [Ratio] 0.0 % 0-0.[address] [facility] - UrinalysisOrder ed By: Aimee Lambert on 01-11-2022 Hyaline casts LM Ql (Urine sed) 0-8 [LPF] 0-[address] [facility] Lymphocytes Auto (Bld) [#/Vo l]Ordered By: Aimee Lambert on 01-11-2022 Lymphocytes (Bld) [#/Vol] 1.7 10*3/uL 1.00-4.[address] [facility] Lymphocytes/100 WBC Auto (Bl d)Ordered By: Aimee Lambert on 01-11-2022 Lymphocytes/100 WBC (Bld) 31.1 % . [facility] MCH Auto (RBC) [Entitic mass ]Ordered By: Aimee Lambert on 01-11-2022 MCH (RBC) [Entitic mass] 26.5 pg 24.7-34.[address] [facility] MCHC Auto (RBC) [Mass/Vol]Or dered By: Aimee Lambert on 01-11-2022 MCHC (RBC) [Mass/Vol] 32.0 g/dL 32.0-35.0 [facility] MCV Auto (RBC) [Entitic vol] Ordered By: Aimee Lambert on 01-11-2022 MCV (RBC) [Entitic vol] 83.0 fL 80-[address] [facility] Monocytes Auto (Bld) [#/Vol] Ordered By: Aimee Lambert on 01-11-2022 Monocytes (Bld) [#/Vol] 0.4 10*3/uL 0.0-0.[address] [facility] Monocytes/100 WBC Auto (Bld) Ordered By: Aimee Lambert on 01-11-2022 Monocytes/100 WBC (Bld) 7.0 % . [facility] Neutrophils Auto (Bld) [#/Vo l]Ordered By: Aimee Lambert on 01-11-2022 Neutrophils (Bld) [#/Vol] 3.2 10*3/uL 1.8-7.[address] [facility] Neutrophils/100 WBC Auto (Bl d)Ordered By: Aimee Lambert on 01-11-2022 Neutrophils/100 WBC (Bld) 58.6 % . [facility] Nitrite Test strip Ql (U)Ord ered By: Aimee Lambert on 01-11-2022 Nitrite Ql (U) Negative Negative [facility] No Panel InformationOrdered By: Aimee Lambert on 01-11-2022 Estimated GFR () > 60 mL/Min [facility] Comment on above: GFR estimated refere nce range: According to KDOQI guidelines, <60 ml/min/1.73m2 is sufficient to diagnose a patient with chronic kidney disease. Pharmacy Creatinine Clearance (Chem 72.[address] [facility] Platelet mean volume Auto (B ld) [Entitic vol]Ordered By: Aimee Lambert on 01-11-2022 Platelet mean volume (Bld) [Entitic vol] 8.3 fL 6.3-10.[address] [facility] Platelets Auto (Bld) [#/Vol] Ordered By: Aimee Lambert on 01-11-2022 Platelets (Bld) [#/Vol] 269 10*3/uL 150-[address] [facility] Protein Auto test strip (U) [Mass/Vol]Ordered By: Aimee Lambert on 01-11-2022 Protein (U) [Mass/Vol] Negative Negative Fi [facility] RBC Auto (Bld) [#/Vol]Ordere d By: Aimee Lambert on 01-11-2022 RBC (Bld) [#/Vol] 4.61 10*6/uL 3.60-5.00 [facility] Serum or plasma anion gap de terminationOrdered By: Aimee Lambert on 01-11-2022 Anion gap [Moles/Vol] 14.5 mmol/L 6.0-15.0 [facility] Serum or plasma calcium jennifer urement (mass/volume)Ordered By: Aimee Lambert on 01-11-2022 Calcium [Mass/Vol] 9.2 mg/dL 8.2-10.2 [facility] Serum or plasma chloride nahomi surement (moles/volume)Ordered By: Aimee Lambert on 01-11-2022 Chloride [Moles/Vol] 107 mmol/L 95-114 [facility] Serum or plasma glucose jennifer urement (mass/volume)Ordered By: Aimee Lambert on 01-11-2022 Glucose [Mass/Vol] 84 mg/dL 70-100 [facility] Comment on above: ADA recommended refe rence range Random Glucose Reference Range is dependent on time and content of last meal. Glucose of more than 200 mg/dL in a nonstressed, ambulatory subject supports the diagnosis of Diabetes Mellitus. Serum or plasma potassium me asurement (moles/volume)Ordered By: Aimee Lambert on 01-11-2022 Potassium [Moles/Vol] 3.7 mmol/L 3.5-5.1 [facility] Serum or plasma sodium measu rement (moles/volume)Ordered By: Aimee Lambert on 01-11-2022 Sodium [Moles/Vol] 142 mmol/L 136-146 [facility] Serum or plasma total carbon dioxide measurement (moles/volume)Ordered By: Aimee Lambert on 01-11-2022 CO2 [Moles/Vol] 24.2 mmol/L 22.0-30.0 [facility] Serum or plasma urea nitroge n measurement (mass/volume)Ordered By: Aimee Lambert on 01-11-2022 Urea nitrogen [Mass/Vol] 8 mg/dL 9- [facility] Specific gravity Auto test s trip (U) [Rel density]Ordered By: Aimee Lambert on 01-11-2022 Specific gravity (U) [Rel density] 1.014 1.001-1.[address] [facility] Squamous epithelial cells de tection in urine sediment by light microscopyOrdered By: Aimee Lambert on 01-11-2022 Epithelial cells.squamous LM Ql (Urine sed) 0-1 [HPF] 0-[address] [facility] Urine bacteria detection by automated methodOrdered By: Aimee Lambert on 01-11-2022 Bacteria Auto Ql (U) 2+ None Seen [facility] Urine clarity by refractomet ry automatedOrdered By: Aimee Lambert on 01-11-2022 Clarity Refractometry automated (U) Clear Clear [facility] Urine glucose measurement by automated test strip (mass/volume)Ordered By: Aimee Lambert on 01-11-2022 Glucose Auto test strip (U) [Mass/Vol] Normal mg/dL Normal [facility] Urine hemoglobin detection b y automated test stripOrdered By: Aimee Lambert on 01-11-2022 Hemoglobin Auto test strip Ql (U) Negative Negative [facility] Urine leukocyte esterase det ection by automated test stripOrdered By: Aimee Lambert on 01-11-2022 Leukocyte esterase Auto test strip Ql (U) 1+ Negative [facility] Urobilinogen Auto test strip (U) [Mass/Vol]Ordered By: iAmee Lambert on 01-11-2022 Urobilinogen (U) [Mass/Vol] Normal mg/dL Normal [facility] pH Auto test strip (U)Ordere d By: Aimee Lambert on 01-11-2022 pH (U) 6.0 [pH] 5.0-9.[address] [facility] CULTURE URINEon 10-29-2021 CULTURE URINE Isolate 1 Escherichia coli >100,000 cfu/mL of ORGANISM 1 Escherichia coli ANTIBIOTIC M.I.C RX STATUS Ampicillin >=32 R F Ampicillin/Sulbactam 8 S F Piperacillin/Tazobactam <=4 S F Cefazolin <=4 S F Ceftazidime <=1 S F Ceftriaxone <=1 S F Ertapenem <=0.5 S F Imipenem <=0.25 S F Amikacin <=2 S F Gentamicin <=1 S F Tobramycin <=1 S F Ciprofloxacin <=0.25 S F Levofloxacin <=0.12 S F Nitrofurantoin <=16 S F Trimethoprim/Sulfamethoxa zole <=20 S F Normal [facility] Comment on above: Performed By: #### C BC #### [facility] [address] [place] [address] Dr. Ayla Ross CBC AUTO DIFFon 10-27-2021 BASO # 0.0 103/ul Normal 0.0-0.1 [facility] Comment on above: Performed By: #### C BC #### [facility] [address] [place] [address] Dr. Ayla Ross Basophils/100 WBC (Bld) 0.6 % Normal 0.2-2.0 [facility] Comment on above: Performed By: #### C BC #### [facility] [address] [place] [address] Dr. Ayla Ross EO # 0.1 103/ul Normal 0.0-0.[address] [facility] Comment on above: Performed By: #### C BC #### [facility] [address] [place] [address] Dr. Ayla Ross Eosinophils/100 WBC (Bld) 1.7 % Normal 0.9-7.0 [facility] Comment on above: Performed By: #### C BC #### [facility] [address] [place] [address] Dr. Ayla Ross Erythrocyte distribution width (RBC) [Ratio] 14.4 % Normal 11.0-15.0 [facility] Comment on above: Performed By: #### C BC #### [facility] [address] [place] [address] Dr. Ayla Ross Hematocrit (Bld) [Volume fraction] 34.8 % Critically low 36.0-48.0 [facility] Comment on above: Performed By: #### C BC #### [facility] [address] [place] [address] Dr. Ayla Ross Hemoglobin (Bld) [Mass/Vol] 10.9 g/dL Critically low 12.0-16.0 [facility] Comment on above: Performed By: #### C BC #### [facility] [address] [place] [address] Dr. Ayla Ross IG # 0.01 10e3/ul Normal 0.00-0.03 [facility] Comment on above: Performed By: #### C BC #### [facility] [address] [place] [address] Dr. Ayla Ross IG % 0.1 % Normal 0.0-0.5 [facility] Comment on above: Performed By: #### C BC #### [facility] [address] [place] [address] Dr. Ayla Ross LYMPH # 1.5 103/ul Normal 1.2-3.8 [facility] Comment on above: Performed By: #### C BC #### [facility] [address] [place] [address] Dr. Ayla Ross Lymphocytes/100 WBC (Bld) 21.1 % Normal 20.5-60.0 [facility] Comment on above: Performed By: #### C BC #### [facility] [address] [place] [address] Dr. Ayla Ross MANUAL DIFF REQ NO Normal [facility] Comment on above: Performed By: #### C BC #### [facility] [address] [place] [address] Dr. Ayla Ross MCH (RBC) [Entitic mass] 26.8 pg Normal 26.7-34.[address] [facility] Comment on above: Performed By: #### C BC #### [facility] [address] [place] [address] Dr. Ayla Ross MCHC (RBC) [Mass/Vol] 31.3 g/dL Normal 29.9-35.[address] [facility] Comment on above: Performed By: #### C BC #### [facility] [address] [place] [address] Dr. Ayla Ross MCV (RBC) [Entitic vol] 85.5 fL Normal 81.0-99.0 [facility] Comment on above: Performed By: #### C BC #### [facility] [address] [place] [address] Dr. Ayla Ross MONO # 0.5 103/ul Normal 0.3-0.8 [facility] Comment on above: Performed By: #### C BC #### [facility] [address] [place] [address] Dr. Ayla Ross Monocytes/100 WBC (Bld) 6.6 % Normal 1.7-12.0 [facility] Comment on above: Performed By: #### C BC #### [facility] [address] [place] [address] Dr. Ayla Ross NEUT # 4.9 103/ul Normal 1.4-6.[address] [facility] Comment on above: Performed By: #### C BC #### [facility] [address] [place] [address] Dr. Ayla Ross Neutrophils/100 WBC (Bld) 69.9 % Normal 43.0-75.[address] [facility] Comment on above: Performed By: #### C BC #### [facility] [address] [place] [address] Dr. Ayla Ross Platelet mean volume (Bld) [Entitic vol] 9.9 fL Normal 9.5-13.[address] [facility] Comment on above: Performed By: #### C BC #### [facility] [address] [place] [address] Dr. Ayla Ross PLT 209 103/ul Normal 150-450 [facility] Comment on above: Performed By: #### C BC #### [facility] [address] [place] [address] Dr. Ayla Ross RBC 4.07 106/ul Critically low 4.20-5.40 [facility] Comment on above: Performed By: #### C BC #### [facility] [address] [place] [address] Dr. Ayla Ross WBC 7.0 103/ul Normal 4.0-11.0 [facility] Comment on above: Performed By: #### C BC #### [facility] [address] [place] [address] Dr. Ayla Ross ER URINE PROFILEon 2 Bilirubin Ql (U) Negative Normal NEGATIVE [facility] Comment on above: Performed By: #### ADRIAN SIMSRO #### [facility] [address] [place] [address] Dr. Ayla Ross Clarity (U) CLEAR Normal CLEAR [facility] Comment on above: Performed By: #### ADRIAN SIMSRO #### [facility] [address] [place] [address] Dr. Ayla Ross Color (U) LT. YELLOW Normal YELLOW [facility] Comment on above: Performed By: #### ADRIAN SIMSRO #### [facility] [address] [place] [address] Dr. Ayla Ross ERUIAN A micrscopic examina tion will be performed if indicated. Normal The [facility] Comment on above: Performed By: #### ADRIAN SIMSRO #### [facility] [address] [place] [address] Dr. Ayla Ross Glucose Ql (U) Negative Normal NEGATIVE The [facility] Comment on above: Performed By: #### ADRIAN SIMSRO #### [facility] [address] [place] [address] Dr. Ayla Ross Hemoglobin Ql (U) Negative Normal NEGATIVE The [facility] Comment on above: Performed By: #### Yesenia SULLIVAN UMICRO #### [facility] [address] [place] [address] Dr. Ayla Ross Ketones Ql (U) Negative Normal NEGATIVE The [facility] Comment on above: Performed By: #### E NATE, UMICRO #### [facility] [address] [place] [address] Dr. Ayla Ross LEUKOCYTES Negative Normal NEGATIVE [facility] Comment on above: Performed By: #### Yesenia SULLIVAN UMICRO #### [facility] [address] [place] [address] Dr. Ayla Ross Nitrite Ql (U) Positive Abnormal NEGATIVE The [facility] Comment on above: Performed By: #### Yesenia SULLIVAN UMICRO #### [facility] [address] [place] [address] Dr. Ayla Ross pH (U) 6.0 [pH] Normal 5-9 [facility] Comment on above: Performed By: #### Yesenia SULLIVAN UMICRO #### [facility] [address] [place] [address] Dr. Ayla Ross SPEC GRAVITY 1.020 Normal 1.005-<=1. 025 [facility] Comment on above: Performed By: #### Yesenia SULLIVAN UMICRO #### [facility] [address] [place] [address] Dr. Ayla Ross UA PROTEIN Negative Normal NEGATIVE/ TRACE [facility] Comment on above: Performed By: #### Yesenia SULLIVAN UMICRO #### [facility] [address] [place] [address] Dr. Ayla Ross UR MICRO IND INDICATED Normal The [facility] Comment on above: Performed By: #### Yesenia SULLIVAN UMICRO #### [facility] [address] [place] [address] Dr. Ayla Ross Urobilinogen Qn (U) 0.2 {Simón'U}/dL Normal 0.2 - 1. 0 [facility] Comment on above: Performed By: #### E RUJOSHUA Orourke #### [facility] [address] [address] [address] Ayla Ross PROF 14(COMP METB)on 022 Albumin [Mass/Vol] 3.7 g/dL Normal 3.4-5.0 [facility] Comment on above: Performed By: #### C BC #### [facility] [address] [place] [address] Dr. Ayla Ross Albumin/Globulin [Mass ratio] 1.1 {ratio} Normal [facility] Comment on above: Performed By: #### C BC #### [facility] [address] [place] [address] Dr. Ayla Ross ALP [Catalytic activity/Vol] 76 U/L Normal 46-116 [facility] Comment on above: Performed By: #### C BC #### [facility] [address] [place] [address] Dr. Ayla Ross ALT [Catalytic activity/Vol] 16 U/L Normal 14-59 [facility] Comment on above: Performed By: #### C BC #### [facility] [address] [place] [address] Dr. Ayla Ross Anion gap [Moles/Vol] 11.0 mmol/L Normal [facility] Comment on above: Performed By: #### C BC #### [facility] [address] [place] [address] Dr. Ayla Ross AST [Catalytic activity/Vol] 12 U/L Critically low 15-37 [facility] Comment on above: Performed By: #### C BC #### [facility] [address] [place] [address] Dr. Ayla Ross Bilirubin [Mass/Vol] 0.2 mg/dL Normal 0.2-1.0 [facility] Comment on above: Performed By: #### C BC #### [facility] [address] [place] [address] Dr. Ayla Ross Calcium [Mass/Vol] 8.7 mg/dL Normal 8.5-10.1 [facility] Comment on above: Performed By: #### C BC #### [facility] [address] [place] [address] Dr. Ayla Ross Chloride [Moles/Vol] 106 mmol/L Normal 98-[address] [facility] Comment on above: Performed By: #### C BC #### [facility] [address] [place] [address] Dr. Ayla Ross CO2 [Moles/Vol] 25.5 mmol/L Normal 21.0-32.0 [facility] Comment on above: Performed By: #### C BC #### [facility] [address] [place] [address] Dr. Ayla Ross Creatinine [Mass/Vol] 0.81 mg/dL Normal 0.55-1.02 [facility] Comment on above: Performed By: #### C BC #### [facility] [address] [place] [address] Dr. Ayla Ross EGFR-AF PAKISTANI >60 Normal >=60 [facility] Comment on above: Performed By: #### C BC #### [facility] [address] [place] [address] Dr. Ayla Ross EGFR-NON AF PAKISTANI >60 Normal >=60 [facility] Comment on above: Performed By: #### C BC #### [facility] [address] [place] [address] Dr. Ayla Ross Globulin (S) [Mass/Vol] 3.3 g/dL Normal [facility] Comment on above: Performed By: #### C BC #### [facility] [address] [place] [address] Dr. Ayla Ross Glucose [Mass/Vol] 102 mg/dL Normal 74-106 [facility] Comment on above: Performed By: #### C BC #### [facility] [address] [place] [address] Dr. Ayla Ross Potassium [Moles/Vol] 3.5 mmol/L Normal 3.5-5.1 [facility] Comment on above: Performed By: #### C BC #### [facility] [address] [place] [address] Dr. Ayla Ross Protein [Mass/Vol] 7.0 g/dL Normal 6.4-8.2 [facility] Comment on above: Performed By: #### C BC #### [facility] [address] [place] [address] Dr. Ayla Ross Sodium [Moles/Vol] 139 mmol/L Normal 136-145 [facility] Comment on above: Performed By: #### C BC #### [facility] [address] [place] [address] Dr. Ayla Ross Urea nitrogen [Mass/Vol] 11.0 mg/dL Normal 7.0-18.0 [facility] Comment on above: Performed By: #### C BC #### [facility] [address] [place] [address] Dr. Ayla Ross Urea nitrogen/Creatinine [Mass ratio] 13.6 mg/mg Normal [facility] Comment on above: Performed By: #### C BC #### [facility] [address] [place] [address] Dr. Ayla Ross URINE MICROSCOPIC ONLYon BACTERIA LARGE Abnormal NONE SEEN [facility] Comment on above: Performed By: #### Yesenia SULLIVAN UMICRO #### [facility] [address] [place] [address] Dr. Ayla Ross Bacteria identified Cx Nom (U) INDICATED Normal [facility] Comment on above: Performed By: #### Yesenia SULLIVAN UMICRO #### [facility] [address] [place] [address] Dr. Ayla Ross CAST NONE SEEN Normal NONE SEEN [facility] Comment on above: Performed By: #### E ANTE UMICRO #### [facility] [address] [place] [address] Dr. Ayla Ross Crystals LM Nom (Urine sed) NONE SEEN Normal NONE SEEN [facility] Comment on above: Performed By: #### E RUR UMICRO #### [facility] [address] [place] [address] Dr. Ayla Ross Epithelial cells LM Ql (Urine sed) RARE Normal NONE SEEN /RARE [facility] Comment on above: Performed By: #### E RUR, LLOYDICRO #### [facility] [address], [place] [address] Dr. Ayla Ross MUCOUS NONE SEEN Normal NONE SEEN [facility] Comment on above: Performed By: #### E RUR, UMICRO #### [facility] [address], [place] [address] Dr. Ayla Ross RBC 0-2 Normal 0-[address] [facility] Comment on above: Performed By: #### E RUR, UMICRO #### [facility] [address], [place] [address] Dr. Ayla Ross WBC 2-5 Abnormal NONE SEEN [facility] Comment on above: Performed By: #### E NATE, ADRIANRO #### [facility] [address] [address] [address] Ayla Ross XR ANKLE RT MIN 3 VIEWSon XR ANKLE RT MIN 3 VIEWS EXAM: XR ANKLE RT MIN 3 VIEWS HISTORY: Pain COMPARISON: None. TECHNIQUE: 3 views of the right ankle were obtained. FINDINGS: No acute fracture or dislocation is seen. The ankle mortise appears to be congruent. The joint spaces are preserved. There is no significant right ankle joint effusion. IMPRESSION: 1. No acute fracture or dislocation of the right ankle is seen. If pain persists, repeat radiographs are recommended in 7-10 days. Electronically authenticated by: Ty GRANADOS Date: 2021-10-27 00:09 Normal [address] [facility] XR HIP RT 2 3V W PELVISon XR HIP RT 2 3V W PELVIS EXAM: XR HIP RT 2 3V W PELVIS HISTORY: Pain COMPARISON: None. TECHNIQUE: One view of the pelvis and 2 views of the right hip were obtained. FINDINGS: No acute fracture or dislocation is seen. The femoral heads are well-seated in the acetabula. The sacroiliac joints, hip joints, and pubic symphysis are preserved. IMPRESSION: 1. No acute fracture or dislocation of the pelvis or right hip is seen. If there is concern for an occult injury, cross-sectional imaging is recommended. Electronically authenticated by: Ty GRANADOS Date: 2021-10-27 00:08 Normal [facility] XR KNEE RT 4V or >on 022 XR KNEE RT 4V or > EXAM: XR KNEE RT 4V or > HISTORY: Pain COMPARISON: None. TECHNIQUE: 4 views of the right knee FINDINGS: No acute fracture seen. Joint alignment is normal. Joint spaces are preserved. Soft tissues are unremarkable. No significant joint effusion is seen. IMPRESSION: No acute fracture or malalignment. Electronically authenticated by: PAT MODI Date: 2021-10-26 23:58 Normal [facility] XR LSPINE 2_3 VIEWSon 2021 XR LSPINE 2_3 VIEWS EXAM: XR LSPINE 2_3 VIEWS HISTORY: Pain COMPARISON: Lumbar spine radiographs dated 05/31/2015. TECHNIQUE: Frontal and lateral views of the lumbar spine were obtained. FINDINGS: There are 5 lumbar type vertebral bodies. No acute fracture or subluxation is seen. The vertebral body heights are preserved. The vertebral elements are in anatomic alignment. The disc spaces are preserved. The sacroiliac joints are patent. Surgical clips are seen in the right upper quadrant. IMPRESSION: 1. No acute fracture or subluxation of the lumbar spine is seen. If there is concern for an occult injury, cross-sectional imaging is recommended. Electronically authenticated by: Ty GRANADOS Date: 2021-10-27 00:10 Normal [address] [facility] XR RIBS RT PA Essence 2 XR RIBS RT PA CH EXAM: XR RIBS RT PA CH HISTORY: Pain COMPARISON: Chest radiograph dated 03/25/2012. TECHNIQUE: One view of the chest with frontal and oblique views of the right ribs were obtained. FINDINGS: The cardiac silhouette is normal in size. The lungs are clear. There is no significant pneumothorax or pleural effusion. No acute osseous abnormality is seen. No definite displaced rib fracture is seen. Surgical clips are seen in the upper abdomen. IMPRESSION: 1. No acute cardiopulmonary abnormality. 2. No definite displaced rib fracture is seen. Electronically authenticated by: Ty GRANADOS Date: 2021-10-27 00:06 Normal [facility] Automated epithelial cells c ount in urine sediment (number/area)Ordered By: Curt Ferrer on 10-09-2021 Epithelial cells Auto (Urine sed) [#/Area] 10-19 [HPF] [facility] Automated erythrocytes count in urine sediment (number/area)Ordered By: Curt Ferrer on 10-09-2021 RBC Auto (Urine sed) [#/Area] None seen [HPF] [facility] Automated leukocytes count i n urine sediment (number/area)Ordered By: Curt Ferrer on 10-09-2021 WBC Auto (Urine sed) [#/Area] 20-49 [HPF] [facility] Bilirubin Test strip Ql (U)O rdered By: Curt Ferrer on 10-09-2021 Bilirubin Ql (U) Negative Negative [facility] CT abdomen pelvis w conon CT abdomen pelvis w con [facility] [place] [address] [place] [address] CT Scan Report Signed Patient: Apple Nagel MR#: [id number] : 1985 Acct:[id number] Age/Sex: 35 / F ADM Date: 10/08/21 Loc: ER Room: Type: [facility] ER Attending Dr: Copies to: Curt Ferrer DO Ordering Provider: Curt Ferrer DO Date of Service: 10/08/21 CT/CT abdomen pelvis w con: lower abd pain, recent surgery, h/o cervical cance CT ABDOMEN AND PELVIS WITH INTRAVENOUS CONTRAST: CLINICAL HISTORY: Lower abdominal pain with nausea and vomiting. History of retained sponge left abdomen, removed 10/07/2021. COMPARISON: CT abdomen and pelvis 07/17/2021 TECHNIQUE: Spiral images were obtained through the abdomen and pelvis following the administration of intravenous contrast. This CT exam was performed using one or more following dose reduction techniques: Automated exposure control, adjustment of the mA and/or kV according to patient size, or use of iterative reconstruction technique. FINDINGS: Lung Bases: [No acute findings.] Organs:Splenic cysts. Gallbladder has been removed. Liver pancreas adrenal glands kidneys and aorta all appear unremarkable.[ GI: Stomach is grossly unremarkable. Small bowel appears nondilated. No acute colonic abnormality.[ Pelvis:[Urinary bladder is grossly unremarkable. Uterus demonstrates questionable prominence of the endometrium measuring 2.1 cm No adnexal mass.] Peritoneum/Retroperitoneu m:No free air, free fluid or lymphadenopathy.[ Abd wall/Bones:Abdominal wall demonstrates no acute findings. Osseous structures demonstrate no acute findings.[ CT/CT abdomen pelvis w con IMPRESSION: No acute process. Questionable prominence of the endometrium measuring 2.1 cm. Correlation with pelvic ultrasound is suggested. Impression dictated by: Jose Todd Jr., D.O.10/09/2021 9:17 AM Dictation Location: [place] [address] Transcribed By: [facility] 10/09/21916 Dictated By: Jose Todd Jr, DO 10/09/21912 Signed By: 10/09/[address] [facility] Color Auto (U)Ordered By: Te Ferrer on 10-09-2021 Color (U) Yellow Yellow [facility] Dipstick and Microscopicon 0 10-09-2021 Appearance (U) Clear Normal Clear [facility] Comment on above: Order Comment: Name Collection Type:: Clean-Voided Midstream Performed By: #### C BC, BMP, PT, PTT, DDIMER #### [facility] [address] [place] [address] [place] Bacteria,Urine 3+ High None Seen [facility] Comment on above: Order Comment: Name Collection Type:: Clean-Voided Midstream Result Comment: PERF ORMED BY: [place] [address] PATHOLOGIST PODIATRY ASSISTANT ANA JACOME M.D. Performed By: #### C BC, BMP, PT, PTT, DDIMER #### [facility] [address] [place] [address] [place] Bilirubin,Urine Negative Normal Negative [facility] Comment on above: Order Comment: Name Collection Type:: Clean-Voided Midstream Performed By: #### C BC, BMP, PT, PTT, DDIMER #### [facility] [address] [id number] [place] Color (U) Yellow Normal Yellow [facility] Comment on above: Order Comment: Name Collection Type:: Clean-Voided Midstream Performed By: #### C BC, BMP, PT, PTT, DDIMER #### [facility] [address] [place] [address] [place] Glucose Ql (U) Normal Normal Normal [facility] Comment on above: Order Comment: Name Collection Type:: Clean-Voided Midstream Performed By: #### C BC, BMP, PT, PTT, DDIMER #### [facility] [address] [place] [place] [address] Ketones Ql (U) Negative Normal Negative [facility] Comment on above: Order Comment: Name Collection Type:: Clean-Voided Midstream Performed By: #### C BC, BMP, PT, PTT, DDIMER #### [address] Leukocyte esterase Test strip Ql (U) 3+ High Negative [facility] Comment on above: Order Comment: Name Collection Type:: Clean-Voided Midstream Performed By: #### C BC, BMP, PT, PTT, DDIMER #### [address] Nitrite,Urine Positive High Negative [facility] Comment on above: Order Comment: Name Collection Type:: Clean-Voided Midstream Performed By: #### C BC, BMP, PT, PTT, DDIMER #### [facility] [address] [place] [place] [address] Occult Blood,Urine Negative Normal Negative [facility] Comment on above: Order Comment: Name Collection Type:: Clean-Voided Midstream Performed By: #### C BC, BMP, PT, PTT, DDIMER #### [facility] [address] [place] [address] [place] pH (U) 5.5 [pH] Normal 5.0-9.[address] [facility] Comment on above: Order Comment: Name Collection Type:: Clean-Voided Midstream Performed By: #### C BC, BMP, PT, PTT, DDIMER #### [facility] [address] [place] [address] [place] Protein,Urine Negative Normal Negative [facility] Comment on above: Order Comment: Name Collection Type:: Clean-Voided Midstream Performed By: #### C BC, BMP, PT, PTT, DDIMER #### [facility] [address] [place] [address] [place] RBC,Urine None Seen Normal 0-[address] [facility] Comment on above: Order Comment: Name Collection Type:: Clean-Voided Midstream Performed By: #### C BC, BMP, PT, PTT, DDIMER #### [facility] [address] [place] [address] Specificy [place],Urine > 1.050 High 1.001-1.[address] [facility] Comment on above: Order Comment: Name Collection Type:: Clean-Voided Midstream Performed By: #### C BC, BMP, PT, PTT, DDIMER #### [address] Squamous Epithelial Cell,Urine 10-19 High 0-[address] [facility] Comment on above: Order Comment: Name Collection Type:: Clean-Voided Midstream Performed By: #### C BC, BMP, PT, PTT, DDIMER #### [address] Urobilinogen,Urine Normal Normal Normal [facility] Comment on above: Order Comment: Name Collection Type:: Clean-Voided Midstream Performed By: #### C BC, BMP, PT, PTT, DDIMER #### [address] WBC,Urine 20-49 High 0-[address] [facility] Comment on above: Order Comment: Name Collection Type:: Clean-Voided Midstream Performed By: #### C BC, BMP, PT, PTT, DDIMER #### [facility] [address] [place] [place] [address] Ketones Auto test strip (U) [Mass/Vol]Ordered By: Curt Ferrer on 10-09-2021 Ketones (U) [Mass/Vol] Negative Negative [facility] Nitrite Test strip Ql (U)Ord ered By: Curt Ferrer on 10-09-2021 Nitrite Ql (U) Positive Negative [facility] Protein Auto test strip (U) [Mass/Vol]Ordered By: Curt Ferrer on 10-09-2021 Protein (U) [Mass/Vol] Negative Negative [facility] Specific gravity Auto test s trip (U) [Rel density]Ordered By: Curt Ferrer on 10-09-2021 Specific gravity (U) [Rel density] > 1.050 1.001-1.[address] [facility] Urine Cultureon 10-09-2021 Bacteria identified Cx Nom (U) ORGANISM: Escherichia coli (O:ESCCOL) [place] Count >100,000 Aerobic GIACOMO Charge (NUC86) SUSCEPTIBILITY ORGANISM: O:ESCCOL ANTIBIOTIC INTERPRETATION GIACOMO Amikacin S <16 Ampicillin R >16 Ampicillin/Sulbactam S <8/4 Aztreonam S <4 Cefazolin S 4 Cefepime S <2 Ceftazidime S <1 Ceftazidime/Avibactam S <8 Ceftriaxone S <1 Ciprofloxacin S <1 Ertapenem S <0.5 Gentamicin S <4 Levofloxacin S <2 Meropenem S <1 Nitrofurantoin S <32 Piperacillin/Tazobactam S <16 Tetracycline R >8 Tigecycline S <2 Tobramycin S <4 Trimethoprim/Sulfamethoxa zole S <2/38 S = SUSCEPTIBLE I = INTERMEDIATE R = RESISTANT BLANK = DATA NOT AVAILABLE, OR DRUG NOT ADVISABLE OR TESTED R* = RESISTANCE DUE TO EXTENDED SPECTRUM BETA-LACTAMASES ESBL = EXTENDED SPECTRUM BETA-LACTAMASE TFG = THYMIDINE-DEPENDENT STRAIN DAMIAN = BETA-LACTAMASE POSITIVE IB = INDUCIBLE BETA-LACTAMASE. APPEARS IN PLACE OF 'S' WITH SPECIES KNOWN TO POSSESS INDUCIBLE BETA-LACTAMASES. POTENTIALLY THEY MAY BECOME RESISTANT TO ALL B-LACTAM DRUGS. PERFORMED BY: [place] [address] PATHOLOGIST PODIATRY ASSISTANT ANA JACOME M.D. Normal [facility] Comment on above: Performed By: #### C BC, BMP, PT, PTT, DDIMER #### [address] Urine bacteria detection by automated methodOrdered By: Curt Ferrer on 10-09-2021 Bacteria Auto Ql (U) 3+ None Seen [facility] Urine clarity by refractomet ry automatedOrdered By: Curt Ferrer on 10-09-2021 Clarity Refractometry automated (U) Clear Clear [facility] Urine culture routineOrdered By: Curt Ferrer on 10-09-2021 Bacteria identified Cx Nom (U) Escherichia coli [facility] Urine glucose measurement by automated test strip (mass/volume)Ordered By: Curt Ferrer on 10-09-2021 Glucose Auto test strip (U) [Mass/Vol] Normal mg/dL Normal [facility] Urine hemoglobin detection b y automated test stripOrdered By: Curt Ferrer on 10-09-2021 Hemoglobin Auto test strip Ql (U) Negative Negative [facility] Urine leukocyte esterase det ection by automated test stripOrdered By: Curt Ferrer on 10-09-2021 Leukocyte esterase Auto test strip Ql (U) 3+ Negative [facility] Urobilinogen Auto test strip (U) [Mass/Vol]Ordered By: Curt Ferrer on 10-09-2021 Urobilinogen (U) [Mass/Vol] Normal mg/dL Normal [facility] pH Auto test strip (U)Ordere d By: Curt Ferrer on 10-09-2021 pH (U) 5.5 [pH] 5.0-9.[address] [facility] Basophils Auto (Bld) [#/Vol] Ordered By: Curt Ferrer on 10-08-2021 Basophils (Bld) [#/Vol] 0.0 10*3/uL 0.0-0.[address] [facility] Basophils/100 WBC Auto (Bld) Ordered By: Curt Ferrer on 10-08-2021 Basophils/100 WBC (Bld) 0.7 % [facility] Blood hemoglobin measurement (mass/volume)Ordered By: Curt Ferrer on 10-08-2021 Hemoglobin (Bld) [Mass/Vol] 12.0 g/dL 11.8-15.[address] [facility] Blood leukocytes automated c ount (number/volume)Ordered By: Curt Ferrer on 10-08-2021 WBC (Bld) [#/Vol] 5.1 10*3/uL 4.5-11.0 [facility] Body fluid albumin measureme nt (mass/volume)Ordered By: Curt Ferrer on 10-08-2021 Albumin (Body fld) [Mass/Vol] 3.7 g/dL 3.2-5.[address] [facility] Complete Blood Count Auto Di ffon 10-08-2021 Basophils (Bld) [#/Vol] 0.0 10*3/uL Normal 0.0-0.[address] [facility] Comment on above: Result Comment: PERF ORMED BY: [facility] [address] [place] [address] PATHOLOGIST PODIATRY ASSISTANT ANA JACOME M.D. Performed By: #### L ACTIC, CBC, CMP, LIPASE ####[address] Basophils/100 WBC (Bld) 0.7 % Normal . [facility] Comment on above: Performed By: #### L ACTIC, CBC, CMP, LIPASE ####[address] Eosinophils (Bld) [#/Vol] 0.1 10*3/uL Normal 0.0-0.[address] [facility] Comment on above: Performed By: #### L ACTIC, CBC, CMP, LIPASE ####[address] Eosinophils/100 WBC (Bld) 1.9 % Normal . [facility] Comment on above: Performed By: #### L ACTIC, CBC, CMP, LIPASE ####[address] Erythrocyte distribution width (RBC) [Ratio] 15.9 % High 11.9-15.[address] [facility] Comment on above: Performed By: #### L ACTIC, CBC, CMP, LIPASE ####[address] Hematocrit (Bld) [Volume fraction] 36.4 % Normal 34.0-46.[address] [facility] Comment on above: Performed By: #### L ACTIC, CBC, CMP, LIPASE ####[address] Hemoglobin (Bld) [Mass/Vol] 12.0 g/dL Normal 11.8-15.[address] [facility] Comment on above: Performed By: #### L ACTIC, CBC, CMP, LIPASE ####[address] Lymphocytes (Bld) [#/Vol] 1.5 10*3/uL Normal 1.00-4.[address] [facility] Comment on above: Performed By: #### L ACTIC, CBC, CMP, LIPASE ####[address] Lymphocytes/100 WBC (Bld) 29.4 % Normal . [facility] Comment on above: Performed By: #### L ACTIC, CBC, CMP, LIPASE ####[address] MCH (RBC) [Entitic mass] 26.6 pg Normal 24.7-34.[address] [facility] Comment on above: Performed By: #### L ACTIC, CBC, CMP, LIPASE ####[address] MCV (RBC) [Entitic vol] 81.1 fL Normal 80-[address] [facility] Comment on above: Performed By: #### L ACTIC, CBC, CMP, LIPASE ####[address] Mean Corpuscular HGB Conc 32.8 g/dL Normal 32.0-35.[address] [facility] Comment on above: Performed By: #### L ACTIC, CBC, CMP, LIPASE ####[address] Monocytes (Bld) [#/Vol] 0.4 10*3/uL Normal 0.0-0.[address] [facility] Comment on above: Performed By: #### L ACTIC, CBC, CMP, LIPASE ####[address] Monocytes/100 WBC (Bld) 7.9 % Normal . [facility] Comment on above: Performed By: #### L ACTIC, CBC, CMP, LIPASE ####[address] Neutrophils (Bld) [#/Vol] 3.1 10*3/uL Normal 1.8-7.[address] [facility] Comment on above: Performed By: #### L ACTIC, CBC, CMP, LIPASE ####[address] Neutrophils/100 WBC (Bld) 60.1 % Normal . [facility] Comment on above: Performed By: #### L ACTIC, CBC, CMP, LIPASE ####[address] Nucleated RBC/100 WBC (Bld) [Ratio] 0.0 % Normal 0-0.[address] [facility] Comment on above: Performed By: #### L ACTIC, CBC, CMP, LIPASE ####[address] Platelet mean volume (Bld) [Entitic vol] 8.9 fL Normal 6.3-10.[address] [facility] Comment on above: Performed By: #### L ACTIC, CBC, CMP, LIPASE ####[address] Platelets (Bld) [#/Vol] 200 10*3/uL Normal 150-[address] [facility] Comment on above: Performed By: #### L ACTIC, CBC, CMP, LIPASE ####[address] RBC (Bld) [#/Vol] 4.49 10*6/uL Normal 3.60-5.00 [facility] Comment on above: Performed By: #### L ACTIC, CBC, CMP, LIPASE ####[address] WBC (Bld) [#/Vol] 5.1 10*3/uL Normal 4.5-11.0 [facility] Comment on above: Performed By: #### L ACTIC, CBC, CMP, LIPASE ####[facility] [place] [address] [facility] Comprehensive Metabolic Pane reji 10-08-2021 Albumin [Mass/Vol] 3.7 g/dL Normal 3.2-5.5 [facility] Comment on above: Performed By: #### L ACTIC, CBC, CMP, LIPASE ####[place] [id number] [place] [id number] [facility] Albumin/Globulin [Mass ratio] 1.3 {ratio} Normal [facility] Comment on above: Performed By: #### L ACTIC, CBC, CMP, LIPASE ####[place] [id number] [place] [id number] [facility] ALP [Catalytic activity/Vol] 58 U/L Normal 32-[address] [facility] Comment on above: Performed By: #### L ACTIC, CBC, CMP, LIPASE ####[place] [id number] [place] [id number] [facility] ALT [Catalytic activity/Vol] 9 U/L Low 10-[address] [facility] Comment on above: Performed By: #### L ACTIC, CBC, CMP, LIPASE ####[address] [address] [facility] AST [Catalytic activity/Vol] 14 U/L Normal 10-[address] [facility] Comment on above: Performed By: #### L ACTIC, CBC, CMP, LIPASE ####[place] [address] [place] [address] [facility] Bilirubin [Mass/Vol] 0.5 mg/dL Normal 0.3-1.2 [facility] Comment on above: Performed By: #### L ACTIC, CBC, CMP, LIPASE ####[place] [id number] [facility] Calcium [Mass/Vol] 9.1 mg/dL Normal 8.2-10.2 [facility] Comment on above: Performed By: #### L ACTIC, CBC, CMP, LIPASE ####[place] [id number] [facility] Chloride [Moles/Vol] 105 mmol/L Normal 95-114 [facility] Comment on above: Performed By: #### L ACTIC, CBC, CMP, LIPASE ####[address] CO2 [Moles/Vol] 24.2 mmol/L Normal 22.0-30.0 [facility] Comment on above: Performed By: #### L ACTIC, CBC, CMP, LIPASE ####[address] Creatinine [Mass/Vol] 0.73 mg/dL Normal 0.44-1.03 [facility] Comment on above: Performed By: #### L ACTIC, CBC, CMP, LIPASE ####[address] Creatinine Clr Calc Pharmacy 91.53 [facility] Comment on above: Performed By: #### L ACTIC, CBC, CMP, LIPASE ####[address] Estimated GFR ( Kathleen > 60 [facility] Comment on above: Result Comment: GFR estimated reference range: According to KDOQI guidelines, <60 ml/min/1.73m2 is sufficient to diagnose a patient with chronic kidney disease. Performed By: #### L ACTIC, CBC, CMP, LIPASE ####[address] Estimated GFR (Non- Am > 60 [facility] Comment on above: Performed By: #### L ACTIC, CBC, CMP, LIPASE ####[address] Globulin (S) [Mass/Vol] 2.9 g/dL [facility] Comment on above: Performed By: #### L ACTIC, CBC, CMP, LIPASE ####[address] Glucose [Mass/Vol] 116 mg/dL High 70-100 [facility] Comment on above: Result Comment: [place] Glucose Reference Range is dependent on time and content of last meal. Glucose of more than 200 mg/dL in a nonstressed, ambulatory subject supports the diagnosis of Diabetes Mellitus. ADA recommended reference range Performed By: #### L ACTIC, CBC, CMP, LIPASE ####[place] [id number] Potassium [Moles/Vol] 3.4 mmol/L Low 3.5-5.1 [facility] Comment on above: Performed By: #### L ACTIC, CBC, CMP, LIPASE ####[address] Protein [Mass/Vol] 6.6 g/dL Normal 6.1-7.9 [facility] Comment on above: Performed By: #### L ACTIC, CBC, CMP, LIPASE ####[address] Sodium [Moles/Vol] 139 mmol/L Normal 136-146 [facility] Comment on above: Performed By: #### L ACTIC, CBC, CMP, LIPASE ####[address] Urea nitrogen [Mass/Vol] 8 mg/dL Low 9-[address] [facility] Comment on above: Performed By: #### L ACTIC, CBC, CMP, LIPASE ####[address] Creatinine and Glomerular fi ltration rate.predicted panel (S/P/Bld)Ordered By: Curt Ferrer on 10-08-2021 Creatinine [Mass/Vol] 0.73 mg/dL 0.44-1.03 [facility] Eosinophils Auto (Bld) [#/Vo l]Ordered By: Curt Ferrer on 10-08-2021 Eosinophils (Bld) [#/Vol] 0.1 10*3/uL 0.0-0.[address] [facility] Eosinophils/100 WBC Auto (Bl d)Ordered By: Curt Ferrer on 10-08-2021 Eosinophils/100 WBC (Bld) 1.9 % [facility] Erythrocyte distribution wid th Auto (RBC) [Ratio]Ordered By: Curt Ferrer on 10-08-2021 Erythrocyte distribution width (RBC) [Ratio] 15.9 % 11.9-15.[address] [facility] Estimated glomerular filtrat ion rate (GFR) non- AmericanOrdered By: Curt Ferrer on 10-08-2021 GFR/1.73 sq M.predicted among non-blacks MDRD (S/P/Bld) [Vol rate/Area] > 60 mL/Min [facility] Globulin Calc (S) [Mass/Vol] Ordered By: Curt Ferrer on 10-08-2021 Globulin (S) [Mass/Vol] 2.9 g/dL [facility] Hematocrit Auto (Bld) [Volum e fraction]Ordered By: Curt Ferrer on 10-08-2021 Hematocrit (Bld) [Volume fraction] 36.4 % 34.0-46.[address] [facility] Laboratory - Chemistry and C hemistry - challengeOrdered By: Curt Ferrer on 10-08-2021 Lipase [Catalytic activity/Vol] 47.0 U/L [facility] Laboratory - Hematology and Cell countsOrdered By: Curt Ferrer on 10-08-2021 Nucleated RBC/100 WBC (Bld) [Ratio] 0.0 % 0-0.[address] [facility] Lactic Acidon 10-08-2021 Lactate [Moles/Vol] 1.0 mmol/L Normal 0.5-2.2 [facility] Comment on above: Result Comment: PERF ORMED BY: [facility] [address] [place] [id number] PATHOLOGIST PODIATRY ASSISTANT ANA JACOME M.D. Performed By: #### L ACTIC, CBC, CMP, LIPASE ####[facility] [place] [address] [place] Lipaseon 10-08-2021 Lipase [Catalytic activity/Vol] 47.0 U/L Normal [facility] Comment on above: Result Comment: PERF ORMED BY: [facility] [address] [place] [address] PATHOLOGIST PODIATRY ASSISTANT ANA JACOME M.D. Performed By: #### L ACTIC, CBC, CMP, LIPASE ####[facility] [address] [place] [address] [facility] Lymphocytes Auto (Bld) [#/Vo l]Ordered By: Curt Ferrer on 10-08-2021 Lymphocytes (Bld) [#/Vol] 1.5 10*3/uL 1.00-4.[address] [facility] Lymphocytes/100 WBC Auto (Bl d)Ordered By: Curt Ferrer on 10-08-2021 Lymphocytes/100 WBC (Bld) 29.4 % [facility] MCH Auto (RBC) [Entitic mass ]Ordered By: Curt Ferrer on 10-08-2021 MCH (RBC) [Entitic mass] 26.6 pg 24.7-34.[address] [facility] MCHC Auto (RBC) [Mass/Vol]Or dered By: Curt Ferrer on 10-08-2021 MCHC (RBC) [Mass/Vol] 32.8 g/dL 32.0-35.0 [facility] MCV Auto (RBC) [Entitic vol] Ordered By: Curt Ferrer on 10-08-2021 MCV (RBC) [Entitic vol] 81.1 fL 80-[address] [facility] Monocytes Auto (Bld) [#/Vol] Ordered By: Curt Ferrer on 10-08-2021 Monocytes (Bld) [#/Vol] 0.4 10*3/uL 0.0-0.[address] [facility] Monocytes/100 WBC Auto (Bld) Ordered By: Curt Ferrer on 10-08-2021 Monocytes/100 WBC (Bld) 7.9 % [facility] Neutrophils Auto (Bld) [#/Vo l]Ordered By: Curt Ferrer on 10-08-2021 Neutrophils (Bld) [#/Vol] 3.1 10*3/uL 1.8-7.[address] [facility] Neutrophils/100 WBC Auto (Bl d)Ordered By: Curt Ferrer on 10-08-2021 Neutrophils/100 WBC (Bld) 60.1 % [facility] No Panel InformationOrdered By: Curt Ferrer on 10-08-2021 Estimated GFR () > 60 mL/Min [facility] Comment on above: GFR estimated refere nce range: According to KDOQI guidelines, <60 ml/min/1.73m2 is sufficient to diagnose a patient with chronic kidney disease. Pharmacy Creatinine Clearance (Chem 91.[address] [facility] Platelet mean volume Auto (B ld) [Entitic vol]Ordered By: Curt Ferrer on 10-08-2021 Platelet mean volume (Bld) [Entitic vol] 8.9 fL 6.3-10.[address] [facility] Platelets Auto (Bld) [#/Vol] Ordered By: Curt Ferrer on 10-08-2021 Platelets (Bld) [#/Vol] 200 10*3/uL 150-[address] [facility] Protein [Mass/volume] in Ser um or PlasmaOrdered By: Curt Ferrer on 10-08-2021 Protein [Mass/Vol] 6.6 g/dL 6.1-7.9 [facility] RBC Auto (Bld) [#/Vol]Ordere d By: Curt Ferrer on 10-08-2021 RBC (Bld) [#/Vol] 4.49 10*6/uL 3.60-5.00 [facility] Serum or plasma alanine schultz otransferase measurement without P-5'-P (enzymatic activiOrdered By: Curt Ferrer on 10-08-2021 ALT No additional P-5'-P [Catalytic activity/Vol] 9 U/L 10-[address] [facility] Serum or plasma albumin/glob ulin mass ratioOrdered By: Curt Ferrer on 10-08-2021 Albumin/Globulin [Mass ratio] 1.3 {ratio} [facility] Serum or plasma alkaline elizabeth sphatase measurement (enzymatic activity/volume)Ordered By: Curt Ferrer on 10-08-2021 ALP [Catalytic activity/Vol] 58 U/L 32-[address] [facility] Serum or plasma aspartate am inotransferase measurement (enzymatic activity/volume)Ordered By: Curt Ferrer on 10-08-2021 AST [Catalytic activity/Vol] 14 U/L 10-[address] [facility] Serum or plasma calcium jennifer urement (mass/volume)Ordered By: Curt Ferrer on 10-08-2021 Calcium [Mass/Vol] 9.1 mg/dL 8.2-10.2 [facility] Serum or plasma chloride nahomi surement (moles/volume)Ordered By: Curt Ferrer on 10-08-2021 Chloride [Moles/Vol] 105 mmol/L 95-114 [facility] Serum or plasma glucose jennifer urement (mass/volume)Ordered By: Curt Ferrer on 10-08-2021 Glucose [Mass/Vol] 116 mg/dL 70-100 [facility] Comment on above: ADA recommended refe rence range Random Glucose Reference Range is dependent on time and content of last meal. Glucose of more than 200 mg/dL in a nonstressed, ambulatory subject supports the diagnosis of Diabetes Mellitus. Serum or plasma potassium me asurement (moles/volume)Ordered By: Curt Ferrer on 10-08-2021 Potassium [Moles/Vol] 3.4 mmol/L 3.5-5.1 [facility] Serum or plasma sodium measu rement (moles/volume)Ordered By: Curt Ferrer on 10-08-2021 Sodium [Moles/Vol] 139 mmol/L 136-146 [facility] Serum or plasma total biliru bin measurement (mass/volume)Ordered By: Curt Ferrer on 10-08-2021 Bilirubin [Mass/Vol] 0.5 mg/dL 0.3-1.2 [facility] Serum or plasma total carbon dioxide measurement (moles/volume)Ordered By: Curt Ferrer on 10-08-2021 CO2 [Moles/Vol] 24.2 mmol/L 22.0-30.0 [facility] Serum or plasma urea nitroge n measurement (mass/volume)Ordered By: Curt Ferrer on 10-08-2021 Urea nitrogen [Mass/Vol] 8 mg/dL 9-[address] [facility] Urine lactic acid measuremen tOrdered By: Curt Ferrer on 10-08-2021 Lactate (U) [Moles/Vol] 1.0 mmol/L [facility] Automated erythrocytes count in urine sediment (number/area)Ordered By: Aimee Lambert on 09-29-2021 RBC Auto (Urine sed) [#/Area] 1-2 [HPF] [facility] Automated leukocytes count i n urine sediment (number/area)Ordered By: Aimee Fausto on 09-29-2021 WBC Auto (Urine sed) [#/Area] 20-49 [HPF] [facility] Automated urine hyaline cast s count (number/volume)Ordered By: Aimee Fausto on 09-29-2021 Hyaline casts Auto (U) [#/Vol] None seen [LPF] [facility] Bilirubin Test strip Ql (U)O rdered By: Aimee Lambert on 09-29-2021 Bilirubin Ql (U) Negative Negative [facility] Chlamydia/GC Amplificationon 09-29-2021 Chlamydia Trachomotis, COURTNEY Negative Normal Negative [facility] Comment on above: Order Comment: SOURC E OF SPECIMEN: Genital Performed By: #### C BC, BMP, PT, PTT, DDIMER #### [facility] [address] [place] [address] [place] Neisseria Gonorrhoeae, COURTNEY Negative Normal Negative [facility] Comment on above: Order Comment: SOURC E OF SPECIMEN: Genital Result Comment: Perf ormed at: =G - [facility] [address] [id number] Corporate Account Executive: Rachele Ritter MD, Phone: [phone] PERFORMED BY: [place] [address] PATHOLOGIST PODIATRY ASSISTANT ANA JACOME M.D. Performed By: #### C BC, BMP, PT, PTT, DDIMER #### [facility] [address] [place] [address] [place] Color Auto (U)Ordered By: Zoë Lambert on 09-29-2021 Color (U) Yellow Yellow [facility] Dipstick and Microscopicon 0 09-29-2021 Appearance (U) Clear Normal Clear [facility] Comment on above: Order Comment: Name Collection Type:: Clean-Voided Midstream Performed By: #### C BC, BMP, PT, PTT, DDIMER #### [facility] [address] [place] [address] [place] Bacteria,Urine 4+ High None Seen [facility] Comment on above: Order Comment: Name Collection Type:: Clean-Voided Midstream Performed By: #### C BC, BMP, PT, PTT, DDIMER #### [facility] [address] [place] [address] [place] Bilirubin,Urine Negative Normal Negative [facility] Comment on above: Order Comment: Name Collection Type:: Clean-Voided Midstream Performed By: #### C BC, BMP, PT, PTT, DDIMER #### [facility] [address] [place] [address] [place] Color (U) Yellow Normal Yellow [facility] Comment on above: Order Comment: Name Collection Type:: Clean-Voided Midstream Performed By: #### C BC, BMP, PT, PTT, DDIMER #### [address] Glucose Ql (U) Normal Normal Normal [facility] Comment on above: Order Comment: Name Collection Type:: Clean-Voided Midstream Performed By: #### C BC, BMP, PT, PTT, DDIMER #### [facility] [address] [place] [address] Hyaline Casts,Urine None Seen Normal 0-1 [facility] Comment on above: Order Comment: Name Collection Type:: Clean-Voided Midstream Performed By: #### C BC, BMP, PT, PTT, DDIMER #### [facility] [address] [place] [address] [place] Ketones Ql (U) Trace High Negative [facility] Comment on above: Order Comment: Name Collection Type:: Clean-Voided Midstream Performed By: #### C BC, BMP, PT, PTT, DDIMER #### [facility] [address] [place] [address] [place] Leukocyte esterase Test strip Ql (U) 3+ High Negative [facility] Comment on above: Order Comment: Name Collection Type:: Clean-Voided Midstream Performed By: #### C BC, BMP, PT, PTT, DDIMER #### [facility] [address] [place] [address] [place] Mucus,Urine 2+ Critically abnormal [facility] Comment on above: Order Comment: Name Collection Type:: Clean-Voided Midstream Performed By: #### C BC, BMP, PT, PTT, DDIMER #### [facility] [address] [place] [address] [place] Nitrite,Urine Positive High Negative [facility] Comment on above: Order Comment: Name Collection Type:: Clean-Voided Midstream Performed By: #### C BC, BMP, PT, PTT, DDIMER #### [address] Occult Blood,Urine Negative Normal Negative [facility] Comment on above: Order Comment: Name Collection Type:: Clean-Voided Midstream Performed By: #### C BC, BMP, PT, PTT, DDIMER #### [address] pH (U) 5.0 [pH] Normal 5.0-9.[address] [facility] Comment on above: Order Comment: Name Collection Type:: Clean-Voided Midstream Performed By: #### C BC, BMP, PT, PTT, DDIMER #### [address] Protein,Urine Negative Normal Negative [facility] Comment on above: Order Comment: Name Collection Type:: Clean-Voided Midstream Performed By: #### C BC, BMP, PT, PTT, DDIMER #### [address] RBC,Urine 1-2 Normal 0-[address] [facility] Comment on above: Order Comment: Name Collection Type:: Clean-Voided Midstream Performed By: #### C BC, BMP, PT, PTT, DDIMER #### [address] Specificy [place],Urine 1.025 Normal 1.001-1.[address] [facility] Comment on above: Order Comment: Name Collection Type:: Clean-Voided Midstream Performed By: #### C BC, BMP, PT, PTT, DDIMER #### [place] [address] [place] Squamous Epithelial Cell,Urine 0-1 Normal 0-[address] [facility] Comment on above: Order Comment: Name Collection Type:: Clean-Voided Midstream Performed By: #### C BC, BMP, PT, PTT, DDIMER #### [facility] [address] [place] [place] [address] Urobilinogen,Urine Normal Normal Normal [facility] Comment on above: Order Comment: Name Collection Type:: Clean-Voided Midstream Performed By: #### C BC, BMP, PT, PTT, DDIMER #### [facility] [address] [place] [place] [address] WBC,Urine 20-49 High 0-[address] [facility] Comment on above: Order Comment: Name Collection Type:: Clean-Voided Midstream Performed By: #### C BC, BMP, PT, PTT, DDIMER #### [address] Fungal Smearon 09-29-2021 Fungal Smear Fungus Smear Results No Fungal Like Elements Seen No Yeast Like Elements Seen ---- Trichomonas Screen No Trichomonas Seen Trich Reference Reference range = None Seen PERFORMED BY: [place] [address] PATHOLOGIST PODIATRY ASSISTANT ANA JACOME M.D. [facility] Comment on above: Performed By: #### C BC, BMP, PT, PTT, DDIMER #### [address] HCG ( test) IA.rapi d Ql (U)Ordered By: Aimee Lambert on 09-29-2021 HCG ( test) Ql (U) Negative [facility] HCG,Urineon 09-29-2021 Beta HCG ( test) Ql (U) Negative Normal [facility] Comment on above: Order Comment: Name Collection Type:: Clean-Voided Midstream Result Comment: PERF ORMED BY: [place] [address] PATHOLOGIST PODIATRY ASSISTANT ANA JACOME M.D. Performed By: #### C BC, BMP, PT, PTT, DDIMER #### [facility] [address] [place] [id number] [facility] Ketones Auto test strip (U) [Mass/Vol]Ordered By: Aimee Lambert on 09-29-2021 Ketones (U) [Mass/Vol] Trace Negative [facility] Laboratory - Microbiology an d Antimicrobial susceptibilityOrdered By: Aimee Lambert on 09-29-2021 C. trachomatis DNA COURTNEY+probe Ql (Unsp spec) Negative Negative [facility] N. gonorrhoeae DNA COURTNEY+probe Ql (Unsp spec) Negative Negative [facility] Comment on above: Performed at: =[address] [id number] Corporate Account Executive: Rachele Ritter MD, Phone: [phone] Mucus LM Ql (Urine sed)Order ed By: Aimee Lambert on 09-29-2021 Mucus Ql (Urine sed) 2+ [LPF] [facility] Nitrite Test strip Ql (U)Ord ered By: Aimee Lambert on 09-29-2021 Nitrite Ql (U) Positive Negative [facility] Protein Auto test strip (U) [Mass/Vol]Ordered By: Aimee Lambert on 09-29-2021 Protein (U) [Mass/Vol] Negative Negative [facility] Specific gravity Auto test s trip (U) [Rel density]Ordered By: Aimee Lambert on 09-29-2021 Specific gravity (U) [Rel density] 1.025 1.001-1.[address] [facility] Squamous epithelial cells de tection in urine sediment by light microscopyOrdered By: Aimee Lambert on 09-29-2021 Epithelial cells.squamous LM Ql (Urine sed) 0-1 [HPF] [facility] Urine Cultureon 09-29-2021 Bacteria identified Cx Nom (U) ORGANISM: Escherichia coli (O:ESCCOL) [place] Count >100,000 Aerobic GIACOMO Charge (NUC86) SUSCEPTIBILITY ORGANISM: O:ESCCOL ANTIBIOTIC INTERPRETATION GIACOMO Amikacin S <16 Ampicillin R >16 Ampicillin/Sulbactam S <8/4 Aztreonam S <4 Cefazolin S <2 Cefepime S <2 Ceftazidime S <1 Ceftazidime/Avibactam S <8 Ceftriaxone S <1 Ciprofloxacin S <1 Ertapenem S <0.5 Gentamicin S <4 Levofloxacin S <2 Meropenem S <1 Nitrofurantoin S <32 Piperacillin/Tazobactam S <16 Tetracycline R >8 Tigecycline S <2 Tobramycin S <4 Trimethoprim/Sulfamethoxa zole S </38 S = SUSCEPTIBLE I = INTERMEDIATE R = RESISTANT BLANK = DATA NOT AVAILABLE, OR DRUG NOT ADVISABLE OR TESTED R* = RESISTANCE DUE TO EXTENDED SPECTRUM BETA-LACTAMASES ESBL = EXTENDED SPECTRUM BETA-LACTAMASE TFG = THYMIDINE-DEPENDENT STRAIN DAMIAN = BETA-LACTAMASE POSITIVE IB = INDUCIBLE BETA-LACTAMASE. APPEARS IN PLACE OF 'S' WITH SPECIES KNOWN TO POSSESS INDUCIBLE BETA-LACTAMASES. POTENTIALLY THEY MAY BECOME RESISTANT TO ALL B-LACTAM DRUGS. PERFORMED BY: [place] [address] PATHOLOGIST PODIATRY ASSISTANT ANA JACOME M.D. [facility] Comment on above: Performed By: #### C BC, BMP, PT, PTT, DDIMER #### [address] Urine bacteria detection by automated methodOrdered By: Aimee Lambert on 09-29-2021 Bacteria Auto Ql (U) 4+ None Seen [facility] Urine clarity by refractomet ry automatedOrdered By: Aimee Lambert on 09-29-2021 Clarity Refractometry automated (U) Clear Clear [facility] Urine culture routineOrdered By: Aimee Lambert on 09-29-2021 Bacteria identified Cx Nom (U) Escherichia coli [facility] Urine glucose measurement by automated test strip (mass/volume)Ordered By: Aimee Lambert on 09-29-2021 Glucose Auto test strip (U) [Mass/Vol] Normal mg/dL Normal [facility] Urine hemoglobin detection b y automated test stripOrdered By: Aimee Lambert on 09-29-2021 Hemoglobin Auto test strip Ql (U) Negative Negative [facility] Urine leukocyte esterase det ection by automated test stripOrdered By: Aimee Lambert on 09-29-2021 Leukocyte esterase Auto test strip Ql (U) 3+ Negative [facility] Urobilinogen Auto test strip (U) [Mass/Vol]Ordered By: Aimee Lambert on 09-29-2021 Urobilinogen (U) [Mass/Vol] Normal mg/dL Normal [facility] pH Auto test strip (U)Ordere d By: Aimee Lambert on 09-29-2021 pH (U) 5.0 [pH] 5.0-9.[address] [facility] CBC with Auto Differentialon 09-13-2021 Absolute Eos # 0.10 [place] [facility] Absolute Lymph # 2.10 [facility] Absolute Pitkin # 0.60 [facility] Basophils (Bld) [#/Vol] 0.10 10*3/uL [facility] Basophils/100 WBC (Bld) 1 % 0 - 2 % [facility] Eosinophils/100 WBC (Bld) 2 % 0 - 4 % [facility] Hematocrit (Bld) [Volume fraction] 39.5 % 36 - 46 % [facility] Hemoglobin.gastrointes tinal spec 1 Ql (Stl) 13.0 g/dL 12.0 - 16.0 g/dL [facility] Interpretation and review of laboratory results Abnormal [facility] Lymphocytes/100 WBC (Bld) 30 % 24 - 44 % [facility] MCH (RBC) [Entitic mass] 26.7 pg 26 - 34 pg [facility] MCHC (RBC) [Mass/Vol] 32.9 g/dL 31 - 3 7 g/dL [facility] MCV (RBC) [Entitic vol] 81.2 fL 80 - 100 fL [facility] Monocytes/100 WBC (Bld) 8 % High 1 - 7 % [facility] Platelet distribution width (Bld) [Ratio] 14.3 % 11.5 - 14.9 % [facility] Platelet mean volume (Bld) [Entitic vol] 8.3 fL 6.0 - 12.0 fL [facility] Platelets (Bld) [#/Vol] 267 10*3/uL [facility] RBC (Bld) [#/Vol] 4.86 10*6/uL 4.0 - 5.2 m/uL [facility] Segmented neutrophils/100 WBC (Bld) 59 % 36 - 66 % [facility] Segs Absolute 4.20 [facility] WBC (Bld) [#/Vol] 7.1 10*3/uL [facility] CT ABDOMEN PELVIS W IV CONTR AST Additional Contrast? Noneon 09-13-2021 No finding identifie d to explain the patient's symptoms. The uterus, cervix and upper vagina are prominent without focal mass or surrounding inflammatory change possibly somewhat more prominent than previous. Consider follow-up transabdominal and transvaginal pelvic ultrasound or OBGYN evaluation to exclude abnormality not evident by this exam. Status post cholecystectomy and appendectomy. [facility] RIS CONSOLIDATED EXAMINATION: CT OF THE ABDOMEN AND PELVIS WITH CONTRAST 09/13/2021 1:20 am TECHNIQUE: CT of the abdomen and pelvis was performed with the administration of intravenous contrast. Multiplanar reformatted images are provided for review. Automated exposure control, iterative reconstruction, and/or weight based adjustment of the mA/kV was utilized to reduce the radiation dose to as low as reasonably achievable. COMPARISON: 12/08/2020 HISTORY: ORDERING SYSTEM PROVIDED HISTORY: LUQ pain, hx of pancreatic cancer TECHNOLOGIST PROVIDED HISTORY: LUQ pain, hx of pancreatic cancer Decision Support Exception - unselect if not a suspected or confirmed emergency medical condition->Emergency Medical Condition (MA) Reason for Exam: pt. c/o left sided body pains. pt. has pancreatic cancer diagnosed in [facility] History: pt. having all over body pains FINDINGS: Lower Chest: Visualized portion of the lower chest demonstrates no acute abnormality. Organs: Liver enhances normally without evidence of intrahepatic biliary ductal dilatation. Status post cholecystectomy. The pancreas is unremarkable. The spleen contains several hypodensities consistent with cysts unchanged from previous the adrenal glands, kidneys and visualized ureters are unremarkable. GI/Bowel: Stomach and duodenal sweep demonstrate no acute abnormality. There is no evidence of bowel obstruction. No evidence of abnormal bowel wall thickening or distension. No evidence of appendicitis. The patient appears to be status post appendectomy. Pelvis: The bladder is unremarkable. The uterus, cervix and upper vagina appear prominent although no focal mass or surrounding inflammatory change is identified. The appearance is similar to previous but may be somewhat more pronounced. Peritoneum/Retroperitoneu m: No evidence of ascites or free air. No evidence of lymphadenopathy. Aorta is normal in caliber. Bones/Soft Tissues: No acute bone or soft tissue abnormality evident. [facility] R[facility] Savi Urbina L - 09/13/2021 EXAMINATION: CT OF THE ABDOMEN AND PELVIS WITH CONTRAST 09/13/2021 1:20 am TECHNIQUE: CT of the abdomen and pelvis was performed with the administration of intravenous contrast. Multiplanar reformatted images are provided for review. Automated exposure control, iterative reconstruction, and/or weight based adjustment of the mA/kV was utilized to reduce the radiation dose to as low as reasonably achievable. COMPARISON: 12/08/2020 HISTORY: ORDERING SYSTEM PROVIDED HISTORY: LUQ pain, hx of pancreatic cancer TECHNOLOGIST PROVIDED HISTORY: LUQ pain, hx of pancreatic cancer Decision Support Exception - unselect if not a suspected or confirmed emergency medical condition->Emergency Medical Condition (MA) Reason for Exam: pt. c/o left sided body pains. pt. has pancreatic cancer diagnosed in [facility] History: pt. having all over body pains FINDINGS: Lower Chest: Visualized portion of the lower chest demonstrates no acute abnormality. Organs: Liver enhances normally without evidence of intrahepatic biliary ductal dilatation. Status post cholecystectomy. The pancreas is unremarkable. The spleen contains several hypodensities consistent with cysts unchanged from previous the adrenal glands, kidneys and visualized ureters are unremarkable. GI/Bowel: Stomach and duodenal sweep demonstrate no acute abnormality. There is no evidence of bowel obstruction. No evidence of abnormal bowel wall thickening or distension. No evidence of appendicitis. The patient appears to be status post appendectomy. Pelvis: The bladder is unremarkable. The uterus, cervix and upper vagina appear prominent although no focal mass or surrounding inflammatory change is identified. The appearance is similar to previous but may be somewhat more pronounced. Peritoneum/Retroperitoneu m: No evidence of ascites or free air. No evidence of lymphadenopathy. Aorta is normal in caliber. Bones/Soft Tissues: No acute bone or soft tissue abnormality evident. IMPRESSION: No finding identified to explain the patient's symptoms. The uterus, cervix and upper vagina are prominent without focal mass or surrounding inflammatory change possibly somewhat more prominent than previous. Consider follow-up transabdominal and transvaginal pelvic ultrasound or OBGYN evaluation to exclude abnormality not evident by this exam. Status post cholecystectomy and appendectomy. [employer] Work Phone: Radiology Study observation (narrative) [facility] Phone: CT ABDOMEN PELVIS W IV CONTR AST Additional Contrast? NoneOrdered By: Savi Urbina on 09-13-2021 [facility] Phone: CT LUMBAR SPINE WO CONTRASTo n 09-13-2021 Radiology Study observation (narrative) [facility] Phone: CT THORACIC SPINE WO CONTRAS Ton 09-13-2021 Radiology Study observation (narrative) [facility] Phone: Comprehensive Metabolic Pane reji 09-13-2021 Albumin [Mass/Vol] 4.5 g/dL 3.5 - 5.2 g/dL [employer] ALP (Bld) [Catalytic activity/Vol] 80 U/L 35 - 104 U/L [facility] ALT [Catalytic activity/Vol] 8 U/L 5 - 33 U/L [facility] [employer] Anion gap [Moles/Vol] 12 mmol/L 9 - 17 mmol/L [facility] AST [Catalytic activity/Vol] 20 U/L <32 [facility] Bilirubin [Mass/Vol] 0.26 mg/dL Low 0.3 - 1 .2 mg/dL [facility] Calcium [Mass/Vol] 9.9 mg/dL 8.6 - 10. 4 mg/dL [facility] Chloride [Moles/Vol] 107 mmol/L 98 - 10 7 mmol/L [facility] CO2 [Moles/Vol] 23 mmol/L 20 - 31 mmol/L [facility] Creatinine [Mass/Vol] 1.04 mg/dL High 0.50 - 0.90 mg/dL [facility] Free PSA/Total PSA [Mass fraction] 7.8 g/dL 6.4 - 8.3 g/dL [facility] GFR >60 >60 mL/min [facility] GFR Non- >60 >60 mL/min [facility] GFR/1.73 sq M.predicted MDRD (S/P/Bld) [Vol rate/Area] [facility] Comment on above: Average GFR for 30-3 9 years old: 107 mL/min/1.73sq m Chronic Kidney Disease: <60 mL/min/1.73sq m Kidney failure: <15 mL/min/1.73sq m eGFR calculated using average adult body mass. Additional eGFR calculator available at: http://www.[employer]/multiple_crcl_2012.htm Glucose [Mass/Vol] 85 mg/dL 70 - 99 mg/dL [facility] Interpretation and review of laboratory results Abnormal [facility] Potassium [Moles/Vol] 4.0 mmol/L 3.7 - 5.3 mmol/L [facility] Sodium [Moles/Vol] 142 mmol/L 135 - 144 mmol/L [facility] Urea nitrogen (BldV) [Mass/Vol] 12 mg/dL 6 - 20 mg/dL [facility] HCG, ,Urineon 09-13 Beta HCG ( test) Ql (U) Negative NEGATIVE [facility] Comment on above: Specimens with hCG l evels near the threshold of the test (25 mIU/mL) may give a negative or indeterminate result. In such cases, another test should be performed with a new specimen in 48-72 hours. If early is suspected clinically in this setting, correlation with quantitative serum b-hCG level is suggested. [facility] Lipaseon 09-13-2021 Lipase [Catalytic activity/Vol] 55 U/L 13 - 60 U/L [facility] Microscopic Urinalysison Bacteria, UA MANY Abnormal None [facility] Casts UA 3 to 5 /LPF [facility] Epithelial Cells UA 0 TO 2 /HPF [facility] Interpretation and review of laboratory results Abnormal [facility] Mucus, UA 2+ Abnormal None [facility] RBC, UA 0 TO 2 /HPF [facility] WBC, UA 10 TO 20 /HPF [facility] No Panel Informationon 09-13 No evidence of acute fracture or traumatic malalignment involving the thoracic or lumbar spine. [facility] RIS CONSOLIDATED EXAMINATION: CT OF THE THORACIC SPINE WITHOUT CONTRAST; CT OF THE LUMBAR SPINE WITHOUT CONTRAST 09/13/2021 TECHNIQUE: CT of the thoracic spine was performed without the administration of intravenous contrast. Multiplanar reformatted images are provided for review. Automated exposure control, iterative reconstruction, and/or weight based adjustment of the mA/kV was utilized to reduce the radiation dose to as low as reasonably achievable.; CT of the lumbar spine was performed without the administration of intravenous contrast. Multiplanar reformatted images are provided for review. Adjustment of mA and/or kV according to patient size was utilized. Automated exposure control, iterative reconstruction, and/or weight based adjustment of the mA/kV was utilized to reduce the radiation dose to as low as reasonably achievable. COMPARISON: None. HISTORY: ORDERING SYSTEM PROVIDED HISTORY: back pain, LUQ pain, hx of pancreatic cancer TECHNOLOGIST PROVIDED HISTORY: back pain, LUQ pain, hx of pancreatic cancer Is the patient ?->No Reason for Exam: pt. has ppancreatic cancer that was diagnosed in per pt. [facility] History: pt. c/o left sided body pains, no injury; ORDERING SYSTEM PROVIDED HISTORY: back pain, LUQ pain,hx of pancreatic cancer TECHNOLOGIST PROVIDED HISTORY: back pain, LUQ pain,hx of pancreatic cancer Decision Support Exception - unselect if not a suspected or confirmed emergency medical condition->Emergency Medical Condition (MA) Is the patient ?->No Reason for Exam: pt. has pancreatic cancer diagnosed in per pt [facility] History: pt. c/o left sided body pain. No injury FINDINGS: BONES/ALIGNMENT: There is no acute fracture or traumatic malalignment. DEGENERATIVE CHANGES: No significant degenerative changes of the thoracic or lumbar spine. SOFT TISSUES: No paraspinal mass is seen. [facility] Levi Lucero MD - 09/13/2021 EXAMINATION: CT OF THE THORACIC SPINE WITHOUT CONTRAST; CT OF THE LUMBAR SPINE WITHOUT CONTRAST 09/13/2021 TECHNIQUE: CT of the thoracic spine was performed without the administration of intravenous contrast. Multiplanar reformatted images are provided for review. Automated exposure control, iterative reconstruction, and/or weight based adjustment of the mA/kV was utilized to reduce the radiation dose to as low as reasonably achievable.; CT of the lumbar spine was performed without the administration of intravenous contrast. Multiplanar reformatted images are provided for review. Adjustment of mA and/or kV according to patient size was utilized. Automated exposure control, iterative reconstruction, and/or weight based adjustment of the mA/kV was utilized to reduce the radiation dose to as low as reasonably achievable. COMPARISON: None. HISTORY: ORDERING SYSTEM PROVIDED HISTORY: back pain, LUQ pain, hx of pancreatic cancer TECHNOLOGIST PROVIDED HISTORY: back pain, LUQ pain, hx of pancreatic cancer Is the patient ?->No Reason for Exam: pt. has ppancreatic cancer that was diagnosed in per pt. [facility] History: pt. c/o left sided body pains, no injury; ORDERING SYSTEM PROVIDED HISTORY: back pain, LUQ pain,hx of pancreatic cancer TECHNOLOGIST PROVIDED HISTORY: back pain, LUQ pain,hx of pancreatic cancer Decision Support Exception - unselect if not a suspected or confirmed emergency medical condition->Emergency Medical Condition (MA) Is the patient ?->No Reason for Exam: pt. has pancreatic cancer diagnosed in per pt [facility] History: pt. c/o left sided body pain. No injury FINDINGS: BONES/ALIGNMENT: There is no acute fracture or traumatic malalignment. DEGENERATIVE CHANGES: No significant degenerative changes of the thoracic or lumbar spine. SOFT TISSUES: No paraspinal mass is seen. IMPRESSION: No evidence of acute fracture or traumatic malalignment involving the thoracic or lumbar spine. [facility] Phone: No Panel InformationOrdered By: Levi Dos Santos on 09-13-2021 [facility] Phone: Urinalysis with Reflex to Cu ltureon 09-13-2021 Bilirubin Urine Negative NEGATIVE [facility] Color, UA Yellow Yellow [facility] Glucose, Ur Negative NEGATIVE [facility] Interpretation and review of laboratory results Abnormal [facility] Ketones Ql (U) TRACE Abnormal NEGATIVE [facility] Leukocyte esterase Test strip Ql (U) TRACE Abnormal NEGATIVE [facility] Nitrite, Urine Positive Abnormal NEGATIVE [facility] pH, UA 5.0 [facility] Protein, UA Negative NEGATIVE [facility] Specific [place], UA 1.028 [facility] Turbidity UA Clear Clear [facility] Urine Hgb Negative NEGATIVE [facility] Urobilinogen, Urine Normal Normal [facility] CT LUMBAR SPINE WO CONTRASTo n 09-01-2021 CT LUMBAR SPINE WO CONTRAST EXAMINATION: CT OF THE LUMBAR SPINE WITHOUT CONTRAST 08/31/2021 TECHNIQUE: CT of the lumbar spine was performed without the administration of intravenous contrast. Multiplanar reformatted images are provided for review. Adjustment of mA and/or kV according to patient size was utilized. Automated exposure control, iterative reconstruction, and/or weight based adjustment of the mA/kV was utilized to reduce the radiation dose to as low as reasonably achievable. COMPARISON: None HISTORY: ORDERING SYSTEM PROVIDED HISTORY: back pain radiating down left leg TECHNOLOGIST PROVIDED HISTORY: back pain radiating down left leg Decision Support Exception - unselect if not a suspected or confirmed emergency medical condition->Emergency Medical Condition (MA) Is the patient ?->No Reason for Exam: back pain radiating down left leg FINDINGS: BONES/ALIGNMENT: There is normal alignment of the spine. The vertebral body heights are maintained. No osseous destructive lesion is seen. DEGENERATIVE CHANGES: No significant degenerative changes of the lumbar spine. SOFT TISSUES/RETROPERITONEUM: Paraspinal musculature appears within normal limits. Visualized lung bases are clear. Status post cholecystectomy. IMPRESSION: Unremarkable non-contrast CT of the lumbar spine. Interpreted by: Altaf Prescott MD Signed by: Altaf Prescott MD 09/01/21 Final result Normal [facility] Unremarkable non-con trast CT of the lumbar spine. [facility] RIS CONSOLIDATED EXAMINATION: CT OF THE LUMBAR SPINE WITHOUT CONTRAST 08/31/2021 TECHNIQUE: CT of the lumbar spine was performed without the administration of intravenous contrast. Multiplanar reformatted images are provided for review. Adjustment of mA and/or kV according to patient size was utilized. Automated exposure control, iterative reconstruction, and/or weight based adjustment of the mA/kV was utilized to reduce the radiation dose to as low as reasonably achievable. COMPARISON: None HISTORY: ORDERING SYSTEM PROVIDED HISTORY: back pain radiating down left leg TECHNOLOGIST PROVIDED HISTORY: back pain radiating down left leg Decision Support Exception - unselect if not a suspected or confirmed emergency medical condition->Emergency Medical Condition (MA) Is the patient ?->No Reason for Exam: back pain radiating down left leg FINDINGS: BONES/ALIGNMENT: There is normal alignment of the spine. The vertebral body heights are maintained. No osseous destructive lesion is seen. DEGENERATIVE CHANGES: No significant degenerative changes of the lumbar spine. SOFT TISSUES/RETROPERITONEUM: Paraspinal musculature appears within normal limits. Visualized lung bases are clear. Status post cholecystectomy. [facility] RIS CONSOLIDATED Altaf Prescott MD - 09/01/2021 EXAMINATION: CT OF THE LUMBAR SPINE WITHOUT CONTRAST 08/31/2021 TECHNIQUE: CT of the lumbar spine was performed without the administration of intravenous contrast. Multiplanar reformatted images are provided for review. Adjustment of mA and/or kV according to patient size was utilized. Automated exposure control, iterative reconstruction, and/or weight based adjustment of the mA/kV was utilized to reduce the radiation dose to as low as reasonably achievable. COMPARISON: None HISTORY: ORDERING SYSTEM PROVIDED HISTORY: back pain radiating down left leg TECHNOLOGIST PROVIDED HISTORY: back pain radiating down left leg Decision Support Exception - unselect if not a suspected or confirmed emergency medical condition->Emergency Medical Condition (MA) Is the patient ?->No Reason for Exam: back pain radiating down left leg FINDINGS: BONES/ALIGNMENT: There is normal alignment of the spine. The vertebral body heights are maintained. No osseous destructive lesion is seen. DEGENERATIVE CHANGES: No significant degenerative changes of the lumbar spine. SOFT TISSUES/RETROPERITONEUM: Paraspinal musculature appears within normal limits. Visualized lung bases are clear. Status post cholecystectomy. IMPRESSION: Unremarkable non-contrast CT of the lumbar spine. [employer] Phone: CT LUMBAR SPINE WO CONTRASTO rdered By: Altaf Prescott on 09-01-2021 [employer] Work Phone: CT LUMBAR SPINE WO CONTRASTo n 08-31-2021 Radiology Study observation (narrative) [employer] Phone: US venous duplex LE LTon US venous duplex LE LT [facility] [address] Ultrasound Report Signed Patient: Apple Nagel MR#: [id number] : 1985 Acct:[id number] Age/Sex: 35 / F ADM Date: 08/09/21 Loc: ER Room: Type: [facility] ER Attending Dr: Ordering Provider: Enrrique Diallo MD Date of Service: 08/09/21 US/US venous duplex LE LT: CHEST PAIN Copies to: Enrrique Diallo MD LEFT LOWER EXTREMITY VENOUS DUPLEX INDICATION: Painful swollen left leg Unilateral left lower extremity venous duplex Doppler study was obtained utilizing B-mode, color- flow and spectral Doppler. FINDINGS: The left common femoral, femoral, and popliteal veins showed adequate compressibility, color-flow and augmentation. The left posterior tibial and peroneal veins were compressible, as well as proximal greater saphenous vein. The contralateral right common femoral vein was compressible with color-flow and augmentation. US/US venous duplex LE LT IMPRESSION: NO EVIDENCE OF DEEP VENOUS THROMBOSIS IN THE LEFT LOWER EXTREMITY. NO SUPERFICIAL THROMBOPHLEBITIS WAS NOTED. Impression dictated by: Andrey Peters M.D.08/10/2021 2:28 PM Dictation Location: [facility] Tech: [facility] Transcribed By: TANA 08/10/21 1428 Dictated By: Andrey Peters MD 08/10/21 1427 Signed By: 08/10/21 142 [facility] Activated partial thrombopla stin time (aPTT) in platelet poor plasma by coagulation aOrdered By: Enrrique Diallo on 08-09-2021 aPTT Coag (PPP) [Time] 28.6 s 25.1-36.5 [facility] Basic Metabolic Panelon 07-22 Calcium [Mass/Vol] 9.0 mg/dL Normal 8.2-10.2 [facility] Comment on above: Performed By: #### C BC, BMP, PT, PTT, DDIMER #### [facility] [address] Chloride [Moles/Vol] 106 mmol/L Normal 95-114 [facility] Comment on above: Performed By: #### C BC, BMP, PT, PTT, DDIMER #### [facility] [address] CO2 [Moles/Vol] 22.8 mmol/L Normal 22.0-30.0 [facility] Comment on above: Performed By: #### C BC, BMP, PT, PTT, DDIMER #### [address] Creatinine [Mass/Vol] 0.76 mg/dL Normal 0.44-1.03 [facility] Comment on above: Performed By: #### C BC, BMP, PT, PTT, DDIMER #### [address] Creatinine Clr Calc Pharmacy 88.97 [facility] Comment on above: Result Comment: PERF ORMED BY: [place] [address] PATHOLOGIST PODIATRY ASSISTANT ANA JACOME M.D. Performed By: #### C BC, BMP, PT, PTT, DDIMER #### [address] Estimated GFR ( Kathleen > 60 [facility] Comment on above: Result Comment: GFR estimated reference range: According to KDOQI guidelines, <60 ml/min/1.73m2 is sufficient to diagnose a patient with chronic kidney disease. Performed By: #### C BC, BMP, PT, PTT, DDIMER #### [address] Estimated GFR (Non- Am > 60 [facility] Comment on above: Performed By: #### C BC, BMP, PT, PTT, DDIMER #### [facility] [address] [place] [address] [place] Glucose [Mass/Vol] 79 mg/dL Normal 70-100 [facility] Comment on above: Result Comment: [place] Glucose Reference Range is dependent on time and content of last meal. Glucose of more than 200 mg/dL in a nonstressed, ambulatory subject supports the diagnosis of Diabetes Mellitus. ADA recommended reference range Performed By: #### C BC, BMP, PT, PTT, DDIMER #### [facility] [address] Potassium [Moles/Vol] 3.4 mmol/L Low 3.5-5.1 [facility] Comment on above: Performed By: #### C BC, BMP, PT, PTT, DDIMER #### [facility] [address] Sodium [Moles/Vol] 139 mmol/L Normal 136-146 [facility] Comment on above: Performed By: #### C BC, BMP, PT, PTT, DDIMER #### [facility] [address] Urea nitrogen [Mass/Vol] 9 mg/dL Normal 9-[address] [facility] Comment on above: Performed By: #### C BC, BMP, PT, PTT, DDIMER #### [facility] [address] Basophils Auto (Bld) [#/Vol] Ordered By: Enrrique Diallo on 08-09-2021 Basophils (Bld) [#/Vol] 0.0 10*3/uL 0.0-0.[address] [facility] Basophils/100 WBC Auto (Bld) Ordered By: Enrrique Diallo on 08-09-2021 Basophils/100 WBC (Bld) 0.8 % [facility] Blood hemoglobin measurement (mass/volume)Ordered By: Enrrique Diallo on 08-09-2021 Hemoglobin (Bld) [Mass/Vol] 12.1 g/dL 11.8-15.[address] [facility] Blood leukocytes automated c ount (number/volume)Ordered By: Enrrique Diallo on 08-09-2021 WBC (Bld) [#/Vol] 5.8 10*3/uL 4.5-11.0 [facility] Complete Blood Count Auto Di ffon 08-09-2021 Basophils (Bld) [#/Vol] 0.0 10*3/uL Normal 0.0-0.[address] [facility] Comment on above: Result Comment: PERF ORMED BY: [place] [address] PATHOLOGIST PODIATRY ASSISTANT ANA JACOME M.D. Performed By: #### C BC, BMP, PT, PTT, DDIMER #### [address] Basophils/100 WBC (Bld) 0.8 % Normal . [facility] Comment on above: Performed By: #### C BC, BMP, PT, PTT, DDIMER #### [address] Eosinophils (Bld) [#/Vol] 0.1 10*3/uL Normal 0.0-0.[address] [facility] Comment on above: Performed By: #### C BC, BMP, PT, PTT, DDIMER #### [address] Eosinophils/100 WBC (Bld) 2.3 % Normal . [facility] Comment on above: Performed By: #### C BC, BMP, PT, PTT, DDIMER #### [facility] [address] [place] [address] Erythrocyte distribution width (RBC) [Ratio] 13.7 % Normal 11.9-15.[address] [facility] Comment on above: Performed By: #### C BC, BMP, PT, PTT, DDIMER #### [facility] [address] [place] [address] Hematocrit (Bld) [Volume fraction] 37.2 % Normal 34.0-46.[address] [facility] Comment on above: Performed By: #### C BC, BMP, PT, PTT, DDIMER #### [address] Hemoglobin (Bld) [Mass/Vol] 12.1 g/dL Normal 11.8-15.[address] [facility] Comment on above: Performed By: #### C BC, BMP, PT, PTT, DDIMER #### [address] Lymphocytes (Bld) [#/Vol] 2.1 10*3/uL Normal 1.00-4.[address] [facility] Comment on above: Performed By: #### C BC, BMP, PT, PTT, DDIMER #### [address] Lymphocytes/100 WBC (Bld) 36.2 % Normal . [facility] Comment on above: Performed By: #### C BC, BMP, PT, PTT, DDIMER #### [address] MCH (RBC) [Entitic mass] 26.7 pg Normal 24.7-34.[address] [facility] Comment on above: Performed By: #### C BC, BMP, PT, PTT, DDIMER #### [address] MCV (RBC) [Entitic vol] 82.1 fL Normal 80-[address] [facility] Comment on above: Performed By: #### C BC, BMP, PT, PTT, DDIMER #### [address] Mean Corpuscular HGB Conc 32.6 g/dL Normal 32.0-35.[address] [facility] Comment on above: Performed By: #### C BC, BMP, PT, PTT, DDIMER #### [place] [address] [place] Monocytes (Bld) [#/Vol] 0.5 10*3/uL Normal 0.0-0.[address] [facility] Comment on above: Performed By: #### C BC, BMP, PT, PTT, DDIMER #### [place] [address] [place] Monocytes/100 WBC (Bld) 8.8 % Normal . [facility] Comment on above: Performed By: #### C BC, BMP, PT, PTT, DDIMER #### [facility] [address] Neutrophils (Bld) [#/Vol] 3.0 10*3/uL Normal 1.8-7.[address] [facility] Comment on above: Performed By: #### C BC, BMP, PT, PTT, DDIMER #### [facility] [address] [place] [address] [place] Neutrophils/100 WBC (Bld) 51.9 % Normal . [facility] Comment on above: Performed By: #### C BC, BMP, PT, PTT, DDIMER #### [facility] [address] Nucleated RBC/100 WBC (Bld) [Ratio] 0.0 % Normal 0-0.[address] [facility] Comment on above: Performed By: #### C BC, BMP, PT, PTT, DDIMER #### [facility] [address] Platelet mean volume (Bld) [Entitic vol] 8.2 fL Normal 6.3-10.[address] [facility] Comment on above: Performed By: #### C BC, BMP, PT, PTT, DDIMER #### [facility] [address] [place] [address] [place] Platelets (Bld) [#/Vol] 226 10*3/uL Normal 150-[address] [facility] Comment on above: Performed By: #### C BC, BMP, PT, PTT, DDIMER #### [facility] [address] [place] [address] [place] RBC (Bld) [#/Vol] 4.53 10*6/uL Normal 3.60-5.00 [facility] Comment on above: Performed By: #### C BC, BMP, PT, PTT, DDIMER #### [address] WBC (Bld) [#/Vol] 5.8 10*3/uL Normal 4.5-11.0 [facility] Comment on above: Performed By: #### C BC, BMP, PT, PTT, DDIMER #### [facility] [address] [place] [place] [address] Creatinine and Glomerular fi ltration rate.predicted panel (S/P/Bld)Ordered By: Enrrique Diallo on 08-09-2021 Creatinine [Mass/Vol] 0.76 mg/dL 0.44-1.03 [facility] D-Dimer High Sensitivityon 0 08-09-2021 D-Dimer High Sensitivity 207 ng/mL Normal 0-[address] [facility] Comment on above: Result Comment: The reference range for D-dimer is <243 ng/mL D-dimer units. D-dimer results must be used in conjunction with a clinical pretest probability (PTP) assessment model for deep vein thrombosis (DVT) and pulmonary embolism (PE). Results <230 ng/mL d-dimer units can be used as a negative predictor in patients with low or moderate probability for DVT/PE. Results above the exclusion threshold of 230 ng/ml D-dimer units for DVT/PE may indicate the need for further diagnostic testing. D-Dimer can be increased in hospitalized patients due to co-morbid conditions. PERFORMED BY: [place] [address] PATHOLOGIST PODIATRY ASSISTANT ANA JACOME M.D. Performed By: #### C BC, BMP, PT, PTT, DDIMER #### [place] [id number] [facility] ECG 12 lead ECGon 08-09-2021 ECG 12 lead ECG [facility] [place] [address] Electrocardiograph Report Signed Patient: Apple Nagel MR#: [id number] : 1985 Acct:[id number] Age/Sex: 35 / F ADM Date: 08/09/21 Loc: ER Room: Type: [facility] ER Attending Dr: Ordering Provider: Enrrique Diallo MD Date of Service: 08/09/21 ECG/ECG 12 lead ECG: Abdominal Pain Copies to: Test Reason : Blood Pressure : 128/077 mmHG Vent. Rate : 079 BPM Atrial Rate : 079 BPM P-R Int : 162 ms QRS Dur : 078 ms QT Int : 390 ms P-R-T Axes : 079 084 076 degrees QTc Int : 447 ms Normal sinus rhythm with sinus arrhythmia Normal ECG When compared with ECG of 15-MAY-2021 17:49, No significant change was found Confirmed by ENRRIQUE DIALLO MD ([id number]) on 08/10/2021 1:11:39 AM Referred By: Electronically Signed By:ENRRIQUE DIALLO MD Transcribed By: MUS Signed By Enrrique Diallo MD 07/[address] [facility] Eosinophils Auto (Bld) [#/Vo l]Ordered By: Enrrique Diallo on 08-09-2021 Eosinophils (Bld) [#/Vol] 0.1 10*3/uL 0.0-0.[address] [facility] Eosinophils/100 WBC Auto (Bl d)Ordered By: Enrrique Diallo on 08-09-2021 Eosinophils/100 WBC (Bld) 2.3 % [facility] Erythrocyte distribution wid th Auto (RBC) [Ratio]Ordered By: Enrrique Diallo on 08-09-2021 Erythrocyte distribution width (RBC) [Ratio] 13.7 % 11.9-15.[address] [facility] Estimated glomerular filtrat ion rate (GFR) non- AmericanOrdered By: Enrrique Diallo on 08-09-2021 GFR/1.73 sq M.predicted among non-blacks MDRD (S/P/Bld) [Vol rate/Area] > 60 mL/Min [facility] Hematocrit Auto (Bld) [Volum e fraction]Ordered By: Enrrique Diallo on 08-09-2021 Hematocrit (Bld) [Volume fraction] 37.2 % 34.0-46.[address] [facility] Laboratory - CoagulationOrde red By: Enrrique Diallo on 08-09-2021 PT Coag (PPP) [Time] 13.6 s 9.0-12.9 [facility] Laboratory - Hematology and Cell countsOrdered By: Ernrique Diallo on 08-09-2021 Nucleated RBC/100 WBC (Bld) [Ratio] 0.0 % 0-0.[address] [facility] Lymphocytes Auto (Bld) [#/Vo l]Ordered By: Enrrique Diallo on 08-09-2021 Lymphocytes (Bld) [#/Vol] 2.1 10*3/uL 1.00-4.[address] [facility] Lymphocytes/100 WBC Auto (Bl d)Ordered By: Enrrique Diallo on 08-09-2021 Lymphocytes/100 WBC (Bld) 36.2 % [facility] MCH Auto (RBC) [Entitic mass ]Ordered By: Enrrique Diallo on 08-09-2021 MCH (RBC) [Entitic mass] 26.7 pg 24.7-34.[address] [facility] MCHC Auto (RBC) [Mass/Vol]Or dered By: Enrrique Diallo on 08-09-2021 MCHC (RBC) [Mass/Vol] 32.6 g/dL 32.0-35.0 [facility] MCV Auto (RBC) [Entitic vol] Ordered By: Enrrique Diallo on 08-09-2021 MCV (RBC) [Entitic vol] 82.1 fL 80-[address] [facility] Monocytes Auto (Bld) [#/Vol] Ordered By: Enrrique Diallo on 08-09-2021 Monocytes (Bld) [#/Vol] 0.5 10*3/uL 0.0-0.[address] [facility] Monocytes/100 WBC Auto (Bld) Ordered By: Enrrique Diallo on 08-09-2021 Monocytes/100 WBC (Bld) 8.8 % [facility] Neutrophils Auto (Bld) [#/Vo l]Ordered By: Enrrique Diallo on 08-09-2021 Neutrophils (Bld) [#/Vol] 3.0 10*3/uL 1.8-7.[address] [facility] Neutrophils/100 WBC Auto (Bl d)Ordered By: Enrrique Diallo on 08-09-2021 Neutrophils/100 WBC (Bld) 51.9 % [facility] No Panel InformationOrdered By: Enrrique Diallo on 08-09-2021 D-Dimer Quantitative (PE/DVT) 207 ng/mL 0-[address] [facility] Comment on above: The reference range for D-dimer is <243 ng/mL D-dimer units.D-dimer results must be used in conjunction with a clinicalpretest probability (PTP) assessment model for deep veinthrombosis (DVT) and pulmonary embolism (PE). Results <230ng/mL d-dimer units can be used as a negative predictor inpatients with low or moderate probability for DVT/PE.Results above the exclusion threshold of 230 ng/ml D-dimerunits for DVT/PE may indicate the need for furtherdiagnostic testing.D-Dimer can be increased in hospitalized patients due toco-morbid conditions. The reference range for D-dimer is <243 ng/mL D-dimer units. D-dimer results must be used in conjunction with a clinical pretest probability (PTP) assessment model for deep vein thrombosis (DVT) and pulmonary embolism (PE). Results <230 ng/mL d-dimer units can be used as a negative predictor in patients with low or moderate probability for DVT/PE. Results above the exclusion threshold of 230 ng/ml D-dimer units for DVT/PE may indicate the need for further diagnostic testing. D-Dimer can be increased in hospitalized patients due to co-morbid conditions. Estimated GFR () > 60 mL/Min [facility] Comment on above: GFR estimated refere nce range: According to KDOQI guidelines, <60 ml/min/1.73m2 is sufficient to diagnose a patient with chronic kidney disease. Pharmacy Creatinine Clearance (Chem 88.[address] [facility] Partial Thromboplastin Timeo n 08-09-2021 aPTT Coag (Bld) [Time] 28.6 s Normal 25.1-36.[address] [facility] Comment on above: Performed By: #### C BC, BMP, PT, PTT, DDIMER #### [address] Platelet mean volume Auto (B ld) [Entitic vol]Ordered By: Enrrique Diallo on 08-09-2021 Platelet mean volume (Bld) [Entitic vol] 8.2 fL 6.3-10.[address] [facility] Platelet poor plasma interna tional normalized ratio (INR) by coagulation assay (relatOrdered By: Enrrique Diallo on 08-09-2021 INR Coag (PPP) [Relative time] 1.2 {INR} [facility] Comment on above: INR Therapeutic Rang e A) Pre- and Peroperative OAT started two weeks before surgery. NOT HIP SURGERY: 1.5 - 2.5 HIP SURGERY: 2 - 3B) Primary and secondary prevention of venous THROMBOSIS: 2 - 3C) Active venous thrombosis, pulmonary embolismand prevention of recurrent venous thrombosis: 2 - 3D) Prevention of arterial thromboembolismincluding patients with mechanical heart valves: 3 - 4.5 INR Therapeutic Rang e A) Pre- and Peroperative OAT started two weeks before surgery. NOT HIP SURGERY: 1.5 - 2.5 HIP SURGERY: 2 - 3 B) Primary and secondary prevention of venous THROMBOSIS: 2 - 3 C) Active venous thrombosis, pulmonary embolism and prevention of recurrent venous thrombosis: 2 - 3 D) Prevention of arterial thromboembolism including patients with mechanical heart valves: 3 - 4.5 Platelets Auto (Bld) [#/Vol] Ordered By: Enrrique Diallo on 08-09-2021 Platelets (Bld) [#/Vol] 226 10*3/uL 150-[address] [facility] Prothrombin Time INRon 08-09 INR Coag (PPP) [Relative time] 1.2 {INR} Normal [facility] Comment on above: Result Comment: INR Therapeutic Range A) Pre- and Peroperative OAT started two weeks before surgery. NOT HIP SURGERY: 1.5 - 2.5 HIP SURGERY: 2 - 3 B) Primary and secondary prevention of venous THROMBOSIS: 2 - 3 C) Active venous thrombosis, pulmonary embolism and prevention of recurrent venous thrombosis: 2 - 3 D) Prevention of arterial thromboembolism including patients with mechanical heart valves: 3 - 4.5 Performed By: #### C BC, BMP, PT, PTT, DDIMER #### [facility] [address] PT Coag (PPP) [Time] 13.6 s High 9.0-12.9 [facility] Comment on above: Performed By: #### C BC, BMP, PT, PTT, DDIMER #### [facility] [address] RBC Auto (Bld) [#/Vol]Ordere d By: Enrrique Diallo on 08-09-2021 RBC (Bld) [#/Vol] 4.53 10*6/uL 3.60-5.00 [facility] Serum or plasma calcium jennifer urement (mass/volume)Ordered By: Enrrique Diallo on 08-09-2021 Calcium [Mass/Vol] 9.0 mg/dL 8.2-10.2 [facility] Serum or plasma chloride nahomi surement (moles/volume)Ordered By: Enrrique Diallo on 08-09-2021 Chloride [Moles/Vol] 106 mmol/L 95-114 [facility] Serum or plasma glucose jennifer urement (mass/volume)Ordered By: Enrrique Diallo on 08-09-2021 Glucose [Mass/Vol] 79 mg/dL 70-100 [facility] Comment on above: ADA recommended refe rence rangeRandom Glucose Reference Range is dependent on time and content of last meal. Glucose of more than 200 mg/dL in a nonstressed, ambulatory subject supports the diagnosis of Diabetes Mellitus. ADA recommended refe rence range Random Glucose Reference Range is dependent on time and content of last meal. Glucose of more than 200 mg/dL in a nonstressed, ambulatory subject supports the diagnosis of Diabetes Mellitus. Serum or plasma potassium me asurement (moles/volume)Ordered By: Enrriqeu Diallo on 08-09-2021 Potassium [Moles/Vol] 3.4 mmol/L 3.5-5.1 [facility] Serum or plasma sodium measu rement (moles/volume)Ordered By: Enrrique Diallo on 08-09-2021 Sodium [Moles/Vol] 139 mmol/L 136-146 [facility] Serum or plasma total carbon dioxide measurement (moles/volume)Ordered By: Enrrique Diallo on 08-09-2021 CO2 [Moles/Vol] 22.8 mmol/L 22.0-30.0 [facility] Serum or plasma urea nitroge n measurement (mass/volume)Ordered By: Enrrique Diallo on 08-09-2021 Urea nitrogen [Mass/Vol] 9 mg/dL 9-[address] [facility] XR chest 2V*on 08-09-2021 XR chest 2V* [facility] [place] [address] XRay Report Signed Patient: Apple Nagel MR#: [id number] : 1985 Acct:[id number] Age/Sex: 35 / F ADM Date: 08/09/21 Loc: ER Room: Type: [facility] ER Attending Dr: Ordering Provider: Enrrique Diallo MD Date of Service: 08/09/21 XR/XR chest 2V*: Abdominal Pain Copies to: Enrrique Diallo MD Chest 08/09/2021. CLINICAL DATA: Left chest pain. FINDINGS: 2 views of the chest were obtained. No prior study is available for comparison. The cardiac silhouette is normal in size. The pulmonary vasculature is within normal limits. The lungs are hyperinflated. No pulmonary consolidation or collapse is identified. No pneumothorax or pleural effusion is seen. There is thoracic spinal curvature with the apex to the right. XR/XR chest 2V* IMPRESSION: Hyperinflated lungs. Otherwise, no acute cardiopulmonary disease. Impression dictated by: Tadeo Finley Jr., M.D.08/09/2021 8:00 PM Dictation Location: [place] [address] Transcribed By: [facility] 08/09/211999 Dictated By: Tadeo Finley Jr, MD 08/09/211956 Signed By: 08/09/211999 Normal [facility] Activated partial thrombopla stin time (aPTT) in platelet poor plasma by coagulation aOrdered By: Curt Ferrer on 07-17-2021 aPTT Coag (PPP) [Time] 29.2 s 25.1-36.5 [facility] Automated erythrocytes count in urine sediment (number/area)Ordered By: Angelito Barrios on 07-17-2021 RBC Auto (Urine sed) [#/Area] Innumerable [HPF] [facility] Automated leukocytes count i n urine sediment (number/area)Ordered By: Angelito Barrios on 07-17-2021 WBC Auto (Urine sed) [#/Area] 10-19 [HPF] [facility] Basic Metabolic Panelon 06-22 Calcium [Mass/Vol] 9.1 mg/dL Normal 8.2-10.2 [facility] Comment on above: Performed By: #### C BC, PT, PTT, HEPATIC, BMP, LIPASE, HCGQUAL ####[facility] [id number] [place] [address] [facility] Chloride [Moles/Vol] 105 mmol/L Normal 95-114 [facility] Comment on above: Performed By: #### C BC, PT, PTT, HEPATIC, BMP, LIPASE, HCGQUAL ####[place] [id number] [place] [id number] [facility] CO2 [Moles/Vol] 24.0 mmol/L Normal 22.0-30.0 [facility] Comment on above: Performed By: #### C BC, PT, PTT, HEPATIC, BMP, LIPASE, HCGQUAL ####[place] [id number] [facility] Creatinine [Mass/Vol] 0.74 mg/dL Normal 0.44-1.03 [facility] Comment on above: Performed By: #### C BC, PT, PTT, HEPATIC, BMP, LIPASE, HCGQUAL ####[place] [id number] [facility] Creatinine Clr Calc Pharmacy 91.63 [facility] Comment on above: Performed By: #### C BC, PT, PTT, HEPATIC, BMP, LIPASE, HCGQUAL ####[address] Estimated GFR ( Kathleen > 60 [facility] Comment on above: Result Comment: GFR estimated reference range: According to KDOQI guidelines, <60 ml/min/1.73m2 is sufficient to diagnose a patient with chronic kidney disease. Performed By: #### C BC, PT, PTT, HEPATIC, BMP, LIPASE, HCGQUAL ####[address] Estimated GFR (Non- Am > 60 [facility] Comment on above: Performed By: #### C BC, PT, PTT, HEPATIC, BMP, LIPASE, HCGQUAL ####[place] [id number] [facility] Glucose [Mass/Vol] 117 mg/dL High 70-100 [facility] Comment on above: Result Comment: [place] Glucose Reference Range is dependent on time and content of last meal. Glucose of more than 200 mg/dL in a nonstressed, ambulatory subject supports the diagnosis of Diabetes Mellitus. ADA recommended reference range Performed By: #### C BC, PT, PTT, HEPATIC, BMP, LIPASE, HCGQUAL ####[place] [id number] [place] Potassium [Moles/Vol] 3.3 mmol/L Low 3.5-5.1 [facility] Comment on above: Performed By: #### C BC, PT, PTT, HEPATIC, BMP, LIPASE, HCGQUAL ####[facility] [id number] [place] [id number] [facility] Sodium [Moles/Vol] 138 mmol/L Normal 136-146 [facility] Comment on above: Performed By: #### C BC, PT, PTT, HEPATIC, BMP, LIPASE, HCGQUAL ####[facility] [id number] Urea nitrogen [Mass/Vol] 8 mg/dL Low 9-[address] [facility] Comment on above: Performed By: #### C BC, PT, PTT, HEPATIC, BMP, LIPASE, HCGQUAL ####[facility] [id number] Basophils Auto (Bld) [#/Vol] Ordered By: Angelito Barrios on 07-17-2021 Basophils (Bld) [#/Vol] 0.0 10*3/uL 0.0-0.[address] [facility] Basophils Auto (Bld) [#/Vol] Ordered By: Curt Ferrre on 07-17-2021 Basophils (Bld) [#/Vol] 0.0 10*3/uL 0.0-0.[address] [facility] Basophils/100 WBC Auto (Bld) Ordered By: Angelito Barrios on 07-17-2021 Basophils/100 WBC (Bld) 1.3 % [facility] Basophils/100 WBC Auto (Bld) Ordered By: Curt Ferrer on 07-17-2021 Basophils/100 WBC (Bld) 0.7 % [facility] Bilirubin Test strip Ql (U)O rdered By: Angelito Barrios on 07-17-2021 Bilirubin Ql (U) Negative Negative [facility] Blood hemoglobin measurement (mass/volume)Ordered By: Angelito Barrios on 07-17-2021 Hemoglobin (Bld) [Mass/Vol] 11.8 g/dL 11.8-15.[address] [facility] Blood hemoglobin measurement (mass/volume)Ordered By: Curt Ferrer on 07-17-2021 Hemoglobin (Bld) [Mass/Vol] 12.4 g/dL 11.8-15.[address] [facility] Blood leukocytes automated c ount (number/volume)Ordered By: Angelito Barrios on 07-17-2021 WBC (Bld) [#/Vol] 3.6 10*3/uL 4.5-11.0 [facility] Blood leukocytes automated c ount (number/volume)Ordered By: Curt Ferrer on 07-17-2021 WBC (Bld) [#/Vol] 3.8 10*3/uL 4.5-11.0 [facility] Body fluid albumin measureme nt (mass/volume)Ordered By: Curt Ferrer on 07-17-2021 Albumin (Body fld) [Mass/Vol] 3.6 g/dL 3.2-5.[address] [facility] CT abdomen pelvis w conon CT abdomen pelvis w con [facility] [place] [address] CT Scan Report Signed Patient: Apple Nagel MR#: [id number] : 1985 Acct:[id number] Age/Sex: 35 / F ADM Date: 07/17/21 Loc: ER Room: Type: [facility] ER Attending Dr: Ordering Provider: Curt Ferrer DO Date of Service: 07/17/21 CT/CT abdomen pelvis w con: upper abd pain, nausea, vomiting, vag bleeding Copies to: Curt Ferrer DO CT abdomen pelvis w con 07/17/2021 12:56 AM SIGNS AND SYMPTOMS: Upper abdominal pain, vaginal bleeding. History of cervical cancer. TECHNIQUE: Multidetector ct axial images of the abdomen and pelvis were obtained with IV contrast. Multiplanar reformats were performed and reviewed to further define anatomy and possible pathology. CT was performed with one or more of the following dose reduction techniques: Automated exposure control, adjustment of the mA and/or kV according to patient size, or use of iterative reconstruction technique. COMPARISON: 05/15/2021 FINDINGS: Lower Chest: Within normal limits. ABDOMEN: Liver: Within normal limits. Bile Ducts: Normal caliber. Gallbladder: Previously removed. Pancreas: Within normal limits. Spleen: Similar hypoattenuating structures are noted in the spleen without enhancement. These may represent cysts. These are unchanged. Adrenals: Within normal limits. Kidneys: Within normal limits. Pelvis: Reproductive Organs: The cervix appears to be heterogeneous and hypoattenuating which may be consistent with a history of cervical cancer. Ureters: Within normal limits. Bladder: Within normal limits. Bowel: Normal caliber. The appendix has been previously removed. Mesenteric Lymph Nodes: No enlarged mesenteric lymph nodes. Peritoneum: There is a small amount of free fluid in the pelvis. Vessels: within normal limits Retroperitoneum: Within normal limits. Abdominal Wall: Within normal limits. Bones: Mild degenerative changes are noted in the lower thoracic spine. CT/CT abdomen pelvis w con IMPRESSION: No evidence of bowel obstruction or obstructive uropathy. There is a small amount of free fluid in the pelvis which may be physiologic. The cervix appears to be heterogeneous and hypoattenuating which may be consistent with a history of cervical cancer. Similar hypoattenuating structures are noted in the spleen without enhancement. These may represent cysts. These are unchanged. Impression dictated by: Juaquin Quintana M.D.07/17/2021 8:52 AM Dictation Location: [place] [address] Transcribed By: [facility] 07/17/21851 Dictated By: Juaquin Quintana II, MD 07/17/2143 Signed By: 07/17/[address] [facility] Color Auto (U)Ordered By: Alex Barrios on 07-17-2021 Color (U) Yellow Yellow [facility] Complete Blood Count Auto Di ffon 07-17-2021 Basophils (Bld) [#/Vol] 0.0 10*3/uL Normal 0.0-0.[address] [facility] Comment on above: Result Comment: PERF ORMED BY: [place] [address] PATHOLOGIST PODIATRY ASSISTANT ANA JACOME M.D. Performed By: #### C BC, BMP, PT, PTT, DDIMER #### [address] Basophils/100 WBC (Bld) 1.3 % Normal . [facility] Comment on above: Performed By: #### C BC, BMP, PT, PTT, DDIMER #### [address] Eosinophils (Bld) [#/Vol] 0.1 10*3/uL Normal 0.0-0.[address] [facility] Comment on above: Performed By: #### C BC, BMP, PT, PTT, DDIMER #### [address] Eosinophils/100 WBC (Bld) 4.1 % Normal . [facility] Comment on above: Performed By: #### C BC, BMP, PT, PTT, DDIMER #### [address] Erythrocyte distribution width (RBC) [Ratio] 14.1 % Normal 11.9-15.[address] [facility] Comment on above: Performed By: #### C BC, BMP, PT, PTT, DDIMER #### [address] Hematocrit (Bld) [Volume fraction] 35.5 % Normal 34.0-46.[address] [facility] Comment on above: Performed By: #### C BC, BMP, PT, PTT, DDIMER #### [address] Hemoglobin (Bld) [Mass/Vol] 11.8 g/dL Normal 11.8-15.[address] [facility] Comment on above: Performed By: #### C BC, BMP, PT, PTT, DDIMER #### [place] [address] [place] Lymphocytes (Bld) [#/Vol] 1.2 10*3/uL Normal 1.00-4.[address] [facility] Comment on above: Performed By: #### C BC, BMP, PT, PTT, DDIMER #### [address] Lymphocytes/100 WBC (Bld) 32.5 % Normal . [facility] Comment on above: Performed By: #### C BC, BMP, PT, PTT, DDIMER #### [address] MCH (RBC) [Entitic mass] 27.9 pg Normal 24.7-34.[address] [facility] Comment on above: Performed By: #### C BC, BMP, PT, PTT, DDIMER #### [address] MCV (RBC) [Entitic vol] 84.1 fL Normal 80-[address] [facility] Comment on above: Performed By: #### C BC, BMP, PT, PTT, DDIMER #### [address] Mean Corpuscular HGB Conc 33.2 g/dL Normal 32.0-35.[address] [facility] Comment on above: Performed By: #### C BC, BMP, PT, PTT, DDIMER #### [address] Monocytes (Bld) [#/Vol] 0.4 10*3/uL Normal 0.0-0.[address] [facility] Comment on above: Performed By: #### C BC, BMP, PT, PTT, DDIMER #### [address] Monocytes/100 WBC (Bld) 11.0 % Normal . [facility] Comment on above: Performed By: #### C BC, BMP, PT, PTT, DDIMER #### [address] Neutrophils (Bld) [#/Vol] 1.8 10*3/uL Normal 1.8-7.[address] [facility] Comment on above: Performed By: #### C BC, BMP, PT, PTT, DDIMER #### [address] Neutrophils/100 WBC (Bld) 51.1 % Normal . [facility] Comment on above: Performed By: #### C BC, BMP, PT, PTT, DDIMER #### [address] Nucleated RBC/100 WBC (Bld) [Ratio] 0.1 % Normal 0-0.[address] [facility] Comment on above: Performed By: #### C BC, BMP, PT, PTT, DDIMER #### [address] Platelet mean volume (Bld) [Entitic vol] 8.1 fL Normal 6.3-10.[address] [facility] Comment on above: Performed By: #### C BC, BMP, PT, PTT, DDIMER #### [address] Platelets (Bld) [#/Vol] 178 10*3/uL Normal 150-[address] [facility] Comment on above: Performed By: #### C BC, BMP, PT, PTT, DDIMER #### [address] RBC (Bld) [#/Vol] 4.22 10*6/uL Normal 3.60-5.00 [facility] Comment on above: Performed By: #### C BC, BMP, PT, PTT, DDIMER #### [address] WBC (Bld) [#/Vol] 3.6 10*3/uL Low 4.5-11.0 [facility] Comment on above: Performed By: #### C BC, BMP, PT, PTT, DDIMER #### [address] Basophils (Bld) [#/Vol] 0.0 10*3/uL Normal 0.0-0.[address] [facility] Comment on above: Result Comment: PERF ORMED BY: [place] [address] PATHOLOGIST PODIATRY ASSISTANT ANA JACOME M.D. Performed By: #### C BC, PT, PTT, HEPATIC, BMP, LIPASE, HCGQUAL #### [place] [address] [place] Basophils/100 WBC (Bld) 0.7 % Normal . [facility] Comment on above: Performed By: #### C BC, PT, PTT, HEPATIC, BMP, LIPASE, HCGQUAL #### [address] Eosinophils (Bld) [#/Vol] 0.1 10*3/uL Normal 0.0-0.[address] [facility] Comment on above: Performed By: #### C BC, PT, PTT, HEPATIC, BMP, LIPASE, HCGQUAL #### [address] Eosinophils/100 WBC (Bld) 2.7 % Normal . [facility] Comment on above: Performed By: #### C BC, PT, PTT, HEPATIC, BMP, LIPASE, HCGQUAL #### [address] Erythrocyte distribution width (RBC) [Ratio] 14.2 % Normal 11.9-15.[address] [facility] Comment on above: Performed By: #### C BC, PT, PTT, HEPATIC, BMP, LIPASE, HCGQUAL #### [address] Hematocrit (Bld) [Volume fraction] 37.5 % Normal 34.0-46.[address] [facility] Comment on above: Performed By: #### C BC, PT, PTT, HEPATIC, BMP, LIPASE, HCGQUAL #### [address] Hemoglobin (Bld) [Mass/Vol] 12.4 g/dL Normal 11.8-15.[address] [facility] Comment on above: Performed By: #### C BC, PT, PTT, HEPATIC, BMP, LIPASE, HCGQUAL #### [address] Lymphocytes (Bld) [#/Vol] 1.0 10*3/uL Normal 1.00-4.[address] [facility] Comment on above: Performed By: #### C BC, PT, PTT, HEPATIC, BMP, LIPASE, HCGQUAL #### [address] Lymphocytes/100 WBC (Bld) 26.5 % Normal . [facility] Comment on above: Performed By: #### C BC, PT, PTT, HEPATIC, BMP, LIPASE, HCGQUAL #### [address] MCH (RBC) [Entitic mass] 27.8 pg Normal 24.7-34.[address] [facility] Comment on above: Performed By: #### C BC, PT, PTT, HEPATIC, BMP, LIPASE, HCGQUAL #### [address] MCV (RBC) [Entitic vol] 84.2 fL Normal 80-[address] [facility] Comment on above: Performed By: #### C BC, PT, PTT, HEPATIC, BMP, LIPASE, HCGQUAL #### [address] Mean Corpuscular HGB Conc 33.0 g/dL Normal 32.0-35.[address] [facility] Comment on above: Performed By: #### C BC, PT, PTT, HEPATIC, BMP, LIPASE, HCGQUAL #### [address] Monocytes (Bld) [#/Vol] 0.4 10*3/uL Normal 0.0-0.[address] [facility] Comment on above: Performed By: #### C BC, PT, PTT, HEPATIC, BMP, LIPASE, HCGQUAL #### [address] Monocytes/100 WBC (Bld) 9.5 % Normal . [facility] Comment on above: Performed By: #### C BC, PT, PTT, HEPATIC, BMP, LIPASE, HCGQUAL #### [address] Neutrophils (Bld) [#/Vol] 2.3 10*3/uL Normal 1.8-7.[address] [facility] Comment on above: Performed By: #### C BC, PT, PTT, HEPATIC, BMP, LIPASE, HCGQUAL #### [address] Neutrophils/100 WBC (Bld) 60.6 % Normal . [facility] Comment on above: Performed By: #### C BC, PT, PTT, HEPATIC, BMP, LIPASE, HCGQUAL #### [address] Nucleated RBC/100 WBC (Bld) [Ratio] 0.1 % Normal 0-0.[address] [facility] Comment on above: Performed By: #### C BC, PT, PTT, HEPATIC, BMP, LIPASE, HCGQUAL #### [address] Platelet mean volume (Bld) [Entitic vol] 8.8 fL Normal 6.3-10.[address] [facility] Comment on above: Performed By: #### C BC, PT, PTT, HEPATIC, BMP, LIPASE, HCGQUAL #### [address] Platelets (Bld) [#/Vol] 192 10*3/uL Normal 150-[address] [facility] Comment on above: Performed By: #### C BC, PT, PTT, HEPATIC, BMP, LIPASE, HCGQUAL #### [address] RBC (Bld) [#/Vol] 4.45 10*6/uL Normal 3.60-5.00 [facility] Comment on above: Performed By: #### C BC, PT, PTT, HEPATIC, BMP, LIPASE, HCGQUAL #### [address] WBC (Bld) [#/Vol] 3.8 10*3/uL Low 4.5-11.0 [facility] Comment on above: Performed By: #### C BC, PT, PTT, HEPATIC, BMP, LIPASE, HCGQUAL #### [address] Creatinine and Glomerular fi ltration rate.predicted panel (S/P/Bld)Ordered By: Curt Ferrer on 07-17-2021 Creatinine [Mass/Vol] 0.74 mg/dL 0.44-1.03 [facility] Dipstick and Microscopicon 0 07-17-2021 Appearance (U) Cloudy Critically abnormal Clear [facility] Comment on above: Order Comment: Name Collection Type:: Voided Performed By: #### C BC, BMP, PT, PTT, DDIMER #### [address] Bacteria,Urine 1+ High None Seen [facility] Comment on above: Order Comment: Name Collection Type:: Voided Performed By: #### C BC, BMP, PT, PTT, DDIMER #### [address] Bilirubin,Urine Negative Normal Negative [facility] Comment on above: Order Comment: Name Collection Type:: Voided Performed By: #### C BC, BMP, PT, PTT, DDIMER #### [address] Color (U) Yellow Normal Yellow [facility] Comment on above: Order Comment: Name Collection Type:: Voided Performed By: #### C BC, BMP, PT, PTT, DDIMER #### [address] Glucose Ql (U) Normal Normal Normal [facility] Comment on above: Order Comment: Name Collection Type:: Voided Performed By: #### C BC, BMP, PT, PTT, DDIMER #### [address] Hyaline Casts,Urine 0-8 Normal 0-8 [facility] Comment on above: Order Comment: Name Collection Type:: Voided Result Comment: PERF ORMED BY: [place] [address] PATHOLOGIST PODIATRY ASSISTANT ANA JACOME M.D. Performed By: #### C BC, BMP, PT, PTT, DDIMER #### [place] [address] [place] Ketones Ql (U) Negative Normal Negative [facility] Comment on above: Order Comment: Name Collection Type:: Voided Performed By: #### C BC, BMP, PT, PTT, DDIMER #### [facility] [address] [place] [address] Leukocyte esterase Test strip Ql (U) 1+ High Negative [facility] Comment on above: Order Comment: Name Collection Type:: Voided Performed By: #### C BC, BMP, PT, PTT, DDIMER #### [address] Nitrite,Urine Negative Normal Negative [facility] Comment on above: Order Comment: Name Collection Type:: Voided Performed By: #### C BC, BMP, PT, PTT, DDIMER #### [address] Occult Blood,Urine 3+ High Negative [facility] Comment on above: Order Comment: Name Collection Type:: Voided Performed By: #### C BC, BMP, PT, PTT, DDIMER #### [address] pH (U) 5.0 [pH] Normal 5.0-9.[address] [facility] Comment on above: Order Comment: Name Collection Type:: Voided Performed By: #### C BC, BMP, PT, PTT, DDIMER #### [facility] [address] [place] [place] [address] Protein,Urine Negative Normal Negative [facility] Comment on above: Order Comment: Name Collection Type:: Voided Performed By: #### C BC, BMP, PT, PTT, DDIMER #### [facility] [address] [place] [address] [place] RBC,Urine Innumerable High 0-[address] [facility] Comment on above: Order Comment: Name Collection Type:: Voided Performed By: #### C BC, BMP, PT, PTT, DDIMER #### [place] [address] [place] Specificy [place],Urine > 1.050 High 1.001-1.[address] [facility] Comment on above: Order Comment: Name Collection Type:: Voided Performed By: #### C BC, BMP, PT, PTT, DDIMER #### [facility] [address] Squamous Epithelial Cell,Urine 5-9 High 0-[address] [facility] Comment on above: Order Comment: Name Collection Type:: Voided Performed By: #### C BC, BMP, PT, PTT, DDIMER #### [facility] [address] Urobilinogen,Urine Normal Normal Normal [facility] Comment on above: Order Comment: Name Collection Type:: Voided Performed By: #### C BC, BMP, PT, PTT, DDIMER #### [facility] [address] WBC,Urine 10-19 High 0-[address] [facility] Comment on above: Order Comment: Name Collection Type:: Voided Performed By: #### C BC, BMP, PT, PTT, DDIMER #### [facility] [address] [place] [place] [address] Direct bilirubin measurement Ordered By: Curt Ferrer on 07-17-2021 Bilirubin.direct [Mass/Vol] mg/dL 0.0-0.[address] [facility] Eosinophils Auto (Bld) [#/Vo l]Ordered By: Angelito Barrios on 07-17-2021 Eosinophils (Bld) [#/Vol] 0.1 10*3/uL 0.0-0.[address] [facility] Eosinophils Auto (Bld) [#/Vo l]Ordered By: Curt Ferrer on 07-17-2021 Eosinophils (Bld) [#/Vol] 0.1 10*3/uL 0.0-0.[address] [facility] Eosinophils/100 WBC Auto (Bl d)Ordered By: Angelito Barrios on 07-17-2021 Eosinophils/100 WBC (Bld) 4.1 % [facility] Eosinophils/100 WBC Auto (Bl d)Ordered By: Curt Ferrer on 07-17-2021 Eosinophils/100 WBC (Bld) 2.7 % [facility] Erythrocyte distribution wid th Auto (RBC) [Ratio]Ordered By: Angelito Barrios on 07-17-2021 Erythrocyte distribution width (RBC) [Ratio] 14.1 % 11.9-15.[address] [facility] Erythrocyte distribution wid th Auto (RBC) [Ratio]Ordered By: Curt Ferrer on 07-17-2021 Erythrocyte distribution width (RBC) [Ratio] 14.2 % 11.9-15.[address] [facility] Estimated glomerular filtrat ion rate (GFR) non- AmericanOrdered By: Curt Ferrer on 07-17-2021 GFR/1.73 sq M.predicted among non-blacks MDRD (S/P/Bld) [Vol rate/Area] > 60 mL/Min [facility] Globulin Calc (S) [Mass/Vol] Ordered By: Curt Ferrer on 07-17-2021 Globulin (S) [Mass/Vol] 2.9 g/dL [facility] HCG ( test) IA.rapi d Ql (U)Ordered By: Curt Ferrer on 07-17-2021 HCG ( test) Ql (U) Negative [facility] HCG,Qualitative Serumon 06-22 HCG,Qualitative Serum Negative Normal [facility] Comment on above: Result Comment: PERF ORMED BY: [facility] [address] [place] [address] PATHOLOGIST PODIATRY ASSISTANT ANA JACOME M.D. Performed By: #### C BC, PT, PTT, HEPATIC, BMP, LIPASE, HCGQUAL ####[facility] [id number] [place] [id number] [facility] Hematocrit Auto (Bld) [Volum e fraction]Ordered By: Angelito Barrios on 07-17-2021 Hematocrit (Bld) [Volume fraction] 35.5 % 34.0-46.[address] [facility] Hematocrit Auto (Bld) [Volum e fraction]Ordered By: Curt Ferrer on 07-17-2021 Hematocrit (Bld) [Volume fraction] 37.5 % 34.0-46.[address] [facility] Hepatic Panelon 07-17-2021 Albumin [Mass/Vol] 3.6 g/dL Normal 3.2-5.5 [facility] Comment on above: Performed By: #### C BC, PT, PTT, HEPATIC, BMP, LIPASE, HCGQUAL ####[place] [id number] [facility] Albumin/Globulin [Mass ratio] 1.2 {ratio} Normal [facility] Comment on above: Performed By: #### C BC, PT, PTT, HEPATIC, BMP, LIPASE, HCGQUAL ####[place] [id number] [facility] ALP [Catalytic activity/Vol] 61 U/L Normal 32-[address] [facility] Comment on above: Performed By: #### C BC, PT, PTT, HEPATIC, BMP, LIPASE, HCGQUAL ####[place] [id number] [facility] ALT [Catalytic activity/Vol] 11 U/L Normal 10-[address] [facility] Comment on above: Performed By: #### C BC, PT, PTT, HEPATIC, BMP, LIPASE, HCGQUAL ####[place] [id number] [facility] AST [Catalytic activity/Vol] 17 U/L Normal 10-[address] [facility] Comment on above: Performed By: #### C BC, PT, PTT, HEPATIC, BMP, LIPASE, HCGQUAL ####[place] [id number] [facility] Bilirubin [Mass/Vol] 0.5 mg/dL Normal 0.3-1.2 [facility] Comment on above: Performed By: #### C BC, PT, PTT, HEPATIC, BMP, LIPASE, HCGQUAL ####[address] [address] [facility] Bilirubin,Indirect Not performed Normal [facility] Comment on above: Performed By: #### C BC, PT, PTT, HEPATIC, BMP, LIPASE, HCGQUAL ####[place] [phone] [facility] Bilirubin.indirect [Mass/Vol] mg/dL Normal 0.0-0.[address] [facility] Comment on above: Performed By: #### C BC, PT, PTT, HEPATIC, BMP, LIPASE, HCGQUAL ####[facility] [place] [address] [facility] Globulin (S) [Mass/Vol] 2.9 g/dL Normal [facility] Comment on above: Performed By: #### C BC, PT, PTT, HEPATIC, BMP, LIPASE, HCGQUAL ####[facility] [place] [id number] [facility] Protein [Mass/Vol] 6.5 g/dL Normal 6.1-7.9 [facility] Comment on above: Performed By: #### C BC, PT, PTT, HEPATIC, BMP, LIPASE, HCGQUAL ####[facility] [address] Ketones Auto test strip (U) [Mass/Vol]Ordered By: Angelito Barrios on 07-17-2021 Ketones (U) [Mass/Vol] Negative Negative [facility] - Chemistry and C hemistry - challengeOrdered By: Curt Ferrer on 07-17-2021 Lipase [Catalytic activity/Vol] 42.0 U/L [facility] Laboratory - CoagulationOrde red By: Curt Ferrer on 07-17-2021 PT Coag (PPP) [Time] 13.9 s 9.0-12.9 [facility] Laboratory - Hematology and Cell countsOrdered By: Angelito Barrios on 07-17-2021 Nucleated RBC/100 WBC (Bld) [Ratio] 0.1 % 0-0.[address] [facility] Laboratory - Hematology and Cell countsOrdered By: Curt Ferrer on 07-17-2021 Nucleated RBC/100 WBC (Bld) [Ratio] 0.1 % 0-0.[address] [facility] - UrinalysisOrder ed By: Angelito Barrios on 07-17-2021 Hyaline casts LM Ql (Urine sed) 0-8 [LPF] [facility] Lipaseon 07-17-2021 Lipase [Catalytic activity/Vol] 42.0 U/L Normal [facility] Comment on above: Performed By: #### C BC, PT, PTT, HEPATIC, BMP, LIPASE, HCGQUAL ####[facility] [id number] [place] [address] [facility] Lymphocytes Auto (Bld) [#/Vo l]Ordered By: Angeilto Barrios on 07-17-2021 Lymphocytes (Bld) [#/Vol] 1.2 10*3/uL 1.00-4.[address] [facility] Lymphocytes Auto (Bld) [#/Vo l]Ordered By: Crut Ferrer on 07-17-2021 Lymphocytes (Bld) [#/Vol] 1.0 10*3/uL 1.00-4.[address] [facility] Lymphocytes/100 WBC Auto (Bl d)Ordered By: Angelito Barrios on 07-17-2021 Lymphocytes/100 WBC (Bld) 32.5 % [facility] Lymphocytes/100 WBC Auto (Bl d)Ordered By: Curt Ferrer on 07-17-2021 Lymphocytes/100 WBC (Bld) 26.5 % [facility] MCH Auto (RBC) [Entitic mass ]Ordered By: Angelito Barrios on 07-17-2021 MCH (RBC) [Entitic mass] 27.9 pg 24.7-34.[address] [facility] MCH Auto (RBC) [Entitic mass ]Ordered By: Curt Ferrer on 07-17-2021 MCH (RBC) [Entitic mass] 27.8 pg 24.7-34.[address] [facility] MCHC Auto (RBC) [Mass/Vol]Or dered By: Angelito Barrios on 07-17-2021 MCHC (RBC) [Mass/Vol] 33.2 g/dL 32.0-35.0 [facility] MCHC Auto (RBC) [Mass/Vol]Or dered By: Curt Ferrer on 07-17-2021 MCHC (RBC) [Mass/Vol] 33.0 g/dL 32.0-35.0 [facility] MCV Auto (RBC) [Entitic vol] Ordered By: Angelito Barrios on 07-17-2021 MCV (RBC) [Entitic vol] 84.1 fL 80-[address] [facility] MCV Auto (RBC) [Entitic vol] Ordered By: Curt Ferrer on 07-17-2021 MCV (RBC) [Entitic vol] 84.2 fL 80-[address] [facility] Monocytes Auto (Bld) [#/Vol] Ordered By: Angelito Barrios on 07-17-2021 Monocytes (Bld) [#/Vol] 0.4 10*3/uL 0.0-0.[address] [facility] Monocytes Auto (Bld) [#/Vol] Ordered By: Curt Ferrer on 07-17-2021 Monocytes (Bld) [#/Vol] 0.4 10*3/uL 0.0-0.[address] [facility] Monocytes/100 WBC Auto (Bld) Ordered By: Angelito Barrios on 07-17-2021 Monocytes/100 WBC (Bld) 11.0 % [facility] Monocytes/100 WBC Auto (Bld) Ordered By: Curt Ferrer on 07-17-2021 Monocytes/100 WBC (Bld) 9.5 % [facility] Neutrophils Auto (Bld) [#/Vo l]Ordered By: Angelito Barrios on 07-17-2021 Neutrophils (Bld) [#/Vol] 1.8 10*3/uL 1.8-7.[address] [facility] Neutrophils Auto (Bld) [#/Vo l]Ordered By: Curt Ferrer on 07-17-2021 Neutrophils (Bld) [#/Vol] 2.3 10*3/uL 1.8-7.[address] [facility] Neutrophils/100 WBC Auto (Bl d)Ordered By: Angelito Barrios on 07-17-2021 Neutrophils/100 WBC (Bld) 51.1 % [facility] Neutrophils/100 WBC Auto (Bl d)Ordered By: Curt Ferrer on 07-17-2021 Neutrophils/100 WBC (Bld) 60.6 % [facility] Nitrite Test strip Ql (U)Ord ered By: Angelito Barrios on 07-17-2021 Nitrite Ql (U) Negative Negative [facility] No Panel InformationOrdered By: Curt Ferrer on 07-17-2021 Estimated GFR () > 60 mL/Min [facility] Comment on above: GFR estimated refere nce range: According to KDOQI guidelines, <60 ml/min/1.73m2 is sufficient to diagnose a patient with chronic kidney disease. Pharmacy Creatinine Clearance (Chem 91.[address] [facility] Partial Thromboplastin Timeo n 07-17-2021 aPTT Coag (Bld) [Time] 29.2 s Normal 25.1-36.5 [facility] Comment on above: Result Comment: PERF ORMED BY: [facility] [address] [place] [address] PATHOLOGIST PODIATRY ASSISTANT ANA JACOME M.D. Performed By: #### C BC, PT, PTT, HEPATIC, BMP, LIPASE, HCGQUAL #### [facility] [address] Platelet mean volume Auto (B ld) [Entitic vol]Ordered By: Angelito Barrios on 07-17-2021 Platelet mean volume (Bld) [Entitic vol] 8.1 fL 6.3-10.[address] [facility] Platelet mean volume Auto (B ld) [Entitic vol]Ordered By: Curt Ferrer on 07-17-2021 Platelet mean volume (Bld) [Entitic vol] 8.8 fL 6.3-10.[address] [facility] Platelet poor plasma interna tional normalized ratio (INR) by coagulation assay (relatOrdered By: Curt Ferrer on 07-17-2021 INR Coag (PPP) [Relative time] 1.2 {INR} [facility] Comment on above: INR Therapeutic Rang e A) Pre- and Peroperative OAT started two weeks before surgery. NOT HIP SURGERY: 1.5 - 2.5 HIP SURGERY: 2 - 3B) Primary and secondary prevention of venous THROMBOSIS: 2 - 3C) Active venous thrombosis, pulmonary embolismand prevention of recurrent venous thrombosis: 2 - 3D) Prevention of arterial thromboembolismincluding patients with mechanical heart valves: 3 - 4.5 INR Therapeutic Rang e A) Pre- and Peroperative OAT started two weeks before surgery. NOT HIP SURGERY: 1.5 - 2.5 HIP SURGERY: 2 - 3 B) Primary and secondary prevention of venous THROMBOSIS: 2 - 3 C) Active venous thrombosis, pulmonary embolism and prevention of recurrent venous thrombosis: 2 - 3 D) Prevention of arterial thromboembolism including patients with mechanical heart valves: 3 - 4.5 Platelets Auto (Bld) [#/Vol] Ordered By: Angelito Barrios on 07-17-2021 Platelets (Bld) [#/Vol] 178 10*3/uL 150-[address] [facility] Platelets Auto (Bld) [#/Vol] Ordered By: Curt Ferrer on 07-17-2021 Platelets (Bld) [#/Vol] 192 10*3/uL 150-[address] [facility] Protein Auto test strip (U) [Mass/Vol]Ordered By: Angelito Barrios on 07-17-2021 Protein (U) [Mass/Vol] Negative Negative [facility] Protein [Mass/volume] in Ser um or PlasmaOrdered By: Curt Ferrer on 07-17-2021 Protein [Mass/Vol] 6.5 g/dL 6.1-7.9 [facility] Prothrombin Time INRon 07-17 INR Coag (PPP) [Relative time] 1.2 {INR} Normal [facility] Comment on above: Result Comment: INR Therapeutic Range A) Pre- and Peroperative OAT started two weeks before surgery. NOT HIP SURGERY: 1.5 - 2.5 HIP SURGERY: 2 - 3 B) Primary and secondary prevention of venous THROMBOSIS: 2 - 3 C) Active venous thrombosis, pulmonary embolism and prevention of recurrent venous thrombosis: 2 - 3 D) Prevention of arterial thromboembolism including patients with mechanical heart valves: 3 - 4.5 Performed By: #### C BC, PT, PTT, HEPATIC, BMP, LIPASE, HCGQUAL #### [facility] [address] PT Coag (PPP) [Time] 13.9 s High 9.0-12.9 [facility] Comment on above: Performed By: #### C BC, PT, PTT, HEPATIC, BMP, LIPASE, HCGQUAL #### [facility] [address] RBC Auto (Bld) [#/Vol]Ordere d By: Angelito Barrios on 07-17-2021 RBC (Bld) [#/Vol] 4.22 10*6/uL 3.60-5.00 [facility] RBC Auto (Bld) [#/Vol]Ordere d By: Curt Ferrer on 07-17-2021 RBC (Bld) [#/Vol] 4.45 10*6/uL 3.60-5.00 [facility] Serum or plasma alanine schultz otransferase measurement without P-5'-P (enzymatic activiOrdered By: Curt Ferrer on 07-17-2021 ALT No additional P-5'-P [Catalytic activity/Vol] 11 U/L 10-[address] [facility] Serum or plasma albumin/glob ulin mass ratioOrdered By: Curt Ferrer on 07-17-2021 Albumin/Globulin [Mass ratio] 1.2 {ratio} [facility] Serum or plasma alkaline elizabeth sphatase measurement (enzymatic activity/volume)Ordered By: Curt Ferrer on 07-17-2021 ALP [Catalytic activity/Vol] 61 U/L 32-[address] [facility] Serum or plasma aspartate am inotransferase measurement (enzymatic activity/volume)Ordered By: Curt Ferrer on 07-17-2021 AST [Catalytic activity/Vol] 17 U/L 10-[address] [facility] Serum or plasma calcium jennifer urement (mass/volume)Ordered By: Curt Ferrer on 07-17-2021 Calcium [Mass/Vol] 9.1 mg/dL 8.2-10.2 [facility] Serum or plasma chloride nahomi surement (moles/volume)Ordered By: Curt Ferrer on 07-17-2021 Chloride [Moles/Vol] 105 mmol/L 95-114 [facility] Serum or plasma glucose jennifer urement (mass/volume)Ordered By: Curt Ferrer on 07-17-2021 Glucose [Mass/Vol] 117 mg/dL 70-100 [facility] Comment on above: ADA recommended refe rence rangeRandom Glucose Reference Range is dependent on time and content of last meal. Glucose of more than 200 mg/dL in a nonstressed, ambulatory subject supports the diagnosis of Diabetes Mellitus. ADA recommended refe rence range Random Glucose Reference Range is dependent on time and content of last meal. Glucose of more than 200 mg/dL in a nonstressed, ambulatory subject supports the diagnosis of Diabetes Mellitus. Serum or plasma non-glucuron idated bilirubin measurement (mass/volume)Ordered By: Curt Ferrer on 07-17-2021 Bilirubin.indirect [Mass/Vol] TNP [facility] Comment on above: Test not performed Serum or plasma potassium me asurement (moles/volume)Ordered By: Curt Ferrer on 07-17-2021 Potassium [Moles/Vol] 3.3 mmol/L 3.5-5.1 [facility] Serum or plasma sodium measu rement (moles/volume)Ordered By: Curt Ferrer on 07-17-2021 Sodium [Moles/Vol] 138 mmol/L 136-146 [facility] Serum or plasma total biliru bin measurement (mass/volume)Ordered By: Curt Ferrer on 07-17-2021 Bilirubin [Mass/Vol] 0.5 mg/dL 0.3-1.2 [facility] Serum or plasma total carbon dioxide measurement (moles/volume)Ordered By: Curt Ferrer on 07-17-2021 CO2 [Moles/Vol] 24.0 mmol/L 22.0-30.0 [facility] Serum or plasma urea nitroge n measurement (mass/volume)Ordered By: Curt Ferrer on 07-17-2021 Urea nitrogen [Mass/Vol] 8 mg/dL 9- [facility] Specific gravity Auto test s trip (U) [Rel density]Ordered By: Angelito Barrios on 07-17-2021 Specific gravity (U) [Rel density] > 1.050 1.001-1.[address] [facility] Squamous epithelial cells de tection in urine sediment by light microscopyOrdered By: Angelito Barrios on 07-17-2021 Epithelial cells.squamous LM Ql (Urine sed) 5-9 [HPF] [facility] Urine Cultureon 07-17-2021 Bacteria identified Cx Nom (U) ORGANISM: Escherichia coli (O:ESCCOL) [place] Count 50,000 Aerobic GIACOMO Charge (NUC86) SUSCEPTIBILITY ORGANISM: O:ESCCOL ANTIBIOTIC INTERPRETATION GIACOMO Amikacin S <16 Ampicillin S <8 Ampicillin/Sulbactam S <8/4 Aztreonam S <4 Cefazolin S <2 Cefepime S <2 Ceftazidime S <1 Ceftazidime/Avibactam S <8 Ceftriaxone S <1 Ciprofloxacin S <1 Ertapenem S <0.5 Gentamicin S <4 Levofloxacin S <2 Meropenem S <1 Nitrofurantoin S <32 Piperacillin/Tazobactam S <16 Tetracycline S <4 Tigecycline S <2 Tobramycin S <4 Trimethoprim/Sulfamethoxa zole S <2/38 S = SUSCEPTIBLE I = INTERMEDIATE R = RESISTANT BLANK = DATA NOT AVAILABLE, OR DRUG NOT ADVISABLE OR TESTED R* = RESISTANCE DUE TO EXTENDED SPECTRUM BETA-LACTAMASES ESBL = EXTENDED SPECTRUM BETA-LACTAMASE TFG = THYMIDINE-DEPENDENT STRAIN DAMIAN = BETA-LACTAMASE POSITIVE IB = INDUCIBLE BETA-LACTAMASE. APPEARS IN PLACE OF 'S' WITH SPECIES KNOWN TO POSSESS INDUCIBLE BETA-LACTAMASES. POTENTIALLY THEY MAY BECOME RESISTANT TO ALL B-LACTAM DRUGS. PERFORMED BY: [place] [address] PATHOLOGIST PODIATRY ASSISTANT ANA JACOME M.D. Normal [facility] Comment on above: Performed By: #### C BC, BMP, PT, PTT, DDIMER #### [address] Urine bacteria detection by automated methodOrdered By: Angelito Barrios on 07-17-2021 Bacteria Auto Ql (U) 1+ None Seen [facility] Urine clarity by refractomet ry automatedOrdered By: Angelito Barrios on 07-17-2021 Clarity Refractometry automated (U) Cloudy Clear [facility] Urine culture routineOrdered By: Angelito Barrios on 07-17-2021 Bacteria identified Cx Nom (U) Escherichia coli [facility] Urine glucose measurement by automated test strip (mass/volume)Ordered By: Angelito Barrios on 07-17-2021 Glucose Auto test strip (U) [Mass/Vol] Normal mg/dL Normal [facility] Urine hemoglobin detection b y automated test stripOrdered By: Angelito Barrios on 07-17-2021 Hemoglobin Auto test strip Ql (U) 3+ Negative [facility] Urine leukocyte esterase det ection by automated test stripOrdered By: Angelito Denis on 07-17-2021 Leukocyte esterase Auto test strip Ql (U) 1+ Negative [facility] Urobilinogen Auto test strip (U) [Mass/Vol]Ordered By: Angelito Denis on 07-17-2021 Urobilinogen (U) [Mass/Vol] Normal mg/dL Normal [facility] pH Auto test strip (U)Ordere d By: Angelito Barrios on 07-17-2021 pH (U) 5.0 [pH] 5.0-9.[address] [facility] CBC AUTO DIFFon 06-23-2021 BASO # 0.1 103/ul Normal 0.0-0.1 [facility] Comment on above: Performed By: #### C BC #### [facility] [address] [address] [address] Ayla Ross Basophils/100 WBC (Bld) 0.8 % Normal 0.2-2.[address] [facility] Comment on above: Performed By: #### C BC #### [facility] [address] [address] [address] Ayla Ross EO # 0.2 103/ul Normal 0.0-0.[address] [facility] Comment on above: Performed By: #### C BC #### [facility] [address] [address] [address] Ayla Ross Eosinophils/100 WBC (Bld) 3.9 % Normal 0.9-7.[address] [facility] Comment on above: Performed By: #### C BC #### [facility] [address] [address] [address] Ayla Ross Erythrocyte distribution width (RBC) [Ratio] 14.0 % Normal 11.0-15.[address] [facility] Comment on above: Performed By: #### C BC #### [facility] [address] [place] [address] Dr. Ayla Ross Hematocrit (Bld) [Volume fraction] 39.5 % Normal 36.0-48.0 [facility] Comment on above: Performed By: #### C BC #### [facility] [address] [place] [address] Dr. Ayla Ross Hemoglobin (Bld) [Mass/Vol] 12.4 g/dL Normal 12.0-16.[address] [facility] Comment on above: Performed By: #### C BC #### [facility] [address] [place] [address] Dr. Ayla Ross IG # 0.01 10e3/ul Normal 0.00-0.[address] [facility] Comment on above: Performed By: #### C BC #### [facility] [address] [place] [address] Dr. Ayla Ross IG % 0.2 % Normal 0.0-0.[address] [facility] Comment on above: Performed By: #### C BC #### [facility] [address] [place] [address] Dr. Ayla Ross LYMPH # 1.3 103/ul Normal 1.2-3.[address] [facility] Comment on above: Performed By: #### C BC #### [facility] [address] [place] [address] Dr. Ayla Ross Lymphocytes/100 WBC (Bld) 21.7 % Normal 20.5-60.[address] [facility] Comment on above: Performed By: #### C BC #### [facility] [address] [place] [address] Dr. Ayla Ross MANUAL DIFF REQ NO Normal [facility] Comment on above: Performed By: #### C BC #### [facility] [address] [place] [address] Dr. Ayla Ross MCH (RBC) [Entitic mass] 27.9 pg Normal 26.7-34.[address] [facility] Comment on above: Performed By: #### C BC #### [facility] [address] [place] [address] Dr. Ayla Ross MCHC (RBC) [Mass/Vol] 31.4 g/dL Normal 29.9-35.[address] [facility] Comment on above: Performed By: #### C BC #### [facility] [address] [place] [address] Dr. Ayla Ross MCV (RBC) [Entitic vol] 88.8 fL Normal 81.0-99.0 [facility] Comment on above: Performed By: #### C BC #### [facility] [address] [place] [address] Dr. Ayla Ross MONO # 0.6 103/ul Normal 0.3-0.8 [facility] Comment on above: Performed By: #### C BC #### [facility] [address] [place] [address] Dr. Ayla Ross Monocytes/100 WBC (Bld) 9.4 % Normal 1.7-12.0 [facility] Comment on above: Performed By: #### C BC #### [facility] [address] [place] [address] Dr. Ayla Ross NEUT # 3.9 103/ul Normal 1.4-6.5 [facility] Comment on above: Performed By: #### C BC #### [facility] [address] [place] [address] Dr. Ayla Ross Neutrophils/100 WBC (Bld) 64.0 % Normal 43.0-75.0 [facility] Comment on above: Performed By: #### C BC #### [facility] [address] [place] [address] Dr. Ayla Ross Platelet mean volume (Bld) [Entitic vol] 10.1 fL Normal 9.5-13.[address] [facility] Comment on above: Performed By: #### C BC #### [facility] [address] [place] [address] Dr. Ayla Ross PLT 232 103/ul Normal 150-[address] [facility] Comment on above: Performed By: #### C BC #### [facility] [address] [place] [address] Dr. Ayla Ross RBC 4.45 106/ul Normal 4.20-5.[address] [facility] Comment on above: Performed By: #### C BC #### [facility] [address] [place] [address] Dr. Ayla Ross WBC 6.1 103/ul Normal 4.0-11.0 [facility] Comment on above: Performed By: #### C BC #### [facility] [address], [place] [address] ABD/PELV W CONon 06-24-[address] ABD/PELV W CON EXAMINATION: CT ABD/ PELV W CON HISTORY: GENERALIZED ABDOMINAL PAIN COMPARISON: CT abdomen/pelvis dated 11/06/2020. TECHNIQUE: Multiple axial images of the abdomen and pelvis were obtained following administration of IV contrast with coronal and sagittal reformatted sequences are submitted for review. Dose reduction techniques were achieved by using automated exposure control and/or adjustment of mA and/or kV according to patient size and/or use of iterative reconstruction technique. FINDINGS: The lungs are clear. The heart size is normal. Patient is post cholecystectomy. Surgical clips are seen in the gallbladder fossa. Liver, pancreas and bilateral adrenal glands appear unremarkable. Stable appearing low densities are seen in the spleen, which can be seen with benign etiology, to include cysts or hemangiomas Bilateral kidneys demonstrate normal size, morphology and contrast enhancement. There is no evidence for hydronephrosis bilaterally. The stomach and duodenum appear unremarkable. Nonobstructive bowel pattern is seen. The appendix is not visualized. No abnormal pericecal inflammatory changes are seen. No significant bowel wall thickening is seen. The urinary bladder appears unremarkable. Multiple prominent pelvic vascular structures are seen, which was also seen on prior examination, and which can be seen with pelvic congestion syndrome. Tiny free posterior pelvic fluid is seen, which may be physiologic. No abnormal fluid collection is seen in the abdomen and pelvis. The vascular structures demonstrate caliber and contrast enhancement. The abdominal wall and visualized soft tissues appear unremarkable. No acute osseous abnormality is seen. IMPRESSION: Multiple prominent pelvic vascular structures are seen, which can be seen with pelvic congestion syndrome. Prior cholecystectomy. Electronically authenticated by: PAT MODI Date: 2021-06-23 19:31 Normal [facility] CULTURE URINEon 06-23-2021 CULTURE URINE Culture Observations : GIACOMO TO FOLLOW. Isolate 1 Enterococcus faecalis 15,000 cfu/mL of Normal [facility] Comment on above: Performed By: #### C BC #### [facility] [address], [place] [address] Dr. Ayla Ross ER URINE PROFILEon 2 Bilirubin Ql (U) Negative Normal NEGATIVE [facility] Comment on above: Performed By: #### Yesenia SULLIVAN UMICRO #### [facility] [address] [place] [address] Dr. Ayla Ross Clarity (U) CLEAR Normal CLEAR [facility] Comment on above: Performed By: #### Yesenia SULLIVAN UMICRO #### [facility] [address] [address] [address] Ayla Ross Color (U) YELLOW Normal YELLOW [facility] Comment on above: Performed By: #### Yesenia SULLIVAN UMICRO #### [facility] [address] [place] [address] Dr. Ayla Ross ERUJOHNYD A micrscopic examina tion will be performed if indicated. Normal [facility] Comment on above: Performed By: #### Yesenia SULLIVAN UMICRO #### [facility] [address] [place] [address] Dr. Ayla Ross Glucose Ql (U) Negative Normal NEGATIVE [facility] Comment on above: Performed By: #### Yesenia SULLIVAN UMICRO #### [facility] [address] [place] [address] Dr. Ayla Ross Hemoglobin Ql (U) LARGE Abnormal NEGATIVE The [facility] Comment on above: Performed By: #### Yesenia SULLIVAN UMICRO #### [facility] [address] [place] [address] Dr. Ayla Ross Ketones Ql (U) Negative Normal NEGATIVE [facility] Comment on above: Performed By: #### Yesenia SULLIVAN UMICRO #### [facility] [address] [place] [address] Dr. Ayla Ross LEUKOCYTES Negative Normal NEGATIVE [facility] Comment on above: Performed By: #### Yesenia SULLIVAN UMICRO #### [facility] [address] [place] [address] Dr. Ayla Ross Nitrite Ql (U) Negative Normal NEGATIVE [facility] Comment on above: Performed By: #### Yesenia SULLIVAN UMICRO #### [facility] [address] [place] [address] Dr. Ayla Ross pH (U) 5.5 [pH] Normal 5-9 [facility] Comment on above: Performed By: #### LLOYD SIMSICRO #### [facility] [address] [place] [address] Dr. Ayla Ross SPEC GRAVITY >=1.030 Abnormal 1.005-<=1. 025 [facility] Comment on above: Performed By: #### Yesenia SULLIVAN, UMICRO #### [facility] [address] [place] [address] Dr. Ayla Ross UA PROTEIN Negative Normal NEGATIVE/ TRACE [facility] Comment on above: Performed By: #### Yesenia SULLIVAN UMICRO #### [facility] [address] [place] [address] Dr. Ayla Ross UR MICRO IND INDICATED Normal [facility] Comment on above: Performed By: #### Yesenia SULLIVAN UMICRO #### [facility] [address] [place] [address] Dr. Ayla Ross Urobilinogen Qn (U) 0.2 {Simón'U}/dL Normal 0.2 - 1. 0 [facility] Comment on above: Performed By: #### Yesenia SULLIVAN UMICRO #### [facility] [address] [place] [address] Dr. Ayla Ross LACTATE/LACTIC ACIDon 2021 Lactate [Moles/Vol] 1.6 mmol/L Normal 0.7-2.0 [facility] Comment on above: Performed By: #### Yesenia SULLIVAN, UMICRO #### [facility] [address] [place] [address] Dr. Ayla Ross LIPASEon 06-23-2021 Lipase [Catalytic activity/Vol] 186.0 U/L Normal 23.0-300.0 [facility] Comment on above: Performed By: #### L IPA, CMP #### [facility] [address] [place] [address] Dr. Ayla Ross PREG HCG QUALon 06-23-2021 , QUAL Negative Normal NEGATIVE [facility] Comment on above: Performed By: #### P REG #### [facility] [address] [address] [address] Ayla Ross PROF 14(COMP METB)on 022 Albumin [Mass/Vol] 3.8 g/dL Normal 3.5-5.0 [facility] Comment on above: Performed By: #### L IPA, CMP #### [facility] [address] [address] [address] Ayla Ross Albumin/Globulin [Mass ratio] 1.0 {ratio} Normal [facility] Comment on above: Performed By: #### L IPA, CMP #### [facility] [address] [address] [address] Ayla Ross ALP [Catalytic activity/Vol] 79 U/L Normal 38-126 [facility] Comment on above: Performed By: #### L IPA, CMP #### [facility] [address] [place] [address] Dr. Ayla Ross ALT [Catalytic activity/Vol] 9 U/L Normal 9-52 [facility] Comment on above: Performed By: #### L IPA, CMP #### [facility] [address] [place] [address] Dr. Ayla Ross Anion gap [Moles/Vol] 9.8 mmol/L Normal [facility] Comment on above: Performed By: #### L IPA, CMP #### [facility] [address] [place] [address] Dr. Ayla Ross AST [Catalytic activity/Vol] 13 U/L Critically low 14-36 [facility] Comment on above: Performed By: #### L IPA, CMP #### [facility] [address] [address] [address] Ayla Ross Bilirubin [Mass/Vol] 0.3 mg/dL Normal 0.2-1.3 [facility] Comment on above: Performed By: #### L IPA, CMP #### [facility] [address] [place] [address] Dr. Ayla Ross Calcium [Mass/Vol] 8.8 mg/dL Normal 8.4-10.2 [facility] Comment on above: Performed By: #### L IPA, CMP #### [facility] [address] [address] [address] Ayla Ross Chloride [Moles/Vol] 107 mmol/L Normal 98-107 [facility] Comment on above: Performed By: #### L IPA, CMP #### [facility] [address] [address] [address] Ayla Ross CO2 [Moles/Vol] 25.5 mmol/L Normal 22.0-30.0 [facility] Comment on above: Performed By: #### L IPA, CMP #### [facility] [address] [address] [address] Ayla Ross Creatinine [Mass/Vol] 0.85 mg/dL Normal 0.52-1.04 [facility] Comment on above: Performed By: #### L IPA, CMP #### [facility] [address] [place] [address] Dr. Ayla Ross EGFR-AF PAKISTANI >60 Normal >=60 [facility] Comment on above: Performed By: #### L IPA, CMP #### [facility] [address] [place] [address] Dr. Ayla Ross EGFR-NON AF PAKISTANI >60 Normal >=60 [facility] Comment on above: Performed By: #### L IPA, CMP #### [facility] [address] [address] [address] Ayla Ross Globulin (S) [Mass/Vol] 3.9 g/dL Normal [facility] Comment on above: Performed By: #### L IPA, CMP #### [facility] [address] [address] [address] Ayla Ross Glucose [Mass/Vol] 61 mg/dL Critically low 74-106 [facility] Comment on above: Performed By: #### L IPA, CMP #### [facility] [address] [place] [address] Dr. Ayla Ross Potassium [Moles/Vol] 3.3 mmol/L Critically low 3.4-5.0 [facility] Comment on above: Performed By: #### L IPA, CMP #### [facility] [address] [address] [address] Ayla Ross Protein [Mass/Vol] 7.7 g/dL Normal 6.1-8.2 [facility] Comment on above: Performed By: #### L IPA, CMP #### [facility] [address] [address] [address] Ayla Ross Sodium [Moles/Vol] 139 mmol/L Normal 137-145 [facility] Comment on above: Performed By: #### L IPA, CMP #### [facility] [address] [place] [address] Dr. Ayla Ross Urea nitrogen [Mass/Vol] 14.0 mg/dL Normal 7.0-17.0 [facility] Comment on above: Performed By: #### L IPA, CMP #### [facility] [address] [place] [address] Dr. Ayla Ross Urea nitrogen/Creatinine [Mass ratio] 16.5 mg/mg Normal [facility] Comment on above: Performed By: #### L IPA, CMP #### [facility] [address] [place] [address] Dr. Ayla Ross URINE MICROSCOPIC ONLYon BACTERIA SMALL Abnormal NONE SEEN [facility] Comment on above: Performed By: #### E NATE UMICRO #### [facility] [address] [place] [address] Dr. Ayla Ross Bacteria identified Cx Nom (U) INDICATED Normal [facility] Comment on above: Performed By: #### E RUR, UMICRO #### [facility] [address] [place] [address] Dr. Ayla Ross CAST NONE SEEN Normal NONE SEEN [facility] Comment on above: Performed By: #### E RUR, UMICRO #### [facility] [address] [place] [address] Dr. Ayla Ross Crystals LM Nom (Urine sed) NONE SEEN Normal NONE SEEN [facility] Comment on above: Performed By: #### E RUR, UMICRO #### [facility] [address] [address] [address] Ayla Ross Epithelial cells LM Ql (Urine sed) RARE Normal NONE SEEN /RARE [facility] Comment on above: Performed By: #### ADRIAN SIMSRO #### [facility] [address] [address] [address] Ayla Ross MUCOUS TRACE Abnormal NONE SEEN [facility] Comment on above: Performed By: #### ADRIAN SIMSRO #### [facility] [address] [address] [address] Ayla Ross RBC 2-5 Abnormal 0-[address] [facility] Comment on above: Performed By: #### ADRIAN SIMSRO #### [facility] [address] [address] [address] Ayla Ross WBC 0-2 Abnormal NONE SEEN [facility] Comment on above: Performed By: #### ADRIAN SIMSRO #### [facility] [address] [address] [address] Ayla Ross Basophils Auto (Bld) [#/Vol] Ordered By: Doyle Herron on 05-17-2021 Basophils (Bld) [#/Vol] 0.0 10*3/uL 0.0-0.[address] [facility] Basophils/100 WBC Auto (Bld) Ordered By: Doyle Herron on 05-17-2021 Basophils/100 WBC (Bld) 0.6 % [facility] Blood hemoglobin measurement (mass/volume)Ordered By: Doyle Herron on 05-17-2021 Hemoglobin (Bld) [Mass/Vol] 11.8 g/dL 11.8-15.[address] [facility] Blood leukocytes automated c ount (number/volume)Ordered By: Doyle Herron on 05-17-2021 WBC (Bld) [#/Vol] 3.2 10*3/uL 4.5-11.0 [facility] Eosinophils Auto (Bld) [#/Vo l]Ordered By: Doyle Herron on 05-17-2021 Eosinophils (Bld) [#/Vol] 0.1 10*3/uL 0.0-0.[address] [facility] Eosinophils/100 WBC Auto (Bl d)Ordered By: Doyle Herron on 05-17-2021 Eosinophils/100 WBC (Bld) 3.7 % [facility] Erythrocyte distribution wid th Auto (RBC) [Ratio]Ordered By: Doyle Herron on 05-17-2021 Erythrocyte distribution width (RBC) [Ratio] 14.6 % 11.9-15.[address] [facility] Hematocrit Auto (Bld) [Volum e fraction]Ordered By: Doyle Herron on 05-17-2021 Hematocrit (Bld) [Volume fraction] 35.2 % 34.0-46.[address] [facility] Laboratory - Hematology and Cell countsOrdered By: Doyle Herron on 05-17-2021 Nucleated RBC/100 WBC (Bld) [Ratio] 0.1 % 0-0.[address] [facility] Lymphocytes Auto (Bld) [#/Vo l]Ordered By: Doyle Herron on 05-17-2021 Lymphocytes (Bld) [#/Vol] 1.1 10*3/uL 1.00-4.[address] [facility] Lymphocytes/100 WBC Auto (Bl d)Ordered By: Doyle Herron on 05-17-2021 Lymphocytes/100 WBC (Bld) 35.2 % [facility] MCH Auto (RBC) [Entitic mass ]Ordered By: Doyle Herron on 05-17-2021 MCH (RBC) [Entitic mass] 27.8 pg 24.7-34.[address] [facility] MCHC Auto (RBC) [Mass/Vol]Or dered By: Doyle Herron on 05-17-2021 MCHC (RBC) [Mass/Vol] 33.5 g/dL 32.0-35.0 [facility] MCV Auto (RBC) [Entitic vol] Ordered By: Doyle Herron on 05-17-2021 MCV (RBC) [Entitic vol] 83.1 fL 80-[address] [facility] Monocytes Auto (Bld) [#/Vol] Ordered By: Doyle Herron on 05-17-2021 Monocytes (Bld) [#/Vol] 0.3 10*3/uL 0.0-0.[address] [facility] Monocytes/100 WBC Auto (Bld) Ordered By: Doyle Herron on 05-17-2021 Monocytes/100 WBC (Bld) 8.6 % [facility] Neutrophils Auto (Bld) [#/Vo l]Ordered By: Doyle Herron on 05-17-2021 Neutrophils (Bld) [#/Vol] 1.7 10*3/uL 1.8-7.[address] [facility] Neutrophils/100 WBC Auto (Bl d)Ordered By: Doyle Herron on 05-17-2021 Neutrophils/100 WBC (Bld) 51.9 % [facility] Platelet mean volume Auto (B ld) [Entitic vol]Ordered By: Doyle Herron on 05-17-2021 Platelet mean volume (Bld) [Entitic vol] 8.6 fL 6.3-10.[address] [facility] Platelets Auto (Bld) [#/Vol] Ordered By: Doyle Herron on 05-17-2021 Platelets (Bld) [#/Vol] 138 10*3/uL 150-[address] [facility] RBC Auto (Bld) [#/Vol]Ordere d By: Doyle Herron on 05-17-2021 RBC (Bld) [#/Vol] 4.24 10*6/uL 3.60-5.00 [facility] Albumin [Mass/volume] in Ser um or PlasmaOrdered By: Car Hawkins on 05-16-2021 Albumin [Mass/Vol] 3.9 g/dL 3.2-5.5 [facility] COVID-19 Positive/NegativeOr dered By: Car Hawkins on 05-16-2021 SARS-CoV-2 (COVID-19) N gene COURTNEY+probe Ql (Resp) Positive Negative [facility] Comment on above: Positive results zackery l only be called to Providers for the following groups of patients: Pre-Surgical Testing, Emergency Room, and Inpatients.Results [facility] 0528 on 05/17/21 Testing for SARS-CoV-2 by RT-PCRThis test was developed and its performance characteristics determined by [employer] ([email or web address]) and validated at the [facility]. This test has not been FDA cleared or approved. This test has been authorized by FDA under an Emergency Use Authorization (EUA). This test has been validated in accordance with the FDA's Guidance Document (Policy for Diagnostics Testing in Laboratories Certified to Perform High Complexity Testing under CLIA prior to Emergency Use Authorization for Coronavirus Disease-2019 during the Public Health Emergency) issued on July 24, 2019. This test is only authorized for the duration of time the declaration that circumstances exist justifying the authorization of the emergency use of in vitro diagnostic tests for detection of SARS-CoV-2 virus and/or diagnosis of COVID-19 infection under section 564(b)(1) of the Act, 21 U.S.C. 360bbb-3(b)(1), unless the authorization is terminated or revoked sooner. COVID-19 SOFIAOrdered By: Sagar Hawkins on 05-16-2021 SARS-CoV+SARS-CoV-2 (COVID-19) Ag IA.rapid Ql (Resp) Positive Negative [facility] Comment on above: This is a duplicate Any SARS Antigen (LAKIA) result to be used for statistical tracking purpose only. Creatinine and Glomerular fi ltration rate.predicted panel (S/P/Bld)Ordered By: Car Hawkins on 05-16-2021 Creatinine [Mass/Vol] 0.81 mg/dL 0.44-1.03 [facility] Direct bilirubin measurement Ordered By: Car Hawkins on 05-16-2021 Bilirubin.direct [Mass/Vol] mg/dL 0.0-0.[address] [facility] Estimated glomerular filtrat ion rate (GFR) non- AmericanOrdered By: Car Hawkins on 05-16-2021 GFR/1.73 sq M.predicted among non-blacks MDRD (S/P/Bld) [Vol rate/Area] > 60 mL/Min [facility] Globulin Calc (S) [Mass/Vol] Ordered By: Car Hawkins on 05-16-2021 Globulin (S) [Mass/Vol] 2.8 g/dL [facility] No Panel InformationOrdered By: Car Hawkins on 05-16-2021 SARS Antigen (LFIA) [facility] Estimated GFR () > 60 mL/Min [facility] Comment on above: GFR estimated refere nce range: According to KDOQI guidelines, <60 ml/min/1.73m2 is sufficient to diagnose a patient with chronic kidney disease. Pharmacy Creatinine Clearance (Chem 78.[address] [facility] Protein [Mass/volume] in Ser um or PlasmaOrdered By: Car Hawkins on 05-16-2021 Protein [Mass/Vol] 6.7 g/dL 6.1-7.9 [facility] Serum or plasma C reactive p rotein measurement (mass/volume)Ordered By: Car Hawkins on 05-16-2021 CRP [Mass/Vol] 0.7 mg/dL 0.0-1.[address] [facility] Serum or plasma alanine schultz otransferase measurement without P-5'-P (enzymatic activiOrdered By: Car Hawkins on 05-16-2021 ALT No additional P-5'-P [Catalytic activity/Vol] 12 U/L 10-[address] [facility] Serum or plasma albumin/glob ulin mass ratioOrdered By: Car Hawkins on 05-16-2021 Albumin/Globulin [Mass ratio] 1.4 {ratio} [facility] Serum or plasma alkaline elizabeth sphatase measurement (enzymatic activity/volume)Ordered By: Car Hawkins on 05-16-2021 ALP [Catalytic activity/Vol] 48 U/L 32-[address] [facility] Serum or plasma aspartate am inotransferase measurement (enzymatic activity/volume)Ordered By: Car Hawkins on 05-16-2021 AST [Catalytic activity/Vol] 17 U/L 10-[address] [facility] Serum or plasma calcium jennifer urement (mass/volume)Ordered By: Car Hawkins on 05-16-2021 Calcium [Mass/Vol] 8.9 mg/dL 8.2-10.2 [facility] Serum or plasma chloride nahomi surement (moles/volume)Ordered By: Car Hawkins on 01-24-2022 Chloride [Moles/Vol] 105 mmol/L 95-114 [facility] Serum or plasma glucose jennifer urement (mass/volume)Ordered By: Car Hawkins on 05-16-2021 Glucose [Mass/Vol] 74 mg/dL 70-100 [facility] Comment on above: ADA recommended refe rence rangeRandom Glucose Reference Range is dependent on time and content of last meal. Glucose of more than 200 mg/dL in a nonstressed, ambulatory subject supports the diagnosis of Diabetes Mellitus. Serum or plasma non-glucuron idated bilirubin measurement (mass/volume)Ordered By: Car Hawkins on 05-16-2021 Bilirubin.indirect [Mass/Vol] TNP [facility] Comment on above: Test not performed Serum or plasma potassium me asurement (moles/volume)Ordered By: Car Hawkins on 05-16-2021 Potassium [Moles/Vol] 3.6 mmol/L 3.5-5.1 [facility] Serum or plasma sodium measu rement (moles/volume)Ordered By: Car Hawkins on 05-16-2021 Sodium [Moles/Vol] 137 mmol/L 136-146 [facility] Serum or plasma total biliru bin measurement (mass/volume)Ordered By: Car Hawkins on 05-16-2021 Bilirubin [Mass/Vol] 0.5 mg/dL 0.3-1.2 [facility] Serum or plasma total carbon dioxide measurement (moles/volume)Ordered By: Car Hawkins on 05-16-2021 CO2 [Moles/Vol] 22.6 mmol/L 22.0-30.0 [facility] Serum or plasma urea nitroge n measurement (mass/volume)Ordered By: Car Hawkins on 05-16-2021 Urea nitrogen [Mass/Vol] 10 mg/dL - [facility] Urine lactic acid measuremen tOrdered By: Car Hawkins on 05-16-2021 Lactate (U) [Moles/Vol] 1.0 mmol/L [facility] Basophils Auto (Bld) [#/Vol] Ordered By: Darrion De La Paz on 05-15-2021 Basophils (Bld) [#/Vol] 0.0 10*3/uL 0.0-0.[address] [facility] Basophils/100 WBC Auto (Bld) Ordered By: Darrion De La Paz on 05-15-2021 Basophils/100 WBC (Bld) 0.7 % [facility] Bilirubin Test strip Ql (U)O rdered By: Darrion De La Paz on 05-15-2021 Bilirubin Ql (U) Negative Negative [facility] Blood hemoglobin measurement (mass/volume)Ordered By: Darrion De La Paz on 05-15-2021 Hemoglobin (Bld) [Mass/Vol] 12.1 g/dL 11.8-15.[address] [facility] Blood leukocytes automated c ount (number/volume)Ordered By: Darrion De La Paz on 05-15-2021 WBC (Bld) [#/Vol] 2.6 10*3/uL 4.5-11.0 [facility] Body fluid albumin measureme nt (mass/volume)Ordered By: Darrion De La Paz on 05-15-2021 Albumin (Body fld) [Mass/Vol] 3.5 g/dL 3.2-5.[address] [facility] Color Auto (U)Ordered By: Chaitanya De La Paz on 05-15-2021 Color (U) Yellow Yellow [facility] Creatinine and Glomerular fi ltration rate.predicted panel (S/P/Bld)Ordered By: Darrion De La Paz on 05-15-2021 Creatinine [Mass/Vol] 0.66 mg/dL 0.44-1.03 [facility] Direct bilirubin measurement Ordered By: Darrion De La Paz on 05-15-2021 Bilirubin.direct [Mass/Vol] 0.1 mg/dL 0.0-0.[address] [facility] Eosinophils Auto (Bld) [#/Vo l]Ordered By: Darrion De La Paz on 05-15-2021 Eosinophils (Bld) [#/Vol] 0.0 10*3/uL 0.0-0.[address] [facility] Eosinophils/100 WBC Auto (Bl d)Ordered By: Darrion De La Paz on 05-15-2021 Eosinophils/100 WBC (Bld) 1.8 % [facility] Erythrocyte distribution wid th Auto (RBC) [Ratio]Ordered By: Darrion De La Paz on 05-15-2021 Erythrocyte distribution width (RBC) [Ratio] 14.7 % 11.9-15.[address] [facility] Estimated glomerular filtrat ion rate (GFR) non- AmericanOrdered By: Darrion De La Paz on 05-15-2021 GFR/1.73 sq M.predicted among non-blacks MDRD (S/P/Bld) [Vol rate/Area] > 60 mL/Min [facility] Globulin Calc (S) [Mass/Vol] Ordered By: Darrion De La Paz on 05-15-2021 Globulin (S) [Mass/Vol] 2.7 g/dL [facility] Hematocrit Auto (Bld) [Volum e fraction]Ordered By: Darrion De La Paz on 05-15-2021 Hematocrit (Bld) [Volume fraction] 35.6 % 34.0-46.[address] [facility] Ketones Auto test strip (U) [Mass/Vol]Ordered By: Darrion De La Paz on 05-15-2021 Ketones (U) [Mass/Vol] Negative Negative Fi [facility] Laboratory - Chemistry and C hemistry - challengeOrdered By: Darrion De La Paz on 05-15-2021 Lipase [Catalytic activity/Vol] 31.0 U/L 22-[address] [facility] Laboratory - CoagulationOrde red By: Darrion De La Paz on 05-15-2021 PT Coag (PPP) [Time] 14.8 s 9.0-12.9 [facility] Laboratory - Hematology and Cell countsOrdered By: Darrion De La Paz on 05-15-2021 Nucleated RBC/100 WBC (Bld) [Ratio] 0.3 % 0-0.[address] [facility] Lymphocytes Auto (Bld) [#/Vo l]Ordered By: Darrion De La Paz on 05-15-2021 Lymphocytes (Bld) [#/Vol] 1.0 10*3/uL 1.00-4.[address] [facility] Lymphocytes/100 WBC Auto (Bl d)Ordered By: Darrion De La Paz on 05-15-2021 Lymphocytes/100 WBC (Bld) 38.3 % [facility] MCH Auto (RBC) [Entitic mass ]Ordered By: Darrion De La Paz on 05-15-2021 MCH (RBC) [Entitic mass] 28.2 pg 24.7-34.[address] [facility] MCHC Auto (RBC) [Mass/Vol]Or dered By: Darrion De La Paz on 05-15-2021 MCHC (RBC) [Mass/Vol] 34.1 g/dL 32.0-35.0 [facility] MCV Auto (RBC) [Entitic vol] Ordered By: Darrion De La Paz on 05-15-2021 MCV (RBC) [Entitic vol] 82.7 fL 80-[address] [facility] Monocytes Auto (Bld) [#/Vol] Ordered By: Darrion De La Paz on 05-15-2021 Monocytes (Bld) [#/Vol] 0.3 10*3/uL 0.0-0.[address] [facility] Monocytes/100 WBC Auto (Bld) Ordered By: Darrion De La Paz on 05-15-2021 Monocytes/100 WBC (Bld) 10.2 % [facility] Neutrophils Auto (Bld) [#/Vo l]Ordered By: Darrion De La Paz on 05-15-2021 Neutrophils (Bld) [#/Vol] 1.3 10*3/uL 1.8-7.[address] [facility] Neutrophils/100 WBC Auto (Bl d)Ordered By: Darrion De La Paz on 05-15-2021 Neutrophils/100 WBC (Bld) 49.0 % [facility] Nitrite Test strip Ql (U)Ord ered By: Darrion De La Paz on 05-15-2021 Nitrite Ql (U) Negative Negative [facility] No Panel InformationOrdered By: Darrion De La Paz on 05-15-2021 Estimated GFR () > 60 mL/Min [facility] Comment on above: GFR estimated refere nce range: According to KDOQI guidelines, <60 ml/min/1.73m2 is sufficient to diagnose a patient with chronic kidney disease. Pharmacy Creatinine Clearance (Chem 96.[address] [facility] Platelet mean volume Auto (B ld) [Entitic vol]Ordered By: Darrion De La Paz on 05-15-2021 Platelet mean volume (Bld) [Entitic vol] 8.7 fL 6.3-10.[address] [facility] Platelet poor plasma interna tional normalized ratio (INR) by coagulation assay (relatOrdered By: Darrion De La Paz on 05-15-2021 INR Coag (PPP) [Relative time] 1.3 {INR} [facility] Comment on above: INR Therapeutic Rang e A) Pre- and Peroperative OAT started two weeks before surgery. NOT HIP SURGERY: 1.5 - 2.5 HIP SURGERY: 2 - 3B) Primary and secondary prevention of venous THROMBOSIS: 2 - 3C) Active venous thrombosis, pulmonary embolismand prevention of recurrent venous thrombosis: 2 - 3D) Prevention of arterial thromboembolismincluding patients with mechanical heart valves: 3 - 4.5 Platelets Auto (Bld) [#/Vol] Ordered By: Darrion De La Paz on 05-15-2021 Platelets (Bld) [#/Vol] 118 10*3/uL 150-[address] [facility] Protein Auto test strip (U) [Mass/Vol]Ordered By: Darrion De La Paz on 05-15-2021 Protein (U) [Mass/Vol] Negative Negative Fi [facility] Protein [Mass/volume] in Ser um or PlasmaOrdered By: Darrion De La Paz on 05-15-2021 Protein [Mass/Vol] 6.2 g/dL 6.1-7.9 [facility] RBC Auto (Bld) [#/Vol]Ordere d By: Darrion De La Paz on 05-15-2021 RBC (Bld) [#/Vol] 4.30 10*6/uL 3.60-5.00 [facility] Serum or plasma alanine schultz otransferase measurement without P-5'-P (enzymatic activiOrdered By: Darrion De La Paz on 05-15-2021 ALT No additional P-5'-P [Catalytic activity/Vol] 10 U/L 10-[address] [facility] Serum or plasma albumin/glob ulin mass ratioOrdered By: Darrion De La Paz on 05-15-2021 Albumin/Globulin [Mass ratio] 1.3 {ratio} [facility] Serum or plasma alkaline elizabeth sphatase measurement (enzymatic activity/volume)Ordered By: Darrion De La Paz on 05-15-2021 ALP [Catalytic activity/Vol] 46 U/L 32-[address] [facility] Serum or plasma aspartate am inotransferase measurement (enzymatic activity/volume)Ordered By: Darrion De La Paz on 05-15-2021 AST [Catalytic activity/Vol] 14 U/L 10-[address] [facility] Serum or plasma calcium jennifer urement (mass/volume)Ordered By: Darrion De La Paz on 05-15-2021 Calcium [Mass/Vol] 8.8 mg/dL 8.2-10.2 [facility] Serum or plasma chloride nahomi surement (moles/volume)Ordered By: Darrion De La Paz on 05-15-2021 Chloride [Moles/Vol] 107 mmol/L 95-114 [facility] Serum or plasma glucose jennifer urement (mass/volume)Ordered By: Darrion De La Paz on 05-15-2021 Glucose [Mass/Vol] 91 mg/dL 70-100 [facility] Comment on above: ADA recommended refe rence rangeRandom Glucose Reference Range is dependent on time and content of last meal. Glucose of more than 200 mg/dL in a nonstressed, ambulatory subject supports the diagnosis of Diabetes Mellitus. Serum or plasma non-glucuron idated bilirubin measurement (mass/volume)Ordered By: Darrion De La Paz on 05-15-2021 Bilirubin.indirect [Mass/Vol] 0.5 mg/dL [facility] Serum or plasma potassium me asurement (moles/volume)Ordered By: Darrion De La Paz on 05-15-2021 Potassium [Moles/Vol] 3.6 mmol/L 3.5-5.1 [facility] Serum or plasma sodium measu rement (moles/volume)Ordered By: Darrion De La Paz on 05-15-2021 Sodium [Moles/Vol] 138 mmol/L 136-146 [facility] Serum or plasma total biliru bin measurement (mass/volume)Ordered By: Darrion De La Paz on 05-15-2021 Bilirubin [Mass/Vol] 0.6 mg/dL 0.3-1.2 [facility] Serum or plasma total carbon dioxide measurement (moles/volume)Ordered By: Darrion De La Paz on 05-15-2021 CO2 [Moles/Vol] 23.5 mmol/L 22.0-30.0 [facility] Serum or plasma urea nitroge n measurement (mass/volume)Ordered By: Darrion De La Paz on 05-15-2021 Urea nitrogen [Mass/Vol] 9 mg/dL 01-[address] [facility] Specific gravity Auto test s trip (U) [Rel density]Ordered By: Darrion De La Paz on 05-15-2021 Specific gravity (U) [Rel density] > 1.050 1.001-1.[address] [facility] Urine clarity by refractomet ry automatedOrdered By: Darrion De La Paz on 05-15-2021 Clarity Refractometry automated (U) Clear Clear [facility] Urine glucose measurement by automated test strip (mass/volume)Ordered By: Darrion De La Paz on 05-15-2021 Glucose Auto test strip (U) [Mass/Vol] Normal mg/dL Normal [facility] Urine hemoglobin detection b y automated test stripOrdered By: Darrion De La Paz on 05-15-2021 Hemoglobin Auto test strip Ql (U) Negative Negative [facility] Urine leukocyte esterase det ection by automated test stripOrdered By: Darrion De La Paz on 05-15-2021 Leukocyte esterase Auto test strip Ql (U) Negative Negative [facility] Urobilinogen Auto test strip (U) [Mass/Vol]Ordered By: Darrion De La Paz on 05-15-2021 Urobilinogen (U) [Mass/Vol] Normal mg/dL Normal [facility] pH Auto test strip (U)Ordere d By: Darrion De La Paz on 05-15-2021 pH (U) 6.0 [pH] 5.0-9.[address] [facility] Activated partial thrombopla stin time (aPTT) in platelet poor plasma by coagulation aOrdered By: Parvez Lazo on 05-14-2021 aPTT Coag (PPP) [Time] 28.7 s 25.1-36.5 [facility] Automated erythrocytes count in urine sediment (number/area)Ordered By: Parvez Lazo on 05-14-2021 RBC Auto (Urine sed) [#/Area] 0-1 [HPF] [facility] Automated leukocytes count i n urine sediment (number/area)Ordered By: Parvez Lazo on 05-14-2021 WBC Auto (Urine sed) [#/Area] 5-9 [HPF] [facility] Basophils Auto (Bld) [#/Vol] Ordered By: Parvez Lazo on 05-14-2021 Basophils (Bld) [#/Vol] 0.0 10*3/uL 0.0-0.[address] [facility] Basophils/100 WBC Auto (Bld) Ordered By: Parvez aLzo on 05-14-2021 Basophils/100 WBC (Bld) 0.7 % [facility] Bilirubin Test strip Ql (U)O rdered By: Parvez Lazo on 05-14-2021 Bilirubin Ql (U) Negative Negative [facility] Blood hemoglobin measurement (mass/volume)Ordered By: Parvez Lazo on 05-14-2021 Hemoglobin (Bld) [Mass/Vol] 12.7 g/dL 11.8-15.[address] [facility] Blood leukocytes automated c ount (number/volume)Ordered By: Parvez Lazo on 05-14-2021 WBC (Bld) [#/Vol] 3.1 10*3/uL 4.5-11.0 [facility] Body fluid albumin measureme nt (mass/volume)Ordered By: Parvez Lazo on 05-14-2021 Albumin (Body fld) [Mass/Vol] 3.5 g/dL 3.2-5.[address] [facility] Color Auto (U)Ordered By: Reba Lazo on 05-14-2021 Color (U) Yellow Yellow [facility] Creatinine and Glomerular fi ltration rate.predicted panel (S/P/Bld)Ordered By: Parvez Lazo on 05-14-2021 Creatinine [Mass/Vol] 0.70 mg/dL 0.44-1.03 [facility] Direct bilirubin measurement Ordered By: Parvez Lazo on 05-14-2021 Bilirubin.direct [Mass/Vol] mg/dL 0.0-0.[address] [facility] Eosinophils Auto (Bld) [#/Vo l]Ordered By: Parvez Lazo on 05-14-2021 Eosinophils (Bld) [#/Vol] 0.1 10*3/uL 0.0-0.[address] [facility] Eosinophils/100 WBC Auto (Bl d)Ordered By: Parvez Lazo on 05-14-2021 Eosinophils/100 WBC (Bld) 2.1 % [facility] Erythrocyte distribution wid th Auto (RBC) [Ratio]Ordered By: Parvez Lazo on 05-14-2021 Erythrocyte distribution width (RBC) [Ratio] 14.7 % 11.9-15.[address] [facility] Estimated glomerular filtrat ion rate (GFR) non- AmericanOrdered By: Parvez Lazo on 05-14-2021 GFR/1.73 sq M.predicted among non-blacks MDRD (S/P/Bld) [Vol rate/Area] > 60 mL/Min [facility] Globulin Calc (S) [Mass/Vol] Ordered By: Parvez Lazo on 05-14-2021 Globulin (S) [Mass/Vol] 2.9 g/dL [facility] HCG ( test) IA.rapi d Ql (U)Ordered By: Parvez Lazo on 05-14-2021 HCG ( test) Ql (U) Negative [facility] Hematocrit Auto (Bld) [Volum e fraction]Ordered By: Parvez Lazo on 05-14-2021 Hematocrit (Bld) [Volume fraction] 37.1 % 34.0-46.[address] [facility] Ketones Auto test strip (U) [Mass/Vol]Ordered By: Parvez Lazo on 05-14-2021 Ketones (U) [Mass/Vol] Trace Negative [facility] Laboratory - Chemistry and C hemistry - challengeOrdered By: Parvez Lazo on 05-14-2021 Lipase [Catalytic activity/Vol] 46.0 U/L [facility] Laboratory - CoagulationOrde red By: Parvez Lazo on 05-14-2021 PT Coag (PPP) [Time] 13.2 s 9.0-12.9 [facility] Laboratory - Hematology and Cell countsOrdered By: Parvez Lazo on 05-14-2021 Nucleated RBC/100 WBC (Bld) [Ratio] 0.1 % 0-0.[address] [facility] Laboratory - UrinalysisOrder ed By: Parvez Lazo on 05-14-2021 Hyaline casts LM Ql (Urine sed) 0-8 [LPF] [facility] Lymphocytes Auto (Bld) [#/Vo l]Ordered By: Parvez Lazo on 05-14-2021 Lymphocytes (Bld) [#/Vol] 1.2 10*3/uL 1.00-4.[address] [facility] Lymphocytes/100 WBC Auto (Bl d)Ordered By: Parvez Lazo on 05-14-2021 Lymphocytes/100 WBC (Bld) 39.4 % [facility] MCH Auto (RBC) [Entitic mass ]Ordered By: Parvez Lazo on 05-14-2021 MCH (RBC) [Entitic mass] 28.2 pg 24.7-34.[address] [facility] MCHC Auto (RBC) [Mass/Vol]Or dered By: Parvez Lazo on 05-14-2021 MCHC (RBC) [Mass/Vol] 34.2 g/dL 32.0-35.0 [facility] MCV Auto (RBC) [Entitic vol] Ordered By: Parvez Lazo on 05-14-2021 MCV (RBC) [Entitic vol] 82.6 fL 80-[address] [facility] Monocytes Auto (Bld) [#/Vol] Ordered By: Parvez Lazo on 05-14-2021 Monocytes (Bld) [#/Vol] 0.2 10*3/uL 0.0-0.[address] [facility] Monocytes/100 WBC Auto (Bld) Ordered By: Parvez Lazo on 05-14-2021 Monocytes/100 WBC (Bld) 8.0 % [facility] Neutrophils Auto (Bld) [#/Vo l]Ordered By: Parvez Lazo on 05-14-2021 Neutrophils (Bld) [#/Vol] 1.5 10*3/uL 1.8-7.[address] [facility] Neutrophils/100 WBC Auto (Bl d)Ordered By: Parvez Lazo on 05-14-2021 Neutrophils/100 WBC (Bld) 49.8 % [facility] Nitrite Test strip Ql (U)Ord ered By: Parvez Lazo on 05-14-2021 Nitrite Ql (U) Negative Negative [facility] No Panel InformationOrdered By: Parvez Lazo on 05-14-2021 Estimated GFR () > 60 mL/Min [facility] Comment on above: GFR estimated refere nce range: According to KDOQI guidelines, <60 ml/min/1.73m2 is sufficient to diagnose a patient with chronic kidney disease. Pharmacy Creatinine Clearance (Chem 91.[address] [facility] Platelet mean volume Auto (B ld) [Entitic vol]Ordered By: Parvez Lazo on 05-14-2021 Platelet mean volume (Bld) [Entitic vol] 8.5 fL 6.3-10.[address] [facility] Platelet poor plasma interna tional normalized ratio (INR) by coagulation assay (relatOrdered By: Parvez Lazo on 05-14-2021 INR Coag (PPP) [Relative time] 1.2 {INR} [facility] Comment on above: INR Therapeutic Rang e A) Pre- and Peroperative OAT started two weeks before surgery. NOT HIP SURGERY: 1.5 - 2.5 HIP SURGERY: 2 - 3B) Primary and secondary prevention of venous THROMBOSIS: 2 - 3C) Active venous thrombosis, pulmonary embolismand prevention of recurrent venous thrombosis: 2 - 3D) Prevention of arterial thromboembolismincluding patients with mechanical heart valves: 3 - 4.5 Platelets Auto (Bld) [#/Vol] Ordered By: Parvez Lazo on 05-14-2021 Platelets (Bld) [#/Vol] 118 10*3/uL 150-[address] [facility] Protein Auto test strip (U) [Mass/Vol]Ordered By: Parvez Lazo on 05-14-2021 Protein (U) [Mass/Vol] Negative Negative Fi [facility] Protein [Mass/volume] in Ser um or PlasmaOrdered By: Parvez Lazo on 05-14-2021 Protein [Mass/Vol] 6.4 g/dL 6.1-7.9 [facility] RBC Auto (Bld) [#/Vol]Ordere d By: Parvez Lazo on 05-14-2021 RBC (Bld) [#/Vol] 4.50 10*6/uL 3.60-5.00 [facility] Serum or plasma C reactive p rotein measurement (mass/volume)Ordered By: Parvez Lazo on 05-14-2021 CRP [Mass/Vol] 0.9 mg/dL 0.0-1.[address] [facility] Serum or plasma alanine schultz otransferase measurement without P-5'-P (enzymatic activiOrdered By: Parvez Lazo on 05-14-2021 ALT No additional P-5'-P [Catalytic activity/Vol] 12 U/L 10-[address] [facility] Serum or plasma albumin/glob ulin mass ratioOrdered By: Parvez Lazo on 05-14-2021 Albumin/Globulin [Mass ratio] 1.2 {ratio} [facility] Serum or plasma alkaline elizabeth sphatase measurement (enzymatic activity/volume)Ordered By: Parvez Lazo on 05-14-2021 ALP [Catalytic activity/Vol] 48 U/L 32-[address] [facility] Serum or plasma aspartate am inotransferase measurement (enzymatic activity/volume)Ordered By: Parvez Lazo on 05-14-2021 AST [Catalytic activity/Vol] 18 U/L 10-[address] [facility] Serum or plasma calcium jennifer urement (mass/volume)Ordered By: Parvez Lazo on 05-14-2021 Calcium [Mass/Vol] 8.4 mg/dL 8.2-10.2 [facility] Serum or plasma chloride nahomi surement (moles/volume)Ordered By: Parvez Lazo on 05-14-2021 Chloride [Moles/Vol] 107 mmol/L 95-114 [facility] Serum or plasma glucose jennifer urement (mass/volume)Ordered By: Parvez Lazo on 05-14-2021 Glucose [Mass/Vol] 140 mg/dL 70-100 [facility] Comment on above: ADA recommended refe rence rangeRandom Glucose Reference Range is dependent on time and content of last meal. Glucose of more than 200 mg/dL in a nonstressed, ambulatory subject supports the diagnosis of Diabetes Mellitus. Serum or plasma non-glucuron idated bilirubin measurement (mass/volume)Ordered By: Parvez Lazo on 05-14-2021 Bilirubin.indirect [Mass/Vol] TNP [facility] Comment on above: Test not performed Serum or plasma potassium me asurement (moles/volume)Ordered By: Parvez Lazo on 05-14-2021 Potassium [Moles/Vol] 3.2 mmol/L 3.5-5.1 [facility] Serum or plasma sodium measu rement (moles/volume)Ordered By: Parvez Lazo on 05-14-2021 Sodium [Moles/Vol] 136 mmol/L 136-146 [facility] Serum or plasma total biliru bin measurement (mass/volume)Ordered By: Parvez Lazo on 05-14-2021 Bilirubin [Mass/Vol] 0.4 mg/dL 0.3-1.2 [facility] Serum or plasma total carbon dioxide measurement (moles/volume)Ordered By: Parvez Lazo on 05-14-2021 CO2 [Moles/Vol] 20.5 mmol/L 22.0-30.0 [facility] Serum or plasma urea nitroge n measurement (mass/volume)Ordered By: Parvez Lazo on 05-14-2021 Urea nitrogen [Mass/Vol] 11 mg/dL 01-[address] [facility] Specific gravity Auto test s trip (U) [Rel density]Ordered By: Parvez Lazo on 05-14-2021 Specific gravity (U) [Rel density] 1.026 1.001-1.[address] [facility] Squamous epithelial cells de tection in urine sediment by light microscopyOrdered By: Parvez Lazo on 05-14-2021 Epithelial cells.squamous LM Ql (Urine sed) 1-2 [HPF] [facility] Urine bacteria detection by automated methodOrdered By: Parvez Lazo on 05-14-2021 Bacteria Auto Ql (U) 2+ None Seen [facility] Urine clarity by refractomet ry automatedOrdered By: Parvez Lazo on 05-14-2021 Clarity Refractometry automated (U) Clear Clear [facility] Urine culture routineOrdered By: Parvez Lazo on 05-14-2021 Bacteria identified Cx Nom (U) Citrobacter koseri [facility] Urine glucose measurement by automated test strip (mass/volume)Ordered By: Parvez Lazo on 05-14-2021 Glucose Auto test strip (U) [Mass/Vol] Normal mg/dL Normal [facility] Urine hemoglobin detection b y automated test stripOrdered By: Parvez Lazo on 05-14-2021 Hemoglobin Auto test strip Ql (U) Negative Negative [facility] Urine lactic acid measuremen tOrdered By: Parvez Lazo on 05-14-2021 Lactate (U) [Moles/Vol] 1.3 mmol/L [facility] Urine leukocyte esterase det ection by automated test stripOrdered By: Parvez Lazo on 05-14-2021 Leukocyte esterase Auto test strip Ql (U) 1+ Negative [facility] Urobilinogen Auto test strip (U) [Mass/Vol]Ordered By: Parvez Lazo on 05-14-2021 Urobilinogen (U) [Mass/Vol] Normal mg/dL Normal [facility] pH Auto test strip (U)Ordere d By: Parvez Lazo on 05-14-2021 pH (U) 5.5 [pH] 5.0-9.[address] [facility] Basic Metabolic PanelOrdered By: Fidencio Carrera on 12-08-2020 Anion gap [Moles/Vol] 11 mmol/L 9 - 17 mmol/L [employer] Phone: Calcium [Mass/Vol] 9.7 mg/dL 8.6 - 10. 4 mg/dL Mine Phone: Chloride [Moles/Vol] 106 mmol/L 98 - 10 7 mmol/L Mine Phone: CO2 [Moles/Vol] 23 mmol/L 20 - 31 mmol/L Mine Phone: Creatinine [Mass/Vol] 0.61 mg/dL 0.50 - 0.90 mg/dL Mine Phone: GFR >60 >60 mL/min [employer] Phone: GFR Non- >60 >60 mL/min Mine Phone: GFR/1.73 sq M.predicted MDRD (S/P/Bld) [Vol rate/Area] Mine Phone: Comment on above: Average GFR for 30-3 9 years old: 107 mL/min/1.73sq m Chronic Kidney Disease: <60 mL/min/1.73sq m Kidney failure: <15 mL/min/1.73sq m eGFR calculated using average adult body mass. Additional eGFR calculator available at: http://www.[employer]/multiple_crcl_2012.htm GFR/1.73 sq M.predicted MDRD (S/P/Bld) [Vol rate/Area] NOT REPORTED [employer] Phone: Glucose [Mass/Vol] 85 mg/dL 70 - 99 mg/dL [employer] Phone: Potassium [Moles/Vol] 3.8 mmol/L 3.7 - 5.3 mmol/L [employer] Phone: Sodium [Moles/Vol] 140 mmol/L 135 - 144 mmol/L Mine Phone: Urea nitrogen (BldV) [Mass/Vol] 11 mg/dL 6 - 20 mg/dL [employer] Phone: Urea nitrogen/Creatinine (Bld) [Mass ratio] NOT REPORTED Mine Phone: Basic Metabolic Profon 12-08 (cont.) Normal [facility] Comment on above: Result Comment: Aver age GFR for 30-39 years old: 107 mL/min/1.73sq m Chronic Kidney Disease: <60 mL/min/1.73sq m Kidney failure: <15 mL/min/1.73sq m eGFR calculated using average adult body mass. Additional eGFR calculator available at: http://www.[employer]/multiple_crcl_2011.htm Performed By: #### C DP, LAC, HCG, BMP, LIP, LIVP #### [address] [address] [employer] Account Executive: Tawanda Cortez MD Anion gap [Moles/Vol] 11 mmol/L Normal 9-17 [facility] Comment on above: Performed By: #### C DP, LAC, HCG, BMP, LIP, LIVP #### [address] [address] [employer] Account Executive: Tawanda Cortez MD Calcium [Mass/Vol] 9.7 mg/dL Normal 8.6-10.4 [facility] Comment on above: Performed By: #### C DP, LAC, HCG, BMP, LIP, LIVP #### [place] [address] [employer] Account Executive: Tawanda Cortez MD Chloride [Moles/Vol] 106 mmol/L Normal 98-107 [facility] Comment on above: Performed By: #### C DP, LAC, HCG, BMP, LIP, LIVP #### [place] [address] [employer] Account Executive: Tawanda Cortez MD CO2 [Moles/Vol] 23 mmol/L Normal 20-31 [facility] Comment on above: Performed By: #### C DP, LAC, HCG, BMP, LIP, LIVP #### [place] [address] [employer] Account Executive: Tawanda Cortez MD Creatinine [Mass/Vol] 0.61 mg/dL Normal 0.50-0.90 [facility] Comment on above: Performed By: #### C DP, LAC, HCG, BMP, LIP, LIVP #### [place] [address] [employer] Account Executive: Tawanda Cortez MD GFR, Amer >60 Normal >60 [facility] Comment on above: Performed By: #### C DP, LAC, HCG, BMP, LIP, LIVP #### [place] [address] [employer] Account Executive: Tawanda Cortez MD GFR,non Amer >60 Normal >60 [facility] Comment on above: Performed By: #### C DP, LAC, HCG, BMP, LIP, LIVP #### [place] [id number] [employer] Executive: Tawanda Cortez MD Glucose [Mass/Vol] 85 mg/dL Normal 70-99 [facility] Comment on above: Performed By: #### C DP, LAC, HCG, BMP, LIP, LIVP #### [place] [address] [employer] Account Executive: Tawanda Cortez MD Potassium [Moles/Vol] 3.8 mmol/L Normal 3.7-5.3 [facility] Comment on above: Performed By: #### C DP, LAC, HCG, BMP, LIP, LIVP #### [place] [address] [employer] Account Executive: Tawanda Cortez MD Sodium [Moles/Vol] 140 mmol/L Normal 135-144 [facility] Comment on above: Performed By: #### C DP, LAC, HCG, BMP, LIP, LIVP #### [place] [address] [employer] Account Executive: Tawanda Cortez MD Urea nitrogen [Mass/Vol] 11 mg/dL Normal 6-20 [facility] Comment on above: Performed By: #### C DP, LAC, HCG, BMP, LIP, LIVP #### [place] [address] [employer] Executive: Tawanda Cortez MD BUN/CRE Ratio NOT REPORTED Normal 9-20 [facility] Comment on above: Performed By: #### C DP, LAC, HCG, BMP, LIP, LIVP #### [place] [address] [employer] Account Executive: Tawanda Cortez MD Staging: NOT REPORTED Normal [facility] Comment on above: Performed By: #### C DP, LAC, HCG, BMP, LIP, LIVP #### [facility] [address] [place], [place] [id number] [employer] Account Executive: Tawanda Cortez MD CBC Auto DifferentialOrdered By: Fidencio Carrera on 12-08-2020 [employer] Eos # 0.10 [employer] [facility] Work Phone: Absolute Immature Granulocyte NOT REPORTED [employer] Work Phone: Absolute Lymph # 1.70 [employer] [facility] Work Phone: Absolute Pitkin # 0.60 [employer] [facility] [employer] Work Phone: Basophils (Bld) [#/Vol] 0.00 10*3/uL [employer] Work Phone: Basophils/100 WBC (Bld) 1 % 0 - 2 % [employer] Work Phone: Differential Type NOT REPORTED [employer] Work Phone: Eosinophils/100 WBC (Bld) 2 % 1 - 4 % [employer] Work Phone: Hematocrit (Bld) [Volume fraction] 37.0 % 36 - 46 % [employer] Work Phone: Hemoglobin.gastrointes tinal spec 1 Ql (Stl) 12.1 g/dL 12.0 - 16.0 g/dL Mine Phone: Immature Granulocytes NOT REPORTED 0 % [facility] Work Phone: Lymphocytes/100 WBC (Bld) 26 % 24 - 44 % [employer] Work Phone: MCH (RBC) [Entitic mass] 27.4 pg 26 - 34 pg [employer] Work Phone: MCHC (RBC) [Mass/Vol] 32.8 g/dL 31 - 3 7 g/dL [employer] Work Phone: MCV (RBC) [Entitic vol] 83.6 fL 80 - 100 fL [employer] Work Phone: Monocytes/100 WBC (Bld) 9 % 2 - 11 % [employer] Work Phone: NRBC Automated NOT REPORTED per 100 WBC [employer] Phone: Platelet distribution width (Bld) [Ratio] 14.4 % 12.5 - 15.4 % Mine Phone: Platelet Estimate NOT REPORTED [employer] Work Phone: Platelet mean volume (Bld) [Entitic vol] 8.7 fL 6.0 - 12.0 fL [employer] Phone: Platelets (Bld) [#/Vol] 229 10*3/uL Mine Phone: RBC (Bld) [#/Vol] 4.43 10*6/uL 4.0 - 5.2 m/uL [employer] Phone: RBC (Bld) [#/Vol] NOT REPORTED Mine Phone: Segmented neutrophils/100 WBC (Bld) 62 % 36 - 66 % Mine Phone: Segs [employer] Work Phone: WBC (Bld) [#/Vol] 6.6 10*3/uL [employer] Work Phone: WBC (Bld) [#/Vol] NOT REPORTED [employer] Work Phone: [employer] Work Phone: CBC with Diffon 12-08-2020 Abs. Basophil 0.00 k/uL Normal 0.0-0.2 [facility] Comment on above: Performed By: #### C DP, LAC, HCG, BMP, LIP, LIVP #### [facility] [address] [place] [address] [employer] Account Executive: Tawanda Cortez MD Abs.Neutrophil (Seg) 4.10 k/uL Normal 1.8-7.7 [facility] Comment on above: Performed By: #### C DP, LAC, HCG, BMP, LIP, LIVP #### [place] [address] [employer] Executive: Tawanda Cortez MD Basophils/100 WBC (Bld) 1 % Normal 0-2 [facility] Comment on above: Performed By: #### C DP, LAC, HCG, BMP, LIP, LIVP #### [place] [address] [employer] Executive: Tawanda Cortez MD Eosinophils (Bld) [#/Vol] 0.10 10*3/uL Normal 0.0-0.4 [facility] Comment on above: Performed By: #### C DP, LAC, HCG, BMP, LIP, LIVP #### [place] [address] [employer] Executive: Tawanda Cortez MD Eosinophils/100 WBC (Bld) 2 % Normal 1-4 [facility] Comment on above: Performed By: #### C DP, LAC, HCG, BMP, LIP, LIVP #### [place] [address] [employer] Account Executive: Tawanda Cortez MD Erythrocyte distribution width (RBC) [Ratio] 14.4 % Normal 12.5-15.4 [facility] Comment on above: Performed By: #### C DP, LAC, HCG, BMP, LIP, LIVP #### [place] [address] [employer] Executive: Tawanda Cortez MD Hematocrit (Bld) [Volume fraction] 37.0 % Normal 36-46 [facility] Comment on above: Performed By: #### C DP, LAC, HCG, BMP, LIP, LIVP #### [place] [address] [employer] Account Executive: Tawanda Cortez MD Hemoglobin (Bld) [Mass/Vol] 12.1 g/dL Normal 12.0-16.0 [facility] Comment on above: Performed By: #### C DP, LAC, HCG, BMP, LIP, LIVP #### [place] [address] [employer] Account Executive: Tawanda Cortez MD Lymphocytes (Bld) [#/Vol] 1.70 10*3/uL Normal 1.0-4.8 [facility] Comment on above: Performed By: #### C DP, LAC, HCG, BMP, LIP, LIVP #### [place] [address] [employer] Account Executive: Tawanda Cortez MD Lymphocytes/100 WBC (Bld) 26 % Normal 24-44 [facility] Comment on above: Performed By: #### C DP, LAC, HCG, BMP, LIP, LIVP #### [place] [address] [employer] Account Executive: Tawanda Cortez MD MCH (RBC) [Entitic mass] 27.4 pg Normal 26-34 [facility] Comment on above: Performed By: #### C DP, LAC, HCG, BMP, LIP, LIVP #### [place] [address] [employer] Account Executive: Tawanda Cortez MD MCHC (RBC) [Mass/Vol] 32.8 g/dL Normal 31-37 [facility] Comment on above: Performed By: #### C DP, LAC, HCG, BMP, LIP, LIVP #### [place] [address] [employer] Account Executive: Tawanda Cortez MD MCV (RBC) [Entitic vol] 83.6 fL Normal 80-100 [facility] Comment on above: Performed By: #### C DP, LAC, HCG, BMP, LIP, LIVP #### [place] [address] [employer] Account Executive: Tawanda Cortez MD Monocytes (Bld) [#/Vol] 0.60 10*3/uL Normal 0.1-1.2 [facility] Comment on above: Performed By: #### C DP, LAC, HCG, BMP, LIP, LIVP #### [place] [address] [employer] Account Executive: Tawanda Cortez MD Monocytes/100 WBC (Bld) 9 % Normal 2-11 [facility] Comment on above: Performed By: #### C DP, LAC, HCG, BMP, LIP, LIVP #### [place] [address] [employer] Account Executive: Tawanda Cortez MD Neutrophil (Seg) 62 % Normal 36-66 [facility] Comment on above: Performed By: #### C DP, LAC, HCG, BMP, LIP, LIVP #### [place] [address] [employer] Account Executive: Tawanda Cortez MD Platelet mean volume (Bld) [Entitic vol] 8.7 fL Normal 6.0-12.0 [facility] Comment on above: Performed By: #### C DP, LAC, HCG, BMP, LIP, LIVP #### [place] [address] [employer] Account Executive: Tawanda Cortez MD Platelets (Bld) [#/Vol] 229 10*3/uL Normal 140-450 [facility] Comment on above: Performed By: #### C DP, LAC, HCG, BMP, LIP, LIVP #### [place] [address] [employer] Account Executive: Tawanda Cortez MD RBC (Bld) [#/Vol] 4.43 10*6/uL Normal 4.0-5.2 [facility] Comment on above: Performed By: #### C DP, LAC, HCG, BMP, LIP, LIVP #### [place] [address] [employer] Account Executive: Tawanda Cortez MD WBC (Bld) [#/Vol] 6.6 10*3/uL Normal 3.5-11.0 [facility] Comment on above: Performed By: #### C DP, LAC, HCG, BMP, LIP, LIVP #### [place] [address] [employer] Account Executive: Tawanda Cortez MD Abs.Imm.Granulocyte NOT REPORTED Normal 0.00-0.30 [facility] Comment on above: Performed By: #### C DP, LAC, HCG, BMP, LIP, LIVP #### [place] [address] [employer] Account Executive: Tawanda Cortez MD Auto Diff Performed NOT REPORTED Normal [facility] Comment on above: Performed By: #### C DP, LAC, HCG, BMP, LIP, LIVP #### [place] [address] [employer] Account Executive: Tawanda Cortez MD Immature Granulocyte NOT REPORTED Normal 0 [facility] Comment on above: Performed By: #### C DP, LAC, HCG, BMP, LIP, LIVP #### [place] [address] [employer] Account Executive: Tawanda Cortez MD NRBC Automated NOT REPORTED Normal [facility] Comment on above: Performed By: #### C DP, LAC, HCG, BMP, LIP, LIVP #### [place] [address] [employer] Account Executive: Tawanda Cortez MD Platelet Estimate NOT REPORTED Normal [facility] Comment on above: Performed By: #### C DP, LAC, HCG, BMP, LIP, LIVP #### [place] [address] [employer] Account Executive: Tawanda Cortez MD RBC morphology finding Nom (Bld) NOT REPORTED Normal [facility] Comment on above: Performed By: #### C DP, LAC, HCG, BMP, LIP, LIVP #### [place] [address] [employer] Account Executive: Tawanda Cortez MD WBC Morphology NOT REPORTED Normal [facility] Comment on above: Performed By: #### C DP, LAC, HCG, BMP, LIP, LIVP #### [place] [address] Corporate Account Executive: Tawanda Cortez MD CT ABDOMEN PELVIS W IV CONTR Katt 12-08-2020 CT ABDOMEN PELVIS W IV CONTRAST EXAMINATION: CT OF THE ABDOMEN AND PELVIS WITH CONTRAST 12/08/2020 4:58 pm TECHNIQUE: CT of the abdomen and pelvis was performed with the administration of intravenous contrast. Multiplanar reformatted images are provided for review. Dose modulation, iterative reconstruction, and/or weight based adjustment of the mA/kV was utilized to reduce the radiation dose to as low as reasonably achievable. COMPARISON: None. HISTORY: ORDERING SYSTEM PROVIDED HISTORY: epigastric abdominal pain TECHNOLOGIST PROVIDED HISTORY: epigastric abdominal pain Decision Support Exception - unselect if not a suspected or confirmed emergency medical condition->Emergency Medical Condition ([place]) Reason for Exam: epigastric abdominal pain Acuity: Acute Type of Exam: Initial Additional signs and symptoms: new onset nausea vomiting diarrhea FINDINGS: LOWER CHEST: Visualized portion of the lower chest demonstrates no acute abnormality. KIDNEYS AND URINARY TRACT: No renal calculi are identified. There is no evidence for hydronephrosis. The ureters are of normal course and caliber. ORGANS: Status post cholecystectomy. Multiple hypodense lesions are noted within the spleen the lesion have a Hounsfield unit density of fluid likely representing simple cysts. Mild splenomegaly with the spleen measuring 14 cm. Visualized portions of the liver, spleen, pancreas, and adrenal glands demonstrate no acute abnormality. GI/BOWEL: No bowel obstruction. No evidence of acute appendicitis. PELVIS: Moderate generalized enlargement of the uterus with no discrete lesion. The bladder and pelvic organs are unremarkable. PERITONEUM/RETROPERITONEU M: No free air or free fluid is noted. No pathologically enlarged lymphadenopathy. The vasculature do not demonstrate acute abnormality. BONES/SOFT TISSUES: The osseous structures demonstrate no acute abnormality. Mild levoscoliosis with tip at L4-L5. IMPRESSION: Status post cholecystectomy. Multiple hypodense lesions are noted within the spleen with density of simple fluid, likely representing simple cysts. Mild splenomegaly. Moderate homogeneous generalized enlargement of the uterus. Findings may be related to entities such as adenomyosis. Interpreted by: Pat Bartlett MD Signed by: Pat Bartlett MD 12/08/20 Final result Normal [facility] CT ABDOMEN PELVIS W IV CONTR AST Additional Contrast? NoneOrdered By: Fidencio Carrera on 12-08-2020 Status post cholecystectomy. Multiple hypodense lesions are noted within the spleen with density of simple fluid, likely representing simple cysts. Mild splenomegaly. Moderate homogeneous generalized enlargement of the uterus. Findings may be related to entities such as adenomyosis. [employer] Work Phone: EXAMINATION: CT OF T HE ABDOMEN AND PELVIS WITH CONTRAST 12/08/2020 4:58 pm TECHNIQUE: CT of the abdomen and pelvis was performed with the administration of intravenous contrast. Multiplanar reformatted images are provided for review. Dose modulation, iterative reconstruction, and/or weight based adjustment of the mA/kV was utilized to reduce the radiation dose to as low as reasonably achievable. COMPARISON: None. HISTORY: ORDERING SYSTEM PROVIDED HISTORY: epigastric abdominal pain TECHNOLOGIST PROVIDED HISTORY: epigastric abdominal pain Decision Support Exception - unselect if not a suspected or confirmed emergency medical condition->Emergency Medical Condition ([place]) Reason for Exam: epigastric abdominal pain Acuity: Acute Type of Exam: Initial Additional signs and symptoms: new onset nausea vomiting diarrhea FINDINGS: LOWER CHEST: Visualized portion of the lower chest demonstrates no acute abnormality. KIDNEYS AND URINARY TRACT: No renal calculi are identified. There is no evidence for hydronephrosis. The ureters are of normal course and caliber. ORGANS: Status post cholecystectomy. Multiple hypodense lesions are noted within the spleen the lesion have a Hounsfield unit density of fluid likely representing simple cysts. Mild splenomegaly with the spleen measuring 14 cm. Visualized portions of the liver, spleen, pancreas, and adrenal glands demonstrate no acute abnormality. GI/BOWEL: No bowel obstruction. No evidence of acute appendicitis. PELVIS: Moderate generalized enlargement of the uterus with no discrete lesion. The bladder and pelvic organs are unremarkable. PERITONEUM/RETROPERITONEU M: No free air or free fluid is noted. No pathologically enlarged lymphadenopathy. The vasculature do not demonstrate acute abnormality. BONES/SOFT TISSUES: The osseous structures demonstrate no acute abnormality. Mild levoscoliosis with tip at L4-L5. [employer] Work Phone: Jayant, pn Incoming Radiant Results From [employer] - 12/08/2020 6:11 PM EDT EXAMINATION: CT OF THE ABDOMEN AND PELVIS WITH CONTRAST 12/08/2020 4:58 pm TECHNIQUE: CT of the abdomen and pelvis was performed with the administration of intravenous contrast. Multiplanar reformatted images are provided for review. Dose modulation, iterative reconstruction, and/or weight based adjustment of the mA/kV was utilized to reduce the radiation dose to as low as reasonably achievable. COMPARISON: None. HISTORY: ORDERING SYSTEM PROVIDED HISTORY: epigastric abdominal pain TECHNOLOGIST PROVIDED HISTORY: epigastric abdominal pain Decision Support Exception - unselect if not a suspected or confirmed emergency medical condition->Emergency Medical Condition ([place]) Reason for Exam: epigastric abdominal pain Acuity: Acute Type of Exam: Initial Additional signs and symptoms: new onset nausea vomiting diarrhea FINDINGS: LOWER CHEST: Visualized portion of the lower chest demonstrates no acute abnormality. KIDNEYS AND URINARY TRACT: No renal calculi are identified. There is no evidence for hydronephrosis. The ureters are of normal course and caliber. ORGANS: Status post cholecystectomy. Multiple hypodense lesions are noted within the spleen the lesion have a Hounsfield unit density of fluid likely representing simple cysts. Mild splenomegaly with the spleen measuring 14 cm. Visualized portions of the liver, spleen, pancreas, and adrenal glands demonstrate no acute abnormality. GI/BOWEL: No bowel obstruction. No evidence of acute appendicitis. PELVIS: Moderate generalized enlargement of the uterus with no discrete lesion. The bladder and pelvic organs are unremarkable. PERITONEUM/RETROPERITONEU M: No free air or free fluid is noted. No pathologically enlarged lymphadenopathy. The vasculature do not demonstrate acute abnormality. BONES/SOFT TISSUES: The osseous structures demonstrate no acute abnormality. Mild levoscoliosis with tip at L4-L5. IMPRESSION: Status post cholecystectomy. Multiple hypodense lesions are noted within the spleen with density of simple fluid, likely representing simple cysts. Mild splenomegaly. Moderate homogeneous generalized enlargement of the uterus. Findings may be related to entities such as adenomyosis. Mine Phone: Mine Phone: HCG Qualitative, SerumOrdere d By: Fidencio Carrera on 12-08-2020 hCG Qual Negative NEGATIVE Mine Phone: Comment on above: Specimens with hCG l evels near the threshold of the test (25 mIU/mL) may give a negative or indeterminate result. In such cases, another test should be performed with a new specimen in 48-72 hours. If early is suspected clinically in this setting, correlation with quantitative serum b-hCG level is suggested. [employer] has confirmed the use of plasma for this test. This has not been cleared or approved by the U.[place]. Food and Drug Administration. The FDA has determined that such clearance is not necessary. Mine Phone: HCG Screen, Bloodon 12-09-19 21 HCG Screen, Blood Negative Normal NEG [facility] Comment on above: Result Comment: Spec imens with hCG levels near the threshold of the test (25 mIU/mL) may give a negative or indeterminate result. In such cases, another test should be performed with a new specimen in 48-72 hours. If early is suspected clinically in this setting, correlation with quantitative serum b-hCG level is suggested. [employer] has confirmed the use of plasma for this test. This has not been cleared or approved by the U.S. Food and Drug Administration. The FDA has determined that such clearance is not necessary. Performed By: #### C DP, LAC, HCG, BMP, LIP, LIVP #### [address] [address] [employer] Account Executive: Tawanda Cortez MD Hepatic Function PanelOrdere d By: Fidencio Carrera on 12-08-2020 Albumin [Mass/Vol] 4.2 g/dL 3.5 - 5.2 g/dL Mine Phone: Albumin/Globulin [Mass ratio] 1.5 {ratio} Mine Phone: ALP (Bld) [Catalytic activity/Vol] 66 U/L 35 - 104 U/L Mine Phone: ALT [Catalytic activity/Vol] 7 U/L 5 - 33 U/L Mine Phone: AST [Catalytic activity/Vol] 13 U/L <32 Mine Phone: Bilirubin [Mass/Vol] 0.27 mg/dL Low 0.3 - 1 .2 mg/dL Mine Phone: Bilirubin, Indirect CANNOT BE CALCULATED 0.00 - 1.00 mg/dL Mine Phone: Bilirubin.indirect [Mass/Vol] mg/dL <0.31 mg/dL Mine Phone: Free PSA/Total PSA [Mass fraction] 7.0 g/dL 6.4 - 8.3 g/dL Mine Phone: Globulin NOT REPORTED 1.5 - 3.8 g/dL Mine Phone: Interpretation and review of laboratory results Abnormal Mine Phone: Lactic Acidon 12-08-2020 Lactate [Moles/Vol] 1.1 mmol/L Normal 0.5-2.2 [facility] Comment on above: Performed By: #### C DP, LAC, HCG, BMP, LIP, LIVP #### [address] [address] [employer] Account Executive: Tawanda Cortez MD Lactic AcidOrdered By: Ferny Carrera on 12-08-2020 Lactate [Moles/Vol] 1.1 mmol/L 0.5 - 2. 2 mmol/L Mine Phone: Mine Phone: Lipaseon 12-08-2020 Lipase [Catalytic activity/Vol] 34 U/L Normal 13-60 [facility] Comment on above: Performed By: #### C DP, LAC, HCG, BMP, LIP, LIVP #### [address] [address] [employer] Account Executive: Tawanda Cortez MD LipaseOrdered By: Keyur Carrera on 12-08-2020 Lipase [Catalytic activity/Vol] 34 U/L 13 - 60 U/L Mine Phone: Liver Profileon 12-08-2020 Albumin [Mass/Vol] 4.2 g/dL Normal 3.5-5.2 [facility] Comment on above: Performed By: #### C DP, LAC, HCG, BMP, LIP, LIVP #### [address] [address] [employer] Account Executive: Tawanda Cortez MD Albumin/Glob Ratio 1.5 Normal 1.0-2.5 [facility] Comment on above: Performed By: #### C DP, LAC, HCG, BMP, LIP, LIVP #### [place] [phone] [employer] Account Executive: Tawanda Cortez MD Alkaline Phos 66 U/L Normal 35-104 [facility] Comment on above: Performed By: #### C DP, LAC, HCG, BMP, LIP, LIVP #### [place] [address] [employer] Account Executive: Tawanda Cortez MD ALT [Catalytic activity/Vol] 7 U/L Normal 5-33 [facility] Comment on above: Performed By: #### C DP, LAC, HCG, BMP, LIP, LIVP #### [place] [address] [employer] Account Executive: Tawanda Cortez MD AST [Catalytic activity/Vol] 13 U/L Normal <32 [facility] Comment on above: Performed By: #### C DP, LAC, HCG, BMP, LIP, LIVP #### [place] [address] [employer] Account Executive: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 Diallo Facility:[facility] Start: 08-09-2021 End: 08-09-2021 Emergency department patient visit [facility] Start: 07-17-2021 End: 07-17-2021 Emergency department patient visit Angelito Barrios Facility:[facility] Start: 07-17-2021 End: 07-17-2021 Emergency department patient visit [facility] Start: 07-17-2021 End: 07-17-2021 Emergency department patient visit Curt Ferrer Facility:[facility] Start: 07-17-2021 End: 07-17-2021 Emergency department patient visit [facility] Start: 06-23-2021 End: 06-23-[address] DOCTOR FORD Facility:[facility] Start: 05-16-2021 End: 05-18-2021 Evaluation and management of inpatient [facility] [place] [facility] Start: 05-15-2021 End: 05-15-2021 Emergency department patient visit [facility] Start: 05-14-2021 End: 05-15-2021 Emergency department patient visit [facility] Start: 12-08-2020 End: 12-08-2020 ambulatory FIDENCIO CARRERA [facility] Start: 12-08-2020 End: 12-08-2020 Emergency department patient visit Fidencio Carrera MD [facility] Start: 05-23-2018 End: 06-09-2018 Patient encounter procedure KATERINA BROWN Facility:[facility] Start: 03-18-2018 Patient encounter procedure Tee Enrrique Maikel Facility:[id number] Procedures Date Procedure Procedure Detail Performing Clinician Start: 12-27-2023 Follow-up visit Follow-up VIKKI MORGAN Start: 05-16-2023 Glucose blood reagen t strip Samantha Landon MD Start: 05-16-2023 Urinalysis microscop ic only Nubia Antony DO Work Phone: Start: 05-16-2023 Urnls dip stick/tabl et rgnt auto w/o microscopy Nubia Antony DO Work Phone: Start: 05-16-2023 Ct abdomen & pelvis w/o contrast material Nubia Antony DO Work Phone: Start: 05-16-2023 End: 05-16-2023 Comprehensive metabolic panel Nubia Antony DO Work Phone: Start: 05-03-2022 Ct abdomen & pelvis w/contrast material Avelino Green MD Work Phone: Start: 05-03-2022 Urinalysis microscop ic only Avelino Green MD Work Phone: Start: 05-03-2022 Urnls dip stick/tabl et rgnt auto w/o microscopy Avelino Green MD Work Phone: Start: 05-03-2022 Comprehensive metabo lic panel Avelino Green MD Work Phone: Start: 10-09-2021 Urine culture MD Masha Diallo Work Phone: Start: 10-08-2021 Computed tomography of abdomen and pelvis with contrast MD Enrrique Diallo Work Phone: Start: 09-29-2021 End: 09-29-2021 Mycology culture PHYSICIAN NO FAMILY Start: 09-29-2021 End: 09-29-2021 Trichomonas vaginalis detection PHYSICIAN NO FAMILY Start: 09-29-2021 Urine culture PHYSICIAN NO FAMILY Start: 09-13-2021 Ct abdomen & pelvis w/contrast material Savi Grayson DO Work Phone: Start: 09-13-2021 End: 09-13-2021 Ct thoracic spine w/o contrast material Savi Grayson DO Work Phone: Start: 09-12-2021 Comprehensive metabo lic panel Savi Grayson DO Work Phone: Start: 09-12-2021 Urinalysis microscop ic only Savi Grayson DO Work Phone: Start: 09-12-2021 Urine test visual color cmprsn meths Savi Grayson DO Work Phone: Start: 08-31-2021 Ct lumbar spine w/o contrast material Maxim Carrizales DO Work Phone: Start: 08-09-2021 Duplex scan of lower limb veins PHYSICIAN NO FAMILY Start: 08-09-2021 Plain chest X-ray Start: 07-17-2021 Urine culture Start: 07-17-2021 Computed tomography of abdomen and pelvis with contrast Start: 05-17-2021 Laparoscopic appendectomy Start: 05-16-2021 SARS Antigen (LFIA) Start: 05-15-2021 Computed tomography angiography of abdominal and/or pelvic blood vessel Start: 05-15-2021 US pelvic complete Start: 05-15-2021 Computed tomography of abdomen and pelvis with contrast Start: 05-15-2021 Transvaginal echography Start: 05-14-2021 Urine culture Start: 12-15-2020 Adult depression scr eening assessment Tash Raines [employer] Work Phone: Start: 12-08-2020 Urnls dip stick/tabl et rgnt auto w/o microscopy Fidencio Carrera MD Start: 12-08-2020 Ct abdomen & pelvis w/contrast material Fidencio Carrera MD Start: 12-08-2020 Basic metabolic pane l calcium total Fidecnio Carrera MD Start: 12-08-2020 Hepatic function panel Fidencio Carrera MD Start: 12-08-2020 Lactate [Moles/volum e] in Serum or Plasma Fidencio Carrera MD Plan of Treatment Date Care Activity Detail Author Start: 04-30-2025 Tobacco Screening Tobacco Screening [facility] Start: 04-29-2025 Adult BMI Screening Adult BMI Screen ing [facility] Start: 04-29-2025 Tobacco Screening Tobacco Screening [facility] Start: 12-26-2024 Adult BMI Screening Adult BMI Screen ing [facility] Start: 12-26-2024 Tobacco Screening Tobacco Screening [facility] Start: 09-30-2024 Adult BMI Screening Adult BMI Screen ing [facility] Start: 09-30-2024 Tobacco Screening Tobacco Screening [facility] Start: 08-25-2024 Patient referral [facility] Work Phone: Start: 06-26-2024 End: 06-26-2024 Patient encounter procedure 06/26/2024 11:00 AM EST Office Visit [facility]Mark Chaparro MD [address] [place] [phone] Jnae Guevara APRN-STEPHANIE [address] [place] [address] [facility]/Mark hCaparro MD Start: 02-13-2024 Tobacco Screening Tobacco Screening [facility] Start: 01-20-2024 Adult BMI Screening Adult BMI Screen ing [facility] Start: 01-17-2024 End: 01-17-2024 Patient encounter procedure [facility] Start: 01-15-2024 End: 01-15-2024 Patient encounter procedure 01/15/2024 2:45 PM EDT Office Visit [facility] [address] [facility] [phone] Dennise Sandoval DO [address] [place], [place] [id number] [facility] Start: 01-10-2024 End: 06-25-2025 CTA Abdominal vessels and Pelvis vessels W contrast IV CT angiogram abdomen and pelvis Imaging Routine Splenic artery aneurysm ([facility]) Expected: 01/10/2024 (Approximate), Expires: 06/25/2025 [facility] Comment on above: Expected: 01/10/2024 (Approximate), Expires: 06/25/2025 Start: 01-03-2024 End: 06-25-2025 Creatinine includes GFR, serum Creatinine includes GFR, serum Lab Routine Splenic artery aneurysm ([facility]) Expected: 01/03/2024 (Approximate), Expires: 06/25/2025 [facility] Work Phone: Comment on above: Expected: 01/03/2024 (Approximate), Expires: 06/25/2025 Start: 12-27-2023 End: 12-27-2023 Patient encounter procedure 12/27/2023 2:10 PM EDT Office Visit [facility] [address] [place] [address] [place] [address] Vikki Morgan MD [address] [place] [address] [facility] Start: 12-23-2023 Influenza vaccination Influenza Vacc ine [facility] Start: 12-12-2023 DTaP,Tdap and Td Vaccines (3 - Td or Tdap) DTaP,Tdap and Td Vaccines (3 - Td or Tdap) [facility] Start: 12-12-2023 DTaP/Tdap/Td vaccine (3 - Td or Tdap) DTaP/Tdap/Td vaccine (3 - Td or Tdap) [facility] Start: 10-31-2023 End: 10-31-2023 Patient encounter procedure 10/31/2023 3:10 PM EDT Office Visit [facility] [address] [place] [address] Vikki Morgan MD [address] [place] [address] [facility] Start: 04-30-2023 End: 04-30-2023 Telemedicine consultation with patient 04/30/2023 1:20 PM EST Telemedicine [facility] [address] [place] [phone] Ivory Bear, [employer] [address], [place] [address] [facility] Start: 12-22-2022 Influenza vaccination Influenza Vacc ine [facility] Start: 11-21-2022 Influenza vaccination Flu vaccine (# 1) [facility] Start: 01-11-2022 Plain X-ray of left shoulder XR shoulder LT min 2V* [facility] Start: 01-11-2022 XR Shoulder - left Views [facility] Work Phone: Start: 12-22-2021 Influenza vaccination Flu vacc ine (Season Ended) [facility] Start: 12-15-2021 Depression Screening Depression Scre ening [facility] Start: 11-21-2021 Influenza vaccination Flu vaccine (# 1) [facility] Start: 10-09-2021 Bacteria identified in Urine by Culture Urine Culture [facility] Start: 10-08-2021 Computed tomography of abdomen and pelvis with contrast CT abdomen pelvis w [facility] Start: 09-29-2021 Bacteria identified in Urine by Culture Urine Culture [facility] Start: 08-09-2021 Duplex scan of lower limb veins US venous duplex LE LT [facility] Start: 07-17-2021 Bacteria identified in Urine by Culture Urine Culture [facility] Start: 07-17-2021 Computed tomography of abdomen and pelvis with contrast CT abdomen pelvis w [facility] Start: 12-22-2020 Influenza vaccination Flu vaccine (# 1) [facility] [employer] Work Phone: Start: 1997 COVID-19 Vaccine (1) COVID-19 Vaccin e (1) [facility] Work Phone: Start: 1997 Depression Screen Depression Screen [facility] [employer] Start: 1997 Depression Screening Depression Scre [facility] Start: 1990 COVID-19 Vaccine (1) COVID-19 Vaccin e (1) [employer] Start: 1986 Varicella vaccine (1 of 2 - 2-dose childhood series) Varicella vaccine (1 of 2 - 2-dose childhood series) [facility] Start: 06-08-1986 COVID-19 Vaccine (#1) COVID-19 Vacci ne (#1) [facility] Start: 1985 Hepatitis B vaccine (1 of 3 - 3-dose series) Hepatitis B vaccine (1 of 3 - 3-dose series) [facility] Bacteria identified in Urine by Culture [facility] Work Phone: End: 12-08-2020 COVID-19 [facility] Work Phone: Comment on above: One Time for 1 Occur rences starting 12/08/2020 until 12/08/2020 End: 12-08-2020 COVID-19, Rapid COVID-19, Rapid Microbiology Routine Once for 1 Occurrences starting 12/08/2020 until 12/08/2020 [facility] [employer] Phone: Comment on above: Once for 1 Occurrenc es starting 12/08/2020 until 12/08/2020 COVID-19, Rapid COVID-19, Rapid Microbiology Routine 12/08/2020 8:36 PM EDT [facility] Work Phone: CT Abdomen and Pelvi s WO contrast CT ABDOMEN PELVIS WO CONTRAST Additional Contrast? None Imaging STAT 05/16/2023 8:59 PM EST [facility] [employer] [facility] End: 09-13-2021 Culture, Urine Culture, Urine Microbiology Routine Once for 1 Occurrences starting 09/13/2021 until 09/13/2021 [employer] Work Phone: Comment on above: Once for 1 Occurrenc es starting 09/13/2021 until 09/13/2021 Culture, Urine Culture, Urine Microbiology Routine 09/13/2021 12:16 AM EDT [employer] Work Phone: End: 05-03-2022 Culture, Urine [employer] Comment on above: Once for 1 Occurrenc es starting 05/03/2022 until 05/03/2022 Patient Education [facility] Work Phone: Patient referral [facility] Work Phone: End: 09-13-2021 Urine Drug Screen [employer] Work Phone: Comment on above: One Time for 1 Occur rences starting 09/13/2021 until 09/13/2021 XR Abdomen Views [facility] Immunizations Immunization Date Immunization Notes Care Provider Fa johnny 12-11-2013 tetanus toxoid, reduced diphtheria toxoid, and acellular pertussis vaccine, adsorbed Tash Raines [employer] [facility] Phone[facility] [employer] 04-20-2012 influenza virus vaccine, unspecified formulation Fidencio Carrera MD [employer] [facility] Work Phone: 04-20-2012 influenza, seasonal, injectable Tash Raines [employer] Work [facility] [employer] 04-20-2012 tetanus toxoid, reduced diphtheria toxoid, and acellular pertussis vaccine, adsorbed Fidencio Carrera MD [facility] Payers Date Payer Category Payer Unknown 2021 Self-pay [id number] 2020 Private Health Insurance [id number] 2002 Medicaid [place] [employer] [place] [employer] [id number] 2002-Present [phone] [address] [place] [address] [id number] 2002 Medicaid [place] [id number] 1985 Unknown [id number] 2.16.840.1.429332.3.579.2 .356 1985 Unknown [id number] 2.16.840.1.973395.3.579.2 .647 1985 Unknown [id number] 2.16.840.1.211957.3.579.2 .175 1985 Unknown [id number] 2.16.840.1.346160.3.579.2 .175 1985 Unknown [id number] 2.16.840.1.466889.3.579.2 .593 1985 Unknown [id number] 2.16.840.1.312831.3.579.2 .593 1985 Unknown [id number] 2.16.840.1.216525.3.579.2 .593 1985 Unknown [id number] 2.16.840.1.035020.3.579.2 .176 1985 Unknown [id number] 2.16.840.1.360378.3.579.2 .1286 1985 Unknown [id number] 2.16.840.1.101981.3.579.2 .128 1985 Unknown [id number] 2.16.840.1.157080.3.579.2 .1285 1985 Unknown [id number] 2.16.840.1.251486.3.579.2 .1285 1985 Unknown [id number] 2.16.840.1.113623.3.579.2 .1285 1985 Unknown [id number] 2.16.840.1.792061.3.579.2 .1285 1985 Unknown [id number] 2..840.1.362693.3.579.2 .1285 1985 Unknown [id number] 2.16.840.1.287023.3.579.2 .1285 1985 Unknown [id number] 2..840.1.476724.3.579.2 .1285 1985 Unknown [id number] 2.16.840.1.653209.3.579.2 .1285 1985 Unknown [id number] 2..840.1.232342.3.579.2 .1285 1985 Unknown [id number] 2.16.840.1.176440.3.579.2 .196 1959 Unknown [id number] Unknown [facility] [id number] Unknown [id number] 2.16.840.1.285253.3.579.2 .531 Unknown [id number] 2.16.840.1.755312.3.579.2 .531 Unknown [id number] 2.16.840.1.629168.3.579.2 .531 Unknown [id number] 2.16.840.1.228518.3.579.2 .531 Unknown [id number] 2.16.840.1.123472.3.579.2 .531 Unknown [id number] 2.16.840.1.991454.3.579.2 .531 Unknown [id number] 2.16.840.1.563074.3.579.2 .531 Worker's Compensation [employer] [facility] [id number] Social History Date Type Detail Facility Start: 12-08-2020 End: 08-25-2024 Tobacco smoking status NHIS Never smoker [facility] Start: 12-08-2020 End: 03-21-2022 Tobacco use and exposure Never used [employer] Start: 12-08-2020 End: 04-30-2024 Alcohol intake Current non-drinker of alcohol (finding) [employer] Work Phone: Start: 1985 Sex Assigned At Not on file [email or web address] Work Phone: Start: 08-21-2021 End: 05-03-2022 Exposure to SARS-CoV-2 (event) Not sure [employer] Start: 1985 Sex Assigned At Female F [facility] Start: 05-03-2022 History SDOH Alcohol Frequency 1 [employer] Work Phone: Start: 05-03-2022 History SDOH Alcohol Std Drinks 0 [employer] Work Phone: Start: 06-02-2020 End: 05-16-2023 History of Social function [employer] Start: 06-02-2020 End: 05-16-2023 Alcohol Use Disorder Identification Test - Consumption [AUDIT-C] [employer] How often to you hav e a drink containing alcohol? Never [employer] How many standard dr inks containing alcohol do you have on a typical day? Patient does not drink [employer] Start: 11-26-2014 End: 08-25-2024 Sex Female (finding) [facility] NEGATED: Highlighted row [facility] Medical Equipment Procedure Code Equipment Code Equipment Origin al Text Equipment Identifier Dates Mesh Brd Ventrio Oval 3x8 Rpl [id number] - Sn/A - [id number] Start: 05-01-2017 Goals Date Patient Goal Desired Activity /State Personal health goal Comment on above: Formatting of this n ote might be different from the original. Evaluation of progress towards goal: Safe transition from hospital to home. Functional Status Date Assessment Result Facility 05-18-2021 Functional status Patient at Baseline [facility] Work Phone: Mental Status Date Assessment Result Facility 05-18-2021 Cognitive function Cognitive Sta tus Patient at Baseline [facility] Work Phone: Clinical Notes 05-03-2022 to 08-25-2024 Telephone Encounter - Apple Huff - 06/17/2024 6:53 PM ESTTelephone Encounter - Apple Huff - 06/17/2024 6:53 PM ESTTelephone Encounter - Apple Huff - 06/17/2024 6:53 PM EST Note Date & Type Note Facility 08-25-2024 Hospital Discharg e instructions Ambulatory OrdersReferral to Hematology Time Frame: 08/25/24, Location: None SelectedReferral to Psychiatry Time Frame: 08/25/24, Location: None SelectedReferral to Vascular Surgery Time Frame: 08/25/24, Location: None Selected [place] Hospital Work Phone: 06-17-2024 Miscellaneous Notes Contract: Angela Benito is currently in the ER and has severe pain in back. She has seen Dr. Morgan several times for an aneurysm. The nurse is telling her there is no record of an aneurysm and it is a cyst. Numeric page sent to Resident Resident called back and said to call the MD he can't take that call. Called Prerna Espinal MD and transferred him to Benito. documented in this encounter [facility] 06-17-2024 Telephone encounter Note Contract: Angela Oliver is currently in the ER and has severe pain in back. She has seen Dr. Morgan several times for an aneurysm. The nurse is telling her there is no record of an aneurysm and it is a cyst. [facility] 06-17-2024 Telephone encounter Note Numeric page sent to Resident [facility] 06-17-2024 Telephone encounter Note Resident called back and said to call the MD he can't take that call. [facility] 06-17-2024 Telephone encounter Note Called Prerna Espinal MD and transferred him to Benito. [facility] 04-30-2024 History of Presen t illness Narrative Video Visit via Real-time Synchronous Audiovisual Provider Location: [facility] [address] [address] Patient Location: Patient's home Video Visit Consent Statement: I discussed risks, benefits, and alternatives of a real-time synchronous audiovisual consultation with the patient (and any accompanying persons) including the risks that the patient's personal health details and medical records will be discussed over real-time, synchronous, interactive video/audio/telecommunication technology, the visit will not be recorded without the express consent of both the provider and the patient, and that there are some limitations compared to [id number] evaluations. The patient consented to the presence of additional virtual and/or in-person participants. We elected to proceed. The patient's call-back number if disconnected is [phone] Subjective: Patient ID: Benito Nagel is a 38 y.o. female. Chief Complaint Patient presents with Knee Pain Travel Screening 04/30/2024 10:18 AM EST - Filed by Patient Do you have any of the following new or worsening symptoms? Joint pain; Muscle pain Have you recently been in contact with someone who was sick? No / Unsure Telehealth Unverified Proxy Video Visit-Muscular Skeletal Pain 04/30/2024 10:20 AM EST - Filed by Patient Where are you having the pain? How bad is the pain? The pain is severe Did you have an injury that caused the pain? Yes, the pain started after an injury Describe the circumstances of your injury. I slipped and fell on black ice Was your injury related to your job? No How long has the pain been present? More than 2 days but less than 1 week Have you had back pain in the past? I have never had serious back pain before What makes the pain better? Lying in bed; Pain medicine Have you ever been diagnosed with cancer? Yes Have you ever been diagnosed with arthritis? No Have you ever been diagnosed with osteoporosis or any other bone weakness? No What is your usual health status? I am active and can move normally Anything else you would like to add? I slept in so on black ice on 28 April and I ve been taking Tylenol for the pain and it s not working I also been icing and elevating it 38 year old female presents to [facility] urgent care for evaluation of knee pain. Pt reporting slipping and falling on ice on 04/28/24. Was seen in ER and placed in knee immobilizer. Reports that her knee is very bruised and swollen. This morning, she was notified she has fluid on her knee. Has been using ice, elevation, tylenol, lidocaine patches but states that the pain is severe in knee. Has called ortho for an appointment and is waiting for them to return her call. The following portions of the patient's history were reviewed and updated as appropriate: allergies, current medications, past family history, past medical history, past social history, past surgical history and problem list. Review of Systems Constitutional: Negative for chills, diaphoresis, fatigue and fever. Musculoskeletal: Positive for arthralgias, gait problem and joint swelling. Past Medical History: Diagnosis Date Abdominal [place]) [place] [place] Anemia takes iron Anxiety Asthma Back pain Cervical cancer [place] [place] per pt, but per Dr Kathleen's note: no evidence of cancer 08/31/2016 Chronic abdominal pain Deep vein thrombosis [place] [place] 2018 R leg- last episode 2018- pt states has had dvt 3 times. Dental disease Ectopic Hemorrhage of corpus luteum cyst 2016 Hernia, abdominal History of blood transfusion Kidney stones Migraine PONV (postoperative nausea and vomiting) Shortness of breath Substance abuse [place] [place] Visual impairment Past Surgical History: Procedure Laterality Date APPENDECTOMY CARPAL TUNNEL RELEASE Bilateral CHOLECYSTECTOMY COMPONENT SEPARATION/HERNIA REPAIR/MESH REMOVAL N/A 10/02/2018 Performed by Gustavo Menchaca MD at [facility] CYSTOSCOPY CPT 45920 N/A 04/07/2022 Performed by Domingo Johnson MD at [facility] DAVINCI HYSTERECTOMY SALPINGO OOPHORECTOMY N/A 04/07/2022 Performed by Domingo Johnson MD at [facility] ESOPHAGOGASTRODUODENOSCOPY x3 HYSTERECTOMY HYSTEROSCOPY DILATION CURETTAGE ABLATION ENDOMETRIAL NOVASURE N/A 08/17/2021 Performed by Dennise Sandoval DO at [facility] LYSIS OF ADHESIONS N/A 10/02/2018 Performed by Gustavo Menchaca MD at [facility] REPAIR HERNIA VENTRAL WITH MESH N/A 05/01/2017 Performed by Enrrique Veliz DO at [facility] TUBAL LIGATION 2015 TUMOR EXCISION 2008 behind pancreas Current Outpatient Medications on File Prior to Visit Medication Sig Dispense Refill acetaminophen (TylenoL) 325 mg tablet Take 2 tablets (650 mg total) by mouth every 6 (six) hours as needed for pain. 30 tablet 0 ferrous sulfate 325 (65 FE) mg tablet Take 1 tablet (325 mg total) by mouth in the morning and 1 tablet (325 mg total) in the evening. Take with meals. lidocaine (LIDODERM) 5 % Place 1 patch on the skin daily. Remove & Discard patch within 12 hours or as directed by 30 patch 1 ondansetron ODT (ZOFRAN ODT) 4 mg disintegrating tablet Dissolve 1 tablet (4 mg total) on tongue every 8 (eight) hours as needed for nausea for up to 10 doses. 10 tablet 0 tiZANidine (ZANAFLEX) 4 mg tablet Take 1 tablet (4 mg total) by mouth every 6 (six) hours as needed for muscle spasms. 30 tablet 0 No current facility-administered medications on file prior to visit. Social History Tobacco Use Smoking status: Never Smokeless tobacco: Never Vaping Use Vaping status: Never Used Substance Use Topics Alcohol use: No Alcohol/week: 0.0 standard drinks of alcohol Drug use: No Allergies Allergen Reactions Fish Oil Anaphylaxis Penicillins Anaphylaxis and Other (See Comments) Other reaction(s): Unknown Suboxone [Buprenorphine-Naloxone] Nausea And Vomiting Darvocet A500 [Propoxyphene N-Acetaminophen] Hives Other reaction(s): Unknown Flexeril [Cyclobenzaprine] Hives and Other (See Comments) Ibuprofen Hives and Other (See Comments) Other reaction(s): Unknown Ciprofloxacin Rash The patient is not currently . No LMP recorded (lmp unknown). Patient has had a hysterectomy. Objective: Physical Exam Nursing note reviewed. Constitutional: General: She is awake. She is not in acute distress. Appearance: Normal appearance. She is well-developed. She is not ill-appearing or toxic-appearing. Musculoskeletal: Right knee: Swelling and ecchymosis present. Decreased range of motion. Neurological: Mental Status: She is alert. Psychiatric: Behavior: Behavior is cooperative. Assessment/Plan: Patient was seen in the ER yesterday after sustaining a fall 2 days ago. Patient states that she was walking and slipped on ice outside onto the concrete. She fell directly onto her right side. Stating that she has been having some low back pain, right-sided hip pain, and right knee pain. She was seen in the ER and had CT scan of her lumbar spine, pelvis which resulted negative. She was having right knee pain and they applied a knee immobilizer and asked her to follow-up with ortho. Patient presents to urgent Care virtually to address her persistent knee pain despite elevation, ice, Tylenol, lidocaine patches. She is waiting on ortho to return her call to set up an appointment. She has not had any imaging of her right knee. On virtual exam it does appear that her anterior right knee area is swollen and ecchymotic. She does have some limited range of motion due to pain. She reports that she does have normal sensation in her foot. Her foot does not appear discolored in any way. I did discuss with patient that if her pain is unmanageable at home, she should present back to the ER for pain management. Otherwise, she should wait for ortho to return her call to get set up for a follow-up appointment. I did offer some imaging of her knee which she declined, stating that they would be taking imaging in ortho. She will follow-up as directed. I have discussed my clinical exam findings, testing results, recommendations, risks vs. benefits, and alternative diagnoses with the patient. The patient's chart has been reviewed. In addition, I have made suggestions for prescription medications along with multiple OTC symptom management strategies. Red flag warning signs discussed, as well as the necessity to follow up with PCP, UC, or when to visit the ER. The patient has indicated understanding and expressed agreement with this plan of care. Labs for this visit: Benito was seen today for knee pain. Diagnoses and all orders for this visit: Acute pain of right knee No orders of the defined types were placed in this encounter. Total time spent was 25 minutes: Obtaining and/or reviewing separately obtained history Performing a medically appropriate examination and/or evaluation Counseling and educating the patient/family/caregiver Ordering medications, tests, or procedures Documenting clinical information in the electronic or other health record There are no Patient Instructions on file for this visit. Counseling The patient was counseled regarding prognosis, risks and benefits of treatment options, impressions, instructions for management, importance of compliance with treatment, risk factor reductions and patient and family education If you develop any new, worsening, or concerning symptoms of illness, and are unable to follow up with a private physician, please call here for advice or to the nearest Emergency Department for further care immediately. TERESA Tamez 04/30/24 1506 [facility] Miscellaneous Notes Contract: 66 - patient is having abd pain going into back Called Dr. Pereira and connected to the patient documented [facility] 03-07-2024 Telephone encounter Note Contract: 66 - patient is having abd pain going into back Called Dr. Pereira and connected to the patient [facility] 12-27-2023 History of Presen t illness Narrative Benito Nagel is here for follow-up of a known splenic artery aneurysms. The last imaging we have is from about a year ago when it measured 1.0 x 1.5 cm. This is stable compared to previous measurements. She has had a recent CT without contrast which does not adequately visualize the aneurysms. She has chronic abdominal pain and flare ups with nausea vomiting and constipation. I think a CT with contrast would be appropriate for surveillance of the aneurysms. Although her aneurysms is small and would typically not be treated, her history of chronic abdominal pain in the need for repeated evaluations to rule out splenic artery rupture would be possibly a consideration for endovascular treatment if warranted. We will see what her CT shows discuss it in more detail. documented in this encounter [facility] 12-25-2023 Miscellaneous Notes Patient called the office requesting prescriptions for Prednisone and Zofran. The patient stated she does not have a PCP. Per the patient she is not having any gynecological issues or symptoms. When I asked the patient what the prescriptions were for she stated persistent nausea & inflammation in her chest. Patient was notified that our providers will not prescribe medications for PCP issues. Patient was informed we have not seen her since January 2022. I asked if the patient would like to schedule her annual exam but I could not guarantee she will receive prescriptions that she is requesting. The patient hung up the phone & did not schedule an appointment. [facility] 12-25-2023 Telephone encounter Note Patient called the office requesting prescriptions for Prednisone and Zofran. The patient stated she does not have a PCP. Per the patient she is not having any gynecological issues or symptoms. When I asked the patient what the prescriptions were for she stated persistent nausea & inflammation in her chest. Patient was notified that our providers will not prescribe medications for PCP issues. Patient was informed we have not seen her since January 2022. I asked if the patient would like to schedule her annual exam but I could not guarantee she will receive prescriptions that she is requesting. The patient hung up the phone & did not schedule an appointment. [facility] 12-14-2023 Miscellaneous Notes Patient phones in and is requesting a prescription for Zofran. She is advised that she should contact her primary care provider for this as she is not having gynecological complaints at this time. Venus Tian RN documented in this encounter [facility] 12-14-2023 Telephone encounter Note Patient phones in and is requesting a prescription for Zofran. She is advised that she should contact her primary care provider for this as she is not having gynecological complaints at this time. Venus Tian RN [facility] 10-18-2023 Miscellaneous Notes Called patient and mom answered and stated she will have her call the office to get missed appt from 10/17 rescheduled; please asssit documented in this encounter [facility] 10-18-2023 Telephone encounter Note Called patient and mom answered and stated she will have her call the office to get missed appt from 10/17 rescheduled; please asssit [facility] 05-16-2023 Hospital DischNubia Sy DO - 05/16/2023 10:37 PM EST You were seen for evaluation of abdominal pain. Your CT scan in the emergency department showed constipation. You were noted to have a UTI as well. You will be discharged home with Macrobid, you need to take the entire course of Macrobid and do not skip any of the doses. You also be given GlycoLax that you should take daily to help with constipation. Return the emergency department immediately for any worsening abdominal pain, nausea, vomiting, chest pain, shortness of breath, loss consciousness, fevers, other new or concerning symptoms documented in this encounter [facility] 04-24-2023 Miscellaneous Notes Spoke to patient to assist in scheduling vascular testing and follow up. Patient did want to schedule any follow up and hung up documented in this encounter [facility] 04-24-2023 Telephone encounter Note Spoke to patient to assist in scheduling vascular testing and follow up. Patient did want to schedule any follow up and hung up [facility] 04-19-2023 History of Presen t illness Narrative The OARRS/MAPPS database was reviewed today and found to be appropriate. No indication of medication diversion, or non compliance. TERESA Aragon 04/19/23 1445 documented in this encounter [facility] 06-30-2022 Note [id number] [facility] 06-28-2022 Note Patient Education Ma terials Follows: [facility] 05-03-2022 Hospital Discharg e instructions Avelino Green MD - 05/03/2022 10:22 PM EST Take your medication as indicated and prescribed. If you are given an antibiotic then, make sure you get the prescription filled and take the antibiotics until finished. Drink plenty of water while taking the antibiotics. Avoid drinking alcohol or drinks that have caffeine in it while taking antibiotics. If you were given the medication pyridium (or take over the counter Azo) - do not wear any contacts for the next week since this medication will turn your tears an orange color and will stain the contacts. For pain use acetaminophen (Tylenol) or ibuprofen (Motrin / Advil), unless prescribed medications that have acetaminophen or ibuprofen (or similar medications) in it. You can take over the counter acetaminophen tablets (1 - 2 tablets of the 500-mg strength every 6 hours) or ibuprofen tablets (2 tablets every 4 hours). PLEASE RETURN TO THE EMERGENCY DEPARTMENT IMMEDIATELY for worsening symptoms, inability to urinate, worsening of blood in your urine, or if you develop any concerning symptoms such as: high fever not relieved by acetaminophen (Tylenol) and/or ibuprofen (Motrin / Advil), chills, shortness of breath, chest pain, feeling of your heart fluttering or racing, persistent nausea and/or vomiting, vomiting up blood, blood in your stool, loss of consciousness, numbness, weakness or tingling in the arms or legs or change in color of the extremities, changes in mental status, persistent headache, blurry vision, loss of bladder / bowel. documented in this encounter [facility] Phone: Evaluation note Diagnosis Abdominal pain Abdominal pain, unspecified site documented in this encounter Mine Phone: evaluation note* Diagnosis Onset Date Resolution Status Abdominal pain acute Abdominal pain, right lower quadrant acute Hepatic artery aneurysm acut e Lab test positive for detection of COVID-19 virus acute Splenic artery aneurysm acut e UTI (urinary tract infection) acute [facility] Work Phone: Evaluation note* Diagnosis Sciatica of left side- Primary Sciatica documented in this encounter [facility] Phone: evaluation note* Diagnosis Urinary tract infection in female- Primary Abdominal pain, left upper quadrant documented in this encounter [employer] Work Phone: evaluation noteNo assessment information available [facility] Work Phone: Evaluation note* Diagnosis Acute UTI- Primary Urinary tract infection, site not specified documented in this encounter [facility] Work Phone: evaluation note* Diagnosis Acute cystitis with hematuria- Primary Acute cystitis Constipation, unspecified constipation type [facility] Diagnosis Acute pain of right knee- Primary [facility]* Diagnosis Abdominal spasms S/P hernia repair Other postprocedural status documented in this encounter [facility]* Diagnosis Splenic artery aneurysm ([facility] Primary Aneurysm of splenic artery documented in this encounter [facility]* Diagnosis Onset Date Resolution Status Admit Date Abdominal pain acute August 25, 2:26pm Bipolar 1 disorder acute August 2:26pm History of DVT (deep vein thrombosis) acute August 25, 2024 2: 26pm OCD (obsessive compulsive disorder) acute August 25, 2024 2:26pm Schizophrenia acute August 25 2:26pm Splenic artery aneurysm acute 2024 2:26pm [facility] Work Phone: Hospital Discharge instructions* Instructions* Maxim Carrizales, DO - 09/01/2021 PLEASE RETURN TO THE EMERGENCY DEPARTMENT IMMEDIATELY if your symptoms worsen in anyway or in 1-2 days if not improved for re-evaluation. You should immediately return to the ER for symptoms such as worsening pain, abdominal pain, bloody stools, numbness or weakness to the arms or legs, difficulty with urination or defecation, difficulty with ambulation, fever, coolness or color change to the extremity, chest pain, shortness of breath, a feeling that you are going to pass out, light headed, dizziness. Take your medication as indicated and prescribed. If you are given an antibiotic then, make sure you get the prescription filled and take the antibiotics until finished. Please understand that at this time there is no evidence for a more serious underlying process, butthat early in the process of an illness or injury, an emergency department workup can be falsely reassuring. You should contact your family doctor within the next 48 hours for a follow up appointment THANK YOU!!! From [facility] On behalf of the Emergency Department staff at [facility], I would like to thank you for giving us the opportunity to address your health care needs and concerns. We hope that during your visit, our service was delivered in a professional and caring manner. Please keep [facility] in mind as we walk with you down the path to your own personal wellness. Please expect an automated text message or email from us so we can ask a few questions about your health and progress. Based on your answers, a clinician may call you back to offer help and instructions. Please understand that early in the process of an illness or injury, an emergency department workupcan be falsely reassuring. If you notice any worsening, changing or persistent symptoms please callyour family doctor or return to the ER immediately. Tell us how we did during your visit at [email or web address] and let us know about your experience * Attachments The following attachments cannot be sent through Care Everywhere. * Sciatica ([place]ra[place]) documented in this [facility] Work Phone: Hospital Discharge instructions* Instructions* Savi Grayson, - 09/13/2021 Please take all medications as prescribed. Please follow up with your primary care physician (PCP) by calling tomorrow for the next available appointment. If you do not have a PCP please establish care by calling the clinic or a physician listed below. Please return to emergency department sooner if you develop any worsening symptoms, uncontrolled fevers, uncontrolled vomiting, or any other concerns. [facility] LISTS [facility] LINK: Physician referral, schedule [facility] appointments and general information [phone] or [phone] [place] [id number] Adult Internal Medicine Mon, Tues, Thurs, Fri 8a - 4p Sun - 1p - 4P [facility] Mon, Tues, Thurs, Fri 10a - 4p Sun - 1p - 4p (closed from 12p noon - 1p) Pediatrics Clinic Mon, , , Fri 8:30 a - 4:15p,Wed 12:30p - 4:15p [facility], [address], in [facility] Building Podiatry Clinic [phone] Mon, Wed, and Fri 1:00p to 5:00p Burn/Plastic, ENT, GI, Orthopedics, (Orthopedics D.O.), Surgical, TRAUMA, Urology, Vascular Call for appointment Heart Failure Clinic - [facility] Mon - Fri 8:30a - 4p [facility] [address] [facility] Mon, , , Fri 9a - 5p (closed 12p -1p) Wed - 1p - 5 p [facility] [address] [place] [address] Mon - Sun 8a - 4:30p Pediatric Primary Care/ Adult Primary Care / OB//PRINTING MACHINE MECHANIC/Specialty Clinics [facility] [address] [place] [address] Assistance with applying for chronic intermediate project manager meds (high BP, Diabetes, etc), offered thru programsmade available by various pharmaceutical companies Mon - Sun Call to make appointment [facility] [address] [facility] Mon - Fri 9a - 7p [facility] [address] [place] [address] Adult Medicine, Pediatrics, MANAGER ADOBE Sun - Sun 8:30a - 5p Formerly [facility] [address] Adult Primary Care [phone] Mon - Fri 8a - 12p noon Communicable Disease Clinic [phone] OB/ [phone] - 8a - 4:45p Pediatric Primary Care [phone] Mon - Wed & Fri Sexually Transmitted Disease [phone] M,T,Th,F 1-3p, Room 136 [facility] Program [phone] [facility] Program [phone] [facility] [address] Mon - Fri 8:30a - 5p MANAGER ADOBE Adult Internal Med Pediatrics Neuro/Headache [facility] Adult Medical clinic [phone] Family Practice Clinic [phone] [facility] [address] [facility] Mon - Fri 9a - 5p Tyra [facility] [address] Adult Medicine, Eye Clinic, Dental Patient must be certified homeless Days and hours vary Call for appointment [facility] [address] [facility] OB Mon, Tues, Wed, Fri 9a - 5p Thurs - 9a - 6p Wed (OB only) [facility] [address] [facility] Mon, Tues, Thurs, Fri 9a - 5p (closed 12p -1p) Wed - 1p - 5 p [facility] [address] [facility] Clinics 8a - 5:30 [place] [id number] OB/ Tues - 8a - 4:45p Family Practice Mon - Wed & Fri 8a - 4:45p [facility] [address] [facility] Mon - Sun 8a - 4:30p [address] [id number] Pediatric/Adult Primary Care, OB 8:30am-5pm M-F [facility] [address] [place] [address] Pediatric/Adult Primary Care, 8:30am-5pm M,W,Th [facility] [address] [place] [address] Pediatric/Adult Primary Care 8:30am-5pm M-F [facility] [address] [place] [address] Pediatric: 8:30am-5pm Sunday Adult: 1pm-5pm T,Th Family Physician [facility] Residency [address], [place] [address] Family Practice: 8am-4:30pm M-F [facility] [address] [place] [address] [facility] [address] [place], [place] Mon - Sun 8a - 4:30p [address] [place] [address] Mon - Fri 8a-4:30p Thurs - 8a - 8p [facility] [address] Mon - Sun 9a - 5P Diabetic Education Services Call for appointment [facility] [address] [place] [address] [facility] [address] [place], [place] [id number] [phone] [facility] [address] [place], [place] [id number] [facility] [address] [place], [place] [id number] Miscellaneous Information [facility] First Call for Help H.E.L.P. (Hospital Eligibility Link Program) [phone] or toll-free [facility] [address] [place] [address] HIV Testing Only [address] [place] [address] 12/24/07 * Attachments The following attachments cannot be sent through Care Everywhere. * UTI (Urinary Tract Infection): Female (Iraqi) * Abdominal Pain (Iraqi) [facility] Work Phone: Hospital Discharge instructions Additional Instructions Take oxycodone as prescribed for pain. Take Tylenol as needed for mild to moderate pain. Take nitrofurantoin as prescribed for UTI. Take Zofran as prescribed for nausea. Follow-up with your surgeon for reevaluation at your next regularly scheduled appointment. Return if develop any fevers or chills intractable nausea vomiting or worsening pain not relieved with these measures.[facility] Work Phone: Hospital Discharge instructions Additional Instructions Take antibiotics as prescribed to completion even if you are feeling better Take the pain medications only as needed, do not drive or operate heavy machinery while taking these Call your surgeon tomorrow regarding your pain medications [facility] for worsening [facility] Work Phone: InstructionsNot on filedocumented in this encounter [facility] on filedocumented in this encounter [facility] SystemInstructionsNot on filedocumented in this encounter [facility] SystemInstructionsNot on filedocumented in this encounter [facility] SystemInstructionsNot on filedocumented in this encounter [facility] System Summary Purpose Family History No Family History Records Found Relationship Condition Age at Onset Recorded Date/T criss grandparent Malignant neoplasm of lung Unknown Malignant neoplasm of pancreas Unknown Not Specified Hypertension Unknown Relationship Condition Age at Onset Recorded Date/T criss grandparent Malignant neoplasm of lung Unknown Malignant neoplasm of pancreas Unknown mother Hypertension Unknown Advance Directives No Advanced Directives Records FoundDocuments on File Type Date 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 ACP-Advance Directive 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 Latest Code Status on File Code Status Date Activated Date Inactivated Comments Full Code 01/20/2014 9:05 PM 01/22/2014 4:21 PM Full Code 01/20/2014 3:44 PM 01/20/2014 9:05 PM Full Code 10/15/2013 12:49 PM 10/16/2013 9:13 PM Full Code 10/14/2013 12:24 PM 10/15/2013 12:49 PM Full Code 04/18/2012 2:03 AM 04/20/2012 7:43 PM Advance Directive Response Recorded Date/ Time Advance Directives No May 15, 2021 12:06am Latest Code Status on File Code Status Date Activated Date Inactivated Comments Full Code 01/20/2014 9:05 PM 01/22/2014 4:21 PM Code Status History Code Status Date Activated Date Inactivated Comments Full Code 01/20/2014 3:44 PM 01/20/2014 9:05 PM Full Code 10/15/2013 12:49 PM 10/16/2013 9:13 PM Full Code 10/14/2013 12:24 PM 10/15/2013 12:49 PM Full Code 04/18/2012 2:03 AM 04/20/2012 7:43 PM Date Activated Date Inactivated Comments 08/15/2022 6:06 AM 08/15/2022 4:19 PM Date Activated Date Inactivated Comments 03/12/2021 3:21 PM 03/15/2021 4:52 PM Date Activated Date Inactivated Comments 10/02/2018 5:42 PM 10/04/2018 8:13 PM Latest Code Status on File Code Status Date Activated Date Inactivated Comments Full Code 08/15/2022 6:06 AM 08/15/2022 4:19 PM Code Status History Code Status Date Activated Date Inactivated Comments Full Code 03/12/2021 3:21 PM 03/15/2021 4:52 PM Full Code 10/02/2018 5:42 PM 10/04/2018 8:13 PM Date Activated Date Inactivated Comments 08/15/2022 6:06 AM 08/15/2022 4:19 PM Date Activated Date Inactivated Comments 03/12/2021 3:21 PM 03/15/2021 4:52 PM Date Activated Date Inactivated Comments 10/02/2018 5:42 PM 10/04/2018 8:13 PM Chief Complaint and Reason for Visit Chief Complaint abd pain right side pain rt side pain vag bleeding Reason for Visit Abdominal pain Abdominal pain, right lower quadrant Hepatic artery aneurysm Lab test positive for detection of COVID-19 virus Splenic artery aneurysm UTI (urinary tract infection) Chief Complaint abd pain right side pain rt side pain vag bleeding vaginal beelding stomach pain Reason for Visit Abdominal pain Abdominal pain, right lower quadrant Hepatic artery aneurysm Lab test positive for detection of COVID-19 virus Splenic artery aneurysm UTI (urinary tract infection) Chief Complaint abd pain right side pain rt side pain vag bleeding vaginal beelding stomach pain lt shoulder and lt side pain Reason for Visit Abdominal pain Abdominal pain, right lower quadrant Hepatic artery aneurysm Lab test positive for detection of COVID-19 virus Splenic artery aneurysm UTI (urinary tract infection) Chief Complaint vag bleeding vaginal beelding stomach pain lt shoulder and lt side pain abd pain/ Surgery t-1 Chief Complaint vag bleeding vaginal beelding stomach pain lt shoulder and lt side pain abd pain/ Surgery t-1 pain post surgery Chief Complaint lt shoulder and lt s maureen pain abd pain/ Surgery t-1 pain post surgery rt knee injury-ico [place] [facility] Chief Complaint rt knee injury-ico [place] [facility] Abd Pain/Shoulder Pain Chief Complaint Admit Date Amb Documentation August 22, 2024 9:32am establish/ ER follow up TB August 25 2:26pm Reason for Visit Admit Date Abdominal pain August 25, 2024 2:26pm Bipolar 1 disorder August 25, 2024 2:26pm History of DVT (deep vein thrombosis) Ma y 2024 2:26pm OCD (obsessive compulsive disorder) August 25, 2024 2:26pm Schizophrenia August 25, 2024 2:26pm Splenic artery aneurysm August 25, 2024 2: 26pm Reason for Referral Specialty Diagnoses / Procedures Referred By Suzette hancock Referred To Contact Radiology Diagnoses Splenic artery aneurysm ([facility]) Procedures CT angiogram abdomen and pelvis Vikki Morgan MD [address] [place] [address] [facility] [address] [place] [address] Phone: [phone] Referral ID Status Reason Start Date Expiration Date V isits Requested Visits Authorized [id number] Pending Review 12/27/2023 12/26/2024 1 1 Additional Source Comments INFORMATION SOURCE (unrecogn ized section and content) DATE CREATED AUTHOR 04/01/2018 [facility] DATE CREATED AUTHOR AUTHOR'S ORGANIZ ATION 06/09/2019 [facility] DATE CREATED AUTHOR AUTHOR'S ORGANIZ ATION 08/09/2019 [facility] DATE CREATED AUTHOR AUTHOR'S ORGANIZ ATION 09/02/2021 [facility] DATE CREATED AUTHOR AUTHOR'S ORGANIZ ATION 02/25/2022 [facility] DATE CREATED AUTHOR AUTHOR'S ORGANIZ ATION 05/27/2022 [facility] DATE CREATED AUTHOR AUTHOR'S ORGANIZ ATION 07/01/2022 [facility] DATE CREATED AUTHOR AUTHOR'S ORGANIZ ATION 05/17/2023 [facility] DATE CREATED AUTHOR AUTHOR'S ORGANIZ ATION 12/29/2023 [facility] DATE CREATED AUTHOR AUTHOR'S ORGANIZ ATION 05/04/2024 [facility] DATE CREATED AUTHOR AUTHOR'S ORGANIZ ATION 05/06/2024 [facility] DATE CREATED AUTHOR AUTHOR'S ORGANIZ ATION 09/02/2024 [facility] Reason for Visit (unrecogniz ed section and content) Reason Comments Abdominal Pain Reason Comments Back Pain Reason Comments Pain under left ribs down side of leg. Abdominal Pain left side Reason Comments Abdominal Pain Patient had hysterec chavo 2 weeks ago. Patient reports abdominal pain started last night around 130am. Patient reports nausea but no emesis. Reason Comments Abdominal Pain Vaginal Bleeding Reason Comments Knee Pain Reason Onset Date Comments Med Refill 04/20/2023 Reason Comments Follow-up H/O DVT/ Splenic art brittnee aneurysmC/o nausea and shoulder pain, pain in back of head Reason Onset Date Comments having abd pain going into back. 03/07/2024 Reason Onset Date Comments Consult 06/17/2024 Scheduled Active and Recently Administ ered Medications (unrecognized section and content) Medication Order 2020 12/07/2020 12/08/2020 0.9 % sodium chloride bolus (COMPLETED) 1,000 mL, Intravenous, at 1,000 mL/hr, Administer over 1 Hours, ONCE, On Sun12/08/20 at 1700, For 1 dose 1713 (New Bag - Prov ider: Helen Lei RN)1824 (Stopped - Provider: Helen Lei RN) 0.9 % sodium chloride bolus (COMPLETED) 80 mL, Intravenous, at 160 mL/hr, Administer over 0.5 Hours, ONCE, On Sun12/08/20 at 1700, For 1 dose 1727 (New Bag - Prov ider: Nathalie Rinaldi)1757 (Stopped - Provider: Helen Lei RN) morphine (PF) injection 2 mg (COMPLETED) 2 mg, Intravenous, ONCE, On Sun12/08/20 at 1700, For 1 dose 171 (Given - Provid er: Helen Lei RN) morphine (PF) injection 2 mg (COMPLETED) 2 mg, Intravenous, ONCE, On Sun12/08/20 at 1945, For 1 dose 193 (Given - Provid er: Maryellen Wu RN) ondansetron (ZOFRAN) injection 4 mg (COMPLETED) 4 mg, Intravenous, ONCE, On Sun12/08/20 at 1700, For 1 dose 1713 (Given - Provid er: Helen Lei RN) PRN Medication Order 2020 12/07/2020 12/08/2020 aluminum & magnesium hydroxide-simethicone (MAALOX) 200-200-20 MG/5ML suspension 30 mL (COMPLETED) 30 mL, Oral, ONCE PRN, Indigestion, Starting on Sun12/08/20 at 1819, For 1 dose 1826 (Given - Provid er: Helen Lei RN) iopamidol (ISOVUE-370) 76 % injection 75 mL (COMPLETED) 75 mL, Intravenous, IMG ONCE PRN, Other, Starting on Sun12/08/20 at 1657, For 1 dose 1727 (Given - Provid er: Nathalie Rinaldi) sodium chloride flush 0.9 % injection 10 mL 10 mL, Intravenous, PRN, Line Care, Starting on Sun12/08/20 at 1657 1728 (Given - Provid er: Nathalie Rinaldi) Scheduled Medication Order 08/30/2021 08/31/2021 09/01/2021 HYDROcodone-acetaminophen (NORCO) 5-325 MG per tablet 1 tablet (COMPLETED) 1 tablet, Oral, ONCE, 1 dose, On Pamela 09/01/21 at 0015, Maximum dose of acetaminophen is 4000 mg from all sources in 24 hours. 0016 (Given - Provid er: Maribel Macias RN) ketorolac (TORADOL) injection 30 mg Ketorolac is contraindicated in patients with advanced renal impairment and in patients at risk of renal failure due to volume depletion. For 65 years of age and older OR weight less than 50 kg, use 15 mg IV every 6 hours; MAX dose: 60 mg/day. Dose greater than 30 mg must be administered via intramuscular route. Do not administer for more than 5 days., 30 mg, IntraMUSCular, ONCE, 1 dose, On Sun08/31/21 at 2330 0017 (Not Given - Provider: Maribel Macias RN - Reason: Other - Comment: allergy) orphenadrine (NORFLEX) injection 60 mg (COMPLETED) 60 mg, IntraMUSCular, ONCE, 1 dose, On Sun08/31/21 at 2330 2354 (Given - Provider: Maribel Macias RN) predniSONE (DELTASONE) tablet 40 mg (COMPLETED) 40 mg, Oral, ONCE, 1 dose, On Pamela 09/01/21 at 0015 0016 (Given - Provid er: Maribel Macias RN) Scheduled Medication Order 09/11/2021 09/12/2021 09/13/2021 0.9 % sodium chloride bolus (COMPLETED) 1,000 mL (18.2 mL/kg), IntraVENous, at 1,000 mL/hr, Administer over 1 Hours, ONCE, On Sun09/12/21 at 2345, For 1 dose 0004 (New Bag - Prov ider: Catrina Heart RN)0100 (Stopped - Provider: Catrina Heart RN) 0.9 % sodium chloride bolus (COMPLETED) 80 mL (1.46 mL/kg), IntraVENous, at 480 mL/hr, Administer over 10 Minutes, ONCE, On Sun09/13/21 at 0100, For 1 dose 0134 (Stopped - Prov ider: Yoly Ahuja)0135 (New Bag - Provider: Yoly Ahuja)0157 (Stopped - Provider: Catrina Heart RN) doxycycline monohydrate (MONODOX) capsule 100 mg (COMPLETED) 100 mg, Oral, ONCE, 1 dose, On Sun09/13/21 at 0315, Antimicrobial Indications: Urinary Tract Infection, This medication can interact with tube feedings (TF)- obtain MD order to manage. Recommend holding TF for 1 h before and 2 h after dose. Take 1 h before or 2 h after dairy, calcium, iron, magnesium, aluminum or zinc. 0337 (Given - Provid er: Catrina Heart RN) morphine sulfate (PF) injection 4 mg (COMPLETED) 4 mg, IntraVENous, ONCE, 1 dose, On Sun09/12/21 at 2345 0016 (Given - Provid er: Catrina Heart RN) morphine sulfate (PF) injection 4 mg (COMPLETED) 4 mg, IntraVENous, ONCE, 1 dose, On Sun09/13/21 at 0115 0138 (Given - Provid er: Catrina Heart RN) ondansetron (ZOFRAN) injection 4 mg (COMPLETED) 4 mg, IntraVENous, ONCE, 1 dose, On Sun09/12/21 at 2345 0016 (Given - Provid er: Catrina Heart RN) PRN Medication Order 09/11/2021 09/12/2021 09/13/2021 iopamidol (ISOVUE-370) 76 % injection 75 mL (COMPLETED) 75 mL, IntraVENous, IMG ONCE PRN, 1 dose, Starting on Sun09/13/21 at 0047, Until Discontinued, Other 013 (Given - Provid er: Yoly Ahuja) sodium chloride flush 0.9 % injection 10 mL 10 mL, IntraVENous, PRN, Starting on Sun09/13/21 at 0047, Until Discontinued, Line Care 0135 (Given - Provid er: Yoly Ahuja) Scheduled Medication Order 05/01/2022 05/02/2022 05/03/2022 0.9 % sodium chloride bolus (COMPLETED) 100 mL (1.81 mL/kg), IntraVENous, at 49.6 mL/hr, Administer over 121 Minutes, ONCE, On Sun05/03/22 at 211, For 1 dose 2124 (New Bag - Prov ider: Ivory Wu)2139 (Stopped - Provider: Ambar Mitchell RN) cephALEXin (KEFLEX) capsule 500 mg (COMPLETED) 500 mg, Oral, ONCE, 1 dose, On Sun05/03/22 at 2230, Antimicrobial Indications: Urinary Tract Infection 2224 (Given - Provid er: Ambar Mitchell RN) morphine sulfate (PF) injection 4 mg (COMPLETED) 4 mg, IntraVENous, ONCE, 1 dose, On Sun05/03/22 at 2014 2005 (Given - Provid er: Brian Eaton RN) morphine sulfate (PF) injection 4 mg (COMPLETED) 4 mg, IntraVENous, ONCE, 1 dose, On Sun05/03/22 at 2115 2110 (Given - Provid er: Ambar Mitchell RN) ondansetron (ZOFRAN) injection 4 mg (COMPLETED) 4 mg, IntraVENous, ONCE, 1 dose, On Sun05/03/22 at 2014 2003 (Given - Provid er: Brian Eaton RN) orphenadrine (NORFLEX) injection 60 mg (COMPLETED) 60 mg, IntraMUSCular, ONCE, 1 dose, On Sun05/03/22 at 2230 222 (Given - Provid er: Ambar Mitchell RN) phenazopyridine (PYRIDIUM) tablet 200 mg 200 mg, Oral, ONCE, 1 dose, On Sun05/03/22 at 2230, May cause discoloration of urine. 2239 (Not Given - Pr ovider: Ambar Mitchell RN - Reason: Patient/family refused) PRN Medication Order 05/01/2022 05/02/2022 05/03/2022 iopamidol (ISOVUE-370) 76 % injection 75 mL (COMPLETED) 75 mL, IntraVENous, IMG ONCE PRN, 1 dose, Starting on Sun05/03/22 at 2107, Until Sun05/03/22 at 2123, Other 2123 (Given - Provid er: Ivory Wu) sodium chloride flush 0.9 % injection 10 mL 10 mL, IntraVENous, PRN, Starting on Sun05/03/22 at 2107, Until Discontinued, Line Care 2124 (Given - Provid er: Ivory Wu) Scheduled Medication Order 05/14/2023 05/15/2023 05/16/2023 morphine injection 4 mg (COMPLETED) 4 mg, IntraVENous, ONCE, 1 dose, On Sun05/16/23 at 1945 1956 (Given - Provid er: Chuy Sanford) nitrofurantoin (macrocrystal-monohydrate) (MACROBID) capsule 100 mg (COMPLETED) 100 mg, Oral, ONCE, 1 dose, On Sun05/16/23 at 2145, Antimicrobial Indications: Urinary Tract Infection 2201 (Given - Provid er: Gabriela Sandoval RN) ondansetron (ZOFRAN) injection 4 mg (COMPLETED) 4 mg, IntraVENous, ONCE, 1 dose, On Sun05/16/23 at 1945 1957 (Given - Provid er: Chuy Sanford) orphenadrine (NORFLEX) injection 60 mg (COMPLETED) 60 mg, IntraMUSCular, ONCE, 1 dose, On Sun05/16/23 at 2245 224 (Given - Provid er: Gabriela Sandoval RN) sodium chloride 0.9 % bolus 1,000 mL (COMPLETED) 1,000 mL (18.1 mL/kg), IntraVENous, at 1,000 mL/hr, Administer over 1 Hours, ONCE, On Sun05/16/23 at 194, For 1 dose 1953 (New Bag - Prov ider: Chuy Sanford)2123 (Stopped - Provider: Gabriela Sandoval RN) Care Teams (unrecognized sec tion and content) Team Status: Inactive Member Role Status Dates PHYSICIAN NO FAMILY Primary Care Provider Active Curt Ferrer , DO Emergency Provider Active Team Status: Inactive Member Role Status Dates NON STAFF Primary Care Provider Active Car Hawkins PA-C Emergency Provider Active Doyle Herron , DO Admit Provider, Attending Provi mitul Active Team Status: Inactive Member Role Status Dates NON STAFF Primary Care Provider Active Angelito Barrios , DO Emergency Provider Active Parvez Lazo , DO RES Active Team Status: Inactive Member Role Status Dates NON STAFF Primary Care Provider Active Darrion De L aPaz , DO Emergency Provider Active Team Status: Active Member Role Status Dates PHYSICIAN NO FAMILY Primary Care Provider Active Team Status: Inactive Member Role Status Dates PHYSICIAN NO FAMILY Primary Care Provider Active Angelito Barrios , DO Emergency Provider Active Team Status: Inactive Member Role Status Dates Enrrique Diallo MD Emergency Provider Active NON STAFF Primary Care Provider Active Team Status: Active Member Role Status Dates NON STAFF Primary Care Provider Active Team Status: Inactive Member Role Status Dates Aimee Lambert , DO Emergency Provider Active PHYSICIAN NO FAMILY Primary Care Provider Active Team Status: Inactive Member Role Status Dates Phoebe Yee , DO Primary Care Provider Active Aimee Lambert , DO Emergency Provider Active Team Status: Active Member Role Status Dates Phoebe Yee , DO Primary Care Provider Active Corporate Account Executive Relationship Specialty Start Date End Date No Pcp, [place] [address] PCP - General Family Medicine 10/30/23 [employer] 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 Utilization Management 01/03/17 Corporate Account Executive Relationship Specialty Start Date End Date Ivory Bear, [facility] [address], [place] [address] PCP - General Family Medicine 03/29/22 [employer] SALES 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 Utilization Management 01/03/17 Corporate Account Executive Relationship Specialty Start Date End Date Ivory Bear, [facility] [address], [place] [address] PCP - General Family Medicine 03/29/22 [employer] SALES 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 Utilization Management 01/03/17 Corporate Account Executive Relationship Specialty Start Date End Date Ivory Bear, [employer] [address], [place] [address] PCP - General Family Medicine 03/29/22 [facility] [employer] SALES 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 Utilization Management 01/03/17 Corporate Account Executive Relationship Specialty Start Date End Date [place] SALES 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 Utilization Management 01/03/17 Corporate Account Executive Relationship Specialty Start Date End Date No Pcp, [place] [address] PCP - General Family Medicine 10/30/23 [facility] [employer] SALES 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 Utilization Management 01/03/17 Corporate Account Executive Relationship Specialty Start Date End Date No Pcp, [place] [address] PCP - General Family Medicine 10/30/23 [facility] SALES 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 Utilization Management 01/03/17 Corporate Account Executive Relationship Specialty Start Date End Date No Pcp, [place] [address] PCP - General Family Medicine 10/30/23 [place] [employer] SALES 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 Utilization Management 01/03/17 Corporate Account Executive Relationship Specialty Start Date End Date No Pcp, [place] [address] PCP - General Family Medicine 10/30/23 [place] SALES 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 Utilization Management 01/03/17 Team Status: Active Member Role Status Dates Giovanna Anderson APRN [employer]ANT-C Primary Care Provider Active Team Status: Active Member Role Status Dates Giovanna Anderson APRN [employer] CONSULTANT-C Primary Care Provider Active Start: August 21, 2024 Helen Jones DO Attending Provider Act lisa Start: August 21, 2024 Team Status: Active Member Role Status Dates Giovanna Anderson APRN [employer] CONSULTANT-C Primary Care Provider Active Start: August 22, 2024 Katie Landon CMA Attending Provider Active Start: August 22, 2024 Team Status: Inactive Member Role Status Dates Giovanna Anderson APRN [employer] CONSULTANT-C Primary Care Provider, Attending Provider Active Start: August 25, 2024 End: August 25, 2024 Ordered Prescriptions (unrec ognized section and content) Prescription Sig Dispensed Refills Start Date End Da te orphenadrine (NORFLEX) 100 MG extended release tablet Take 1 tablet by mouth 2 times daily for 10 days 20 tablet 0 09/01/2021 09/11/2021 predniSONE (DELTASONE) 10 MG tablet Take 4 tablets by mouth once daily for 5 days 20 tablet 0 09/01/2021 09/11/2021 Prescription Sig Dispensed Refills Start Date End Da te doxycycline hyclate (VIBRA-TABS) 100 MG tablet Take 1 tablet by mouth 2 times daily for 10 days 20 tablet 0 09/13/2021 09/23/2021 Prescription Sig Dispensed Refills Start Date End Da te cephALEXin (KEFLEX) 500 MG capsule Take 1 capsule by mouth 2 times daily for 7 days 14 capsule 0 05/03/2022 05/10/2022 Prescription Sig Dispensed Refills Start Date End Da te acetaminophen (TYLENOL) 500 MG tablet Take 2 tablets by mouth 3 times daily for 7 days 42 tablet 0 05/16/2023 05/23/2023 methocarbamol (ROBAXIN-750) 750 MG tablet Take 1 tablet by mouth 3 times daily for 4 days 12 tablet 0 05/16/2023 05/20/2023 lidocaine 4 % external patch Place 1 patch onto the skin daily 30 patch 0 05/16/2023 06/15/2023 polyethylene glycol (GLYCOLAX) 17 GM/SCOOP powder Take 17 g by mouth daily as needed (take daily to help with constipation) 510 g 0 05/16/2023 06/15/2023 nitrofurantoin, macrocrystal-monohydrate , (MACROBID) 100 MG capsule Take 1 capsule by mouth 2 times daily for 5 days 10 capsule 0 05/16/2023 05/21/2023 Goals (unrecognized section and content) Goals may be documented in a n alternate sectionGoals may be documented in an alternate sectionGoals may be documented in an alternate sectionGoals may be documented in an alternate sectionGoals may be documented in an alternate section FOR RECORDS PERTAINING TO PATIENTS WHO ARE OR HAVE BEEN ENROLLED IN A CHEMICAL DEPENDENCY/SUBSTANCEABUSE PROGRAM, SOME INFORMATION MAY BE OMITTED. This clinical summary was aggregated from multiple sources. Caution should be exercised in using it in the provision of clinical care. This summary normalizes information from multiple sources, and as a consequence, information in this document may materially change the coding, format and clinical context of patient data. In addition, data may be omitted in some cases. CLINICAL DECISIONS SHOULD BE BASED ON THE PRIMARY CLINICAL RECORDS. [facility] [employer] [facility]. provides no warranty or guarantee of the accuracy or completeness of information in this document.
--- OUTSIDE RECORDS SUMMARY | 2024-09-20 17:07 | XMS_ITS | Encounter Summary ---
Author Organization [employer] Address [id number] [address] [place] [address] Care Team Providers Care Compliance And Control Analyst Name Role Phone No Pcp, No Pcp Primary Care Provider Unavailabl e Encounter Details Date Type Department Care Team (Late st Contact Info) Description 06/24/2021 Telephone [facility] [address] [place] [id number] Marilee Soto MA Social History Tobacco Use [...] Telephone Encounter - Marilee Soto MA - 06/24/2021 12:22 PM EST I spoke with patient earlier and called to receive the ER report from Prabhjot. I tried to call patient back to schedule an appt in office after talking with Dr. Sandoval. No answer from patient and could not leave VM documented in this encounter Plan of Treatment [...] documented as of this encounter Care Teams Compliance And Control Analyst Relationship Specialty Start Date End Date No Pcp, [place] [id number] PCP - General Family Medicine 10/30/23 [employer] SUPERVISOR Utilization Management 01/03/17 documented as of this encounter
--- NOTE | 2024-09-20 17:12 | ECG_ITS ---
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 Measurements Intervals [place] Rate: 78 P: 77 GA: 158 QRS: 90 QRSD: 82 T: 60 QT: 370 QTc: 404 Interpretive Statements 1100 Sinus rhythm 9110 normal ECG Compared to ECG 10/15/2023 13:59:31 Sinus arrhythmia no longer present Electronically Signed On 09-21-2024 7:13:41 EDT by LEANDRA SOLIS M.D.
--- NOTE | 2024-09-20 17:28 | ED.ABDPAIN1 ---
HPI - Abdominal Pain General Chief Complaint: Abdominal Pain Stated Complaint: Dizziness Time Seen by Provider: 09/20/24 17:01 Source: patient Mode of arrival: ambulance Limitations: no limitations History of Present Illness HPI narrative: The patient is coming to the ER with a left lower quadrant abdominal pain that is associated with multiple symptoms including dizziness and left sided body numbness, the patient mentioned that she was ready coming here by her car when apparently she stopped and called EMS because of severe pain, patient was provided with fentanyl twice 25 mcg before arrival by the EMS The patient pain has been going on at least for a while but over the last 2 days according to her she got worse 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 She also mentioned have a history of hernia repair The patient mentioned that for the last 2 days she has been having pain that is severe comes in waves Related Data Previous Rx's ?Medication ?Instructions ?Recorded ondansetron 4 mg disintegrating 4 mg PO Q6H PRN nausea and 08/22/24 tablet vomiting #10 tabs Allergies Allergy/AdvReac Type Severity Reaction Status Date / Time cyclobenzaprine (From Allergy Severe shortness Verified 09/20/24 16:59 Flexeril) of breath ibuprofen (From Motrin) AdvReac Severe shortness Verified 09/20/24 16:59 of breath acetaminophen (From AdvReac Hives Verified 09/20/24 16:59 Darvocet-N) Penicillins AdvReac Anaphylaxis Verified 09/20/24 16:59 propoxyphene (From AdvReac Hives Verified 09/20/24 16:59 Darvocet-N) Review of Systems ROS Status of ROS 10 or more systems reviewed and unremarkable except as noted in history and below PFSH PFS Social History Little interest or pleasure in doing things: not at all Feeling down, depressed, or hopeless: not at all Exam Narrative Exam Narrative: Nurses notes and vital signs reviewed and patient is not hypoxic. General: Well-appearing and in no apparent distress. Skin: Warm, dry, no pallor noted. No rash. Head: Normocephalic, atraumatic. Neck: Supple, non-tender. Eye: Pupils are equal, round and EOMI. No scleral icterus. Ears, Nose, Mouth, and Throat: TM are clear, no nasal mucosal hypertrophy. Oral mucosa is moist, no posterior oropharynx erythema, uvula is mid-line Cardiovascular: Regular Rate and Rhythm without murmur, gallop or rub. Respiratory: No accessory muscle use or respiratory distress. Lungs are clear to auscultation, no wheezing, rales or rhonchi Chest Wall: no tenderness Back: No midline thoracic or lumbar vertebral tenderness. No CVA tenderness Musculoskeletal: normal ROM, no calf or popliteal tenderness, no lower extremity edema/swelling and there is good anterior tibial pulse bilaterally GI: Abdomen is soft, non-distended. Normal bowel sounds. No masses appreciated. No tenderness to palpation. No rebound, guarding, or rigidity noted. Neurological: A&O x4. No cranial nerve dysfunction observed. No truncal ataxia. Moves all extremities. Sensation intact. Psychiatric: Cooperative and interactive. Normal mood and affect. Constitutional Vital Signs, click to edit/add: Last Vital Signs Temp 98.6 F 09/20/24 17:00 Pulse 83 09/20/24 17:00 Resp 24 H 09/20/24 17:00 BP 113/80 09/20/24 17:00 Pulse Ox 99 09/20/24 17:00 Course Vital Signs Vital signs: Vital Signs Temperature 98.6 F 09/20/24 17:00 Pulse Rate 83 09/20/24 17:00 Respiratory Rate 24 H 09/20/24 17:00 Blood Pressure 113/80 09/20/24 17:00 Pulse Oximetry 99 09/20/24 17:00 Temperature 98.6 F 09/20/24 17:00 Pulse Rate 83 09/20/24 17:00 Respiratory Rate 24 H 09/20/24 17:00 Blood Pressure 113/80 09/20/24 17:00 Pulse Oximetry 99 09/20/24 17:00 MDM - Abdominal Pain MDM Narrative Medical decision making narrative: The patient EKG in the ER showing sinus rhythm with a heart rate of [address] elevation or depression The patient endorsed multiple symptoms including dizziness that left leg and upper extremity numbness send the also left lower quadrant abdominal pain It was noted that the patient had a previous presentation where she had a workup for abdominal pain that showed no acute pathology had multiple CAT scan over the last few months that were negative for any acute pathology The patient already provided with fentanyl before my evaluation and she was not having any pain The patient mentioned that she have a history of hernia repair she is not sure if she had a history of hysterectomy or not and on the CAT scan reviewed before it showed that the patient have unremarkable reproductive system The only reason that need to be ruled out right now is ovarian torsion Awaiting the results of the ultrasound the patient care will be transferred to Dr. Manley Lab Data Labs: Lab Results 09/20/24 Range/Units 17:31 WBC 5.1 (4.0-11.0) 10^3/uL RBC 4.20 (4.20-5.40) 10^6/uL Hgb 13.0 (12.0-16.0) g/dL Hct 37.3 (36.0-48.0) % MCV 88.8 (81.0-99.0) fL MCH 31.0 (26.7-34.0) pg MCHC 34.9 (29.9-35.2) g/dL RDW 12.4 (11.0-15.0) % Plt Count 151 (150-450) 10^3/uL MPV 10.6 (9.5-13.5) fL Neut % (Auto) 59.5 (43.0-75.0) % Lymph % (Auto) 28.5 (20.5-60.0) % [place] % (Auto) 7.3 (1.7-12.0) % Eos % (Auto) 3.9 (0.9-7.0) % Baso % (Auto) 0.6 (0.2-2.0) % Neut # (Auto) 3.0 (1.4-6.5) 10^3/uL Lymph # (Auto) 1.5 (1.2-3.8) 10^3/uL [place] # (Auto) 0.4 (0.3-0.8) 10^3/uL Eos # (Auto) 0.2 (0.0-0.7) 10^3/uL Baso # (Auto) 0.0 (0.0-0.1) 10^3/uL Abs Immat Gran (auto) 0.01 (0.00-0.03) 10^3/uL Imm/Tot Granulo (auto) 0.2 (0.0-0.5) % Sodium 143 (136-145) mmol/L Potassium 3.7 (3.5-5.1) mmol/L Chloride 108 H (98-107) mmol/L Carbon Dioxide 28.6 (21.0-32.0) mmol/L Anion Gap 10.1 BUN 11.0 (7.0-18.0) mg/dL Creatinine 0.76 (0.55-1.02) mg/dL Est GFR ( Amer) >60 (>=60 mL/min/1.73m^2) Est GFR (Non-Af Amer) >60 (>=60 mL/min/1.73m^2) BUN/Creatinine Ratio 14.5 Glucose 93 (74-106) mg/dL Calcium 8.5 (8.5-10.1) mg/dL Total Bilirubin 0.3 (0.2-1.0) mg/dL AST 13 L (15-37) U/L ALT 15 (14-59) U/L Alkaline Phosphatase 60 (46-116) U/L Troponin I High Sens <4.0 L (4.0-51.3) pg/mL Total Protein 6.4 (6.4-8.2) g/dL Albumin 3.3 L (3.4-5.0) g/dL Globulin 3.1 g/dL Albumin/Globulin Ratio 1.1 Serum HCG, Qual Negative (NEGATIVE) Discharge Plan Discharge Patient Disposition: Still a Patient
[2024-09-20 17:37] LABS: Basophils Percent Auto 0.6 % (0.2-2.0); Eosinophils Absolute Auto 0.2 10^3/uL (0.0-0.7); Eosinophils Percent Auto 3.9 % (0.9-7.0); Hematocrit 37.3 % (36.0-48.0); Immature Granulocytes Abs Auto 0.01 10^3/uL (0.00-0.03); Immature Granulocytes Pct Auto 0.2 % (0.0-0.5); Lymphocytes Absolute Auto 1.5 10^3/uL (1.2-3.8); Lymphocytes Percent Auto 28.5 % (20.5-60.0); Mean Corpuscular HGB Conc 34.9 g/dL (29.9-35.2); Mean Corpuscular Volume 88.8 fL (81.0-99.0); Mean Platelet Volume 10.6 fL (9.5-13.5); Monocytes Absolute Auto 0.4 10^3/uL (0.3-0.8); Monocytes Percent Auto 7.3 % (1.7-12.0); Neutrophils Percent Auto 59.5 % (43.0-75.0); Platelet Count 151 10^3/uL (150-450); Red Cell Distribution Width 12.4 % (11.0-15.0); White Blood Count 5.1 10^3/uL (4.0-11.0)
[2024-09-20 17:57] LABS: HCG Qualitative NEGATIVE (NEGATIVE); Internal Control Within Normal Limits
[2024-09-20 18:01] LABS: Alanine Aminotransferase 15 U/L (14-59); Albumin Globulin Ratio 1.1; Albumin Level 3.3 g/dL (3.4-5.0); Alkaline Phosphatase 60 U/L (46-116); Anion Gap 10.1; Aspartate Amino Transferase 13 U/L (15-37); BUN Creatinine Ratio 14.5; Bilirubin Total 0.3 mg/dL (0.2-1.0); Calcium 8.5 mg/dL (8.5-10.1); Carbon Dioxide 28.6 mmol/L (21.0-32.0); Chloride 108 mmol/L (98-107); Estimated GFR (African America >60 (>=60 mL/min/1.73m^2); Estimated GFR (Non-African Ame >60 (>=60 mL/min/1.73m^2); Globulin 3.1 g/dL; Glucose 93 mg/dL (74-106); Potassium 3.7 mmol/L (3.5-5.1); Sodium 143 mmol/L (136-145); Total Protein 6.4 g/dL (6.4-8.2); Troponin I High Sensitivity <4.0 pg/mL (4.0-51.3)
[2024-09-20 18:54] VITALS: BP 107/73; PULSE 78; O2SAT 100
[2024-09-20 19:27] VITALS: BP 116/77; PULSE 78; O2SAT 99
--- NOTE | 2024-09-20 19:32 | PC.NURSE ---
Disoriented to month
[2024-09-20 20:25] VITALS: BP 114/70; PULSE 78; O2SAT 100
[2024-09-20] MEDS: MECLIZINE HCL 12.5 MG TABLET 25 MG PO (20:45)
[2024-09-20] MEDS: KETOROLAC TROMETHAMINE 10 MG TABLET PO (21:05)
[2024-09-20] MEDS: PROMETHAZINE HCL 25 MG TABLET PO (21:05)
== END 2024-09-20 21:10 | disposition home or self-care (01) ==
PROVIDERS: Emergency Medicine; Emergency Provider Emergency Medicine; PCP Nurse Practitioner Family
DX: R10.32 Left lower quadrant pain (principal); R11.2 Nausea with vomiting, unspecified; R42 Dizziness and giddiness; R20.2 Paresthesia of skin; Z90.710 Acquired absence of both cervix and uterus
CPT/HCPCS: 36415; 76830; 76856; 80053; 80307; 84484; 84703; 85025; 93005; 99285; Q0169

== ENCOUNTER 2024-10-07 08:16 | Outpatient (RCR) | payer OTHER, SELFPAY | END 2024-10-08 09:16 | disposition home or self-care (01) | LOC: HEMC 08:16 | PROVIDERS: PCP Nurse Practitioner Family; Visit Provider Internal Medicine Hematology & Oncology | DX: R10.9 Unspecified abdominal pain (principal); R63.4 Abnormal weight loss; R53.1 Weakness; R53.83 Other fatigue; Z86.718 Personal history of other venous thrombosis and embolism; G89.29 Other chronic pain | CPT/HCPCS: G0463 ==

== ENCOUNTER 2025-03-01 11:45 | Emergency (ER) | payer OTHER, SELFPAY ==
[2025-03-01 11:51] VITALS: BP 119/80; PULSE 68; TEMP 36.5; O2SAT 100; BMI 18.9
--- OUTSIDE RECORDS SUMMARY | 2025-03-01 11:58 | XMS_ITS | Clinical Summary ---
Author Organization [employer] tem Address [id number] [place] [address] Care Team Providers Care Television Presenter Name Role Phone No Pcp, No Pcp Primary Care Provider Unavailabl e Allergies Active AllergyReactionsCriticalityNoted DateCommentsCiprofloxacinRashLow 11/27/2016Propoxyphene N-TpnxplcynwtpwBtevk51/04/2017 Other reaction(s): Unknown Fish JrvJjfhfgkjxjbEwwg93/19/2021CyclobenzaprineHives,Other (See Comments) 04/10/2014IbuprofenHives,Other (See Comments)04/10/2014 Other reaction(s): Unknown PenicillinsAnaphylaxis,Other (See Comments)High04/10/2014 Other reaction(s): Unknown Buprenorphine-NaloxoneNausea And GhfrbzqwGueqva56/09/2018 Medications MedicationSigDispense QuantityRefillsLast FilledStart DateEnd DateStatus ferrous sulfate 325 (65 FE) mg tablet Take 1 tablet (325 mg total) by mouth in the morning and 1 tablet (325 mg total) in the evening. Take with meals.Active lidocaine (LIDODERM) 5 % Indications:Abdominal spasms,S/P hernia repairPlace 1 patch on the skin daily. Remove & Discard patch within 12 hours or as directed by 30 patch ctive acetaminophen (TylenoL) 325 mg tablet Take 2 tablets (650 mg total) by mouth every 6 (six) hours as needed for pain. 30 tablet 03/08/2024ctive ondansetron ODT (ZOFRAN ODT) 4 mg disintegrating tablet Dissolve 1 tablet (4 mg total) on tongue every 8 (eight) hours as needed for nausea for up to 10 doses. 10 tablet 03/08/2024ctive tiZANidine (ZANAFLEX) 4 mg tablet Take 1 tablet (4 mg total) by mouth every 6 (six) hours as needed for muscle spasms. 30 tablet 5Active Active Problems ProblemNoted DateDiagnosed DateOther chronic pain02/12/2023bdominal adhesions due to implanted mesh01/08/2023MS (altered mental status)08/15/2022hest pain, unspecified type08/15/20228326Cqskxbornb11/25/5584Uaujbbonhkbprrs84/23/2022Nausea 04/11/2021ough in adult04/11/2021plenic artery iivatzar29/29/2021Intractable abdominal pain03/11/2021/P hernia rtuyki9706/11/2018Anxiety and depression 01/01/2017Abdominal hfyqgu3901/01/2017Chronic nocexn4301/01/2017Drug addiction 12/28/2016Anxiety about ikubkq0212/04/2016Narcotic abuse12/04/2016Other intervertebral disc displacement, lumbar kxhrps6211/29/2016Chronic pain in left foot11/27/2016Nasal pain09/12/2016Drug-seeking adhovykw38/05/2014History of deep venous ewdeqdneoz00/25/2014 Overview (12/28/2016): Overview: On Lovenox in 2007 for uncertain duration Calf pain L>R LE venous dopplers negative 10/15 Calculus of iievqa4510/15/2013 Overview (12/28/2016): Overview: 5mm non-obstructing stone on Sono @ [facility] Herpes simplex type 2 yimcsiukj93/19/2014 Overview (12/28/2016): Overview: +Serologies 10/04 Patient denies Hx of outbreak or prodrome No use of Valtrex Resolved Problems ProblemNoted DateDiagnosed DateResolved DatePre-op /07/2022 02/12/2023ervical intraepithelial neoplasia grade Encounters DateTypeDepartmentCare DtnsVaxxqmvstfe17/28/2025Travelfrom Last 3 Months Immunizations ImmunizationAdministration DatesNext DueInflZully posada Trivalent Preservative 04/20/2012Tdap12/11/2013,04/20/2012 Family History Medical HistoryRelationNameCommentsAnuerysmFatherBRAINCancerFatherbrainCOPD Maternal GrandfatherDiabetesMaternal GrandfatherHeart diseaseMaternal GrandfatherCOPDMaternal GrandmotherCancerMaternal GrandmotherovarianAsthmaMother CancerOtherbreast cancer and cervical cancerAsthmaSisterAnesthesia problemsNeg HxRelationNameStatusCommentsFatherDeceasedMaternal GrandfatherMaternal GrandmotherDeceasedMotherAliveOtherSister Social History Tobacco UseTypesPacks/DayYears UsedDateSmoking Tobacco: NeverSmokeless Tobacco: Never Tobacco Cessation:Counseling Given: Not Answered Alcohol UseStandard Drinks/WeekCommentsNo0 (1 standard drink = 0.6 oz pure alcohol)Overall Financial Resource Strain (CARDIA)AnswerDate RecordedHow hard is it for you to pay for the very basics like food, housing, medical care, and heating?Not hard at all02/12/2023HQ-2AnswerDate RecordedTotal Htfga069 PRAPARE - TransportationAnswerDate RecordedIn the past 12 months, has lack of transportation kept you from medical appointments or from getting medications?No 02/12/2023In the past 12 months, has lack of transportation kept you from meetings, work, or from getting things needed for daily living?No02/12/2023 Housing InstabilityAnswerDate RecordedAre you worried or concerned that in the next two months you may not have stable housing that you own, rent or stay in as a part of a household?No02/12/2023hildcareAnswerDate RecordedChildcareUnknown 09/24/2018EmploymentAnswerDate PrufejanWellchrjntFmdmgot17/04/2019Hunger ScreeningAnswerDate RecordedWithin the past 12 months we worried whether our food would run out before we got money to buy more.Never True10/05/2024Within the past 12 months the food we bought just didn't last and we didn't have money to get more.Never True10/05/2024Purpose - LifeAnswerDate RecordedPurpose and direction in vcdaSgubiml05/10/2021CommentsNoSex and Gender Information ValueDate RecordedSex Assigned at BirthNot on fileLegal NyjQznpgg44/06/2015 11:31 AM EDTGender IdentityNot on fileSexual OrientationNot on file Last Filed Vital Signs Vital SignReadingTime TakenCommentsBlood Ahpmybqx203/7506 7:30 PM EDT Tjkrb034110/05/2024 7:30 PM GMCRwkczftsixz00.9 ??C (98.4 ??F)10/05/2024 7:20 PM EDTRespiratory Nmej980010/05/2024 7:30 PM EDTOxygen Uzuzdzgbcg838%10/05/2024 7:30 PM EDTInhaled Oxygen Concentration--Mvaqjz84.7 kg (125 lb)10/05/2024 7:20 PM EDT Bawstl254.6 cm (5' 4 )10/05/2024 7:20 PM EDTBody Mass Index21.46010/05/2024 7:20 PM EDT Plan of Treatment Health MaintenanceDue DateLast DoneCommentsDepression Ffkeqvzde02/16/1998 DTaP,Tdap and Td Vaccines (3 - Td or Tdap), 04/20/2012 Influenza Zskszcy00dult BMI Jhbxwlfob45 Tobacco Xcpayyqxr28Pap DzrlxVyrxjxgvpfpq61/20/2021, 01/26/2021, 01/26/2021, Additional history exists Goals GoalPatient Goal TypeAssociated ProblemsRecent ProgressPatient-Stated?Author <home> Gavin Franco Note: Evaluation of progress towards goal: Safe transition from hospital to home. 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) Acute embolism and thrombosis of unspecified deep veins of right lower extremity (CMS-HCC) Lupus anticoagulant syndrome UNLISTED LAB KKSALmirecx65/28/2025 7:27 AM EDT Other vitamin B12 deficiency anemias 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) Acute embolism and thrombosis of unspecified deep veins of right lower extremity (CMS-HCC) Lupus anticoagulant syndrome UMNRMREynxmia20/28/2025 7:27 AM EDT Other vitamin B12 deficiency anemias 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) Acute embolism and thrombosis of unspecified deep veins of right lower extremity (CMS-HCC) Lupus anticoagulant syndrome CBC WITH AUTO SZMXEJEACKODJnfdobu13/28/2025 7:27 AM EDT Other vitamin B12 deficiency anemias 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) Acute embolism and thrombosis of unspecified deep veins of right lower extremity (CMS-HCC) Lupus anticoagulant syndrome VITAMIN I53Ywkaayz35/28/2025 7:27 AM EDT Other vitamin B12 deficiency anemias 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) Acute embolism and thrombosis of unspecified deep veins of right lower extremity (CMS-HCC) Lupus anticoagulant syndrome THYROID PROFILE INCLUDES TSH UA8Ymtstnm61/28/2025 7:27 AM EDT Other vitamin B12 deficiency anemias 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) Acute embolism and thrombosis of unspecified deep veins of right lower extremity (CMS-HCC) Lupus anticoagulant syndrome IRON AND VALXIogtxzy51/28/2025 7:27 AM EDT Other vitamin B12 deficiency anemias 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) Acute embolism and thrombosis of unspecified deep veins of right lower extremity (CMS-HCC) Lupus anticoagulant syndrome OAVHELSNYyarpvw25/28/2025 7:27 AM EDT Other vitamin B12 deficiency anemias 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) Acute embolism and thrombosis of unspecified deep veins of right lower extremity (CMS-HCC) Lupus anticoagulant syndrome VITAMIN D 25 TAZPDDDGmjnclq48/28/2025 7:27 AM EDT Other vitamin B12 deficiency anemias 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) Acute embolism and thrombosis of unspecified deep veins of right lower extremity (CMS-HCC) Lupus anticoagulant syndrome ERYTHROCYTE SEDIMENTATION RATE (ESR)Yvcigps7812/18/2024 7:27 AM EDT Other vitamin B12 deficiency anemias 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) Acute embolism and thrombosis of unspecified deep veins of right lower extremity (CMS-HCC) Lupus anticoagulant syndrome C-REACTIVE ESHVHDVPteqnoi96/28/2025 7:27 AM EDT Other vitamin B12 deficiency anemias 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) Acute embolism and thrombosis of unspecified deep veins of right lower extremity (CMS-HCC) Lupus anticoagulant syndrome KMXQJCusafhf99/28/2025 7:27 AM EDT Other vitamin B12 deficiency anemias 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) Acute embolism and thrombosis of unspecified deep veins of right lower extremity (CMS-HCC) Lupus anticoagulant syndrome BETA-2 GLYCOPROTEIN BSVXENEXBNPppynww59/28/2025 7:27 AM EDT Other vitamin B12 deficiency anemias 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) Acute embolism and thrombosis of unspecified deep veins of right lower extremity (CMS-HCC) Lupus anticoagulant syndrome EXTRA TUBES BLUE TAJPewlrkq93/28/2025 7:19 AM EDT Other vitamin B12 deficiency anemias 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) Acute embolism and thrombosis of unspecified deep veins of right lower extremity (CMS-HCC) Lupus anticoagulant syndrome EXTRA OIDJGPrnycwn80/28/2025 7:19 AM EDT Other vitamin B12 deficiency anemias 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 IN HOUSE TEST, ADDED TO ANOTHER SPECIMEN.12/18/2024 1:57 PM [facility] LABORATORYSpecimen (Source)Anatomical Location / LateralityCollection Method / VolumeCollection TimeReceived TimeBloodVenous blood / Unknown Venipuncture / Lihoupd5712/18/2024 7:27 AM EDT12/18/2024 7:29 AM EDT Narrative Authorizing ProviderResult TypeResult StatusApjing VIRAMONTES BLOOD ORDERABLESFinal ResultPerforming OrganizationAddressCity/State/ZIP CodePhone Number [facility] [address] [place] [address], [place] [phone] * Erythrocyte Sedimentation Rate (ESR) (12/18/2024 7:27 AM EDT)ComponentValueRef RangeTest MethodAnalysis TimePerformed AtPathologist SignatureESR, Erythrocyte Sedimentation Rate10 - 20 mm/h012/18/2024 2:10 PM [facility] LABORATORYSpecimen (Source)Anatomical Location / LateralityCollection Method / VolumeCollection TimeReceived TimeBloodVenous blood / UnknownVenipuncture / Uttfmbc6112/18/2024 7:27 AM EDT12/18/2024 7:29 AM EDT Narrative Authorizing ProviderResult TypeResult StatusUzma VIRAMONTES BLOOD ORDERABLESFinal ResultPerforming OrganizationAddressCity/State/ZIP CodePhone Number [facility] [address] [place] [address], * Anti cariolipin AB IgG IgA IgM (12/18/2024 7:27 AM EDT)ComponentValueRef Range Test MethodAnalysis TimePerformed AtPathologist SignatureACA IGA<2.00.0 - 19.9 APL12/18/2024 4:06 PM [facility] LABORATORYACA IGG<1.60.0 - 19.9 GPL12/18/2024 4:06 PM [facility] LABORATORYACA IGM2.00.0 - 19.9 MPL12/18/2024 4:06 PM [facility] LABORATORYSpecimen (Source)Anatomical Location / LateralityCollection Method / VolumeCollection TimeReceived TimeBloodVenous blood / UnknownVenipuncture / Dpkgyza7512/18/2024 7:27 AM EDT12/18/2024 7:29 AM EDT Narrative Authorizing ProviderResult TypeResult StatusUzma VIRAMONTES BLOOD ORDERABLESFinal ResultPerforming OrganizationAddressCity/State/ZIP CodePhone Number [facility] [place] [id number], * Thyroid profile includes TSH FT4 (12/18/2024 7:27 AM EDT)ComponentValueRef RangeTest MethodAnalysis TimePerformed AtPathologist SignatureFREE T40.870.61 - 1.60 ng/dL12/18/2024 2:25 PM [facility] LABORATORYTSH2.13 0.49 - 4.67 uIU/mL12/18/2024 2:25 PM [facility] Specimen (Source)Anatomical Location / LateralityCollection Method / Volume Collection TimeReceived TimeBloodVenous blood / UnknownVenipuncture / Unknown 12/18/2024 7:27 AM EDT12/18/2024 7:29 AM EDT Narrative Authorizing ProviderResult TypeResult StatusApjing VIRAMOTNES BLOOD ORDERABLESFinal ResultPerforming OrganizationAddressCity/State/ZIP CodePhone Number [facility] [address] [place] [address], * CBC auto differential (12/18/2024 7:27 AM EDT)ComponentValueRef RangeTest MethodAnalysis TimePerformed AtPathologist SignatureWBC5.84 - 11 x10E9/L 12/18/2024 1:53 PM [facility] LABORATORYRBC Count5.073.8 - 5.2 X10E12/L12/18/2024 1:53 PM [facility] Paipavijag33.411.7 - 15.5 g/dL12/18/2024 1:53 PM [facility] QJQJTDWZSVSlfllireqm69.035 - 47 %12/18/2024 1:53 PM [facility] JCEBFYZTMGHSZ5887 - 100 fL12/18/2024 1:53 PM [facility] VLSWSVFNJXULS80.427 - 34 pg12/18/2024 1:53 PM [facility] SYKUGCYXANNDCZ45.232 - 36 g/dL12/18/2024 1:53 PM [facility] QYSSDWJKGOXXR39.011.5 - 15 %12/18/2024 1:53 PM [facility] LABORATORYPlatelet Mermt988089 - 450 X10E9/L12/18/2024 1:53 PM EDT [facility] LABORATORYMPV9.57 - 12 fL12/18/2024 1:53 PM [facility] LABORATORYNeutrophils %63.1%12/18/2024 1:53 PM [facility] LABORATORYLymphocytes %26.8%12/18/2024 1:53 PM [facility] LABORATORYMonocytes %6.7%12/18/2024 1:53 PM [facility] LABORATORYEosinophils %2.5%12/18/2024 1:53 PM [facility] LABORATORYBasophils %0.9%12/18/2024 1:53 PM [facility] LABORATORYNeutrophils Absolute (A)3.71.5 - 6.6 10*3/uL 12/18/2024 1:53 PM [facility] LABORATORYLymphocytes Absolute 1.61.0 - 3.5 10*3/uL12/18/2024 1:53 PM [facility] Monocytes Absolute0.40.0 - 0.9 10*3/uL12/18/2024 1:53 PM [facility] LABORATORYEosinophils Absolute0.10.0 - 0.4 10*3/uL12/18/2024 1:53 PM [facility] LABORATORYBasophils Absolute0.10.0 - 0.2 10*3/uL 12/18/2024 1:53 PM [facility] LABORATORYDifferential Type AUTOMATED TPZXUUZUYCFF15/28/2025 1:53 PM [facility] LABORATORYSpecimen (Source)Anatomical Location / LateralityCollection Method / VolumeCollection TimeReceived TimeBloodVenous blood / UnknownVenipuncture / Cofykcf3012/18/2024 7:27 AM EDT12/18/2024 7:29 AM EDT Narrative Authorizing ProviderResult TypeResult StatusApjing VIRAMONTES BLOOD ORDERABLESFinal ResultPerforming OrganizationAddressCity/State/ZIP CodePhone Number [facility] [address] [place] [address], * Iron and TIBC (12/18/2024 7:27 AM EDT)ComponentValueRef RangeTest Method Analysis TimePerformed AtPathologist OneovvtvvIVPF6099 - 170 ug/dL12/18/2024 2:13 PM [facility] QIMTGGLTEGQUNRHTUKHDB672369 - 336 mg/dL 12/18/2024 2:13 PM [facility] LABORATORYIRON VFNUGJY783766 - 425 ug/dL12/18/2024 2:13 PM [facility] LABORATORYIRON VNHLNQZBSW4661 - 50 % PGWYNSHBYC01/28/2025 2:13 PM [facility] LABORATORYSpecimen (Source)Anatomical Location / LateralityCollection Method / VolumeCollection TimeReceived TimeBloodVenous blood / UnknownVenipuncture / Srfxbkr7512/18/2024 7:27 AM EDT12/18/2024 7:29 AM EDT Narrative Authorizing ProviderResult TypeResult StatusUzma VIRAMONTES BLOOD ORDERABLESFinal ResultPerforming OrganizationAddressCity/State/ZIP CodePhone Number [facility] [address] [place] [address], [place] [phone] * Beta-2 glycoprotein antibodies (12/18/2024 7:27 AM EDT)ComponentValueRef Range Test MethodAnalysis TimePerformed AtPathologist SignatureBeta-2 Glycoproteins GPI IgG<1.40.0 - 19.9 u/mL12/18/2024 3:19 PM [facility] LABORATORYBeta-2 Glycoproteins GPI IgM1.90.0 - 19.9 u/mL12/18/2024 3:19 PM EDT [facility] LABORATORYBeta-2 Glycoproteins GPI IgA<2.00.0 - 19.9 u/mL12/18/2024 3:19 PM [facility] LABORATORYSpecimen (Source) Anatomical Location / LateralityCollection Method / VolumeCollection Time Received TimeBloodVenous blood / UnknownVenipuncture / Owmquib9912/18/2024 7:27 AM EDT12/18/2024 7:29 AM EDT Narrative Authorizing ProviderResult TypeResult StatusUzma VIRAMONTES BLOOD ORDERABLESFinal ResultPerforming OrganizationAddressCity/State/ZIP CodePhone Number [facility] [address] [place] [address], [place] [phone] * (ABNORMAL) Vitamin D 25 hydroxy (12/18/2024 7:27 AM EDT)ComponentValueRef RangeTest MethodAnalysis TimePerformed AtPathologist SignatureVITAMIN D 25 HYD TOT29.4(L)30.0 - 100.0 ng/mL12/18/2024 2:38 PM [facility] LABORATORYSpecimen (Source)Anatomical Location / LateralityCollection Method / VolumeCollection TimeReceived TimeBloodVenous blood / UnknownVenipuncture / Vecnqtj4712/18/2024 7:27 AM EDT12/18/2024 7:29 AM EDT Narrative [facility] - 12/18/2024 2:38 PM EDT Vitamin D status 25 [place] Vitamin D Deficiency <20 ng/mL Insufficiency ? 20-29 ng/mL Sufficiency ? 30-100 ng/mL Toxicity >100 ng/mL NOTE: A pediatric reference range has not been established by the drug abuse program coordinator of this kit. The [place] [employer] recommends a Vitamin D level of = or >20ng/mL in infants and children. Authorizing ProviderResult TypeResult StatusApjing VIRAMONTES BLOOD ORDERABLESFinal ResultPerforming OrganizationAddressCity/State/ZIP CodePhone Number [address] [place] [address], * Dilute Eddie's Viper Venom time (12/18/2024 7:27 AM EDT)ComponentValueRef RangeTest MethodAnalysis TimePerformed AtPathologist SignatureDILUTE EDDIE'S VIPER VENOMNEGATIVE FOR LUPUS DIMHCRGVRTXDN19/29/2025 10:41 AM [facility] LAB[facility]YSpecimen (Source)Anatomical Location / Laterality Collection Method / VolumeCollection TimeReceived TimeBloodVenous blood / UnknownVenipuncture / Tsnsvzc0012/18/2024 7:27 AM EDT12/18/2024 7:29 AM EDT Narrative Authorizing ProviderResult TypeResult StatusApjing VIRAMONTES BLOOD ORDERABLESFinal ResultPerforming OrganizationAddressCity/State/ZIP CodePhone Number [facility] [address] [place] [address], * C-reactive protein (12/18/2024 7:27 AM EDT)ComponentValueRef RangeTest Method Analysis TimePerformed AtPathologist SignatureC REACTIVE PROTEIN<0.1<=0.7 mg/dL12/18/2024 2:13 PM [facility] LABORATORYSpecimen (Source)Anatomical Location / LateralityCollection Method / VolumeCollection TimeReceived TimeBloodVenous blood / UnknownVenipuncture / Sayluqm5412/18/2024 7:27 AM EDT12/18/2024 7:29 AM EDT Narrative Authorizing ProviderResult TypeResult StatusApjing Guevara MDLAB BLOOD ORDERABLESFinal ResultPerforming OrganizationAddressCity/State/ZIP CodePhone Number [facility] [address] [place] [address], * Folate (12/18/2024 7:27 AM EDT)ComponentValueRef RangeTest MethodAnalysis Time Performed AtPathologist SignatureFOLIC ACID11.1>5.8 ng/mL12/18/2024 2:34 PM [facility] LABORATORYSpecimen (Source)Anatomical Location / LateralityCollection Method / VolumeCollection TimeReceived TimeBloodVenous blood / UnknownVenipuncture / Tiglscn0212/18/2024 7:27 AM EDT12/18/2024 7:29 AM EDT Narrative Authorizing ProviderResult TypeResult StatusUzma Guevara MDLAB BLOOD ORDERABLESFinal ResultPerforming OrganizationAddressCity/State/ZIP CodePhone Number [facility] [address] [place] [address], [place] [phone] * Ferritin (12/18/2024 7:27 AM EDT)ComponentValueRef RangeTest MethodAnalysis TimePerformed AtPathologist NysjgndbvSKBLTFJU4927 - 307 ng/mL12/18/2024 2:31 PM [facility] LABORATORYSpecimen (Source)Anatomical Location / LateralityCollection Method / VolumeCollection TimeReceived TimeBloodVenous blood / UnknownVenipuncture / Jonyddb7512/18/2024 7:27 AM EDT12/18/2024 7:29 AM EDT Narrative Authorizing ProviderResult TypeResult StatusUzma VIRAMONTES BLOOD ORDERABLESFinal ResultPerforming OrganizationAddressCity/State/ZIP CodePhone Number [facility] [address] [place] [address], * Vitamin B12 (12/18/2024 7:27 AM EDT)ComponentValueRef RangeTest MethodAnalysis TimePerformed AtPathologist SignatureVITAMIN [id number] - 914 pg/mL12/18/2024 2:35 PM [facility] LABORATORYSpecimen (Source)Anatomical Location / LateralityCollection Method / VolumeCollection TimeReceived Time BloodVenous blood / UnknownVenipuncture / Bnvnvqw8812/18/2024 7:27 AM EDT 12/18/2024 7:29 AM EDT Narrative Authorizing ProviderResult TypeResult StatusUzma VIRAMONTES BLOOD ORDERABLESFinal ResultPerforming OrganizationAddressCity/State/ZIP CodePhone Number [facility] [address] [place] [address], * Light Blue Top (12/18/2024 7:19 AM EDT)ComponentValueRef RangeTest Method Analysis TimePerformed AtPathologist SignatureExtra TubeAuto Resulted 12/18/2024 9:01 AM EDTPROMEDTAHOE FOREST HOSPITALpecimen (Source) Anatomical Location / LateralityCollection Method / VolumeCollection Time Received TimeBloodVenous blood / Wajpjbg0312/18/2024 7:19 AM EDT12/18/2024 7:31 AM EDT Narrative Authorizing ProviderResult TypeResult StatusUzma VIRAMONTES BLOOD ORDERABLESFinal ResultPerforming OrganizationAddressCity/State/ZIP CodePhone Number [facility] [address] [place] [address], [place] * Pap Smear (02/09/2021 11:28 AM EDT)Specimen (Source)Anatomical Location / LateralityCollection Method / VolumeCollection TimeReceived Time02/09/2021 11:28 AM EDT1 11:29 AM EDT Narrative [facility] - 02/16/2021 8:08 AM EDT [facility] ? [facility] ? [address] [place] [address] ? [place] [address] ? Gynecologic Cytology Consultation ? Patient Name: PINKY BEENA PattersonChastity : 1985 (Age: 35) Gender: F Taken: 02/09/2021 Reported: 02/16/2021 Physician(s): TERESA Lewis Copy To: ?? Med. Rec. #: [id number] Acct: # [id number] Final Cytologic Interpretation ThinPrep Pap Test (Cervical): Satisfactory for evaluation. A transformation zone component is present. NEGATIVE FOR INTRAEPITHELIAL LESION OR MALIGNANCY. ?? [facility] [place]/02/16/2021 Interpretation performed at [facility], [address] [place] [address], License number: [id number]. Electronically Signed Out By ?KIRT Mcghee(ASCP) Date of Last Menstrual Period: ? 01/13/2021 Other Clinical Conditions: R87.615 Unsatisfactory cervix Source of Specimen ??ThinPrep Pap Test (Cervical) ? Thin Prep Pap (ATOMIC PROCESS ENGINEER) Fee Code(s): ?? 97282 The Pap test is a screening test with an inherent, but low, probability of error. The Pap test is primarily effective for the diagnosis and prevention of squamous cell carcinoma. Regular screening iscritical for prevention. ThinPrep liquid-based slides, which meet the Switchboard Installer criteria for automated screening, have been screened by the ThinPrep Imaging System (as of 01/07/07) along with an additional manual rescreening by a business taxes specialist and, if indicated, by a pathologist. Authorizing ProviderResult TypeResult Mckayla Marks APRN-SURVEILLANCE TECHNICIAN PATHOLOGY/CYTOLOGY ORDERABLESFinal ResultPerforming OrganizationAddress City/State/ZIP CodePhone Number COPATH from Last 3 Months or Most Recently Relevant to Health Maintenance Insurance Advance Directives * Full Code (Latest Code Status on File) Date ActivatedDate InactivatedChildren'[facility] Mercy Northlandments08/15/2022 6:06 AM08/15/2022 4:19 PM * Full Code Date ActivatedDate VdilngvganhUfxpxqqn99/20/2021 3:21 PM03/15/2021 4:52 PM * Full Code Date ActivatedDate InactivatedComments10/02/2018 5:42 PM10/04/2018 8:13 PM Care Teams Team MemberRelationshipSpecialtyStart DateEnd Date No Pcp, [place] [address] [facility] 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
--- OUTSIDE RECORDS SUMMARY | 2025-03-01 11:59 | XMS_ITS | Clinical Summary ---
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 60 tablet ctive ondansetron (ZOFRAN) 4 MG tablet Take 4 mg by mouth every 4 hours as needed for Nausea or VomitingActive metoclopramide (REGLAN) 10 MG tablet Take 1 tablet by mouth 3 times daily as needed (nausea) 9 tablet 09/16/2021ctive acetaminophen (TYLENOL) 500 MG tablet Take 2 tablets by mouth 3 times daily for 7 days 42 tablet 05/16/2023ctive Active Problems Patient Care Coordination No te Formatting of this note migh t be different from the original. PATIENT DISMISSED FROM PRACTICE DUE TO NON-COMPLIANCE CONTINUOUS REQUEST FOR PAIN MEDICATION BY PHONE AND NOT COMING IN FOR APPOINTMENTS Blood transfusion 2 units at 23 weeks lovenox 17 OHP H/o DVT delivery x2 H/o PIH BTL paper Signed in [facility] Dated 12/11/13 Rx Acyclovir for suppressive therapy. ProblemNoted DateDiagnosed DateAbdominal pain12/08/2020History of maternal blood transfusion, currently in first lpmncogwf72/25/2015Grand multipara 10/15/2014Hx of PTL ( labor), current evwacxvin22/25/2015nemia iron mgimjhfgrr20/10/2014Drug-seeking /05/2014H/O Right ectopic x210/15/2013 Overview (10/15/2013): MTX x2 Right jfzuyfjspybiaky03/25/2014 Overview (10/15/2013): 5mm non-obstructing stone on Sono @ [facility] Personal history of DVT (deep vein thrombosis) family history both side maternal and rdcbvops64/25/2014 Overview (10/16/2013): On Lovenox in 2007 for uncertain duration Calf pain L>R LE venous dopplers negative 10/15 HSV ygkqvdlaatpn04/19/2014 Overview (10/15/2013): +Serologies 10/04 Patient denies Hx of outbreak or prodrome No use of Valtrex Other known or suspected abnormality, not elsewhere classified, affecting management of mother, antepartum condition or irvarkujjhem35/07/2014History of inadequate care04/18/2012 Overview (10/15/2013): Dermatological Surgeon Consult Resolved Problems ProblemNoted DateDiagnosed DateResolved DateNSVD (normal spontaneous vaginal delivery)Preterm hjizpdfpamgo21Preterm bonujgmdtzfz40 Overview (10/15/2013): MFM Consult 10/14: Urine Cx neg, GC/C: neg Cvx 10/15: Cl/Th/High JAIDA: negative Nausea and Abdominal Pain Overview (10/15/2013): GI consult, consider EGD Lipase pending Other current maternal conditions classifiable elsewhere, vjughwsyhp41/07/2014 01/20/2014H/O delivery x 3 currently on 17 [place] progesteron IM Overview (10/15/2013): 17 [place]-P q Sunday Immunizations ImmunizationAdministration DatesNext DueInfluenza Virus Hytewub0004/20/2012TDaP, ADACEL (age 10y-64y), BOOSTRIX (age 10y+), IM, 0.5mL04/20/2012 Family History Medical HistoryRelationNameCommentsOtherFatherAAAHeart DiseaseMaternal GrandfatherCancerMaternal GrandmotherOvarian CancerMaternal GrandmotherStomach CancerMaternal GrandmotherRelationNameStatusCommentsFatherDeceasedMaternal GrandfatherMaternal GrandmotherMotherAliveOther Social History Tobacco UseTypesPacks/DayYears UsedDateSmoking Tobacco: NeverSmokeless Tobacco: NeverAlcohol UseStandard Drinks/WeekCommentsNo0 (1 standard drink = 0.6 oz pure alcohol)AUDIT-CAnswerDate RecordedQ1: How often do you have a drink containing alcohol?Never10/28/2024Q2: How many drinks containing alcohol do you have on a typical day when you are drinking?Patient does not drink10/28/2024Q3: How often do you have six or more drinks on one occasion?Never10/28/2024Interpersonal Safety Domain Source: IP Abuse ScreeningAnswerDate RecordedPhysical abuseDenies 10/28/2024Verbal ksqkvWlyxxy96/08/2025Emotional lvgujPttmcw56/08/2025Financial xbcfnGheqxe30/08/2025Sexual zmbdrGgriow51/08/2025CommentsNoSex and Gender InformationValueDate RecordedSex Assigned at BirthNot on fileLegal Sex Ktxxkp3206/05/2012 1:46 AM ESTGender IdentityNot on fileSexual OrientationNot on file Last Filed Vital Signs Vital SignReadingTime TakenCommentsBlood Botwqmmu196/6607 3:40 AM EDT Oavif496610/29/2024 3:40 AM IOQVwanegfyzfi34.6 ??C (97.9 ??F)10/29/2024 3:40 AM EDTRespiratory Rmsh932410/29/2024 3:40 AM EDTOxygen Tdqalycvzq90%10/29/2024 3:40 AM EDTInhaled Oxygen Concentration--Ndyirq60.4 kg (120 lb)10/28/2024 9:00 PM EDT Ecivxs325.6 cm (5' 4 )10/28/2024 9:00 PM EDTBody Mass Index20.607 9:00 PM EDT Plan of Treatment Health MaintenanceDue DateLast DoneCommentsDepression Ndwlba7512/06/1997Varicella vaccine (1 of 2 - 13+ 2-dose series)1998Hepatitis B vaccine (1 of 3 - 19+ 3-dose series)2004DTaP/Tdap/Td vaccine (3 - Td or Tdap)12/12/2023 12/11/2013, 04/20/2012Flu vaccine (#1)5106/21/2011COVID-19 Vaccine ( season)5Cervical cancer screenDiscontinuedPap smearDiscontinued 06/11/2013Hepatitis C xjhdonTytfghqfj32/26/2014HIV acbdszZoqorjvky46/05/2014, 10/16/2013HPV (without or with Pap)DiscontinuedHPV vaccine (No Doses Required) CompletedHepatitis A vaccineAged OutNo longer eligible based on patient's age to complete this topicHib vaccineAged OutNo longer eligible based on patient's age to complete this topicMeningococcal (ACWY) vaccineAged OutNo longer eligible based on patient's age to complete this topicMeningococcal B vaccineAged OutNo longer eligible based on patient's age to complete this topicPneumococcal 0-49 years VaccineAged OutNo longer eligible based on patient's age to complete this topicPolio vaccineAged OutNo longer eligible based on patient's age to complete this topic Procedures Procedure NamePriorityDate/TimeAssociated DiagnosisCommentsHIV RAPID 1&2Routine 12/26/2013 3:43 PM EDT HEPATITIS PANEL, FALEQHkhsnis53/26/2014 4:48 AM EDT ORTHOPEDIC MECHANIC ORJBIKQPNicotsg21/19/2014 11:10 AM EST from Last 3 Months or Most Recently Relevant to Health Maintenance Results * HIV Rapid 1&2 (12/26/2013 3:43 PM EDT)ComponentValueRef RangeTest Method Analysis TimePerformed AtPathologist SignatureRapid HIV 1&2NONREACTIVENR 12/29/2013 11:23 AM EDTMHPN LABComment: ? Interpretation: ? The presence of antibody to HIV and its association with the potential infectivity, transmission or diagnosis of AIDS has not been established. Furthermore, a 'Non-Reactive' test result does not exclude the possibility of exposure to or infection with HIV. If the above test result is 'Reactive', the Laboratory will order the confirmatory test. ? The performance characteristics of this test were determined by [facility]. It has not been cleared or approved by the U.S. Food and Drug Administration. The FDA has determined that such clearance is not necessary. Performed at [address] [place] [address] ([phone] Specimen (Source)Anatomical Location / LateralityCollection Method / Volume Collection TimeReceived Time12/26/2013 3:43 PM EDT12/26/2013 3:43 PM EDT Narrative Authorizing ProviderResult TypeResult StatusRodica Nolberto MDIMMUNOLOGY ORDERABLESFinal ResultPerforming OrganizationAddressCity/State/ZIP CodePhone Number [address] [address], [facility] [phone] [facility] * HEPATITIS PANEL, ACUTE (10/16/2013 4:48 AM EDT)ComponentValueRef RangeTest MethodAnalysis TimePerformed AtPathologist SignatureHepatitis B Surface Ag FRLGGPMOBRENC13/26/2014 5:54 AM EDTMHPN LABHepatitis C AbNONREACTIVENR 10/16/2013 5:54 AM EDTMHPN LABComment: ? The hepatitis C procedure used in our laboratory is a Chemiluminescent test specific for three recombinant HCV antigens. ??A negative anti-HCV result indicates that the antibodies to hepatitis C virus are not present at this time. Individuals with reactive anti-HCV should be considered infected and infectious until proven otherwise. ??Confirmation of all equivocal or reactive results is recommended by ordering HCV RNA by PCR. Hep B Core Ab, RjKATRRFRPVXGQUF80/26/2014 5:54 AM EDTMHPN LABHep A IgM JEJMLUNACIBDV28/26/2014 5:54 AM EDTMHPN LABComment:[employer] [address] [place] [id number] ([phone] (Source)Anatomical Location / LateralityCollection Method / VolumeCollection TimeReceived TimeBLOOD SPECIMEN / Vzcswwr1610/16/2013 4:48 AM EDT10/16/2013 5:00 AM EDT Narrative Authorizing ProviderResult TypeResult StatusCassandra Cook DOIMMUNOLOGY ORDERABLESFinal ResultPerforming OrganizationAddressCity/State/[facility] CodePhone Number [facility] [employer] [address] [place] [address], [facility] [phone] [facility] * ORTHOPEDIC MECHANIC Cytology (06/11/2013 11:10 AM EST)ComponentValueRef RangeTest Method Analysis TimePerformed AtPathologist SignatureCytology Report(NOTE) [id number] [facility] ??LABORATORIES CONSULTING PATHOLOGIST [employer] ANATOMIC PATHOLOGY [address] [place] [address]. ??[place], [place] [address] GYNECOLOGIC CYTOLOGY REPORT Patient Name: RENARD VANCE MR#: [id number] Specimen #[id number] Final Diagnosis CERVICAL MATERIAL, (THIN PREP VIAL): Specimen Adequacy: ?Satisfactory for evaluation. ?- Paucity/absence of endocervical transformation zone component. Descriptive Diagnosis: ?Negative for intraepithelial lesion or malignancy. KIRT Garrido(ASCP) Electronically Signed Out dga/06/17/2013 Source: 1: CERVICAL MATERIAL, (THIN PREP VIAL)06/17/2013 12:00 AM [facility] LABSpecimen (Source)Anatomical Location / LateralityCollection Method / VolumeCollection TimeReceived Time06/11/2013 11:10 AM EST06/11/2013 11:10 AM EST Narrative Authorizing ProviderResult TypeResult StatusJennifer Glance DOPATHOLOGY/CYTOLOGY ORDERABLESFinal ResultPerforming OrganizationAddressCity/State/ZIP CodePhone Number [facility] [address] [place] [address], [facility] [phone] from Last 3 Months or Most Recently Relevant to Health Maintenance Insurance Advance Directives * Full Code (Latest Code Status on File) Date ActivatedDate InactivatedComments01/20/2014 9:05 01/22/2014 4:21 PM * Full Code Date ActivatedDate InactivatedComments01/20/2014 3:44 PM01/20/2014 9:05 PM * Full Code Date ActivatedDate InactivatedComments10/15/2013 12:49 PM10/16/2013 9:13 PM * Full Code Date ActivatedDate InactivatedComments10/14/2013 12:24 PM10/15/2013 12:49 PM * Full Code Date ActivatedDate VhfqhhxnedfPbrzmmxm45/27/2012 2:03 AM04/20/2012 7:43 PM
[2025-03-01 12:27] LABS: Glucose Urine UA NEGATIVE (NEGATIVE)
[2025-03-01 12:31] LABS: Hematocrit 44.1 % (36.0-48.0); Hemoglobin 15.0 g/dL (12.0-16.0); Immature Granulocytes Abs Auto 0.01 10^3/uL (0.00-0.03); Immature Granulocytes Pct Auto 0.2 % (0.0-0.5); Lymphocytes Absolute Auto 1.3 10^3/uL (1.2-3.8); Mean Corpuscular HGB Conc 34.0 g/dL (29.9-35.2); Mean Corpuscular Hemoglobin 30.8 pg (26.7-34.0); Mean Corpuscular Volume 90.6 fL (81.0-99.0); Platelet Count 195 10^3/uL (150-450); Red Blood Count 4.87 10^6/uL (4.20-5.40); White Blood Count 4.5 10^3/uL (4.0-11.0)
[2025-03-01] MEDS: ACETAMINOPHEN 500 MG TABLET 1000 MG PO (12:31)
[2025-03-01 12:44] LABS: Alanine Aminotransferase 14 U/L (14-59); Albumin Globulin Ratio 1.2; Albumin Level 4.1 g/dL (3.4-5.0); Alkaline Phosphatase 59 U/L (46-116); Anion Gap 8.0; Aspartate Amino Transferase 16 U/L (15-37); Blood Urea Nitrogen 9.0 mg/dL (7.0-18.0); Calcium 8.7 mg/dL (8.5-10.1); Carbon Dioxide 27.4 mmol/L (21.0-32.0); Chloride 111 mmol/L (98-107); Estimated GFR (African America >60 (>=60 mL/min/1.73m^2); Estimated GFR (Non-African Ame >60 (>=60 mL/min/1.73m^2); Globulin 3.5 g/dL; Glucose 77 mg/dL (74-106); Potassium 3.4 mmol/L (3.5-5.1); Sodium 143 mmol/L (136-145); Total Protein 7.6 g/dL (6.4-8.2)
[2025-03-01 12:44] LABS: Cast Seen? NONE SEEN #/LPF (NONE SEEN); Crystals Seen? None Seen #/HPF (None Seen)
[2025-03-01 12:46] LABS: Urine Culture Indicated YES-FRMC
[2025-03-01 12:57] VITALS: BP 105/66; PULSE 68; O2SAT 98
--- NOTE | 2025-03-01 18:11 | ED.GENADUL1 ---
HPI HPI - General Adult General Chief complaint: Vaginal Bleeding Stated complaint: VAGINAL BLEED/CRAMPS Time Seen by Provider: 03/01/25 11:50 Source: patient Mode of arrival: walk-in History of Present Illness HPI narrative: Patient is a 39-year-old female presenting to the emergency department for complaints of vaginal bleeding. Patient states she had vaginal bleeding earlier this morning. Since her ED arrival, her bleeding has stopped. She states he has a history of partial hysterectomy. Other than vaginal bleeding, she has no other complaints. She has no chest pain or shortness breath. No lightheadedness or dizziness. No palpitations. No nausea or vomiting. No dysuria. Related Data Home Medications ?Medication ?Instructions ?Recorded ?Confirmed ferrous sulfate 325 mg (65 mg 325 mg PO DAILY 03/01/25 03/01/25 iron) tablet (iron) Allergies Allergy/AdvReac Type Severity Reaction Status Date / Time cyclobenzaprine (From Allergy Severe shortness Verified 03/01/25 12:19 Flexeril) of breath dicyclomine (From Bentyl) Allergy Intermediate shortness Verified 03/01/25 12:19 of breath acetaminophen (From Allergy Unknown unknown Verified 03/01/25 12:19 Darvocet-N) methocarbamol (From Robaxin) Allergy hives Verified 03/01/25 12:19 ibuprofen (From Motrin) AdvReac Severe shortness Verified 03/01/25 12:19 of breath Penicillins AdvReac Anaphylaxis Verified 03/01/25 12:19 propoxyphene (From AdvReac Hives Verified 03/01/25 12:19 Darvocet-N) Opioid HPI Opioid Management Most Recent Opioid Data: Last Pain Scale 8 Today, 12:31 Last MAR Pain Assessment Today, 12:31 Ur Phencyclidine Scrn, (NEGATIVE) Negative 06/17/24, 17:45 Review of Systems ROS Status of ROS 10 or more systems reviewed and unremarkable except as noted in history and below PFSH PFSH Social History Little interest or pleasure in doing things: not at all Feeling down, depressed, or hopeless: not at all Exam Narrative Exam Narrative: CONSTITUTIONAL: Well-appearing, answering questions and following commands appropriately SKIN: Was warm and dry. EYES: Sclerae white. EARS, NOSE, THROAT: Moist oral mucosa. RESPIRATORY: Clear to auscultation bilaterally, no wheezes, crackles, or stridor, no use of accessory muscles CARDIOVASCULAR: Normal rate and regular rhythm. There is no S3, S4, murmur, rub. GASTROINTESTINAL: Abdomen is soft, nontender, nondistended. MUSCULOSKELETAL: No peripheral edema. NEUROLOGIC: Patient is awake and alert. Facies were symmetrical. PELVIC: Pelvic exam performed with female nurse simulation technician demonstrated normal external female genitalia. There is no active bleeding or dried blood in the vaginal vault. Constitutional Vital Signs, click to edit/add: Last Vital Signs Temp 97.7 F 03/01/25 11:51 Pulse 68 03/01/25 12:57 Resp 16 03/01/25 12:57 BP 105/66 03/01/25 12:57 Pulse Ox 98 03/01/25 12:57 O2 Del Method Room Air 03/01/25 12:57 Course Vital Signs Vital signs: Vital Signs Temperature 97.7 F 03/01/25 11:51 Pulse Rate 68 03/01/25 11:51 Respiratory Rate 18 03/01/25 11:51 Blood Pressure 119/80 03/01/25 11:51 Pulse Oximetry 100 03/01/25 11:51 Oxygen Delivery Method Room Air 03/01/25 11:51 Temperature 97.7 F 03/01/25 11:51 Pulse Rate 68 03/01/25 12:57 Respiratory Rate 16 03/01/25 12:57 Blood Pressure 105/66 03/01/25 12:57 Pulse Oximetry 98 03/01/25 12:57 Oxygen Delivery Method Room Air 03/01/25 12:57 Medical Decision Making [facility] Narrative Medical decision making narrative: Patient is a 39-year-old female presenting to the emergency department for evaluation of abnormal uterine bleeding. Her vital signs arrival are within normal limits. She is afebrile and hemodynamically stable. Examination as noted above, however is notable for no active vaginal bleeding. Her abdomen soft and nontender. Laboratory studies were unremarkable. No significant electrolyte or metabolic derangement. No evidence of acute kidney injury. No anemia, leukocytosis, or thrombocytopenia. test negative. No transaminitis or hyperbilirubinemia. Urinalysis demonstrated possible UTI, though she has no symptoms of dysuria or increased urinary frequency. Culture sent, and will be treated accordingly. On reevaluation, patient has had no active vaginal bleeding. Unclear as to the exact etiology behind her not resolved vaginal bleeding. However, I do believe she is hemodynamically stable without life-threatening bleed. She was instructed follow-up with her JAVA LEAD ENGINEER for further care. Return precautions were given for any new or concerning symptoms. Patient understands and agrees to the plan. FINAL IMPRESSION: #Acute abnormal uterine bleeding DISPOSITION: Discharged home CONDITION: Good Differential Diagnosis Differential Diagnosis: Abnormal uterine bleeding, fibroids Lab Data Lab results reviewed: Yes I reviewed the patient's lab results Labs: Lab Results 03/01/25 03/01/25 Range/Units 12:06 12:20 WBC 4.5 (4.0-11.0) 10^3/uL RBC 4.87 (4.20-5.40) 10^6/uL Hgb 15.0 (12.0-16.0) g/dL Hct 44.1 (36.0-48.0) % MCV 90.6 (81.0-99.0) fL MCH 30.8 (26.7-34.0) pg MCHC 34.0 (29.9-35.2) g/dL RDW 12.2 (11.0-15.0) % Plt Count 195 (150-450) 10^3/uL MPV 10.5 (9.5-13.5) fL Neut % (Auto) 60.8 (43.0-75.0) % Lymph % (Auto) 29.6 (20.5-60.0) % Franklin % (Auto) 6.7 (1.7-12.0) % Eos % (Auto) 1.8 (0.9-7.0) % Baso % (Auto) 0.9 (0.2-2.0) % Neut # (Auto) 2.7 (1.4-6.5) 10^3/uL Lymph # (Auto) 1.3 (1.2-3.8) 10^3/uL Franklin # (Auto) 0.3 (0.3-0.8) 10^3/uL Eos # (Auto) 0.1 (0.0-0.7) 10^3/uL Baso # (Auto) 0.0 (0.0-0.1) 10^3/uL Abs Immat Gran (auto) 0.01 (0.00-0.03) 10^3/uL Imm/Tot Granulo (auto) 0.2 (0.0-0.5) % Sodium 143 (136-145) mmol/L Potassium 3.4 L (3.5-5.1) mmol/L Chloride 111 H (98-107) mmol/L Carbon Dioxide 27.4 (21.0-32.0) mmol/L Anion Gap 8.0 BUN 9.0 (7.0-18.0) mg/dL Creatinine 0.80 (0.55-1.02) mg/dL Est GFR ( Amer) >60 (>=60 mL/min/1.73m^2) Est GFR (Non-Af Amer) >60 (>=60 mL/min/1.73m^2) BUN/Creatinine Ratio 11.2 Glucose 77 (74-106) mg/dL Calcium 8.7 (8.5-10.1) mg/dL Total Bilirubin 0.5 (0.2-1.0) mg/dL AST 16 (15-37) U/L ALT 14 (14-59) U/L Alkaline Phosphatase 59 (46-116) U/L Total Protein 7.6 (6.4-8.2) g/dL Albumin 4.1 (3.4-5.0) g/dL Globulin 3.5 g/dL Albumin/Globulin Ratio 1.2 Serum HCG, Qual Negative (NEGATIVE) Urine Color Lt. yellow (YELLOW) Urine Clarity Clear (CLEAR) Urine pH 5.5 (5.0-9.0) Ur Specific Jackson >=1.030 A (1.005-1.025) Urine Protein Negative (NEG/TRACE) mg/dL Urine Glucose (UA) Negative (NEGATIVE) mg/dL Urine Ketones Trace A (NEGATIVE) mg/dL Urine Occult Blood Trace-i (NEGATIVE) Urine Nitrite Negative (NEGATIVE) Urine Bilirubin Negative (NEGATIVE) Urine Urobilinogen 0.2 (0.2-1.0) EU/dL Ur Leukocyte Esterase Moderate A (NEGATIVE) Urine RBC 10-20 A (0-2) #/HPF Urine WBC 10-20 A (NONE SEEN) #/HPF Ur Squamous Epith Cells Moderate A (NONE/RARE) #/LPF Urine Crystals None seen (None Seen) #/HPF Urine Bacteria Moderate A (NONE SEEN) #/HPF Urine Casts None seen (NONE SEEN) #/LPF Urine Mucus Moderate A (NONE SEEN) Urine Trichomonas Seen A (NONE SEEN) Ur Culture Indicated? Yes-[facility] Discharge Plan Discharge Chief Complaint: Vaginal Bleeding Clinical Impression: Vaginal bleeding Patient Disposition: Home, Self-Care Time of Disposition Decision: 12:50 Condition: Good Mode of Transportation: Private Vehicle Prescriptions / Home Meds: No Action ferrous sulfate [iron] 325 mg (65 mg iron) tablet 325 mg PO DAILY Print Language: Bermudian Instructions: Abnormal (Dysfunctional) Uterine Bleeding (ED) Referrals: JANEY RICARDO [Primary Care Provider, Unknown] - 1 week Discharge Date/Time: 03/01/25 12:59
== END 2025-03-01 12:59 | disposition home or self-care (01) ==
PROVIDERS: Emergency Provider Student in an Organized Health Care Education/Training Program; PCP Nurse Practitioner Family
DX: N93.9 Abnormal uterine and vaginal bleeding, unspecified (principal); Z90.711 Acquired absence of uterus with remaining cervical stump
CPT/HCPCS: 36415; 80053; 81001; 84703; 85025; 87086; 99283